=== PATIENT | female | born 1960 | race Caucasian/White ===

== ENCOUNTER 2020-06-27 22:05 | Inpatient (IN) | payer MEDICAID, SELFPAY ==
[2020-06-27 22:11] VITALS: BP 145/70; PULSE 114; RESP 29; TEMP 40.5; O2SAT 90; BMI 56.5
--- NOTE | 2020-06-27 22:25 | ECG_ITS ---
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 Measurements Intervals [place] Rate: 97 P: AL: -1 QRS: 41 QRSD: 114 T: 42 QT: 356 QTc: 453 Interpretive Statements sinus rythm MODERATE INTRAVENTRICULAR CONDUCTION DELAY [110+ ms QRS DURATION] NONSPECIFIC ST & T-WAVE ABNORMALITY ABNORMAL RHYTHM ECG Compared to ECG 07/21/2019 22:06:46 There is no change Electronically Signed On 06-29-2020 18:09:45 CDT by Quyen Joshi M.D. [email or web address]
[2020-06-27] MEDS: propofol 1,000 MG/100 ML INJ 4.8 MG IV (22:37)
[2020-06-27] MEDS: rocuronium 10 mg/mL INJ 5mL 50 MG (22:37)
[2020-06-27 22:38] VITALS: BP 135/74; PULSE 120; RESP 39; O2SAT 91
[2020-06-27 22:39] VITALS: RESP 16
[2020-06-27 22:41] LABS: Basophils # 0.1 10^3/uL (0.0-0.1); Basophils % 0.3 %; Eosinophils % 0.1 %; Hematocrit 45.8 % (37.0-47.0); Hemoglobin 13.4 g/dL (11.5-15.3); Lymphocytes # 1.1 10^3/uL (0.8-4.8); Lymphocytes % 4.3 %; Mean Corpuscular HGB Conc 29.3 g/dL (30.0-36.0); Mean Corpuscular Hemoglobin 27.1 pg (28.0-34.0); Mean Corpuscular Volume 92.5 fL (81-99); Mean Platelet Volume 8.7 fL (7.4-10.4); Monocytes # 0.9 10^3/uL (0.2-0.9); Monocytes % 3.6 %; Neutrophils # 22.13 10^3/uL (1.8-7.7); Neutrophils % 90.8 %; Nucleated Red Blood Cells # 0.1 /100WBC; Nucleated Red Blood Cells % 0.2 %; Platelet Count 193 10^3/cmm (130-400); Red Blood Count 4.95 10^6/uL (4.1-5.3); Red Cell Distribution Width 14.8 % (12.1-15.1); White Blood Count 24.4 10^3/uL (4.0-10.0)
--- NOTE | 2020-06-27 22:42 | XRR_ITS ---
PROCEDURE INFORMATION: Exam: XR Chest, 1 View Exam date and time: 06/27/2020 11:02 PM Age: 60 years old Clinical indication: Dyspnea; Additional info: Post intubation//// nest film possible, PT. Extremely large TECHNIQUE: Imaging protocol: XR of the chest Views: 1 view. COMPARISON: CR Chest 1 [place] [id number] 09/06/2019 10:04 PM FINDINGS: Tubes, catheters and devices: The endotracheal tube is appropriately positioned in the distal thoracic trachea with the tip above the renée. Lungs: There is marked central lung predominant consolidation bilaterally, greater on the right. Pleural space: No pneumothorax. Heart/Mediastinum: Cardiomediastinal contours are obscured. Bones/joints: Unremarkable. XR/XR chest 1V portable [id number] IMPRESSION: 1. Satisfactory endotracheal tube position. 2. Severe diffuse bilateral pulmonary opacity, greater on the right. This finding is nonspecific and may represent pulmonary edema, infection or acute lung injury.
[2020-06-27 22:44] VITALS: BP 94/49; PULSE 100; RESP 17; O2SAT 91
[2020-06-27 22:53] LABS: Alanine Aminotransferase 169 U/L (0-33); Albumin Level 3.8 g/dL (3.5-5.2); Alkaline Phosphatase 116 IU/L (35-105); Anion Gap 19.9 (5-19); Aspartate Amino Transferase 274 U/L (0-32); Blood Urea Nitrogen 25 mg/dL (8-23); Calcium 8.8 mg/dL (8.5-10.5); Carbon Dioxide 26 mmol/L (22-29); Chloride 99 mmol/L (98-107); Globulin 2.7 g/dL (1.3-4.6); Glomerular Filtration Rate 35.2 mL/min (90-130); Glucose 254 mg/dL (65-115); Osmolality Calculated 295 mOsm/kg (285-295); Potassium 4.9 mmol/L (3.5-5.1); Sodium 140 mmol/L (136-145); Total Bilirubin 1.3 mg/dL (0.15-1.2); Total Protein 6.5 g/dL (6.6-8.7)
[2020-06-27 22:56] LABS: Lactic Sepsis W/Reflex 6.2 mmol/L (0.5-2.2); Troponin T (5th) Once 106 ng/L (0-10)
[2020-06-27 22:59] VITALS: BP 114/65; PULSE 90; RESP 22; TEMP 39.4; O2SAT 92
[2020-06-27 23:03] LABS: ABG PH Result 7.27 (7.35-7.45); Base Excess ABG -1.5 mmol/L (-2.0-2.0); Blood Gas Allen Test POS; HCO3 ABG 26.4 mmol/L (22-26); Oxygen Device NRB; PO2 ABG 68.7 mmHg (80.0-100.0); Potassium Level - ABG 4.6 mmol/L (3.5-5.0)
[2020-06-27 23:04] LABS: Blood Gas Sample Type ARTERIAL; HGB O2 Sat 91.4 % (95-100); Ionized Calcium Level - ABG 1.2 mmol/L (1.1-1.4)
[2020-06-27 23:05] LABS: Carboxyhemoglobin 1.3 %THgb (0.4-20.1); Methemoglobin 0.5 % (0.4-1.5)
[2020-06-27 23:15] LABS: Glucose Point of Care 278 mg/dL (70-110)
[2020-06-27 23:37] LABS: SARS Covid-2 Antigen Negative (Negative)
[2020-06-27] MEDS: cefepime 2,000 MG in sodium chloride 0.9% (plus) 50 ML 100 MG IV (23:51)
[2020-06-27 23:56] VITALS: BP 85/62
[2020-06-28] VITALS (71 sets, daily range): BP systolic 67–169; BP diastolic 41–103; PULSE 70–106; RESP 12–28; TEMP 35.9–39.4; O2SAT 92–97
--- NOTE | 2020-06-28 00:09 | PC.NURSE ---
PROPOFOL WAS STARTED AT 10MCG/KG/MIN.
[2020-06-28 00:21] LABS: Reflex Lactate Order REFLEX LACTIC ORDERD
[2020-06-28] MEDS: sodium chloride 0.9% 1,000 ML 999 ML IV ×2 (00:38→02:30)
[2020-06-28 00:59] LABS: ABG PCO2 49.5 mmHg (35-45); ABG PH Result 7.35 (7.35-7.45); Arterial Blood Gas Hematocrit 42.6 % (37-47); Base Excess ABG 0.7 mmol/L (-2.0-2.0); Blood Gas Allen Test Pos; Blood Gas Sample Site Radial, right; Blood Gas Sample Type Arterial; Blood Gas Tidal Volume 0.45; HCO3 ABG 27.1 mmol/L (22-26); Oxygen Device VENT
--- NOTE | 2020-06-28 00:59 | W.ED.SOB ---
HPI - SOB/Dyspnea General: Chief Complaint: Shortness of Breath/Dyspnea Stated Complaint: vtach Time Seen by Provider: 06/27/20 23:05 Source: EMS Mode of arrival: EMS Limitations: altered mental status History of Present Illness: HPI Narrative: The patient is a 60-year-old female custodial resident with a history of atrial fibrillation, COPD, sleep apnea who they called EMS to see with complaints of respiratory distress. They said the patient had been that way for a few hours. According to EMS when they arrived at her bedside she was in V. tach with heart rate in the 190s and was shocked with 200 J and she converted. She was unresponsive right from when the got to her. On arrival to the emergency department she was unresponsive, on a nonrebreather mask, heart rate in the 1 teens and some vomitus on her clothes. She was not having effective respirations. MD elicited complaint: shortness of breath Review of Systems General: Reports: ROS unobtainable due to medical condition and ROS unobtainable due to mental status Physical Exam Const: EXAM LIMITATIONS: altered mental status GENERAL APPEARANCE: in distress and ill appearing NUTRITIONAL APPEARANCE: obese morbidly obese ORIENTATION/CONSCIOUSNESS: Yes patient obtunded HENMT: COMMON NORMALS: normocephalic and atraumatic HEAD & SCALP: normocephalic and atraumatic Resp: EFFORT & INSPECTION: Yes respiratory distress and Yes labored AUSCULTATION: other (Extremely difficult to auscultate due to body habitus) Cardio: COMMON NORMALS: S1 normal heart sound present and S2 normal heart sound present RATE: tachycardic RHYTHM: abnormal rhythm regularly irregular HEART SOUNDS: S1 normal heart sound present and S2 normal heart sound present GI: INSPECTION: Yes central obesity and Yes Abdominal panniculus present Extremity: NARRATIVE EXTREMITY EXAM: Hyperpigmentation of both lower legs Procedures Intubation Time out performed: Yes sedative: Etomidate Mg Given: 50 paralytic: Rocuronium Mg Given: 100 Laryngoscope: other Assist Device Used: other (Video-assisted) ET Tube Size: 7.5 ET Tube Uncuffed: Yes Tube Secured Depth (cm): 23 Tube Secured Location: lips Tube Placement Confirmation: visualized tube passing through cords, equal breath sounds bilaterally and no breath sounds over epigastrium Patient Tolerated Procedure: well Intubation Complications: none Course ED course: Is very sick unfortunate lady presented to the emergency department in respiratory failure and metabolic encephalopathy. She was intubated on arrival and evaluation shows she may be septic, with tachycardia, hypotension, elevated lactic acid, troponins also elevated. Consultations: Consultation #1: Dr. Casey, hospitalist, she kindly accepted the patient to her service. Vital Signs: Vital signs: Vital Signs Temperature 103 F H 06/27/20 22:59 Pulse Rate 91 06/28/20 01:15 Respiratory Rate 26 H 06/28/20 01:15 Blood Pressure 76/55 06/28/20 01:15 Pulse Oximetry 94 06/28/20 01:15 MDM - SOB/Dyspnea MDM Narrative: Medical decision making narrative: 61-year-old custodial resident presented to the emergency department via EMS in respiratory failure. And emergent intubation was done because of ineffective respiration and significant hypoxia on blood gas. She also had some vomitus on her clothes which was concerning for aspiration. She apparently was in V. tach when EMS arrived at her bedside and needed to be defibrillated. She has been in atrial fibrillation throughout her ED stay. She was given a dose of cefepime here in the emergency department and started on a Levophed drip for hypotension and also a propofol drip for sedation following the mechanical ventilation and intubation. Medical Records: Attestation: I reviewed the patient's medical records. Lab Data: Attestation: I reviewed the patient's lab results. Labs: Lab Results 06/27/20 06/27/20 06/27/20 Range/Units 22:10 22:10 22:10 WBC 24.4 H (4.0-10.0) 10^3/ uL RBC 4.95 (4.1-5.3) 10^6/u L Hgb 13.4 (11.5-15.3) g/dL Hct 45.8 (37.0-47.0) % MCV 92.5 (81-99) fL MCH 27.1 L (28.0-34.0) pg MCHC 29.3 L (30.0-36.0) g/dL RDW 14.8 (12.1-15.1) % Plt Count 193 (130-400) 10^3/c mm MPV 8.7 (7.4-10.4) fL Neut % (Auto) 90.8 % Lymph % (Auto) 4.3 % Weber % (Auto) 3.6 % Eos % (Auto) 0.1 % Baso % (Auto) 0.3 % Neut # (Auto) 22.13 H (1.8-7.7) 10^3/u L Lymph # (Auto) 1.1 (0.8-4.8) 10^3/u L Weber # (Auto) 0.9 (0.2-0.9) 10^3/u L Eos # (Auto) 0.0 (0.0-0.8) 10^3/u L Baso # (Auto) 0.1 (0.0-0.1) 10^3/u L Nucleated RBC % (a uto) 0.2 % Nucleated RBCs # 0.1 /100WBC Specimen Type Sample Site ABG pH (7.35-7.45) ABG pCO2 (35-45) mmHg ABG pO2 (80.0-100.0) mmH g ABG HCO3 (22-26) mmol/L ABG Base Excess (-2.0-2.0) mmol/ L Jalen Test Hematocrit (37-47) % Hgb O2 Saturation (95-100) % Carboxyhemoglobin (0.4-20.1) %THgb Methemoglobin (0.4-1.5) % Total Hemoglobin (12-16) g/dL Ionized Calcium (1.1-1.4) mmol/L O2 Delivery Device O2 Liters/Min % FiO2 % Tidal Volume PEEP cmH20 Specimen Drawn By Hi Ranger Operator ID Sodium 140 (136-145) mmol/L Potassium 4.9 (3.5-5.1) mmol/L Chloride 99 (98-107) mmol/L Carbon Dioxide 26 (22-29) mmol/L Anion Gap 19.9 H (5-19) BUN 25 H (8-23) mg/dL Creatinine 1.5 H (0.5-0.9) mg/dL GFR Calculation 35.2 L (90-130) mL/min Glucose 254 H (65-115) mg/dL POC Glucose (70-110) mg/dL Calculated Osmolal ity 295 (285-295) mOsm/k g Lactic Acid 6.2 H* (0.5-2.2) mmol/L Lactic Acid (Sepsi s) (0.5-2.2) mmol/L Calcium 8.8 (8.5-10.5) mg/dL Total Bilirubin 1.3 H (0.15-1.2) mg/dL AST 274 H (0-32) U/L ALT 169 H (0-33) U/L Alkaline Phosphata se 116 H (35-105) IU/L Troponin T Gen 5 n g/L (0-10) ng/L NT-Pro-B Natriuret Pep (0-125) pg/mL Total Protein 6.5 L (6.6-8.7) g/dL Albumin 3.8 (3.5-5.2) g/dL Globulin 2.7 (1.3-4.6) g/dL Procalcitonin (0-0.5) ng/mL SARS-CoV-2 Ag (Rap id) (Negative) 06/27/20 06/27/20 06/27/20 Range/Units 22:10 22:10 22:16 WBC (4.0-10.0) 10^3/ uL RBC (4.1-5.3) 10^6/u L Hgb (11.5-15.3) g/dL Hct (37.0-47.0) % MCV (81-99) fL MCH (28.0-34.0) pg MCHC (30.0-36.0) g/dL RDW (12.1-15.1) % Plt Count (130-400) 10^3/c mm MPV (7.4-10.4) fL Neut % (Auto) % Lymph % (Auto) % Weber % (Auto) % Eos % (Auto) % Baso % (Auto) % Neut # (Auto) (1.8-7.7) 10^3/u L Lymph # (Auto) (0.8-4.8) 10^3/u L Weber # (Auto) (0.2-0.9) 10^3/u L Eos # (Auto) (0.0-0.8) 10^3/u L Baso # (Auto) (0.0-0.1) 10^3/u L Nucleated RBC % (a uto) % Nucleated RBCs # /100WBC Specimen Type Sample Site ABG pH (7.35-7.45) ABG pCO2 (35-45) mmHg ABG pO2 (80.0-100.0) mmH g ABG HCO3 (22-26) mmol/L ABG Base Excess (-2.0-2.0) mmol/ L Jalen Test Hematocrit (37-47) % Hgb O2 Saturation (95-100) % Carboxyhemoglobin (0.4-20.1) %THgb Methemoglobin (0.4-1.5) % Total Hemoglobin (12-16) g/dL Ionized Calcium (1.1-1.4) mmol/L O2 Delivery Device O2 Liters/Min % FiO2 % Tidal Volume PEEP cmH20 Specimen Drawn By Hi Ranger Operator ID Sodium (136-145) mmol/L Potassium (3.5-5.1) mmol/L Chloride (98-107) mmol/L Carbon Dioxide (22-29) mmol/L Anion Gap (5-19) BUN (8-23) mg/dL Creatinine (0.5-0.9) mg/dL GFR Calculation (90-130) mL/min Glucose (65-115) mg/dL POC Glucose 278 (70-110) mg/dL Calculated Osmolal ity (285-295) mOsm/k g Lactic Acid (0.5-2.2) mmol/L Lactic Acid (Sepsi s) (0.5-2.2) mmol/L Calcium (8.5-10.5) mg/dL Total Bilirubin (0.15-1.2) mg/dL AST (0-32) U/L ALT (0-33) U/L Alkaline Phosphata se (35-105) IU/L Troponin T Gen 5 n g/L 106 H* (0-10) ng/L NT-Pro-B Natriuret Pep 2718 H (0-125) pg/mL Total Protein (6.6-8.7) g/dL Albumin (3.5-5.2) g/dL Globulin (1.3-4.6) g/dL Procalcitonin 0.83 H (0-0.5) ng/mL SARS-CoV-2 Ag (Rap id) (Negative) 06/27/20 06/27/20 06/28/20 Range/Units 22:22 23:12 00:54 WBC (4.0-10.0) 10^3/ uL RBC (4.1-5.3) 10^6/u L Hgb (11.5-15.3) g/dL Hct (37.0-47.0) % MCV (81-99) fL MCH (28.0-34.0) pg MCHC (30.0-36.0) g/dL RDW (12.1-15.1) % Plt Count (130-400) 10^3/c mm MPV (7.4-10.4) fL Neut % (Auto) % Lymph % (Auto) % Weber % (Auto) % Eos % (Auto) % Baso % (Auto) % Neut # (Auto) (1.8-7.7) 10^3/u L Lymph # (Auto) (0.8-4.8) 10^3/u L Weber # (Auto) (0.2-0.9) 10^3/u L Eos # (Auto) (0.0-0.8) 10^3/u L Baso # (Auto) (0.0-0.1) 10^3/u L Nucleated RBC % (a uto) % Nucleated RBCs # /100WBC Specimen Type Arterial Arterial Sample Site Radial,right Radial, right ABG pH 7.27 L 7.35 (7.35-7.45) ABG pCO2 57.0 H 49.5 H (35-45) mmHg ABG pO2 68.7 L 103.0 H (80.0-100.0) mmH g ABG HCO3 26.4 H 27.1 H (22-26) mmol/L ABG Base Excess -1.5 0.7 (-2.0-2.0) mmol/ L Jalen Test Pos Pos Hematocrit 43.0 42.6 (37-47) % Hgb O2 Saturation 91.4 L (95-100) % Carboxyhemoglobin 1.3 (0.4-20.1) %THgb Methemoglobin 0.5 (0.4-1.5) % Total Hemoglobin 14.0 (12-16) g/dL Ionized Calcium 1.2 (1.1-1.4) mmol/L O2 Delivery Device Nrb Vent O2 Liters/Min 15.0 % FiO2 100.0 % Tidal Volume 0.45 PEEP 10.0 cmH20 Specimen Drawn By Ana Hi Ranger Operator ID [place] Sodium 142.0 (136-145) mmol/L Potassium 4.6 (3.5-5.1) mmol/L Chloride (98-107) mmol/L Carbon Dioxide (22-29) mmol/L Anion Gap (5-19) BUN (8-23) mg/dL Creatinine (0.5-0.9) mg/dL GFR Calculation (90-130) mL/min Glucose 245.0 H (65-115) mg/dL POC Glucose (70-110) mg/dL Calculated Osmolal ity (285-295) mOsm/k g Lactic Acid (0.5-2.2) mmol/L Lactic Acid (Sepsi s) (0.5-2.2) mmol/L Calcium (8.5-10.5) mg/dL Total Bilirubin (0.15-1.2) mg/dL AST (0-32) U/L ALT (0-33) U/L Alkaline Phosphata se (35-105) IU/L Troponin T Gen 5 n g/L (0-10) ng/L NT-Pro-B Natriuret Pep (0-125) pg/mL Total Protein (6.6-8.7) g/dL Albumin (3.5-5.2) g/dL Globulin (1.3-4.6) g/dL Procalcitonin (0-0.5) ng/mL SARS-CoV-2 Ag (Rap id) Negative (Negative) 06/28/20 06/28/20 06/28/20 Range/Units 00:58 00:58 00:58 WBC (4.0-10.0) 10^3/ uL RBC (4.1-5.3) 10^6/u L Hgb (11.5-15.3) g/dL Hct (37.0-47.0) % MCV (81-99) fL MCH (28.0-34.0) pg MCHC (30.0-36.0) g/dL RDW (12.1-15.1) % Plt Count (130-400) 10^3/c mm MPV (7.4-10.4) fL Neut % (Auto) % Lymph % (Auto) % Weber % (Auto) % Eos % (Auto) % Baso % (Auto) % Neut # (Auto) (1.8-7.7) 10^3/u L Lymph # (Auto) (0.8-4.8) 10^3/u L Weber # (Auto) (0.2-0.9) 10^3/u L Eos # (Auto) (0.0-0.8) 10^3/u L Baso # (Auto) (0.0-0.1) 10^3/u L Nucleated RBC % (a uto) % Nucleated RBCs # /100WBC Specimen Type Sample Site ABG pH (7.35-7.45) ABG pCO2 (35-45) mmHg ABG pO2 (80.0-100.0) mmH g ABG HCO3 (22-26) mmol/L ABG Base Excess (-2.0-2.0) mmol/ L Jalen Test Hematocrit (37-47) % Hgb O2 Saturation (95-100) % Carboxyhemoglobin (0.4-20.1) %THgb Methemoglobin (0.4-1.5) % Total Hemoglobin (12-16) g/dL Ionized Calcium (1.1-1.4) mmol/L O2 Delivery Device O2 Liters/Min % FiO2 % Tidal Volume PEEP cmH20 Specimen Drawn By Hi Ranger Operator ID Sodium (136-145) mmol/L Potassium (3.5-5.1) mmol/L Chloride (98-107) mmol/L Carbon Dioxide (22-29) mmol/L Anion Gap (5-19) BUN (8-23) mg/dL Creatinine (0.5-0.9) mg/dL GFR Calculation (90-130) mL/min Glucose (65-115) mg/dL POC Glucose (70-110) mg/dL Calculated Osmolal ity (285-295) mOsm/k g Lactic Acid Cancelled (0.5-2.2) mmol/L Lactic Acid (Sepsi s) 3.7 H (0.5-2.2) mmol/L Calcium (8.5-10.5) mg/dL Total Bilirubin (0.15-1.2) mg/dL AST (0-32) U/L ALT (0-33) U/L Alkaline Phosphata se (35-105) IU/L Troponin T Gen 5 n g/L 239 H* (0-10) ng/L NT-Pro-B Natriuret Pep (0-125) pg/mL Total Protein (6.6-8.7) g/dL Albumin (3.5-5.2) g/dL Globulin (1.3-4.6) g/dL Procalcitonin (0-0.5) ng/mL SARS-CoV-2 Ag (Rap id) (Negative) Imaging Data^: CXR: Radiologist's impression: [address] [address] XRay Report Signed Patient: Sarah Merrill #: [id number] : 8Acct#:[id number] Age/Sex: 60 / FADM Date: 06/27/20 [facility] Attending Dr: Ordering Provider/Ordering MD: Sandor Diaz MD, [facility] [place] of Service: 06/27/20 Procedure(s): XR chest 1V portable [id number] Accession Number(s): [id number] Report Number: [id number] PROCEDURE INFORMATION: Exam: XR Chest, 1 View Exam date and time: 06/27/2020 11:02 PM Age: 60 years old Clinical indication: Dyspnea; Additional info: Post intubation//// nest film possible, PT. Extremely large TECHNIQUE: Imaging protocol: XR of the chest Views: 1 view. COMPARISON: CR Chest 1 [place] [id number] 09/06/2019 10:04 PM FINDINGS: Tubes, catheters and devices: The endotracheal tube is appropriately positioned in the distal thoracic trachea with the tip above the renée. Lungs: There is marked central lung predominant consolidation bilaterally, greater on the right. Pleural space: No pneumothorax. Heart/Mediastinum: Cardiomediastinal contours are obscured. Bones/joints: Unremarkable. XR/XR chest 1V portable [id number] IMPRESSION: 1. Satisfactory endotracheal tube position. 2. Severe diffuse bilateral pulmonary opacity, greater on the right. This finding is nonspecific and may represent pulmonary edema, infection or acute lung injury. Dictated By:Darrel Nunez MD Signed By:Darrel Nunez MDSigned Date/Time:06/27/202315 DD/ 14 EKG Data^: EKG 1: Attestation: I personally reviewed and interpreted this EKG as follows: EKG Interpretation Date: 06/27/20 EKG interpretation time: 22:46 Prior EKG tracings: not available for review Interpretation: Atrial fibrillation. Heart rate 97 bpm. Intraventricular conduction delay No STEMI Critical Care Time Critical Care Time: Critical Care Time: Yes Total Critical Care Time: 90 Attestation: This case had a high probability of a clinically significant, sudden, or life threatening deterioration of this patient's condition which required my full and direct attention, intervention and personal management. Discharge Plan Discharge Patient Disposition: Admitted As Inpatient Clinical Impression: Acute hypoxemic respiratory failure, Acute metabolic encephalopathy, Elevated troponin Sepsis Qualifiers: Sepsis type: sepsis due to unspecified organism Sepsis acute organ dysfunction status: with acute organ dysfunction Severe sepsis acute organ dysfunction type: acute respiratory failure Acute respiratory failure type: with hypoxia Severe sepsis shock status: without septic shock Qualified Code(s): A41.9 - Sepsis, unspecified organism Condition: Stable Coding Level of Care Code ED Mid Level Practitioner for Chg Fwd Exam Detailed
[2020-06-28 01:17] LABS: Procalcitonin 0.83 ng/mL (0-0.5)
[2020-06-28 01:19] LABS: NT Pro B Type Natriuretic Pept 2718 pg/mL (0-125)
[2020-06-28 01:22] LABS: Lactic Acid level (Lactate) 3.7 mmol/L (0.5-2.2)
[2020-06-28 01:24] LABS: Troponin T (5th) Once 239 ng/L (0-10)
--- NOTE | 2020-06-28 01:25 | PC.NURSE ---
Notified Dr. Casey of critical repeat troponin. Value is 239. MD Casey aware.
--- NOTE | 2020-06-28 04:07 | ECG_ITS ---
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 Measurements Intervals [place] Rate: 72 P: 42 NM: 212 QRS: 35 QRSD: 96 T: 29 QT: 411 QTc: 453 Interpretive Statements SINUS RHYTHM WITH FIRST DEGREE AV BLOCK NONSPECIFIC T-WAVE ABNORMALITY WARNING: DATA QUALITY MAY AFFECT INTERPRETATION Compared to ECG 06/27/2020 22:46:29 First degree AV block now present Atrial fibrillation no longer present Intraventricular conduction delay no longer present T-wave abnormality still present Electronically Signed On 06-29-2020 18:10:04 CDT by Quyen Joshi M.D. [id number]
--- NOTE | 2020-06-28 04:07 | XRR_ITS ---
PROCEDURE INFORMATION: Exam: XR Chest, 1 View Exam date and time: 06/28/2020 4:13 AM Age: 60 years old Clinical indication: Device placement; Ett placement (vent status) TECHNIQUE: Imaging protocol: XR of the chest Views: 1 view. COMPARISON: CR XR chest 1V portable [id number] 06/27/2020 10:43 PM FINDINGS: Tubes, catheters and devices: The endotracheal tube is appropriately positioned in the distal thoracic trachea with the tip above the renée. The nasogastric tube is positioned in the stomach, well beyond the diaphragmatic hiatus. The tip is not imaged. Lungs: Dense bilateral central lung predominant opacity is stable bilaterally. Pleural space: No pneumothorax. Heart/Mediastinum: The cardiac silhouette remains obscured. Bones/joints: Unremarkable. XR/XR chest 1V portable [id number] IMPRESSION: 1. No change compared to 06/27/2020. 2. NG tube is in the stomach. The tip is not imaged.
--- NOTE | 2020-06-28 04:07 | PM.HP ---
Providers/Chief Complaint Admitting Physician: Massiel Casey MD Primary Care Provider: Elmer Shelton DO Chief Complaint: vtach History of Present Illness Sarah Merrill is a 60 year old female who presented from [facility] after complaints of respiratory distress. She has multiple comorbid medical conditions as will be described. According to EMS patient was in ventricular tachycardia with a heart rate in the 190s. She was defibrillated in the field She was unresponsive on arrival here. She had had some vomitus at some point as noted on her clothing. She also had stooled on herself. She was intubated shortly after arrival here. Initial EKG here showed atrial fibrillation with nonspecific changes. Intraventricular conduction delay was noted. She has not had any recurrent V. tach and has not received any medications that would necessarily keep her from having such. Her temperature here was initially 105. She received a gram of Tylenol with improvement. Rapid COVID screening was negative. She received some antibiotics and fluids. Lactic acid was elevated at 6.2. Patient is morbidly obese and quite rotated. Chest x-ray is difficult to interpret. She did have some elevation in liver enzymes. Body habitus limits further evaluation. She does have known COPD Review of Systems General: Reports: ROS unobtainable due to endotracheal tube Medications/Allergies Allergies Allergy/AdvReac Type Severity Reaction Status Date / Time amoxicillin Allergy Unknown Verified 06/27/20 22:22 metoclopramide [From Reglan] Allergy Unknown Verified 06/27/20 22:22 nitroglycerin Allergy Unknown Verified 06/27/20 22:22 PFSH Acute PFSH: Medical History (Updated 06/28/20 @ 04:49 by Massiel Casey MD) Chronic atrial fibrillation Chronic diastolic CHF (congestive heart failure) COPD (chronic obstructive pulmonary disease) Depression with anxiety GERD (gastroesophageal reflux disease) History of GI bleed History of seizures Hypertension Morbid obesity with BMI of 60.0-69.9, adult Obesity hypoventilation syndrome Obstructive sleep apnea Osteoarthritis Restless leg syndrome Vitamin D deficiency Surgical History (Updated 06/28/20 @ 04:33 by Massiel Casey MD) History of appendectomy History of hip surgery Bilateral History of hysterectomy History of tonsillectomy Presence of inferior vena cava filter Family History (Updated 06/28/20 @ 04:33 by Massiel Casey MD) Other Diabetes Social History (Updated 06/28/20 @ 04:33 by Massiel Casey MD) Smoking and tobacco status: former smoker Alcohol intake: never Substance/Drug Use: never Housing: [facility] Vitals/I&O/Wt Last Vital Signs Temp 98.9 F 06/28/20 03:45 Pulse 79 06/28/20 03:45 Resp 17 06/28/20 03:25 BP 129/78 06/28/20 03:45 Pulse Ox 96 06/28/20 03:45 06/27/20 06/27/20 06/28/20 14:59 22:59 06:59 Intake Total 59.235 / 59.235 Balance 59.235 / 59.235 Weight last 48 hrs Weight 158.757 kg Physical Exam Const: OTHER: Sedated, on ventilator, morbidly obese, rotated in the bed HENMT: OTHER: Normocephalic Eye: OTHER: Pupils are equal bilaterally Neck/C-Spine: OTHER: Large but supple Resp: OTHER: Some wheezing noted bilaterally, breath sounds are decreased at both bases Cardio: OTHER: Irregular rhythm, unable to palpate apical impulse, due to current rotation in bed, unable to assess JVD adequately, capillary refill 2 to 3 seconds GI: OTHER: Morbidly obese, soft, decreased bowel sounds : OTHER: Normal external genitalia, skin under pannus and in suprapubic area with only minimal erythema, no excoriations in the visible portions I can see. Fall right portion is not visible to me at this time Extremity: NARRATIVE EXTREMITY EXAM: Patient with chronic stasis changes to the lower extremities but without gross pitting edema currently Neuro: OTHER: Patient is sedated and on ventilator Skin: NARRATIVE SKIN EXAM: Skin is dry, cool to touch, not able to see any acute appearing abnormalities though she does have some chronic skin changes. Posterior portion of her body has not been visualized by me due to challenges with current bed Sepsis: Is patient septic: Yes Focused sepsis exam performed: Yes Focused sepsis exam: Afebrile, pulse is in the 80s, blood pressure on Levophed is around 90 systolic Patient no longer tachycardic, breath sounds are clear on ventilator, she has chronic skin changes to both lower extremities. Some slight mottling of the feet but capillary refill is around 2 to 3 seconds. Date exam was performed: 06/28/20 Time exam was performed: 00:15 Data : 06/27/20 22:10 06/27/20 22:10 Micro: Microbiology 06/27/20 22:10 Blood Culture - Preliminary Blood SPECIMEN COLLECTED 06/27/20 22:10 Blood Culture - Preliminary Blood SPECIMEN COLLECTED A&P Assessment and plan (1) Acute on chronic respiratory failure with hypoxia and hypercapnia: Status: Acute (2) Wide-complex tachycardia: I do not have strips from the field. I am wondering if she was not in A. fib with aberrancy. She is not had any recurrent arrhythmias here and has not received any focused treatment beyond fluids and antibiotics. She is known to have chronic atrial fibrillation. Was described by EMS as being V. tach. Status: Acute (3) Sepsis: With hypotension, tachycardia, fever, elevated white blood count and lactic acidosis. Some abnormalities could be attributable to acute event leading to defibrillation in the field. No definitive foci of acute infection identified but covering empirically for pulmonary and other source of infection. Await urine Status: Acute Qualifiers: Acute respiratory failure type: with hypoxia Sepsis acute organ dysfunction status: with acute organ dysfunction Sepsis type: sepsis due to unspecified organism Severe sepsis acute organ dysfunction type: acute respiratory failure Severe sepsis shock status: without septic shock Qualified Code(s): A41.9 - Sepsis, unspecified organism; R65.20 - Severe sepsis without septic shock; J96.01 - Acute respiratory failure with hypoxia (4) Elevated troponin: Was defibrillated in the field so significance of this value is unclear presently Status: Acute (5) Chronic anticoagulation: On Eliquis Status: Chronic (6) Chronic atrial fibrillation: Status: Chronic (7) Chronic diastolic CHF (congestive heart failure): Cannot currently rule out an acute component Status: Chronic (8) COPD (chronic obstructive pulmonary disease): Strongly suspect an acute component Status: Chronic Qualifiers: COPD type: COPD with acute exacerbation Qualified Code(s): J44.1 - Chronic obstructive pulmonary disease with (acute) exacerbation (9) Obstructive sleep apnea: Suspected contributing factor given initial ABG Status: Chronic (10) Obesity hypoventilation syndrome: Probable contributing factor to respiratory status Status: Chronic (11) Morbid obesity with BMI of 60.0-69.9, adult: Status: Chronic Additional A&P Information Mild elevation in liver enzymes and glucose which I suspect is secondary to acute events though will need to recheck as certainly at risk for fatty liver and development of diabetes Inpatient admission Continue ventilatory support NG tube to low intermittent suction presently, if remains ventilated will need to start feeds Patterson catheter for close monitoring of I's and O's Have ordered a bariatric bed When she is in a better bed, need to repeat chest x-ray to see if we can get a better image Breathing treatments We will give some hydrocortisone at a lower than usual dose secondary to elevated blood sugar Serial cardiac enzymes 30 cc/kg bolus has been started. She received 2 L in the emergency room with fluids now running at 150 cc an hour, with additional boluses to be given as respiratory status tolerates Continue current pressors weaning as able Broad-spectrum antibiotics. She was started on cefepime in the emergency room. Given amoxicillin allergy and intolerance of that antibiotic I am going to go on and continue it for the time being and will add vancomycin. She does have healthcare exposure. I have requested to see if we can get the strips from EMS of the rhythm that was defibrillated Telemetry monitoring for recurrent shockable rhythms Check magnesium, potassium acceptable level I suspect that at some point she will need some diuresis but with persistent hypotension requiring fluids currently Continue home Eliquis which will provide DVT prophylaxis Once other home medicines are clarified will address as appropriate GI prophylaxis Insulin as needed, check hemoglobin A1c Will need to discuss with family when they are available. They had called earlier prior to my being directly involved in care. Attempts to reach now have not been successful. Supportive care otherwise Full code Attestations Medical Necessity Statement*: Anticipated stay greater than 2 midnights in a patient presenting with issues as noted above. At high risk of rapid clinical decline up to and including the possibility of Coding Level of Care Code Acute [facility] for [facility] Fwd Diagnoses Acute on chronic respiratory failure with hypoxia and hypercapnia J96.21; J96.22 Wide-complex tachycardia I47.2 Sepsis A41.9; R65.20; J96.01 Acute respiratory failure type: with hypoxia Sepsis acute organ dysfunction status: with acute organ dysfunction Sepsis type: sepsis due to unspecified organism Severe sepsis acute organ dysfunction type: acute respiratory failure Severe sepsis shock status: without septic shock Elevated troponin R79.89 Chronic anticoagulation Z79.01 Chronic atrial fibrillation I48.20 Chronic diastolic CHF (congestive heart failure) I50.32 COPD (chronic obstructive pulmonary disease) J44.1 COPD type: COPD with acute exacerbation Obstructive sleep apnea G47.33 Obesity hypoventilation syndrome E66.2 Morbid obesity with BMI of 60.0-69.9, adult E66.01; Z68.44
[2020-06-28 04:51] LABS: ABG PCO2 46.1 mmHg (35-45); ABG PH Result 7.36 (7.35-7.45); Arterial Blood Gas Hematocrit 43.3 % (37-47); Base Excess ABG -0.3 mmol/L (-2.0-2.0); Blood Gas Allen Test Pos; Blood Gas Sample Site Radial, right; Blood Gas Sample Type Arterial; Blood Gas Tidal Volume 0.45; HCO3 ABG 25.7 mmol/L (22-26); Oxygen Device VENT
--- NOTE | 2020-06-28 04:56 | PC.PHAR ---
Pharmacokinetic dosing service Date: 06/28/20 Time: 0500 Objective: Patient: Sarah Merrill Floor: ICU-3 Age: 60 yo Serum creatinine: 1.5 mg/dL Height: 66.0 Inches Weight (kg): 158.757 Diagnosis: Relevant medical/social history: Cultures and sensitivities: Other labs: Assessment: IBW (kg): 59.30 Dosing wt(kg): 158.757 Estimated Creatinine clearance (ml/min): 36.4 CRCL method: Cockcroft and Gault using ibw(default). Drug selected: Vancomycin Loading dose (mg): 0 Vd (liters): 142.9 (factor used: 0.9 L/kg) Tera (hr-1): 0.035 Half life (hrs): 19.80 Recommended dose: 2500 mg Interval: 24 hrs Infusion time (hrs): 1.5 Predicted peak (mcg/mL): 30.0 Predicted trough (mcg/mL): 13.65 Total body weight is being used for vancomycin dosing. Renal function is stable [ ] /unstable [ ] Recommendations: Give Vancomycin 2500 mg q 24 hrs with an expected Cpeak of 30.0 mcg/ml and an expected Ctrough of 13.65 mcg/ml Renal dosing of other antibiotics (review renal dosing of other medications and list guidelines here): Thank you for the consult, will continue to follow. Signature: Jenise Stubbs [facility]
[2020-06-28] MEDS: famotidine 20 mg/2 mL INJ IVP ×2 (05:32→15:54)
[2020-06-28 05:34] LABS: Basophils # 0.1 10^3/uL (0.0-0.1); Basophils % 0.4 %; Eosinophils % 0.1 %; Hematocrit 46.1 % (37.0-47.0); Hemoglobin 13.3 g/dL (11.5-15.3); Lymphocytes # 2.5 10^3/uL (0.8-4.8); Lymphocytes % 14.7 %; Mean Corpuscular HGB Conc 28.9 g/dL (30.0-36.0); Mean Corpuscular Hemoglobin 26.8 pg (28.0-34.0); Mean Corpuscular Volume 92.8 fL (81-99); Monocytes # 1.1 10^3/uL (0.2-0.9); Monocytes % 6.7 %; Neutrophils # 13.17 10^3/uL (1.8-7.7); Nucleated Red Blood Cells # 0.2 /100WBC; Nucleated Red Blood Cells % 0.9 %; Platelet Count 144 10^3/cmm (130-400); Red Blood Count 4.97 10^6/uL (4.1-5.3); Red Cell Distribution Width 15.2 % (12.1-15.1); White Blood Count 17.1 10^3/uL (4.0-10.0)
[2020-06-28] MEDS: sodium chloride 0.9% 1,000 ML 150 ML IV ×2 (05:35→15:55)
[2020-06-28] MEDS: hydrocortisone 100 mg/2 mL SDV 50 MG IVP (05:35)
[2020-06-28 05:54] LABS: Alanine Aminotransferase 261 U/L (0-33); Albumin Level 3.4 g/dL (3.5-5.2); Alkaline Phosphatase 107 IU/L (35-105); Anion Gap 17.3 (5-19); Aspartate Amino Transferase 497 U/L (0-32); Blood Urea Nitrogen 28 mg/dL (8-23); Calcium 8.6 mg/dL (8.5-10.5); Carbon Dioxide 23 mmol/L (22-29); Chloride 101 mmol/L (98-107); Creatinine Clr Calc Pharmacy 45.6194; Globulin 2.7 g/dL (1.3-4.6); Glomerular Filtration Rate 25.2 mL/min (90-130); Glucose 110 mg/dL (65-115); Magnesium 2.1 mg/dL (1.7-2.3); Osmolality Calculated 282 mOsm/kg (285-295); Potassium 4.3 mmol/L (3.5-5.1); Sodium 137 mmol/L (136-145); Total Bilirubin 1.6 mg/dL (0.15-1.2); Total Protein 6.1 g/dL (6.6-8.7)
[2020-06-28 06:01] LABS: Troponin(5th) Baseline 279 ng/L (0-10)
[2020-06-28 06:02] LABS: Urine Color Yellow (Yellow); pH Urine 8 (5-7)
[2020-06-28 06:03] LABS: Add Urine Microscopic? YES; Bilirubin Urine Neg (NEGATIVE); Blood Urine 3+ (Negative); Glucose Urine UA Norm (Normal); Ketones Urine 1+ (Negative); Leukocyte Esterase Urine 2+ (Negative); Nitrate Urine Negative (Negative); Protein Urine 2+ (Negative); Specific Gravity, Urine 1.005 (1.005-1.030); Sulfosalicylic Acid Urine Positive (Negative); Urobilinogen Urine 1 mg/dL (Negative)
--- NOTE | 2020-06-28 06:03 | ECG_ITS ---
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 Measurements Intervals [place] Rate: 71 P: 74 GA: 212 QRS: 33 QRSD: 97 T: 30 QT: 439 QTc: 480 Interpretive Statements SINUS RHYTHM WITH FIRST DEGREE AV BLOCK WITH OCCASIONAL SUPRAVENTRICULAR PREMATURE COMPLEXES ST DEVIATION AND MODERATE T-WAVE ABNORMALITY, CONSIDER ANTERIOR ISCHEMIA [-0.1+ mV T WAVE IN V3/V4] WARNING: DATA QUALITY MAY AFFECT INTERPRETATION Compared to ECG 06/28/2020 04:57:01 Possible ischemia now present T-wave abnormality still present Electronically Signed On 06-29-2020 18:14:08 CDT by Quyen Joshi M.D. [id number]
[2020-06-28 06:06] LABS: RBC Urine TOO NUMEROUS TO CNT /hpf (0-2); WBC Urine 25-40 /hpf (0-5)
[2020-06-28 06:07] LABS: Add Urine Culture? Yes; Bacteria Urine TRACE; Squamous Epithelial Cell Urine 0-4 (0-5)
[2020-06-28 06:16] LABS: Estmated Average Glucose 111; Hemoglobin A1C 5.5 % (4.0-6.0)
--- NOTE | 2020-06-28 07:52 | USCV_ITS ---
Sarah Merrill Age: 60 Gender: F : 1960 Exam Date: 06/28/2020 08:43 Ordering Phys: Milind Herr MD Technologist: Kimberly Cevallos Exam Location: [facility] [place] Indication: Shortness of breath BP: 142 / 84 HR: Rhythm: Sinus Technical Quality: Very technically difficult study MEASUREMENTS (Male / Female) Normal Values 2D ECHO LV Chamber Size 4.1 cm RV Chamber Size 3.1 cm LVOT Diameter 1.9 cm LA Diameter 3.2 cm LA Width 2.8 cm LA Height 4.8 cm RA Width 3.0 cm RA Height 4.1 cm Aorta at Sinotubular Diameter 2.8 cm DOPPLER Right Atrial Pressure 15.0 mmHg FINDINGS Left Ventricle Normal left ventricular cavity size. Left ventricular ejection fraction is estimated at 55 %. Right Ventricle The right ventricle is normal in size and function. Right Atrium The right atrium is normal in size. Left Atrium The left atrium is normal in size. Mitral Valve Structurally normal mitral valve without significant stenosis or prolapse. There is no mitral regurgitation. Aortic Valve Aortic valve sclerosis without stenosis but trace regurgitation. Tricuspid Valve Mild tricuspid valve regurgitation. Pulmonic Valve Not well visualized Pericardium Normal pericardium without effusion. Aorta Normal ascending aorta dimension. CONCLUSIONS Please note that this is a limited study due to suboptimal images therefore full interpretation is not possible 1-Normal left ventricular cavity size. Left ventricular ejection fraction is estimated at 55 %. 2-Aortic valve sclerosis without stenosis but trace regurgitation. 3-There is no pericardial effusion. 4-Right atrial pressure is around 5 mm of mercury. 5-Due to technical difficult study and suboptimal images comparison with the prior exam would be hard however it appeared to me there is no significant difference Quyen Joshi MD (Electronically Signed) Final Date: 28 June 2020 14:24 S
[2020-06-28 08:05] LABS: Troponin 5 2HR Delta -27.7 ABS# (0-10)
[2020-06-28 08:07] LABS: Troponin 5 2HR 251.3 ng/L (0-10)
[2020-06-28] MEDS: docusate sodium 100 mg Capsule PO ×2 (08:26→17:15)
[2020-06-28] MEDS: apixaban 5 mg Tablet PO ×2 (08:26→17:15)
[2020-06-28] MEDS: propofol 1,000 MG/100 ML INJ 9.5 MG IV ×2 (08:26→16:15)
[2020-06-28] MEDS: ipratropium-albuterol 3 mL Neb INHALATION ×3 (08:38→20:06)
[2020-06-28 08:44] LABS: Glucose Point of Care 114 mg/dL (70-110)
[2020-06-28 08:52] LABS: C Reactive Protein 109.9 mg/L (0.0-4.9)
--- NOTE | 2020-06-28 10:03 | ECG_ITS ---
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 Measurements Intervals [place] Rate: 92 P: 28 AR: 165 QRS: 38 QRSD: 109 T: 31 QT: 391 QTc: 484 Interpretive Statements SINUS RHYTHM NONSPECIFIC ST & T-WAVE ABNORMALITY Compared to ECG 06/28/2020 06:13:19 First degree AV block no longer present Possible ischemia no longer present T-wave abnormality still present Electronically Signed On 06-29-2020 18:14:18 CDT by Quyen Joshi M.D. [id number]
[2020-06-28] MEDS: aspirin 81 mg EC Tablet PO (11:41)
[2020-06-28] MEDS: atorvastatin 40 mg Tablet PO (11:41)
[2020-06-28 11:45] LABS: Troponin 5 6HR 196.4 ng/L (0-10)
--- NOTE | 2020-06-28 11:52 | PC.NURSE ---
Received critical results from lab. Messaged Dr. Herr to let him know that troponin was critical but trending down.
--- NOTE | 2020-06-28 12:03 | PM.PN ---
Subjective Subjective: Interval history: This is a 60-year-old female, that is well-known to me, she has had multiple hospital admissions, at least 3 in the last year for acute on chronic hypoxic hypercarbic respiratory failure The story that I got from the detention, [facility] this morning, is the patient is noncompliant with the BiPAP machine, she is Bentley dependent, she has severe obstructive sleep apnea, severe apnea obesity hypoventilation syndrome, she is almost 400 pounds, she is dependent on activities of daily living on detention staff, she has a chronic Patterson catheter in place, she has not had anything out of the ordinary for the last few days, no recent COVID-19 outbreaks in the detention But yesterday afternoon, she started complaining of the nausea and vomiting, which was appropriately treated, but in the evening, continues to have episodes of nausea vomiting, when her vitals were checked, she was found to be hypertensive, nurses unsure how high the blood pressure got, but she was quite tachycardic, heart rate in the high 190s, she had a temperature of 103, and she looked blue, she was not responding appropriately, was confused, they put her on her BiPAP machine, and according to nursing staff her oxygen saturations were still in the low 60s, no complaints of chest pain per se, no cardiac history, so the EMS were called according to Dr. Casey notes, EMS found that she had a wide-complex tachycardia, and with her confusion nonresponsiveness, she was defibrillated, I am not sure if she received any medications, but was unresponsive on arrival to the ER, Dr. saeed noted that she had A. fib on EKG, temperature on presentation was 105, did improve with Tylenol, rapid COVID was negative, lactic acid received 6.2, she was intubated Currently patient is in the intensive care unit, on mechanical ventilation, she is on 60% FiO2, tidal volume 450, PEEP of 10, her pressures have been weaned down, she is currently on Levophed minimally at 2, with a map greater than 65, Levophed will be discontinued, getting potassium replacement therapy, she is received broad-spectrum antibiotic therapy, currently on propofol for sedation, but she is able to open her eyes, but does not follow other commands, Vitals/I&O/Wt Last Vital Signs Temp 96.7 F L 06/28/20 10:00 Pulse 94 06/28/20 10:30 Resp 15 06/28/20 11:04 BP 124/68 06/28/20 10:30 Pulse Ox 96 06/28/20 10:30 06/27/20 06/28/20 06/28/20 22:59 06:59 14:59 Intake Total 281.815 / 281.815 55.333 / 55.333 Output Total 200 / 200 Balance 81.815 / 81.815 55.333 / 55.333 Weight last 48 hrs Weight 158.757 kg Physical Exam Const: COMMON NORMALS: no acute distress NUTRITIONAL APPEARANCE: obese OTHER: Intubated, sedated, does open her eyes HENMT: COMMON NORMALS: normocephalic HEAD & SCALP: normocephalic Eye: COMMON NORMALS: Equal, round and reactive pupils present PUPIL: Yes Equal, round and reactive pupils present Neck/C-Spine: COMMON NORMALS: no JVD Chest: COMMONS NORMALS: normal inspection of the chest Resp: COMMON NORMALS: normal respiratory effort, No retractions and No use of accessory muscles AUSCULTATION: rhonchi and wheezes Cardio: COMMON NORMALS: no JVD, regular rate, regular rhythm, S1 normal heart sound present and S2 normal heart sound present RATE: regular rate RHYTHM: regular rhythm HEART SOUNDS: S1 normal heart sound present and S2 normal heart sound present GI: COMMON NORMALS: Normal to inspection, nondistended, normoactive bowel sounds present, Soft to palpation and non-tender PALPATION: Yes Soft to palpation Neuro: OTHER: Unable to assess as patient is intubated nurse and sedated Urinary Catheter Management^: Patterson: Cath Placed During This Visit: yes Reason for Continuing Indwelling Catheter: Accurate Measurement of Urinary Output in Critically Ill Patients Urinary Catheter Date of Insertion: 06/28/20 Urinary Catheter Time of Insertion: 04:18 Sepsis: Is patient septic: Yes Focused sepsis exam performed: Yes Date exam was performed: 06/28/20 Time exam was performed: 12:09 Data : 06/28/20 05:01 06/28/20 05:01 Micro: Microbiology 06/28/20 09:10 Gram Stain - Final Sputum - Endotracheal Tube Aspirate 06/28/20 05:00 Bacterial Antigens - Final Urine,Voided 06/27/20 22:10 Blood Culture - Preliminary Blood SPECIMEN COLLECTED 06/27/20 22:10 Blood Culture - Preliminary Blood SPECIMEN COLLECTED A&P Assessment and plan (1) Acute on chronic respiratory failure with hypoxia and hypercapnia: -Patient has a history of acute on chronic respiratory failure with hypoxia and hypercapnia, secondary to COPD 3 L oxygen dependent, SEAN, obesity hypoventilation syndrome, noncompliance with BiPAP -According to detention, patient continues to be noncompliant with BiPAP, has been intubated several times in the past first noncompliance, and issues as discussed above -Currently patient is in septic shock, likely secondary to pneumonia, white blood cell count 17,000, lactic acid 6.0, CRP 109, pro-Miky 0.83 -Patient is UA shows pH of 8, protein 2+, 3+ blood, positive leukocyte esterase, and positive WBCs, possible patient could have a component of UTI -Patient's rapid COVID negative, COVID RT-PCR ordered -Certainly patient could have a component of acute flash pulmonary edema, chest x-ray does show plenty vascular congestion, but it is a difficult study given her body habitus -Echo back in July 2015 shows an EF of 57%, mild diffuse hypokinesis of the septum (but had A. fib during the echocardiogram), moderate biatrial enlargement, mild to moderate tricuspid regurg, mild mitral valve regurg -What I was told his patient was found to have V. tach, heart rates in the 190s, I am awaiting EMS telemetry strips to confirm exactly what had happened, possibly V. tach could be related to sepsis, pneumonia, flash pulmonary edema, respiratory failure, but I am concerned for possible cardiac etiology given patient's NSTEMI -Thus the etiology of patient's acute on chronic respiratory failure with hypoxia hypercapnia likely secondary to pneumonia, with septic shock, with COPD 3 there is oxygen dependent, SEAN, obesity hypoventilation syndrome, noncompliance with BiPAP, and a component acute flash pulmonary edema, and NSTEMI Plan: -Patient requires ICU admission -Continue mechanical ventilation, minimize PEEP, minimize FiO2 -Continue fentanyl and propofol for sedation -Wean Levophed, as map is greater than 65 -Maintain map greater than 65 -Eliquis for DVT prophylaxis, Protonix for GI prophylaxis -Continue broad-spectrum antibiotics vancomycin, I have added Primaxin as patient has grown ESBL in the past, concerns for UTI, add azithromycin for atypical coverage -We will order CT of the chest to evaluate for pneumonia, CT abdomen pelvis to rule out obstructive uropathy -Lasix 40 mg IV twice daily, strict I's and O's -We will start tube feeds -Initial COVID negative, COVID PCR ordered -Follow blood cultures, urine cultures, sputum cultures, urine bacterial antigens Status: Acute (2) Wide-complex tachycardia: -Wide-complex tachycardia, received defibrillation -A. fib with RVR on arrival -Currently normal sinus rhythm -Etiology unclear, possibly related to acute respiratory failure, pneumonia, acute flash pulmonary edema -I have consulted cardiology Status: Acute (3) NSTEMI (non-ST elevated myocardial infarction): -Baseline troponin II 79, 120-minute to 51.3, 6-hour 196.4, delta negative 82.6 -EKG atrial fibrillation, does have mild ST depressions in V1 to V2 -Currently normal sinus rhythm -Likely supply demand ischemia due to acute respiratory failure, but given to the wide-complex tachycardia and V. tach on concerned for cardiac etiology -Continue telemetry monitoring -Aspirin, statin, Eliquis -Cardiac echocardiogram has been ordered -Resume receiving Lasix therapy 40 mg IV twice daily -I have consulted Dr. Luque from cardiology, Status: Acute (4) Chronic atrial fibrillation: -On Eliquis -Hold Coreg 3.125 twice daily, as patient still septic -Currently normal sinus rhythm Status: Chronic (5) Chronic anticoagulation: Status: Chronic (6) Chronic diastolic CHF (congestive heart failure): Echocardiogram has been ordered Lasix as above Status: Chronic (7) COPD (chronic obstructive pulmonary disease): Will start Solu-Medrol 40 mg IV every 8 hours Status: Chronic Qualifiers: COPD type: COPD with acute exacerbation Qualified Code(s): J44.1 - Chronic obstructive pulmonary disease with (acute) exacerbation (8) Obstructive sleep apnea: Status: Chronic (9) Obesity hypoventilation syndrome: Status: Chronic (10) Morbid obesity with BMI of 60.0-69.9, adult: Status: Chronic (11) Septic shock: Status: Acute (12) Acute metabolic encephalopathy: -Multifactorial related to sepsis, acute respiratory failure, hypercarbia -Continue to monitor mental status closely Status: Acute Attestations Medical Necessity Statement*: Patient course hospitalization secondary to acute respiratory failure, secondary to pneumonia, possible UTI, acute flash pulmonary edema,nstemi wide-complex tachycardia Coding Level of Care Code Acute Vice President Of Procurement for g Fwd Diagnoses Acute on chronic respiratory failure with hypoxia and hypercapnia J96.21; J96.22 Wide-complex tachycardia I47.2 NSTEMI (non-ST elevated myocardial infarction) I21.4 Chronic atrial fibrillation I48.20 Chronic anticoagulation Z79.01 Chronic diastolic CHF (congestive heart failure) I50.32 COPD (chronic obstructive pulmonary disease) J44.1 COPD type: COPD with acute exacerbation Obstructive sleep apnea G47.33 Obesity hypoventilation syndrome E66.2 Morbid obesity with BMI of 60.0-69.9, adult E66.01; Z68.44 Septic shock A41.9; R65.21 Acute metabolic encephalopathy G93.41 Sepsis Event Note Evaluation Current stage of sepsis: sepsis Initial hypotension due to sepsis/infection: MAP < 65 mmHg Possible source: pulmonary Focused Exam Vital Signs Temp Pulse Resp BP Pulse Ox 06/28/20 11:04 15 06/28/20 10:30 94 124/68 96 06/28/20 10:15 94 123/70 96 06/28/20 10:00 96.7 F L 85 107/53 96 06/28/20 09:45 76 96/59 96 06/28/20 09:30 77 120/65 96 06/28/20 09:15 76 22 H 131/63 97 06/28/20 09:00 75 122/61 96 06/28/20 08:49 79 06/28/20 08:46 77 26 H 96 06/28/20 08:45 78 133/68 95 06/28/20 08:30 79 134/70 96 06/28/20 08:15 94 143/85 96 06/28/20 08:00 92 169/89 95 06/28/20 07:50 28 H 06/28/20 07:45 91 151/103 95 06/28/20 07:30 93 154/91 95 06/28/20 07:15 96.8 F L 74 146/82 96 06/28/20 07:00 71 147/81 96 06/28/20 06:45 71 136/83 96 06/28/20 06:30 70 140/88 96 06/28/20 06:15 71 142/84 96 06/28/20 06:00 71 136/86 96 06/28/20 05:45 72 139/86 95 06/28/20 05:30 72 131/84 95 06/28/20 05:15 71 124/84 95 06/28/20 05:13 16 06/28/20 05:11 95 06/28/20 05:00 73 134/85 96 06/28/20 04:45 73 128/88 06/28/20 04:30 75 129/86 96 06/28/20 04:15 76 106/74 95 06/28/20 04:07 71 06/28/20 04:00 78 106/75 92 06/28/20 03:45 98.9 F 79 129/78 96 06/28/20 03:40 81 129/78 95 06/28/20 03:35 81 129/78 96 06/28/20 03:30 83 129/78 95 06/28/20 03:25 82 17 148/89 96 06/28/20 03:21 83 18 148/89 95 06/28/20 02:30 80 12 96/68 06/28/20 02:15 88 23 H 93/57 93 06/28/20 02:00 90 23 H 88/57 94 06/28/20 01:45 85 22 H 76/58 95 06/28/20 01:30 88 22 H 87/53 93 06/28/20 01:15 91 26 H 76/55 94 06/28/20 01:00 91 25 H 78/52 95 06/28/20 00:45 94 24 H 97/74 93 06/28/20 00:30 102 H 26 H 85/50 94 06/28/20 00:20 98 26 H 78/52 93 Respiratory exam: Present rales, rhonchi and wheezes Capillary refill: > 3 Seconds Peripheral pulse strength: 1+ Faint Peripheral pulse location: Pedal Skin exam: pale Date exam was performed: 06/28/20 Time exam was performed: 12:10 Problem List (1) Acute on chronic respiratory failure with hypoxia and hypercapnia: Status: Acute (2) Wide-complex tachycardia: Status: Acute (3) Chronic anticoagulation: Status: Chronic (4) Chronic atrial fibrillation: Status: Chronic (5) Chronic diastolic CHF (congestive heart failure): Status: Chronic (6) COPD (chronic obstructive pulmonary disease): Status: Chronic (7) Obstructive sleep apnea: Status: Chronic (8) Obesity hypoventilation syndrome: Status: Chronic (9) Morbid obesity with BMI of 60.0-69.9, adult: Status: Chronic (10) Septic shock: Status: Acute (11) Acute metabolic encephalopathy: Status: Acute (12) NSTEMI (non-ST elevated myocardial infarction): Status: Acute
--- NOTE | 2020-06-28 13:23 | P.CONIM_ITS ---
Providers/Reason For Consult Consulting Physican/Specialty*: Cardiology Reason for Consult*: Respiratory failure, non-STEMI, CHF Attending Physician: Milind Herr MD Primary Care Provider: Elmer Shelton, History of Present Illness History of Present Illness Please note that I have not examined the patient personally, source of history and physical is Dr. Vaz and nursing staff since patient is in isolation to rule out COVID Sarah Merrill is a 60 year old female past medical history significant for obesity, COPD, history of hyperventilation, diastolic heart failure, diabetes mellitus, chronic atrial fibrillation on anticoagulation was admitted with respiratory failure and post electrical cardioversion of questionable VT. Investigation revealed worsening of renal function, higher cardiac markers in terms of troponin and more than 2000 of BNP. It is the reason we have been asked to participate in her care. As per medical staff information she is a prison resident due to respiratory distress 911 was called, she was thought to be in wide complex tachycardia with heart rate of 190s she was electrically cardioverted into sinus rhythm. She was brought to the ER where she was intubated. She is being treated for respiratory failure and sepsis. She has been also considered to rule out for COVID. Review of Systems General: Reports: ROS unobtainable due to endotracheal tube, ROS unobtainable due to medical condition and ROS unobtainable due to mental status Meds/Allergies Home Medications and Allergies Home Medications Medication Instructions Recorded Confirmed Last Taken Type Lactobacillus acidophilus 5,000 mmu cells PO DAILY PRN 06/28/20 06/28/20 Unknown History [Acidophilus] acetaminophen 325 mg PO Q4H PRN 06/28/20 06/28/20 06/06/20 History albuterol sulfate 2 puff INHALATION Q6H PRN 06/28/20 06/28/20 Unknown History apixaban [Eliquis] 5 mg PO BID 06/28/20 06/28/20 06/27/20 History benzocaine [Anbesol (benzocaine)] 20 % MUCOUS MEMBRANE TID 06/28/20 06/28/20 03/18/20 History bisacodyl 5 mg PO DAILY PRN 06/28/20 06/28/20 06/27/20 History bisacodyl 10 mg PO DAILY PRN 06/28/20 06/28/20 Unknown History bisacodyl 10 mg DC DAILY PRN 06/28/20 06/28/20 Unknown History bumetanide 1 mg PO BID 06/28/20 06/28/20 06/27/20 History bupropion HCl 150 mg PO BID 06/28/20 06/28/20 06/27/20 History carvedilol 3.125 mg PO BID 06/28/20 06/28/20 06/27/20 History cholecalciferol (vitamin D3) 25 mcg PO DAILY 06/28/20 06/28/20 06/27/20 History citalopram 20 mg PO DAILY 06/28/20 06/28/20 06/27/20 History dextran 70-hypromellose (PF) 1 drp OPHTHALMIC (EYE) QID PRN 06/28/20 06/28/20 Unknown History [Natural Tears (PF)] diclofenac sodium 2 g TOPICAL BID PRN 06/28/20 06/28/20 06/07/20 History gabapentin 600 mg PO BEDTIME 06/28/20 06/28/20 06/27/20 History guaifenesin [Mucinex] 600 mg PO BID 06/28/20 06/28/20 06/27/20 History levetiracetam [Keppra] 1,000 mg PO BID 06/28/20 06/28/20 06/27/20 History magnesium hydroxide [Milk of 30 ml PO DAILY PRN 06/28/20 06/28/20 06/13/20 History Magnesia] nystatin 1 applic TOPICAL BID PRN 06/28/20 06/28/20 Unknown History omeprazole 20 mg PO DAILY 06/28/20 06/28/20 06/27/20 History ondansetron HCl [Zofran] 4 mg PO Q4H PRN 06/28/20 06/28/20 Unknown History potassium chloride 20 meq PO TID 06/28/20 06/28/20 06/27/20 History senna 8.6 mg PO BID 06/28/20 06/28/20 06/28/20 History triamcinolone acetonide 1 applic TOPICAL BID PRN 06/28/20 06/28/20 06/07/20 History Allergies Allergy/AdvReac Type Severity Reaction Status Date / Time amoxicillin Allergy Unknown Verified 06/27/20 22:22 metoclopramide [From Reglan] Allergy Unknown Verified 06/27/20 22:22 nitroglycerin Allergy Unknown Verified 06/27/20 22:22 Current Medications Current Medications Generic Name Dose Route Start Last Admin Trade Name Monster PRN Reason Stop Dose Admin Albuterol/Ipratropium 3 ml 06/28/20 09:00 06/28/20 08:38 Duoneb INHALATION 3 ml Q6H.RESPIRATORY RAJWINDER Administration Apixaban 5 mg 06/28/20 09:00 06/28/20 08:26 Eliquis PO 5 mg BID RAJWINDER Administration Aspirin 81 mg 06/28/20 09:20 06/28/20 11:41 Aspirin Ec PO 81 mg DAILY RAJWINDER Administration Atorvastatin Calcium 40 mg 06/28/20 09:25 06/28/20 11:41 Lipitor PO 40 mg DAILY RAJWINDER Administration Docusate Sodium 100 mg 06/28/20 09:00 06/28/20 08:26 Colace PO 100 mg BID RAJWINDER Administration Famotidine 20 mg 06/28/20 04:07 06/28/20 05:32 Pepcid Inj IVP 20 mg Q12H RAJWINDER Administration Norepinephrine Bitartrate 4 mg 254 mls @ 0 mls/hr 06/27/20 22:45 06/28/20 08:29 / Dextrose IV 7.5 ml/hr .Q0M RAJWINDER 7.5 mls/hr Titration Protocol Per Protocol Vasopressin 40 unit/ Sodium 40 mls @ 0.03 mls/min 06/28/20 02:30 06/28/20 08:07 Chloride IV Not Given CONT RAJWINDER Propofol 1,000 mg in 100 mls @ 0 mls/hr 06/28/20 04:07 06/28/20 08:26 Diprivan IV 10 mcg/kg/min .Q0M RAJWINDER 9.5 mls/hr Administration Protocol Per Protocol Sodium Chloride 1,000 mls @ 150 mls/hr 06/28/20 04:15 06/28/20 05:36 Sodium Chloride 0.9% IV 150 mls/hr .Q6H40M RAJWINDER Infusion Vancomycin HCl 2,500 mg/ 500 mls @ 250 mls/hr 06/28/20 05:00 06/28/20 05:34 Sodium Chloride IV 250 mls/hr Q24H RAJWINDER Administration Imipenem/Cilastatin Sodium 500 100 mls @ 200 mls/hr 06/28/20 08:30 08/15/20 08:27 mg/ Sodium Chloride IV 200 mls/hr Q6H RAJWINDER Administration Protocol Insulin Aspart 0 unit 06/28/20 08:00 06/28/20 08:11 Novolog SUBCUT Not Given TIDWM RAJWINDER Protocol PFSH Acute PFSH: Medical History Chronic atrial fibrillation Chronic diastolic CHF (congestive heart failure) COPD (chronic obstructive pulmonary disease) Depression with anxiety GERD (gastroesophageal reflux disease) History of GI bleed History of seizures Hypertension Morbid obesity with BMI of 60.0-69.9, adult Obesity hypoventilation syndrome Obstructive sleep apnea Osteoarthritis Restless leg syndrome Vitamin D deficiency Surgical History History of appendectomy History of hip surgery Bilateral History of hysterectomy History of tonsillectomy Presence of inferior vena cava filter Family History Other Diabetes Social History Smoking and tobacco status: former smoker Alcohol intake: never Substance/Drug Use: never Housing: Skilled Nursing Vitals/I&O/Wt Last Vital Signs Temp 96.7 F L 06/28/20 10:00 Pulse 94 06/28/20 10:30 Resp 15 06/28/20 11:04 BP 124/68 06/28/20 10:30 Pulse Ox 96 06/28/20 10:30 06/27/20 06/28/20 06/28/20 22:59 06:59 14:59 Intake Total 281.815 / 281.815 55.333 / 55.333 Output Total 200 / 200 Balance 81.815 / 81.815 55.333 / 55.333 Weight last 48 hrs Weight 350 lb Physical Exam Narrative: EXAM NARRATIVE: Please note that I have not examined the patient since she is COVID ruled out. Physical examination as per Dr. Tiffanie condon and nursing staff, please refer to their note Urinary Catheter Management^: Patterson: Cath Placed During This Visit: yes Reason for Continuing Indwelling Catheter: Accurate Measurement of Urinary Output in Critically Ill Patients Urinary Catheter Date of Insertion: 06/28/20 Urinary Catheter Time of Insertion: 04:18 Data Micro: Micro: Microbiology 06/28/20 09:10 Gram Stain - Final Sputum - Endotrac heal Tube Aspirate 06/28/20 05:00 Bacterial Antigens - Final Urine,Voided 06/27/20 22:10 Blood Culture - Pr eliminary Blood SPECIMEN [facility] MARV 06/27/20 22:10 Blood Culture - Pr eliminary Blood SPECIMEN [facility] A&P Assessment and plan (1) NSTEMI (non-ST elevated myocardial infarction): Patient is status post respiratory distress and possible A. fib with RVR and aberrant conduction leading to wide complex tachycardia requiring electrical cardioversion which may can leak cardiac markers and also due to demand ischemia. At this point will ask for echocardiogram. Further plan will be advised. Until then we will consider anticoagulation with Lovenox or heparin. Status: Acute (2) Septic shock: Treatment considered as per medicine. Status: Acute (3) Wide-complex tachycardia: We will review her strips however story is more consistent with A. fib with aberrant conduction we will treat her accordingly so far we have not seen any arrhythmia on the telemetry Status: Acute (4) Acute on chronic diastolic (congestive) heart failure: Patient may have possibility of acute on chronic decompensated heart failure consider IV Lasix. I will ask for echocardiogram and x-ray chest. Status: Acute Consult Attestations Medical Necessity Statement: Require continuation hospitalization for above defined care Coding Level of Care Code New Pt Acute Nail [employer] Machine Feeder for Janeth Fwd Patient Type New History Detailed Exam Detailed Medical Decision Making High Complexity Diagnoses NSTEMI (non-ST elevated myocardial infarction) I21.4 Septic shock A41.9; R65.21 Wide-complex tachycardia I47.2 Acute on chronic diastolic (congestive) heart failure I50.33
[2020-06-28] MEDS: azithromycin 500 MG in sodium chloride 0.9% 250 ML 250 MG IV (15:56)
--- NOTE | 2020-06-28 16:07 | PC.NURSE ---
Pt unable to do CT scan at this facility do to weight. Dave from CT states that she will not fit. Dr. Herr notified. No new orders at this time.
[2020-06-28] MEDS: acetaminophen 325 mg Tablet 650 MG PO ×2 (16:15→20:42)
[2020-06-28] MEDS: FUROsemide 10 mg/mL SDV 4mL 40 MG IVP (17:15)
[2020-06-29] VITALS (40 sets, daily range): BP systolic 113–159; BP diastolic 60–94; PULSE 53–87; RESP 12–16; TEMP 36.7–38.9; O2SAT 93–96
[2020-06-29] MEDS: propofol 1,000 MG/100 ML INJ 19.1 MG IV ×2 (00:09→05:16)
[2020-06-29] MEDS: sodium chloride 0.9% 1,000 ML 150 ML IV ×2 (00:10→10:57)
[2020-06-29] MEDS: ipratropium-albuterol 3 mL Neb INHALATION ×4 (02:06→20:08)
[2020-06-29 04:24] LABS: Basophils # 0.1 10^3/uL (0.0-0.1); Basophils % 0.4 %; Eosinophils % 0.1 %; Hematocrit 36.9 % (37.0-47.0); Hemoglobin 10.7 g/dL (11.5-15.3); Lymphocytes # 0.9 10^3/uL (0.8-4.8); Lymphocytes % 6.4 %; Mean Corpuscular Hemoglobin 26.9 pg (28.0-34.0); Mean Corpuscular Volume 92.7 fL (81-99); Mean Platelet Volume 9.8 fL (7.4-10.4); Monocytes # 0.4 10^3/uL (0.2-0.9); Monocytes % 3.1 %; Neutrophils # 11.99 10^3/uL (1.8-7.7); Neutrophils % 89.3 %; Nucleated Red Blood Cells % 0 %; Platelet Count 122 10^3/cmm (130-400); Red Blood Count 3.98 10^6/uL (4.1-5.3); Red Cell Distribution Width 15.4 % (12.1-15.1); White Blood Count 13.4 10^3/uL (4.0-10.0)
[2020-06-29 04:47] LABS: Alkaline Phosphatase 76 IU/L (35-105); Blood Urea Nitrogen 38 mg/dL (8-23); Carbon Dioxide 23 mmol/L (22-29); Chloride 101 mmol/L (98-107); Globulin 2.4 g/dL (1.3-4.6); Glomerular Filtration Rate 23.9 mL/min (90-130); Glucose 180 mg/dL (65-115); Osmolality Calculated 286 mOsm/kg (285-295); Sodium 137 mmol/L (136-145); Total Bilirubin 1.3 mg/dL (0.15-1.2); Total Protein 5.4 g/dL (6.6-8.7)
[2020-06-29 04:54] LABS: Phosphorus 3.9 mg/dL (2.5-4.5)
[2020-06-29 05:00] LABS: Procalcitonin 8.44 ng/mL (0-0.5)
[2020-06-29 05:11] LABS: Alanine Aminotransferase 1035 U/L (0-33)
[2020-06-29 05:12] LABS: Aspartate Amino Transferase 1812 U/L (0-32)
[2020-06-29] MEDS: famotidine 20 mg/2 mL INJ IVP ×2 (05:14→16:31)
[2020-06-29 05:19] LABS: ABG PCO2 46.1 mmHg (35-45); ABG PH Result 7.35 (7.35-7.45); Arterial Blood Gas Hematocrit 37.5 % (37-47); Base Excess ABG -0.6 mmol/L (-2.0-2.0); Blood Gas Allen Test Pos; Blood Gas Operator Identificat JB; Blood Gas Sample Site Radial, right; Blood Gas Sample Type Arterial; Blood Gas Tidal Volume 0.45; HCO3 ABG 25.3 mmol/L (22-26); Oxygen Device VENT
--- NOTE | 2020-06-29 07:00 | XRR_ITS ---
PROCEDURE INFORMATION: Exam: XR Chest, 1 View Exam date and time: 06/29/2020 9:36 AM Age: 60 years old Clinical indication: Shortness of breath; Additional info: SOB TECHNIQUE: Imaging protocol: XR of the chest Views: 1 view. COMPARISON: CR (CHEST, ) 06/28/2020 4:23 AM FINDINGS: Tubes, catheters and devices: ET tube tip is positioned 17 mm superior to the renée. Lungs: There are patchy bilateral perihilar and left lung base opacities similar to the prior study. Pleural space: Blunting of the right costophrenic angle suggestive of a small pleural effusion. Heart/Mediastinum: Cardiomegaly. Bones/joints: Unremarkable. Other findings: There is a G-tube in place. XR/XR chest 1V portable [id number] IMPRESSION: 1. Cardiomegaly. 2. There are patchy perihilar and left lung base opacities. Differential includes pneumonia and/or pulmonary edema.
[2020-06-29] MEDS: fentaNYL 50 mcg/mL INJ 2mL IVP (07:02)
[2020-06-29] MEDS: apixaban 5 mg Tablet PO ×2 (09:40→17:04)
[2020-06-29] MEDS: aspirin 81 mg EC Tablet PO (09:40)
[2020-06-29] MEDS: FUROsemide 10 mg/mL SDV 4mL 40 MG IVP ×2 (09:40→17:05)
[2020-06-29] MEDS: atorvastatin 40 mg Tablet PO (09:40)
[2020-06-29] MEDS: docusate sodium 100 mg Capsule PO ×2 (09:40→17:04)
[2020-06-29] MEDS: propofol 1,000 MG/100 ML INJ 14.3 MG IV ×2 (10:56→17:03)
[2020-06-29] MEDS: azithromycin 500 MG in sodium chloride 0.9% 250 ML 250 MG IV (12:31)
[2020-06-29 13:01] LABS: Glucose Point of Care 162 mg/dL (70-110)
[2020-06-29 13:01] LABS: Glucose Point of Care 168 mg/dL (70-110)
[2020-06-29 13:01] LABS: Glucose Point of Care 133 mg/dL (70-110)
[2020-06-29 13:01] LABS: Glucose Point of Care 147 mg/dL (70-110)
--- NOTE | 2020-06-29 13:07 | PM.PN ---
Subjective Subjective: Interval history: This morning patient was examined, overnight she was febrile, T-max 102.2, normotensive, Levophed has been weaned, has good urine output, she is on propofol, but is able to open her her eyes, chest x-ray this morning continues to show pulmonary vascular congestion, and patchy infiltrates perihilar left lung base, unfortunately patients body habitus prevents us from performing a CT scan Vitals/I&O/Wt Last Vital Signs Temp 98.6 F 06/29/20 12:00 Pulse 76 06/29/20 12:00 Resp 14 06/29/20 11:20 BP 137/80 06/29/20 12:00 Pulse Ox 96 06/29/20 12:00 06/28/20 06/29/20 06/29/20 22:59 06:59 14:59 Intake Total 1224.133 / 2276.966 1150.266 / 3427.232 1180.385 / 1180.385 Output Total 850 / 850 475 / 1325 700 / 700 Balance 374.133 / 1426.966 675.266 / 2102.232 480.385 / 480.385 Weight last 48 hrs Weight 182.526 kg Weight 158.757 kg Physical Exam Const: COMMON NORMALS: no acute distress NUTRITIONAL APPEARANCE: obese OTHER: Intubated, sedated, does open her eyes HENMT: COMMON NORMALS: normocephalic HEAD & SCALP: normocephalic Eye: COMMON NORMALS: Equal, round and reactive pupils present PUPIL: Yes Equal, round and reactive pupils present Neck/C-Spine: COMMON NORMALS: no JVD Chest: COMMONS NORMALS: normal inspection of the chest Resp: COMMON NORMALS: normal respiratory effort, No retractions and No use of accessory muscles AUSCULTATION: wheezes Cardio: COMMON NORMALS: no JVD, regular rate, regular rhythm, S1 normal heart sound present and S2 normal heart sound present RATE: regular rate RHYTHM: regular rhythm HEART SOUNDS: S1 normal heart sound present and S2 normal heart sound present GI: COMMON NORMALS: Normal to inspection, nondistended, normoactive bowel sounds present, Soft to palpation and non-tender PALPATION: Yes Soft to palpation Neuro: OTHER: Unable to assess as patient is intubated nurse and sedated Urinary Catheter Management^: Patterson: Cath Placed During This Visit: yes Reason for Continuing Indwelling Catheter: Accurate Measurement of Urinary Output in Critically Ill Patients Urinary Catheter Date of Insertion: 06/28/20 Urinary Catheter Time of Insertion: 04:18 Data : 06/29/20 04:05 06/29/20 04:05 Micro: Microbiology 06/28/20 08:00 Urine Culture - Preliminary Urine Ureter Yeast 06/28/20 05:00 Urine Culture - Preliminary Urine Catheterized 06/28/20 09:15 MRSA Culture - Final Nose 06/27/20 22:10 Blood Culture - Preliminary Blood NEGATIVE TO DATE 06/27/20 22:10 Blood Culture - Preliminary Blood NEGATIVE TO DATE 06/28/20 09:10 Gram Stain - Final Sputum - Endotracheal Tube Aspirate 06/28/20 05:00 Bacterial Antigens - Final Urine,Voided A&P Assessment and plan (1) Acute on chronic respiratory failure with hypoxia and hypercapnia: -Patient has a history of acute on chronic respiratory failure with hypoxia and hypercapnia, secondary to COPD 3 L oxygen dependent, SEAN, obesity hypoventilation syndrome, noncompliance with BiPAP -According to skilled nursing, patient continues to be noncompliant with BiPAP, has been intubated several times in the past first noncompliance, and issues as discussed above -Currently patient is in septic shock, likely secondary to pneumonia, white blood cell count 13.4, lactic acid 2.0, CRP 109, pro-Miky 8.44 -Chest x-ray shows perihilar and left lower lobe infiltrates, probably vascular congestion -Patient is UA shows pH of 8, protein 2+, 3+ blood, positive leukocyte esterase, and positive WBCs, possible patient could have a component of UTI -Patient's rapid COVID negative, COVID RT-PCR ordered -Certainly patient could have a component of acute flash pulmonary edema, chest x-ray does show plenty vascular congestion, but it is a difficult study given her body habitus -Echo back in July 2015 shows an EF of 57%, mild diffuse hypokinesis of the septum (but had A. fib during the echocardiogram), moderate biatrial enlargement, mild to moderate tricuspid regurg, mild mitral valve regurg -What I was told his patient was found to have V. tach, heart rates in the 190s, I am awaiting EMS telemetry strips to confirm exactly what had happened, possibly V. tach could be related to sepsis, pneumonia, flash pulmonary edema, respiratory failure, but I am concerned for possible cardiac etiology given patient's NSTEMI -Thus the etiology of patient's acute on chronic respiratory failure with hypoxia hypercapnia likely secondary to pneumonia, with septic shock, with COPD 3 there is oxygen dependent, SEAN, obesity hypoventilation syndrome, noncompliance with BiPAP, and a component acute flash pulmonary edema, and NSTEMI Plan: -Patient requires ICU admission -Continue mechanical ventilation, minimize PEEP, minimize FiO2 -given acute flash pulmonary edema, fluid overload, I prefer patient to be on the heel seat fitter machine side for extubation, likely need to be intubated in the next 24 hours, diuresed roughly 3 L in the last 24 hours -Continue fentanyl and propofol for sedation -Weaned Levophed, as map is greater than 65 -Maintain map greater than 65 -Eliquis for DVT prophylaxis, Protonix for GI prophylaxis -Continue broad-spectrum antibiotics vancomycin, I have added Primaxin as patient has grown ESBL in the past, concerns for UTI, add azithromycin for atypical coverage -Cannot order CT scan chest abdomen pelvis due to body habitus, will order renal ultrasound, and liver ultrasound -Lasix 40 mg IV twice daily, strict I's and O's -Continue tube feeds -Initial COVID negative, COVID PCR ordered -Follow blood cultures, urine cultures, sputum cultures, all negative so far -Start fluconazole Status: Acute (2) Wide-complex tachycardia: -Wide-complex tachycardia, received defibrillation -A. fib with RVR on arrival -Currently normal sinus rhythm -Etiology unclear, possibly related to acute respiratory failure, pneumonia, acute flash pulmonary edema -I have consulted cardiology Status: Acute (3) NSTEMI (non-ST elevated myocardial infarction): -Baseline troponin II 79, 120-minute to 51.3, 6-hour 196.4, delta negative 82.6 -EKG atrial fibrillation, does have mild ST depressions in V1 to V2 -Currently normal sinus rhythm -Likely supply demand ischemia due to acute respiratory failure, but given to the wide-complex tachycardia and V. tach on concerned for cardiac etiology -Continue telemetry monitoring -Aspirin, statin, Eliquis -Cardiac echocardiogram shows EF of 55 -Resume receiving Lasix therapy 40 mg IV twice daily -I have consulted Dr. Luque from cardiology, Status: Acute (4) Chronic atrial fibrillation: -On Eliquis -Hold Coreg 3.125 twice daily, as patient still septic -Currently normal sinus rhythm Status: Chronic (5) Chronic anticoagulation: Status: Chronic (6) Chronic diastolic CHF (congestive heart failure): Lasix as above Status: Chronic (7) COPD (chronic obstructive pulmonary disease): Continue start Solu-Medrol 40 mg IV every 8 hours Status: Chronic Qualifiers: COPD type: COPD with acute exacerbation Qualified Code(s): J44.1 - Chronic obstructive pulmonary disease with (acute) exacerbation (8) Obstructive sleep apnea: Status: Chronic (9) Obesity hypoventilation syndrome: Status: Chronic (10) Morbid obesity with BMI of 60.0-69.9, adult: Status: Chronic (11) Septic shock: Status: Acute (12) Acute metabolic encephalopathy: -Multifactorial related to sepsis, acute respiratory failure, hypercarbia -Continue to monitor mental status closely Status: Acute (13) Transaminitis: -Likely secondary to shock, hypotension -We will do right upper quadrant ultrasound, LFTs -Maintain map around 65 -Monitor LFTs closely Status: Acute Additional A&P Information Mild elevation in liver enzymes and glucose which I suspect is secondary to acute events though will need to recheck as certainly at risk for fatty liver and development of diabetes Inpatient admission Continue ventilatory support NG tube to low intermittent suction presently, if remains ventilated will need to start feeds Patterson catheter for close monitoring of I's and O's Have ordered a bariatric bed When she is in a better bed, need to repeat chest x-ray to see if we can get a better image Breathing treatments GI prophylaxis Insulin as needed, check hemoglobin A1c Will need to discuss with family when they are available. They had called earlier prior to my being directly involved in care. Attempts to reach now have not been successful. Supportive care otherwise Full code Attestations Medical Necessity Statement*: Patient requires hospitalization, for sepsis secondary to pneumonia, UTI, acute flash prime edema, Coding Level of Care Code Acute Crystal Machining Coordinator for g Fwd Diagnoses Acute on chronic respiratory failure with hypoxia and hypercapnia J96.21; J96.22 Wide-complex tachycardia I47.2 NSTEMI (non-ST elevated myocardial infarction) I21.4 Chronic atrial fibrillation I48.20 Chronic anticoagulation Z79.01 Chronic diastolic CHF (congestive heart failure) I50.32 COPD (chronic obstructive pulmonary disease) J44.1 COPD type: COPD with acute exacerbation Obstructive sleep apnea G47.33 Obesity hypoventilation syndrome E66.2 Morbid obesity with BMI of 60.0-69.9, adult E66.01; Z68.44 Septic shock A41.9; R65.21 Acute metabolic encephalopathy G93.41 Transaminitis R74.0
--- NOTE | 2020-06-29 13:14 | PM.PN ---
Subjective Subjective: Interval history: Please note that I have not visited patient personally I have rounded with our nursing staff in the ICU outside the room since she is still covered test pending and we are trying to reduce exposure Vitals/I&O/Wt Last Vital Signs Temp 98.6 F 06/29/20 12:00 Pulse 76 06/29/20 12:00 Resp 14 06/29/20 11:20 BP 137/80 06/29/20 12:00 Pulse Ox 96 06/29/20 12:00 06/28/20 06/29/20 06/29/20 22:59 06:59 14:59 Intake Total 1224.133 / 2276.966 1150.266 / 3427.232 1180.385 / 1180.385 Output Total 850 / 850 475 / 1325 700 / 700 Balance 374.133 / 1426.966 675.266 / 2102.232 480.385 / 480.385 Weight last 48 hrs Weight 402 lb 6.4 oz Weight 350 lb Physical Exam Narrative: EXAM NARRATIVE: Please note that I have not examined the patient since she is COVID ruled out. Physical examination as per Dr. Tiffanie condon and nursing staff, please refer to their note Urinary Catheter Management^: Patterson: Cath Placed During This Visit: yes Reason for Continuing Indwelling Catheter: Accurate Measurement of Urinary Output in Critically Ill Patients Urinary Catheter Date of Insertion: 06/28/20 Urinary Catheter Time of Insertion: 04:18 Data : 06/29/20 04:05 06/29/20 04:05 Micro: Microbiology 06/28/20 08:00 Urine Culture - Preliminary Urine Ureter Yeast 06/28/20 05:00 Urine Culture - Preliminary Urine Catheterized 06/28/20 09:15 MRSA Culture - Final Nose 06/27/20 22:10 Blood Culture - Preliminary Blood NEGATIVE TO DATE 06/27/20 22:10 Blood Culture - Preliminary Blood NEGATIVE TO DATE 06/28/20 09:10 Gram Stain - Final Sputum - Endotracheal Tube Aspirate 06/28/20 05:00 Bacterial Antigens - Final Urine,Voided A&P Assessment and plan (1) NSTEMI (non-ST elevated myocardial infarction): Echocardiogram showed normal ejection fraction though it was limited. Steadily patient is improving she is more awake. Medicine is trying to extubate her. X-ray chest is more consistent with possible pneumonia and edema continue antibiotic continue IV diuretics. May will back off on IV diuretics since creatinine has been climbing up. Most likely non-STEMI is type II and due to demand ischemia. Continue anticoagulation Status: Acute (2) Septic shock: Treatment as per medicine continue IV antibiotic and pressors Status: Acute (3) Wide-complex tachycardia: Patient has episode of short run of SVT last night. Continue current management no significant arrhythmia noted Status: Acute (4) Acute on chronic diastolic (congestive) heart failure: As per parameters and according to nursing staff she is getting slowly improve continue current regimen we will back off on IV Lasix to 40 mg once a day due to worsening of creatinine Status: Acute Attestations Medical Necessity Statement*: Require continuation of hospitalization for above defined care. Coding Level of Care Code Established Pt Acute Personnel Analyst for Janeth Grimes Patient Type Established History Expanded Problem Focused Exam Expanded Problem Focused Medical Decision Making Moderate Complexity Diagnoses NSTEMI (non-ST elevated myocardial infarction) I21.4 Septic shock A41.9; R65.21 Wide-complex tachycardia I47.2 Acute on chronic diastolic (congestive) heart failure I50.33
[2020-06-29] MEDS: fluconazole 100 mg Tablet 200 MG PO (14:14)
[2020-06-29 15:10] LABS: Hepatitis A Antibody IgM Non-Reactive (Nonreactive); Hepatitis B Core IgM Non-Reactive (Nonreactive); Hepatitis B Surface Antigen Non-Reactive (Nonreactive); Hepatitis C Virus Antibody Non-Reactive (Nonreactive)
--- NOTE | 2020-06-29 16:27 | PC.NURSE ---
Patient had a few PACs and became bradycardic. Heart rate is currently at 55bpm. Dr Joshi was notified and he would like to continue to monitor at this time. Patient VS stabe, non symptomatic at this time.
[2020-06-29 20:23] LABS: Glucose Point of Care 201 mg/dL (70-110)
[2020-06-29 20:24] LABS: Glucose Point of Care 167 mg/dL (70-110)
[2020-06-30] VITALS (37 sets, daily range): BP systolic 128–182; BP diastolic 68–129; PULSE 49–80; RESP 10–17; TEMP 36.1–37; O2SAT 89–98
[2020-06-30] MEDS: fentaNYL 50 mcg/mL INJ 2mL IVP ×3 (00:14→07:52)
[2020-06-30] MEDS: propofol 1,000 MG/100 ML INJ 19.1 MG IV (01:35)
[2020-06-30] MEDS: ipratropium-albuterol 3 mL Neb INHALATION ×4 (03:50→20:01)
--- NOTE | 2020-06-30 03:59 | ECG_ITS ---
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 Measurements Intervals [place] Rate: 50 P: 13 VT: 165 QRS: 25 QRSD: 105 T: 28 QT: 492 QTc: 453 Interpretive Statements SINUS BRADYCARDIA NONSPECIFIC ST & T-WAVE ABNORMALITY PROLONGED QT INTERVAL WARNING: DATA QUALITY MAY AFFECT INTERPRETATION INTERPRETATION BASED ON A DEFAULT AGE OF 40 YEARS Compared to ECG 06/28/2020 14:36:28 Prolonged QT interval now present Sinus rhythm no longer present T-wave abnormality still present Electronically Signed On 06-30-2020 18:58:23 CDT by Quyen Joshi M.D. [id number]
[2020-06-30 05:14] LABS: ABG PCO2 46.9 mmHg (35-45); ABG PH Result 7.35 (7.35-7.45); Arterial Blood Gas Hematocrit 36.1 % (37-47); Blood Gas Allen Test Pos; Blood Gas Operator Identificat JB; Blood Gas Sample Site Radial, right; Blood Gas Sample Type Arterial; Blood Gas Tidal Volume 0.45; HCO3 ABG 25.9 mmol/L (22-26); Oxygen Device VENT
[2020-06-30] MEDS: famotidine 20 mg/2 mL INJ IVP ×2 (05:14→17:23)
[2020-06-30 05:27] LABS: Basophils % 0.2 %; Eosinophils % 0.1 %; Hematocrit 37.1 % (37.0-47.0); Hemoglobin 11.2 g/dL (11.5-15.3); Lymphocytes # 0.9 10^3/uL (0.8-4.8); Lymphocytes % 7.1 %; Mean Corpuscular HGB Conc 30.2 g/dL (30.0-36.0); Mean Corpuscular Hemoglobin 27.1 pg (28.0-34.0); Mean Corpuscular Volume 89.8 fL (81-99); Mean Platelet Volume 10.1 fL (7.4-10.4); Monocytes # 0.5 10^3/uL (0.2-0.9); Monocytes % 3.9 %; Neutrophils # 10.51 10^3/uL (1.8-7.7); Nucleated Red Blood Cells % 0.3 %; Platelet Count 125 10^3/cmm (130-400); Red Blood Count 4.13 10^6/uL (4.1-5.3); Red Cell Distribution Width 15.1 % (12.1-15.1); White Blood Count 11.9 10^3/uL (4.0-10.0)
[2020-06-30 05:46] LABS: INR 1.75 (0.8-1.2)
[2020-06-30 05:56] LABS: Albumin Level 3.2 g/dL (3.5-5.2); Alkaline Phosphatase 72 IU/L (35-105); Blood Urea Nitrogen 49 mg/dL (8-23); C Reactive Protein 88.7 mg/L (0.0-4.9); Calcium 8.3 mg/dL (8.5-10.5); Carbon Dioxide 24 mmol/L (22-29); Chloride 102 mmol/L (98-107); Creatinine Clr Calc Pharmacy 58.8198; Globulin 2.4 g/dL (1.3-4.6); Glomerular Filtration Rate 30.5 mL/min (90-130); Glucose 200 mg/dL (65-115); Magnesium 2.2 mg/dL (1.7-2.3); Osmolality Calculated 292 mOsm/kg (285-295); Sodium 139 mmol/L (136-145); Total Bilirubin 1.2 mg/dL (0.15-1.2); Total Protein 5.6 g/dL (6.6-8.7)
[2020-06-30 05:57] LABS: Phosphorus 4.4 mg/dL (2.5-4.5)
[2020-06-30 06:07] LABS: NT Pro B Type Natriuretic Pept 1773 pg/mL (0-125); Procalcitonin 6.12 ng/mL (0-0.5)
[2020-06-30 06:19] LABS: Alanine Aminotransferase 1421 U/L (0-33); Aspartate Amino Transferase 1238 U/L (0-32)
[2020-06-30 06:47] LABS: Vancomycin Trough 21.3 ug/mL (10-15)
[2020-06-30] MEDS: midazolam 1 mg/mL INJ 2 mL IVP ×2 (06:56→10:19)
--- NOTE | 2020-06-30 07:00 | XR_ITS ---
WS: [id number] EXAM: AP CHEST: PORTABLE UPRIGHT DATE OF EXAM: 06/30/2020, 0515 hours COMPARISON: NONE HISTORY: Patient is 60 years old with ventilator dependent. Follow-up pulmonary infiltrates. FINDINGS: The cardiac silhouette is enlarged but similar. The mediastinal contours are similar. Endotracheal tube and enteric tube remain in place. The distal aspect of the enteric tube is off the imaging para meters inferiorly. Radiograph is markedly rotated to the right. The pulmonary vascularity is conges isak. Left base infiltrate similar. Right lung consolidation in the hilar region and medial right ronnell g base similar. No pneumothorax. Question small right effusion. No acute bony abnormality is seen. XR/XR chest 1V portable [id number] IMPRESSION: Supporting devices in unchanged position. No real change in bilateral infiltrat es in the short-term.
[2020-06-30] MEDS: atorvastatin 40 mg Tablet PO (07:57)
[2020-06-30] MEDS: aspirin 81 mg EC Tablet PO (07:57)
[2020-06-30] MEDS: apixaban 5 mg Tablet PO ×2 (07:57→18:17)
[2020-06-30] MEDS: FUROsemide 10 mg/mL SDV 4mL 40 MG IVP ×2 (07:57→18:17)
[2020-06-30] MEDS: docusate sodium 100 mg Capsule PO ×2 (07:59→18:17)
[2020-06-30] MEDS: fluconazole 100 mg Tablet 200 MG PO (08:00)
[2020-06-30 08:14] LABS: Glucose Point of Care 190 mg/dL (70-110)
[2020-06-30] MEDS: hyDRALAzine 20 mg/mL INJ 1 mL 5 MG IVP (09:47)
--- NOTE | 2020-06-30 09:56 | PC.NURSE ---
SEDATION Patient has been awake since beginning of shift. Per shift supervisor rn report, patients diprivan had to be discontinued due to bradycardia, and versed and fentanyl IVP was ordered. Patient was given versed and fentanyl IVP and continued to have increased blood pressure, decreased oxygen saturation, and breathing over the ventilator. Patient has tried to talk with nurse and continues to appear restless by raising arms and moving legs side to side. Patient does follow commands, but each time nurse enters room patient appears restless. Dr. Perez notified and gave orders to begin a fentanyl drip. Fentanyl drip started at 25 mcg/hr and titrated up to 50 mcg/hr and patient has appeared decreasingly restless. Patient's blood pressure, oxygen, and heart rate have stayed the same.
--- NOTE | 2020-06-30 10:14 | PC.NURSE ---
BLOOD PRESSURE Patient has continued to have increased blood pressure after fentanyl drip initiated. Dr. Perez notified of high blood pressure and gave verbal order to give 5 mg hydralazine IVP Q4H PRN. Patient given first dose at 0947 and patient's blood pressure decreased to 166/87. Patients current blood pressure is 162/95 and patient appears less restless.
[2020-06-30 11:47] LABS: Coronavirus Lab Test PTC Negative
[2020-06-30 12:13] LABS: Glucose Point of Care 169 mg/dL (70-110)
--- NOTE | 2020-06-30 12:16 | PM.PN ---
Subjective Subjective: Interval history: No acute events overnight, remains intubated, PCR negative for COVID, off precautions , off vasopressors, awake off sedation today, became bradycardic last night, propofol was stopped and she received fentanyl pushes. Unable to get CT CAP due to morbid obesity and body habitus. Afberile since 3 am yesetrday. Medications: Reviewed: Yes Vitals/I&O/Wt Last Vital Signs Temp 96.9 F L 06/30/20 08:00 Pulse 52 L 06/30/20 12:00 Resp 13 06/30/20 11:34 BP 154/84 06/30/20 12:00 Pulse Ox 92 06/30/20 12:00 06/29/20 06/30/20 06/30/20 22:59 06:59 14:59 Intake Total 254.440 / 1684.825 200.566 / 1885.391 83.875 / 83.875 Output Total 475 / 1450 1000 / 2450 650 / 650 Balance -220.560 / 234.825 -799.434 / -564.609 -566.125 / -566.125 Weight last 48 hrs Weight 182.032 kg Weight 182.526 kg Physical Exam Urinary Catheter Management^: Patterson: Cath Placed During This Visit: yes Reason for Continuing Indwelling Catheter: Accurate Measurement of Urinary Output in Critically Ill Patients Urinary Catheter Date of Insertion: 06/28/20 Urinary Catheter Time of Insertion: 04:18 Data : 06/30/20 04:30 06/30/20 04:30 Micro: Microbiology 06/28/20 03:50 Sputum Culture - Final Sputum - Endotracheal Tube Aspirate 06/28/20 09:10 Gram Stain - Final Sputum - Endotracheal Tube Aspirate Sputum Culture - Final 06/28/20 05:00 Urine Culture - Preliminary Urine Catheterized Yeast species 06/28/20 08:00 Urine Culture - Preliminary Urine Ureter Yeast 06/28/20 09:15 MRSA Culture - Final Nose A&P Assessment and plan (1) Acute on chronic respiratory failure with hypoxia and hypercapnia: -Patient has a history of acute on chronic respiratory failure with hypoxia and hypercapnia, secondary to COPD 3 L oxygen dependent, SEAN, obesity hypoventilation syndrome, noncompliance with BiPAP -According to longterm, patient continues to be noncompliant with BiPAP, has been intubated several times in the past first noncompliance, and issues as discussed above - Upon admission, patient was in septic shock, likely secondary to pneumonia vs UTI, now improving, off pressors Unable to get CT imaging for source evaluation due to body habitus. Improving on empiric regimen. -Patient's rapid COVID negative, COVID RT-PCR negative -Certainly patient could have a component of acute flash pulmonary edema, chest x-ray does show plenty vascular congestion, but it is a difficult study given her body habitus. Currently on IV lasix -Thus the etiology of patient's acute on chronic respiratory failure with hypoxia hypercapnia likely secondary to pneumonia, with septic shock, with COPD 3 there is oxygen dependent, SEAN, obesity hypoventilation syndrome, noncompliance with BiPAP, and a component acute flash pulmonary edema, and NSTEMI - awake and alert this morning. ABG with normal Ph, will attempt weaning trial and plan to extubate to Bipap - NSTEMI 2/2 demand ischemia -Eliquis for DVT prophylaxis, Protonix for GI prophylaxis -Continue broad-spectrum antibiotics vancomycin, Primaxin as patient has grown ESBL in the past, concerns for UTI, completed azithromycin 1500mg for atypical coverage -Cannot order CT scan chest abdomen pelvis due to body habitus renal ultrasound cannot visualize R kidney, left with no hydronephrosis -Lasix 40 mg IV twice daily, strict I's and O's -Continue tube feeds Status: Acute (2) Wide-complex tachycardia: -Wide-complex tachycardia, received defibrillation -A. fib with RVR on arrival -Currently normal sinus rhythm -Etiology unclear, possibly related to acute respiratory failure, pneumonia, acute flash pulmonary edema -Appreciate cardiology recommendations Status: Acute (3) NSTEMI (non-ST elevated myocardial infarction): -Baseline troponin II 79, 120-minute to 51.3, 6-hour 196.4, delta negative 82.6 -EKG atrial fibrillation, does have mild ST depressions in V1 to V2 -Currently normal sinus rhythm -Likely supply demand ischemia due to acute respiratory failure, but given to the wide-complex tachycardia and V. tach on concerned for cardiac etiology -Continue telemetry monitoring -Aspirin, statin, Eliquis -Cardiac echocardiogram shows EF of 55 -Resume receiving Lasix therapy 40 mg IV twice daily Status: Acute (4) Chronic atrial fibrillation: -On Eliquis -Hold Coreg 3.125 twice daily,due to bradycardia -Currently normal sinus rhythm Status: Chronic (5) Chronic anticoagulation: Status: Chronic (6) Chronic diastolic CHF (congestive heart failure): Lasix as above Status: Chronic (7) COPD (chronic obstructive pulmonary disease): Continue start Solu-Medrol 40 mg IV every 8 hours Status: Chronic Qualifiers: COPD type: COPD with acute exacerbation Qualified Code(s): J44.1 - Chronic obstructive pulmonary disease with (acute) exacerbation (8) Obstructive sleep apnea: Status: Chronic (9) Obesity hypoventilation syndrome: Status: Chronic (10) Morbid obesity with BMI of 60.0-69.9, adult: Status: Chronic (11) Septic shock: Status: Acute (12) Acute metabolic encephalopathy: -Multifactorial related to sepsis, acute respiratory failure, hypercarbia -Continue to monitor mental status closely Status: Acute (13) Transaminitis: -Likely secondary to shock, hypotension -enalrged liver, suspect fatty liver vs shock liver, trending down AST, ALT up, acute hepatitis serology negative Status: Acute Attestations Medical Necessity Statement*: acure respiratory failure, currently vent dependent Coding Level of Care Code Acute Power Ballast Machine Operator for Chg Fwd Diagnoses Acute on chronic respiratory failure with hypoxia and hypercapnia J96.21; J96.22 Wide-complex tachycardia I47.2 NSTEMI (non-ST elevated myocardial infarction) I21.4 Chronic atrial fibrillation I48.20 Chronic anticoagulation Z79.01 Chronic diastolic CHF (congestive heart failure) I50.32 COPD (chronic obstructive pulmonary disease) J44.1 COPD type: COPD with acute exacerbation Obstructive sleep apnea G47.33 Obesity hypoventilation syndrome E66.2 Morbid obesity with BMI of 60.0-69.9, adult E66.01; Z68.44 Septic shock A41.9; R65.21 Acute metabolic encephalopathy G93.41 Transaminitis R74.0
--- NOTE | 2020-06-30 13:06 | US_ITS ---
WS: [id number] Complete ABDOMINAL ULTRASOUND HISTORY: Transaminitis, davi COMPARISON: 06/09/2016. Very limited evaluation of the abdominal structures due to body habitus. Liver: 22 cm in length. Significant enlargement of the liver. No bile duct dilatation or mass. The en tire liver has not been imaged. Gallbladder: Prior cholecystectomy. Pancreas: Not visualized. CBD: Not imaged. Right kidney: Not visualized. Left kidney: 11.7 cm x 6.2 cm x 5.6 cm. No mass, cortical thickening or hydronephrosis. Spleen: Normal size and echogenicity. Limited visualization of the aorta. No ascites. US/US abdomen complete* [id number] IMPRESSION: 1. Significantly limited evaluation of the abdominal structures due to body choe bitus. 2. Prior cholecystectomy. 3. Marked hepatomegaly and hepatic steatosis. The entire liver is not visualiz ed. 4. RIGHT kidney is not visualized.
[2020-06-30] MEDS: ondansetron 2 mg/ML SDV 2 mL 4 MG IVP (13:55)
[2020-06-30] MEDS: hyDRALAzine 20 mg/mL INJ 1 mL 10 MG IVP ×2 (14:02→19:11)
--- NOTE | 2020-06-30 14:07 | PC.RESP ---
extubated extubated pt to bipap, tolerated well
--- NOTE | 2020-06-30 14:31 | PC.NURSE ---
EXTUBATION Patient was extubated at 1355. Patient tolerated extubation well and was extubated to BIPAP with FiO2 of 40%. Patient stated she felt like she was going to be sick prior to BIPAP initiation, so IV zofran was administered. Patients blood pressure also increased, so PRN IV hydralazine was administered as well. Patients BP decreased to 124/80 after hydralazine was given. Patient is currently resting with eyes closed and appears comfortable. Patient will be taken off BIPAP in approximately 4 hours if all goes well to see how she tolerates nasal cannula.
--- NOTE | 2020-06-30 15:42 | PC.NURSE ---
Addendum entered by Michelle Fontaine RN 06/30/20 15:49: 75 mL of fentanyl waste witnessed by Mona Fontaine RN. Original Note: Fentanyl wasted 75ml of fentanyl wasted by LANE Barrera. Witnessed waste by LANE Jiménez.
--- NOTE | 2020-06-30 17:51 | PC.NURSE ---
Speech Evaluation Speech at bedside preforming swallow study. Per Deshawn, patient tolerated study well. Patient is able to have regular diet.
[2020-06-30 18:11] LABS: Glucose Point of Care 176 mg/dL (70-110)
[2020-06-30] MEDS: levETIRAcetam 500 mg Tablet 1000 MG PO (18:17)
--- NOTE | 2020-06-30 18:32 | PM.PN ---
Subjective Subjective: Interval history: Opens her eyes sedation has been turned down. Patient is on pressure support for possible trial to assess for extubation Medications: Reviewed: Yes Vitals/I&O/Wt Last Vital Signs Temp 97.5 F L 06/30/20 14:00 Pulse 60 06/30/20 18:00 Resp 15 06/30/20 18:00 BP 165/99 06/30/20 18:00 Pulse Ox 95 06/30/20 18:00 06/30/20 06/30/20 06/30/20 06:59 14:59 22:59 Intake Total 200.566 / 1885.391 191.292 / 191.292 0 / 191.292 Output Total 1000 / 2450 650 / 650 Balance -799.434 / -564.609 -458.708 / -458.708 0 / -458.708 Weight last 48 hrs Weight 401 lb 5 oz Weight 402 lb 6.4 oz Physical Exam Narrative: EXAM NARRATIVE: GENERAL: Patient intubated opens her eyes prior to follow, NECK: No jugular vein distension. HEENT: No cyanosis. No icterus. No pallor. HEART: Regular S1 and S2. No murmur, rub or gallop. LUNGS: Clear to auscultate bilaterally. ABDOMEN: Soft, nontender and nondistended. Positive bowel sounds. No guarding, rebound or tenderness. CENTRAL NERVOUS SYSTEM: Cannot assess complete EXTREMITIES: Lower extremities without edema bilaterally. Urinary Catheter Management^: Patterson: Cath Placed During This Visit: yes Reason for Continuing Indwelling Catheter: Accurate Measurement of Urinary Output in Critically Ill Patients Urinary Catheter Date of Insertion: 06/28/20 Urinary Catheter Time of Insertion: 04:18 Data : 06/30/20 04:30 06/30/20 04:30 Micro: Microbiology 06/28/20 03:50 Sputum Culture - Final Sputum - Endotracheal Tube Aspirate 06/28/20 09:10 Gram Stain - Final Sputum - Endotracheal Tube Aspirate Sputum Culture - Final 06/28/20 05:00 Urine Culture - Preliminary Urine Catheterized Yeast species 06/28/20 08:00 Urine Culture - Preliminary Urine Ureter Yeast A&P Assessment and plan (1) NSTEMI (non-ST elevated myocardial infarction): Stable. Most likely demand ischemia as an type II. Continue conservative management Status: Acute (2) Septic shock: Treat as per medicine improve Status: Acute (3) Wide-complex tachycardia: Patient had episodes of bradycardia in the night she is not on antolin tracy. She has episode of SVT yesterday as well. Continue to monitor for now Status: Acute (4) Acute on chronic diastolic (congestive) heart failure: Well compensated continue medicine Status: Acute Attestations Medical Necessity Statement*: Require continuation of hospitalization for above defined care Coding Level of Care Code Established Pt Acute Small Engine Mechanic for Felipag Fwd Patient Type Established History Expanded Problem Focused Exam Expanded Problem Focused Medical Decision Making Moderate Complexity Diagnoses NSTEMI (non-ST elevated myocardial infarction) I21.4 Septic shock A41.9; R65.21 Wide-complex tachycardia I47.2 Acute on chronic diastolic (congestive) heart failure I50.33
[2020-06-30] MEDS: acetaminophen 325 mg Tablet 650 MG PO (19:11)
[2020-06-30] MEDS: gabapentin 300 mg Capsule PO (21:11)
[2020-06-30 21:51] LABS: Glucose Point of Care 159 mg/dL (70-110)
[2020-07-01] VITALS (19 sets, daily range): BP systolic 138–168; BP diastolic 74–109; PULSE 50–77; RESP 13–22; TEMP 36.6–36.8; O2SAT 91–100
[2020-07-01] MEDS: ipratropium-albuterol 3 mL Neb INHALATION ×2 (02:39→08:26)
[2020-07-01 04:18] LABS: Basophils % 0.1 %; Hematocrit 38.3 % (37.0-47.0); Hemoglobin 11.5 g/dL (11.5-15.3); Lymphocytes # 0.8 10^3/uL (0.8-4.8); Lymphocytes % 7.7 %; Mean Corpuscular Hemoglobin 27.4 pg (28.0-34.0); Mean Corpuscular Volume 91.4 fL (81-99); Mean Platelet Volume 10.7 fL (7.4-10.4); Monocytes # 0.7 10^3/uL (0.2-0.9); Monocytes % 6.8 %; Neutrophils # 8.76 10^3/uL (1.8-7.7); Neutrophils % 84.1 %; Nucleated Red Blood Cells % 0.3 %; Platelet Count 142 10^3/cmm (130-400); Red Blood Count 4.19 10^6/uL (4.1-5.3); Red Cell Distribution Width 15.1 % (12.1-15.1); White Blood Count 10.4 10^3/uL (4.0-10.0)
[2020-07-01 04:39] LABS: Albumin Level 3.2 g/dL (3.5-5.2); Alkaline Phosphatase 78 IU/L (35-105); Anion Gap 15.8 (5-19); Aspartate Amino Transferase 565 U/L (0-32); Blood Urea Nitrogen 56 mg/dL (8-23); Calcium 8.4 mg/dL (8.5-10.5); Carbon Dioxide 27 mmol/L (22-29); Chloride 103 mmol/L (98-107); Globulin 2.5 g/dL (1.3-4.6); Glomerular Filtration Rate 32.7 mL/min (90-130); Glucose 171 mg/dL (65-115); Magnesium 2.3 mg/dL (1.7-2.3); Osmolality Calculated 297 mOsm/kg (285-295); Potassium 3.8 mmol/L (3.5-5.1); Sodium 142 mmol/L (136-145); Total Bilirubin 1.2 mg/dL (0.15-1.2); Total Protein 5.7 g/dL (6.6-8.7)
[2020-07-01 04:47] LABS: Estmated Average Glucose 117; Hemoglobin A1C 5.7 % (4.0-6.0)
[2020-07-01 04:52] LABS: Alanine Aminotransferase 1122 U/L (0-33)
[2020-07-01 05:01] LABS: ABG PH Result 7.33 (7.35-7.45); Arterial Blood Gas Hematocrit 36.5 % (37-47); Base Excess ABG 3.2 mmol/L (-2.0-2.0); Blood Gas Allen Test Pos; Blood Gas Operator Identificat JB; Blood Gas Sample Site Radial, right; Blood Gas Sample Type Arterial; HCO3 ABG 30.3 mmol/L (22-26); Oxygen Device BIPAP
[2020-07-01] MEDS: famotidine 20 mg/2 mL INJ IVP (06:35)
[2020-07-01 07:33] LABS: Glucose Point of Care 159 mg/dL (70-110)
[2020-07-01] MEDS: levETIRAcetam 500 mg Tablet 1000 MG PO (08:56)
[2020-07-01] MEDS: apixaban 5 mg Tablet PO (08:57)
[2020-07-01] MEDS: aspirin 81 mg EC Tablet PO (08:57)
[2020-07-01] MEDS: docusate sodium 100 mg Capsule PO (08:58)
[2020-07-01] MEDS: atorvastatin 40 mg Tablet PO (08:58)
[2020-07-01] MEDS: fluconazole 100 mg Tablet 200 MG PO (08:59)
[2020-07-01] MEDS: FUROsemide 10 mg/mL SDV 4mL 40 MG IVP (09:00)
[2020-07-01] MEDS: hyDRALAzine 20 mg/mL INJ 1 mL 10 MG IVP (10:00)
[2020-07-01] MEDS: lisinopril 2.5 mg Tablet PO (11:24)
--- NOTE | 2020-07-01 12:13 | P.DS_ITS ---
Discharge Providers Date of Admission: 06/28/20 00:54 Date of Discharge: July 01, 2020 Attending Provider at Admission: Massiel Casey MD Attending Provider at Discharge: Melany Perez MD Primary Care Provider: Elmer Shelton DO Diagnoses at Discharge Discharge Diagnosis (1) NSTEMI (non-ST elevated myocardial infarction): Status: Acute (2) Septic shock: Status: Acute (3) Wide-complex tachycardia: Status: Acute (4) Acute on chronic diastolic (congestive) heart failure: Status: Acute (5) Acute on chronic respiratory failure with hypoxia and hypercapnia: Status: Acute (6) Morbid obesity with BMI of 60.0-69.9, adult: Status: Chronic (7) Obstructive sleep apnea: Status: Chronic (8) COPD (chronic obstructive pulmonary disease): Status: Chronic Qualifiers: COPD type: COPD with acute exacerbation Qualified Code(s): J44.1 - Chronic obstructive pulmonary disease with (acute) exacerbation (9) Transaminitis: Status: Acute (10) MK (acute kidney injury): Status: Acute Reason for Visit Reason for Visit: [facility] Hospital Course Discharge Summary: Sarah Merrill is a 60 year old female who presented from [facility] after complaints of respiratory distress. According to EMS patient was in ventricular tachycardia with a heart rate in the 190s. However per further review of telemetry and EKGs here, it appears more to be SVT with aberrant condu ction. She was defibrillated in the field . She was unresponsive on arrival here and was intubated shortly thereafter.She has not had any recurrent V. tach. Her temperature here was initially 105, during the initial course of admission she was spiking temperatures up to 102 Fahrenheit. Now has been afebrile since the . COVID rapid antigen and PCR were both negative during course of admission. Further details of current admission as below. # Acute on chronic respiratory failure with hypoxia and hypercapnia: -Patient has a history of acute on chronic respiratory failure with hypoxia and hypercapnia, secondary to COPD 3 L oxygen dependent, SEAN, obesity hypoventilation syndrome, noncompliance with BiPAP -According to [facility], patient continues to be noncompliant with BiPAP, has been intubated several times in the past first noncompliance. - Upon admission, patient was in septic shock, likely secondary to pneumonia vs UTI, now improving, off pressors for greater than 48 hours[address] Unable to get CT imaging for source evaluation due to body habitus. Improving on empiric regimen imipenem and vancomycin. Chest x-ray shows possible pneumonia.. Blood cultures negative to date. Leukocytosis trended down to 10 from 24 upon admission. Ultrasound abdomen without any evidence of hydronephrosis. Urine culture without any growth of bacteria. Did reveal some yeast species for which she is on fluconazole currently. Respiratory specimen with Gram stain showing respiratory ben. MRSA PCR screen from bilateral nares is negative. She received empiric treatment with imipenem and vancomycin during the admission. Today is day 4. She is being discharged with 2 more days of Augmentin and levofloxacin to complete an empiric course. -Patient's rapid COVID negative, COVID RT-PCR negative -Certainly patient could have a component of acute flash pulmonary edema, chest x-ray does show plenty vascular congestion, but it is a difficult study given her body habitus. She received diuresis with IV Lasix, being transitioned back to p.o. Bumex upon discharge at her home dose. She is currently euvolemic at the time of discharge. -Thus the etiology of patient's acute on chronic respiratory failure with hypoxia hypercapnia likely secondary to pneumonia, with septic shock, with COPD 3 there is oxygen dependent, SEAN, obesity hypoventilation syndrome, noncompliance with BiPAP, and a component acute flash pulmonary edema, and NSTEMI -She was extubated to BiPAP on 06/30 and has been doing well ever since. Encouraged to use her CPAP/BiPAP as instructed at [facility] as well, especially at nighttime. -Low probability of PE as patient has been on Eliquis. # Wide-complex tachycardia reported upon admission: -Wide-complex tachycardia status post defibrillation as reported by EMS. No further episodes here. Upon closer review with cardiology, appears to be SVT with aberrant conduction. -A. fib with RVR on arrival -Currently normal sinus rhythm with sinus bradycardia with heart rate mostly in the 50s. No antolin blocking agents on currently. -Etiology unclear, possibly related to acute respiratory failure, pneumonia, acute flash pulmonary edema -Appreciate cardiology recommendations. Likely that patient has an underlying high vagal tone due to her sleep apnea. # -Baseline troponin II 79, 120-minute to 51.3, 6-hour 196.4, delta negative 82.6 -EKG atrial fibrillation, does have mild ST depressions in V1 to V2 -Currently normal sinus rhythm -Likely supply demand ischemia due to acute respiratory failure - -Continue telemetry monitoring -Aspirin, statin, Eliquis -Cardiac echocardiogram shows EF of 55, may have a component of diastolic heart failure. -Lisinopril 2.5 mg p.o. daily added per cardiology recommendations. -Follow-up with cardiology within 5 to 6 days for post hospital discharge follow-up and monitoring of BMP. # Chronic atrial fibrillation: -On Eliquis -Stopped Coreg due to bradycardia -Currently normal sinus rhythm with bradycardia # Obstructive sleep apnea: Encourage compliance and weight reduction. #Transaminitis: -Likely secondary to shock liver, hypotension -Ultrasound abdomen with enalrged liver, suspect fatty liver vs shock liver, trending down AST, ALT in the 500 range. Monitor next week on outpatient follow-up. # Acute metabolic encephalopathy: -Multifactorial related to sepsis, acute respiratory failure, hypercarbia, now resolved and back at baseline mentation. DVT prophylaxis with Eliquis Full code Physical Exam Narrative: EXAM NARRATIVE: GEN: Awake, alert and oriented, no acute distress , morbid obesity, limited mobility CVS: S1S2 N RS: CTA B/L Abd: Soft, nt/nd , bs+ RESOURCE CENTER TEACHER: no focal neuro deficits Urinary Catheter Management^: Patterson: Cath Placed During This Visit: yes Reason for Continuing Indwelling Catheter: Accurate Measurement of Urinary Output in Critically Ill Patients Urinary Catheter Date of Insertion: 06/28/20 Urinary Catheter Time of Insertion: 04:18 Discharge Data Data Completed and Pending: Completed Studies During Hospitalization Category Date Time Status XR chest 1V justyna ble [id number] Routine Exams 06/28/20 04:07 Completed XR chest 1V justyna ble [id number] Routine Exams 06/29/20 07:00 Completed XR chest 1V justyna ble [id number] Routine Exams 06/30/20 07:00 Completed XR chest 1V justyna ble [id number] Stat Exams 06/27/20 22:42 Completed CV echo limited 9 [id number] Routine Ultrasound 06/28/20 07:52 Completed US abdomen comple te* [id number] Routine Ultrasound 06/30/20 13:06 Completed Pending at discharge Category Date Time Status Arterial Blood Ga s W/O Coox AM LABS Lab 07/02/20 04:00 Ordered Blood Culture Sta t Lab 06/27/20 22:10 Results Complete Blood Co unt w/Auto AM LABS Lab 07/02/20 04:00 Ordered Comprehensive Met abolic Panel AM LA BS Lab 07/02/20 04:00 Ordered Levetiracetam Kep pra Timed Lab 06/27/20 22:10 Received Magnesium AM LABS Lab 07/02/20 04:00 Ordered Urine Culture Rou perez Lab 06/28/20 05:00 Results Urine Culture Sta t Lab 06/28/20 08:00 Results Vancomycin Trough Timed Lab 07/03/20 09:00 Ordered Labs from last 24 hours 07/01/20 07/01/20 07/01/20 07:22 04:48 03:35 WBC RBC Hgb Hct MCV MCH MCHC RDW Plt Count MPV Neut % (Auto) Lymph % (Auto) [place] % (Auto) Eos % (Auto) Baso % (Auto) Neut # (Auto) Lymph # (Auto) [place] # (Auto) Eos # (Auto) Baso # (Auto) Nucleated RBC % (a uto) Nucleated RBCs # Specimen Type Arterial Sample Site Radial, right ABG pH 7.33 L ABG pCO2 57.0 H ABG pO2 115.0 H ABG HCO3 30.3 H ABG Base Excess 3.2 H Jalen Test Pos Hematocrit 36.5 L O2 Delivery Device Bipap FiO2 40.0 Veneer Supervisor ID Tommy Sodium Potassium Chloride Carbon Dioxide Anion Gap BUN Creatinine GFR Calculation Glucose POC Glucose 159 Estimat Average Gl ucose 117 Hemoglobin A1c 5.7 Calculated Osmolal ity Calcium Magnesium Total Bilirubin AST ALT Alkaline Phosphata se Total Protein Albumin Globulin 07/01/20 07/01/20 06/30/20 03:35 03:35 20:18 WBC 10.4 H RBC 4.19 Hgb 11.5 Hct 38.3 MCV 91.4 MCH 27.4 L MCHC 30.0 RDW 15.1 Plt Count 142 MPV 10.7 H Neut % (Auto) 84.1 Lymph % (Auto) 7.7 [place] % (Auto) 6.8 Eos % (Auto) 0.0 Baso % (Auto) 0.1 Neut # (Auto) 8.76 H Lymph # (Auto) 0.8 [place] # (Auto) 0.7 Eos # (Auto) 0.0 Baso # (Auto) 0.0 Nucleated RBC % (a uto) 0.3 Nucleated RBCs # 0.0 Specimen Type Sample Site ABG pH ABG pCO2 ABG pO2 ABG HCO3 ABG Base Excess Jalen Test Hematocrit O2 Delivery Device FiO2 Veneer Supervisor ID Sodium 142 Potassium 3.8 Chloride 103 Carbon Dioxide 27 Anion Gap 15.8 BUN 56 H Creatinine 1.6 H GFR Calculation 32.7 L Glucose 171 H POC Glucose 159 Estimat Average Gl ucose Hemoglobin A1c Calculated Osmolal ity 297 H Calcium 8.4 L Magnesium 2.3 Total Bilirubin 1.2 AST 565 H ALT 1122 H Alkaline Phosphata se 78 Total Protein 5.7 L Albumin 3.2 L Globulin 2.5 06/30/20 06/30/20 18:07 11:26 WBC RBC Hgb Hct MCV MCH MCHC RDW Plt Count MPV Neut % (Auto) Lymph % (Auto) [place] % (Auto) Eos % (Auto) Baso % (Auto) Neut # (Auto) Lymph # (Auto) [place] # (Auto) Eos # (Auto) Baso # (Auto) Nucleated RBC % (a uto) Nucleated RBCs # Specimen Type Sample Site ABG pH ABG pCO2 ABG pO2 ABG HCO3 ABG Base Excess Jalen Test Hematocrit O2 Delivery Device FiO2 Veneer Supervisor ID Sodium Potassium Chloride Carbon Dioxide Anion Gap BUN Creatinine GFR Calculation Glucose POC Glucose 176 169 Estimat Average Gl ucose Hemoglobin A1c Calculated Osmolal ity Calcium Magnesium Total Bilirubin AST ALT Alkaline Phosphata se Total Protein Albumin Globulin Vitals: Last Vital Signs Temp 98.3 F 07/01/20 10:00 Pulse 52 L 07/01/20 10:00 Resp 21 H 07/01/20 10:00 BP 160/85 07/01/20 10:00 Pulse Ox 95 07/01/20 10:00 Discharge Plan Discharge Patient Disposition: Xfer SNF Condition: Stable Prescriptions: New aspirin 81 mg Tablet,Delayed Release (Dr/Ec) 81 mg PO DAILY 30 Days Qty: 30 RF: 0 atorvastatin 40 mg Tablet 40 mg PO DAILY 30 Days Qty: 30 RF: 0 fluconazole 100 mg Tablet 200 mg PO DAILY 5 Days Qty: 5 RF: 0 lisinopril 2.5 mg Tablet 2.5 mg PO DAILY 30 Days Qty: 30 RF: 0 amoxicillin-pot clavulanate [Augmentin] 875-125 mg tablet 1 tab PO BID 2 Days Qty: 4 RF: 0 levofloxacin [Levaquin] 750 mg tablet 750 mg PO DAILY 2 Days Qty: 2 RF: 0 Continued senna 8.6 mg Tablet 8.6 mg PO BID RF: 0 acetaminophen 325 mg Tablet 325 mg PO Q4H PRN (Reason: Pain) RF: 0 Zofran 4 mg Tablet 4 mg PO Q4H PRN (Reason: Nausea) RF: 0 triamcinolone acetonide 0.1 % Cream 1 applic TOPICAL BID PRN (Reason: Rash) RF: 0 Anbesol (benzocaine) 20 % Liquid 20 % MUCOUS MEMBRANE TID RF: 0 citalopram 20 mg Tablet 20 mg PO DAILY RF: 0 Milk of Magnesia 400 mg/5 mL Suspension 30 ml PO DAILY PRN (Reason: Constipation) RF: 0 bisacodyl 10 mg Suppository 10 mg DE DAILY PRN (Reason: Constipation) RF: 0 nystatin 100,000 unit/gram Cream 1 applic TOPICAL BID PRN (Reason: Rash) RF: 0 omeprazole 20 mg Capsule,Delayed Release(Dr/Ec) 20 mg PO DAILY RF: 0 bumetanide 1 mg Tablet 1 mg PO BID RF: 0 bisacodyl 5 mg Tablet,Delayed Release (Dr/Ec) 10 mg PO DAILY PRN (Reason: Constipation) RF: 0 Acidophilus Capsule 5,000 mmu cells PO DAILY PRN (Reason: abx) RF: 0 albuterol sulfate 90 mcg/actuation Hfa Aerosol Inhaler 2 puff INHALATION Q6H PRN (Reason: Shortness Of Breath) RF: 0 bisacodyl 5 mg Tablet 5 mg PO DAILY PRN (Reason: Constipation) RF: 0 cholecalciferol (vitamin D3) 25 mcg (1,000 unit) Capsule 25 mcg PO DAILY RF: 0 bupropion HCl 150 mg Tablet Extended Release 24 Hr 150 mg PO BID RF: 0 Keppra 1,000 mg Tablet 1,000 mg PO BID RF: 0 diclofenac sodium 1 % Gel 2 g TOPICAL BID PRN (Reason: Pain) RF: 0 Natural Tears (PF) 0.1-0.3 % Dropperette 1 drp OPHTHALMIC (EYE) QID PRN (Reason: Dry Eyes) RF: 0 Eliquis 5 mg Tablet 5 mg PO BID RF: 0 Mucinex 600 mg Tablet Extended Release 12hr 600 mg PO BID RF: 0 potassium chloride 20 mEq Tablet Extended Release 20 meq PO TID RF: 0 Changed gabapentin 600 mg Tablet 300 mg PO BEDTIME Qty: 0 RF: 0 Discontinued carvedilol 3.125 mg Tablet 3.125 mg PO BID RF: 0 Discharge Orders: Discharge Order (Routine); Ordered 07/01/20 Ordered By: Melany Perez Other Ambulatory Orders: Complete Blood Count w/Auto (Routine) Timeframe: 1 Week Location: Determined by Patient Ordered By: Melany Perez Comprehensive Metabolic Panel (Routine) Timeframe: 1 Week Facility: [facility] - Location: Lab - Main Lab Ordered By: Melany Perez Referrals: Tere Diehl FNP [Nurse Practitioner] - 4-7 days (hospital discharge f/up ) Elmer Shelton DO [Primary Care Provider] - Discharge Diet: Usual diet and Cardiac Discharge Activity: Resume usual activity Activity Restrictions/Additional Instructions: use CPAP/BIPAP at night as instructed Discharge Attestations Time Spent in Discharge Care*: greater than 30 min Quality Metrics Clinical Quality Measures During this hospital stay, did patient experience: None Coding Level of Care Code Acute Inspector Open Die for g Fwd Diagnoses NSTEMI (non-ST elevated myocardial infarction) I21.4 Septic shock A41.9; R65.21 Wide-complex tachycardia I47.2 Acute on chronic diastolic (congestive) heart failure I50.33 Acute on chronic respiratory failure with hypoxia and hypercapnia J96.21; J96.22 Morbid obesity with BMI of 60.0-69.9, adult E66.01; Z68.44 Obstructive sleep apnea G47.33 COPD (chronic obstructive pulmonary disease) J44.1 COPD type: COPD with acute exacerbation Transaminitis R74.0 MK (acute kidney injury) N17.9
--- NOTE | 2020-07-01 12:17 | P.PN_ITS ---
Vitals/I&O/Wt Last Vital Signs Temp 98.3 F 07/01/20 10:00 Pulse 52 L 07/01/20 10:00 Resp 21 H 07/01/20 10:00 BP 160/85 07/01/20 10:00 Pulse Ox 95 07/01/20 10:00 06/30/20 07/01/20 07/01/20 22:59 06:59 14:59 Intake Total 100 / 541.292 460 / 1001.292 600 / 600 Output Total 800 / 1450 1000 / 2450 400 / 400 Balance -700 / -908.708 -540 / -1448.708 200 / 200 Weight last 48 hrs Weight 419 lb Weight 401 lb 5 oz Physical Exam Urinary Catheter Management^: Patterson: Cath Placed During This Visit: yes Reason for Continuing Indwelling Catheter: Accurate Measurement of Urinary Output in Critically Ill Patients Urinary Catheter Date of Insertion: 06/28/20 Urinary Catheter Time of Insertion: 04:18 Data : 07/01/20 03:35 07/01/20 03:35 Micro: Microbiology 06/28/20 03:50 Sputum Culture - Final Sputum - Endotracheal Tube Aspirate 06/28/20 09:10 Gram Stain - Final Sputum - Endotracheal Tube Aspirate Sputum Culture - Final 06/28/20 05:00 Urine Culture - Preliminary Urine Catheterized Yeast species 06/28/20 08:00 Urine Culture - Preliminary Urine Ureter Yeast Coding Level of Care Code Acute Senior Support Engineer for Janeth Grimes
--- NOTE | 2020-07-01 13:09 | PC.NURSE ---
report called to [facility] Nurse spoke with LANE Quezada at [facility]. Discussed patient DC orders, new medications, discontinued medications, vital signs and medical diagnosis. All questions answered.
--- NOTE | 2020-07-01 15:03 | PC.NURSE ---
DC note. patient bilateral hand IVs and chest IV removed prior to DC. Patterson catheter removed prior to DC.
[2020-07-02 17:14] LABS: Levetiracetam Keppra 26.3 mcg/mL
== END 2020-07-01 14:48 | disposition skilled nursing facility (03) | DRG 871 ==
LOC: ER 06-28 01:24 → ICU 06-28 01:55
PROVIDERS: Family Medicine; Admitting Provider Hospitalist; PCP Internal Medicine; Visit Provider Student in an Organized Health Care Education/Training Program
DX: A41.9 Sepsis, unspecified organism (principal); R65.21 Severe sepsis with septic shock; I50.33 Acute on chronic diastolic (congestive) heart failure; J96.21 Acute and chronic respiratory failure with hypoxia; J96.22 Acute and chronic respiratory failure with hypercapnia; G93.41 Metabolic encephalopathy; I21.A1 Myocardial infarction type 2; J18.9 Pneumonia, unspecified organism; I48.20 Chronic atrial fibrillation, unspecified; E87.2 Acidosis; E66.2 Morbid (severe) obesity with alveolar hypoventilation; Z68.44 Body mass index [BMI] 60.0-69.9, adult; J44.1 Chronic obstructive pulmonary disease with (acute) exacerbation; I47.1 Supraventricular tachycardia; N17.9 Acute kidney failure, unspecified; J44.0 Chronic obstructive pulmonary disease with (acute) lower respiratory infection; I95.9 Hypotension, unspecified; I11.0 Hypertensive heart disease with heart failure; F41.8 Other specified anxiety disorders; K21.9 Gastro-esophageal reflux disease without esophagitis; M19.90 Unspecified osteoarthritis, unspecified site; G25.81 Restless legs syndrome; E55.9 Vitamin D deficiency, unspecified; Z87.891 Personal history of nicotine dependence; Z79.01 Long term (current) use of anticoagulants; Z91.19 Patient's noncompliance with other medical treatment and regimen; Z96.0 Presence of urogenital implants; R74.0 Nonspecific elevation of levels of transaminase and lactic acid dehydrogenase [LDH]; Z99.81 Dependence on supplemental oxygen; Z95.828 Presence of other vascular implants and grafts; I08.1 Rheumatic disorders of both mitral and tricuspid valves
CPT/HCPCS: 12345; 31500; 36415; 36416; 36600; 51702; 71045; 76700; 80051; 80053; 80074; 80177; 80202; 81001; 82803; 82810; 82962; 83036; 83605; 83735; 83880; 83986; 84100; 84145; 84484; 85025; 85610; 86140; 86403; 87040; 87070; 87086; 87106; 87205; 87426; 87635; 87641; 92610; 93005; 93308; 94002; 94003; 94640; 94660; 94664; 94799; 96372; 96375; 99284; A4570; J0131; J0360; J0456; J0692; J0743; J1720; J1815; J1940; J2250; J2405; J2704; J2920; J3010; J3370; J3490; J7030; J7040; J7050

== ENCOUNTER 2020-12-23 07:46 | Outpatient (CLI) | payer MEDICAID, SELFPAY ==
[2020-12-23 09:00] LABS: Basophils # 0.1 10^3/uL (0.0-0.1); Basophils % 1.2 %; Eosinophils # 0.4 10^3/uL (0.0-0.8); Eosinophils % 5.5 %; Hemoglobin 7.7 g/dL (11.5-15.3); Lymphocytes # 1.8 10^3/uL (0.8-4.8); Lymphocytes % 28.1 %; Mean Corpuscular HGB Conc 26.6 g/dL (30.0-36.0); Mean Corpuscular Hemoglobin 21.2 pg (28.0-34.0); Mean Corpuscular Volume 79.7 fL (81-99); Mean Platelet Volume 8.6 fL (7.4-10.4); Monocytes # 0.6 10^3/uL (0.2-0.9); Monocytes % 9.6 %; Neutrophils # 3.61 10^3/uL (1.8-7.7); Neutrophils % 55.1 %; Nucleated Red Blood Cells % 0 %; Platelet Count 230 10^3/cmm (130-400); Red Blood Count 3.64 10^6/uL (4.1-5.3); Red Cell Distribution Width 17.3 % (12.1-15.1); White Blood Count 6.6 10^3/uL (4.0-10.0)
[2020-12-23 09:32] LABS: Slide Review Slide Review Perform
[2020-12-23 09:47] LABS: Alanine Aminotransferase 9 U/L (0-33); Albumin Level 3.3 g/dL (3.5-5.2); Alkaline Phosphatase 94 IU/L (35-105); Aspartate Amino Transferase 15 U/L (0-32); Blood Urea Nitrogen 25 mg/dL (8-23); Calcium 8.8 mg/dL (8.5-10.5); Carbon Dioxide 35 mmol/L (22-29); Chloride 99 mmol/L (98-107); Ferritin 39 ng/mL (15-150); Globulin 2.1 g/dL (1.3-4.6); Glomerular Filtration Rate 56.2 mL/min (90-130); Glucose 110 mg/dL (65-115); Iron 22 ug/dL (37-145); Osmolality Calculated 297 mOsm/kg (285-295); Percent Saturation 5.8 % (20-50); Sodium 141 mmol/L (136-145); Total Bilirubin 0.2 mg/dL (0.15-1.2); Total Iron Binding Capacity 378 mcg/dl; Total Protein 5.4 g/dL (6.6-8.7); Unsaturated Iron Binding 356 ug/dL (112-347)
== END 2020-12-23 07:47 | disposition home or self-care (01) ==
LOC: LAB 07:47
PROVIDERS: PCP Internal Medicine; Visit Provider Internal Medicine
DX: I11.0 Hypertensive heart disease with heart failure (principal); I50.9 Heart failure, unspecified; I48.91 Unspecified atrial fibrillation; E66.01 Morbid (severe) obesity due to excess calories; D64.9 Anemia, unspecified; E55.9 Vitamin D deficiency, unspecified; Z79.899 Other long term (current) drug therapy
CPT/HCPCS: 80053; 82728; 83540; 83550; 85025; 85045

== ENCOUNTER 2020-12-23 14:40 | Emergency (ER) | payer MEDICAID, SELFPAY ==
--- NOTE | 2020-12-23 15:05 | W.ED.GENADLT ---
HPI - General Adult General: Chief complaint: General Medical Stated complaint: LOW HEMOGLOBIN Time Seen by Provider: 12/23/20 14:43 Source: patient Mode of arrival: ambulatory Limitations: no limitations History of Present Illness: HPI narrative: 60-year-old female is well-known to the ER from local group home with decreased hemoglobin there. Stated hemoglobin today was 7.4 last week it was 8.5. She denies any blood in her stools. Patient is bedbound and morbidly obese. She denies any increased weakness. She denies any injuries or pain anywhere. Associated symptoms: Deny chest pain, dyspnea, headache(s), nausea, rash or vomiting Review of Systems Const: Denies: fever(s), chills, body aches or change in appetite Eyes: Denies: blurry vision or eye discomfort ENMT: Denies: throat pain or dental pain Card: Denies: chest pain Resp: Denies: dyspnea GI: Denies: abdominal pain, nausea, vomiting or diarrhea : Denies: dysuria Musc: Denies: neck pain or back pain Skin/Breast: Denies: rash Neuro: Reports: weakness in extremities; Denies: headache(s) Psych: Denies: depression Kev/Lymph: Denies: easy bruising All/Imm: Denies: urticaria PFSH ED PFSH: Medical History (Updated 12/23/20 @ 16:25 by Sergey Israel MD) Chronic atrial fibrillation Chronic diastolic CHF (congestive heart failure) COPD (chronic obstructive pulmonary disease) Depression with anxiety GERD (gastroesophageal reflux disease) History of GI bleed History of seizures Hypertension Morbid obesity with BMI of 60.0-69.9, adult Obesity hypoventilation syndrome Obstructive sleep apnea Osteoarthritis Restless leg syndrome Vitamin D deficiency Surgical History History of appendectomy History of hip surgery Bilateral History of hysterectomy History of tonsillectomy Presence of inferior vena cava filter Family History Other Diabetes Social History Smoking and tobacco status: former smoker Alcohol intake: never Housing: Custodial Physical Exam Const: COMMON NORMALS: no acute distress and patient oriented x3 NUTRITIONAL APPEARANCE: obese HENMT: COMMON NORMALS: normocephalic and atraumatic HEAD & SCALP: normocephalic and atraumatic Eye: COMMON NORMALS: Equal, round and reactive pupils present and EOMs intact bilaterally PUPIL: Yes Equal, round and reactive pupils present Neck/C-Spine: COMMON NORMALS: full ROM and supple Chest: COMMONS NORMALS: normal inspection of the chest and normal palpation of entire chest wall Resp: COMMON NORMALS: normal respiratory effort, No retractions, No use of accessory muscles and clear to auscultation bilaterally AUSCULTATION: clear to auscultation bilaterally Cardio: COMMON NORMALS: regular rate, regular rhythm and No murmurs present (Cardio) RATE: regular rate RHYTHM: regular rhythm GI: COMMON NORMALS: Normal to inspection, nondistended, normoactive bowel sounds present, Soft to palpation, non-tender and no masses PALPATION: Yes Soft to palpation Extremity: COMMON NORMALS: normal to inspection and full ROM Neuro: COMMON NORMALS: patient oriented x3, moves all extremities and no focal motor deficits Psych: COMMON NORMALS: mental status grossly normal, Normal thought process present and cooperative THOUGHT PROCESS: Normal thought process present Skin: COMMON NORMALS: no rashes or lesions noted and no wounds GENERAL SKIN EXAM: no rashes or lesions noted Course Vital Signs: Vital signs: Vital Signs Temperature 97.8 F 12/23/20 15:19 Pulse Rate 77 12/23/20 15:30 Respiratory Rate 18 12/23/20 15:30 Blood Pressure 150/67 12/23/20 15:30 Pulse Oximetry 97 12/23/20 15:30 MDM - General Adult MDM Narrative: Medical decision making narrative: Patient presents here with anemia from group home. Her hemoglobin here is 830 and stable. I did a rectal exam showed no blood in her stool and was Hemoccult negative. Her pressures here been normal. She is stable for discharge and no signs of active bleeding now to monitor her H&H over there at the group home. Lab Data: Labs: Lab Results 12/23/20 12/23/20 12/23/20 Range/Units 15:33 15:33 15:33 WBC 7.5 (4.0-10.0) 10^3/ uL RBC 3.82 L (4.1-5.3) 10^6/u L Hgb 8.3 L (11.5-15.3) g/dL Hct 30.1 L (37.0-47.0) % MCV 78.8 L (81-99) fL MCH 21.7 L (28.0-34.0) pg MCHC 27.6 L (30.0-36.0) g/dL RDW 17.3 H (12.1-15.1) % Plt Count 213 (130-400) 10^3/c mm MPV 8.3 (7.4-10.4) fL Neut % (Auto) 59.5 % Lymph % (Auto) 23.5 % Baker % (Auto) 9.8 % Eos % (Auto) 6.0 % Baso % (Auto) 0.9 % Neut # (Auto) 4.44 (1.8-7.7) 10^3/u L Lymph # (Auto) 1.8 (0.8-4.8) 10^3/u L Baker # (Auto) 0.7 (0.2-0.9) 10^3/u L Eos # (Auto) 0.5 (0.0-0.8) 10^3/u L Baso # (Auto) 0.1 (0.0-0.1) 10^3/u L Nucleated RBC % (a uto) 0 % Nucleated RBCs # 0.0 /100WBC PT 15.50 H (12.1-14.9) SECO NDS INR 1.19 (0.8-1.2) Sodium 142 (136-145) mmol/L Potassium 4.9 (3.5-5.1) mmol/L Chloride 102 (98-107) mmol/L Carbon Dioxide 34 H (22-29) mmol/L Anion Gap 10.9 (5-19) BUN 26 H (8-23) mg/dL Creatinine 1.2 H (0.5-0.9) mg/dL GFR Calculation 45.5 L (90-130) mL/min Glucose 141 H (65-115) mg/dL Calculated Osmolal ity 301 H (285-295) mOsm/k g Calcium 8.5 (8.5-10.5) mg/dL Total Bilirubin 0.2 (0.15-1.2) mg/dL AST 19 (0-32) U/L ALT 10 (0-33) U/L Alkaline Phosphata se 95 (35-105) IU/L Total Protein 6.3 L (6.6-8.7) g/dL Albumin 3.3 L (3.5-5.2) g/dL Globulin 3.0 (1.3-4.6) g/dL Discharge Plan Discharge Patient Disposition: Home Clinical Impression: Anemia Qualifiers: Anemia type: unspecified type Qualified Code(s): D64.9 - Anemia, unspecified Condition: Stable Prescriptions: No Action bumetanide 1 mg tablet 1 mg PO DAILY@08 RF: 0 atorvastatin 40 mg tablet 40 mg PO BEDTIME@1999 RF: 0 lisinopril 2.5 mg tablet 2.5 mg PO BEDTIME@ RF: 0 sennosides [senna] 8.6 mg Tablet 8.6 mg PO BID@ RF: 0 acetaminophen 325 mg Tablet 325 mg PO Q4H PRN (Reason: Pain) RF: 0 ondansetron HCl [Zofran] 4 mg Tablet 4 mg PO Q4H PRN (Reason: Nausea) RF: 0 Anbesol (benzocaine) 20 % Liquid 20 % MUCOUS MEMBRANE TID PRN (Reason: Toothache) RF: 0 citalopram 20 mg Tablet 20 mg PO DAILY@08 RF: 0 magnesium hydroxide [Milk of Magnesia] 400 mg/5 mL Suspension 30 ml PO DAILY PRN (Reason: Constipation) RF: 0 bisacodyl 10 mg Suppository 10 mg DE DAILY PRN (Reason: Constipation) RF: 0 omeprazole 20 mg Capsule,Delayed Release(Dr/Ec) 20 mg PO BID@ RF: 0 bisacodyl 5 mg Tablet,Delayed Release (Dr/Ec) 10 mg PO DAILY PRN (Reason: Constipation) RF: 0 Lactobacillus acidophilus [Acidophilus] Capsule 5,000 mmu cells PO DAILY PRN (Reason: abx) RF: 0 albuterol sulfate 90 mcg/actuation Hfa Aerosol Inhaler 2 puff INHALATION Q6H PRN (Reason: Shortness Of Breath) RF: 0 cholecalciferol (vitamin D3) 25 mcg (1,000 unit) Capsule 25 mcg PO BEDTIME@ RF: 0 bupropion HCl 150 mg Tablet Extended Release 24 Hr 150 mg PO BID@ RF: 0 levetiracetam [Keppra] 1,000 mg Tablet 1,000 mg PO BID@08,20 RF: 0 diclofenac sodium 1 % Gel 2 g TOPICAL BID PRN (Reason: Pain) RF: 0 guaifenesin [Mucinex] 600 mg Tablet Extended Release 12hr 600 mg PO BID RF: 0 potassium chloride 20 mEq Tablet Extended Release 20 meq PO TID RF: 0 cetirizine 10 mg Tablet 10 mg PO DAILY PRN (Reason: Allergy Symptoms) RF: 0 Tums 200 mg calcium (500 mg) Tablet,Chewable 200 mg PO TID PRN (Reason: Acid Reflux) RF: 0 Debrox 6.5 % Drops 3 - 4 drp OTIC (EAR) BID RF: 0 hydroxyzine HCl 25 mg Tablet 25 mg PO BID@08,20 RF: 0 hydroxyzine HCl 25 mg Tablet 25 mg PO DAILY PRN (Reason: Anxiety) RF: 0 gabapentin 600 mg tablet 300 mg PO BEDTIME@20 RF: 0 Discharge Orders: Discharge ED (Routine); Ordered 12/23/20 Ordered By: Sergey Israel Referrals: Elmre Shelton DO [Primary Care Provider] - 1-3 days Discharge Diet: Advance as tolerated Discharge Activity: Resume usual activity Patient Instructions: Anemia (ED) Coding Level of Care Code ED [facility] [employer] Tender for Chg Fwd Exam Comprehensive
[2020-12-23 15:19] VITALS: BP 150/67; PULSE 79; RESP 20; TEMP 36.6; O2SAT 97; BMI 53.1
[2020-12-23 15:30] VITALS: BP 150/67; PULSE 77; RESP 18; O2SAT 97
[2020-12-23 15:41] LABS: Basophils # 0.1 10^3/uL (0.0-0.1); Basophils % 0.9 %; Eosinophils # 0.5 10^3/uL (0.0-0.8); Hematocrit 30.1 % (37.0-47.0); Hemoglobin 8.3 g/dL (11.5-15.3); Lymphocytes # 1.8 10^3/uL (0.8-4.8); Lymphocytes % 23.5 %; Mean Corpuscular HGB Conc 27.6 g/dL (30.0-36.0); Mean Corpuscular Hemoglobin 21.7 pg (28.0-34.0); Mean Corpuscular Volume 78.8 fL (81-99); Mean Platelet Volume 8.3 fL (7.4-10.4); Monocytes # 0.7 10^3/uL (0.2-0.9); Monocytes % 9.8 %; Neutrophils # 4.44 10^3/uL (1.8-7.7); Neutrophils % 59.5 %; Nucleated Red Blood Cells % 0 %; Platelet Count 213 10^3/cmm (130-400); Red Blood Count 3.82 10^6/uL (4.1-5.3); Red Cell Distribution Width 17.3 % (12.1-15.1); White Blood Count 7.5 10^3/uL (4.0-10.0)
[2020-12-23 15:55] LABS: INR 1.19 (0.8-1.2)
[2020-12-23 16:14] LABS: Alanine Aminotransferase 10 U/L (0-33); Albumin Level 3.3 g/dL (3.5-5.2); Alkaline Phosphatase 95 IU/L (35-105); Anion Gap 10.9 (5-19); Aspartate Amino Transferase 19 U/L (0-32); Blood Urea Nitrogen 26 mg/dL (8-23); Calcium 8.5 mg/dL (8.5-10.5); Carbon Dioxide 34 mmol/L (22-29); Chloride 102 mmol/L (98-107); Glomerular Filtration Rate 45.5 mL/min (90-130); Glucose 141 mg/dL (65-115); Osmolality Calculated 301 mOsm/kg (285-295); Potassium 4.9 mmol/L (3.5-5.1); Sodium 142 mmol/L (136-145); Total Bilirubin 0.2 mg/dL (0.15-1.2); Total Protein 6.3 g/dL (6.6-8.7)
[2020-12-23 17:30] VITALS: BP 125/52; PULSE 81; RESP 18; O2SAT 98
[2020-12-23 19:12] VITALS: BP 125/92; PULSE 77; RESP 22; O2SAT 94
== END 2020-12-23 19:10 | disposition home or self-care (01) ==
PROVIDERS: Emergency Provider Emergency Medicine; PCP Internal Medicine
DX: D64.9 Anemia, unspecified (principal); Z87.891 Personal history of nicotine dependence; E66.01 Morbid (severe) obesity due to excess calories; Z68.44 Body mass index [BMI] 60.0-69.9, adult; I10 Essential (primary) hypertension
CPT/HCPCS: 12345; 80053; 85025; 85610; 99283

== ENCOUNTER 2021-06-08 08:54 | Inpatient (IN) | payer MEDICAID, SELFPAY ==
[2021-06-08] VITALS (16 sets, daily range): BP systolic 110–142; BP diastolic 60–87; PULSE 76–147; RESP 18–24; TEMP 37.2–37.5; O2SAT 91–98; BMI 75.2
--- NOTE | 2021-06-08 08:39 | XR_ITS ---
WS: [id number] XR chest 1V portable [id number] REASON FOR EXAM: Cough FINDINGS: Cardiomegaly and widened mediastinum, likely excess mediastinal fat. Prominence of the left upper lobe pulmonary veins. Interstitial changes in the left central lung and in the left lower lung field. Questionable interstitial changes in the right lower lung. XR/XR chest 1V portable [id number] IMPRESSION: Probable early congestive heart failure, cannot exclude pneumonitis.
--- NOTE | 2021-06-08 08:40 | ECG_ITS ---
[facility] Test Date: 2021-06-08 Pat Name: Sarah Merrill Department: Room: Gender: Female Marina Porter: : 1960 Requested By: Andre Parker Order Number: [id number] Ahumada MD: Bridget Harmon M.D. Measurements Intervals Lancing Rate: 162 P: RI: QRS: 28 QRSD: 97 T: 149 QT: 257 QTc: 423 Interpretive Statements ATRIAL FIBRILLATION WITH RAPID VENTRICULAR RESPONSE LOW QRS VOLTAGE IN EXTREMITY LEADS [QRS DEFLECTION < 0.5 mV IN LIMB LEADS] NONSPECIFIC ST & T-WAVE ABNORMALITY Compared to ECG 06/30/2020 03:53:04 Low QRS voltage now present Sinus bradycardia no longer present Prolonged QT interval no longer present T-wave abnormality still present Electronically Signed On 06-08-2021 22:09:48 CDT by Bridget Harmon M.D. [email or web address]
--- NOTE | 2021-06-08 08:43 | W.ED.SOB ---
HPI - SOB/Dyspnea General: Chief Complaint: Shortness of Breath/Dyspnea Stated Complaint: SOB, afib History of Present Illness: HPI Narrative: This patient is a 60-year-old female is morbidly obese presents to the emergency department complaint of shortness of breath. Patient was brought in from local care home. Patient reportedly was on 2 L by nasal cannula with an O2 sat in the 60s. Patient is on 6 L by nasal cannula at this time and satting 99%. Patient does have a A. fib with RVR with a heart rate of 110. Will do medical evaluation treat as needed. Patient did have a rapid Covid swab this morning that was negative and also had a rapid Covid swab on Tuesday that was negative. MD elicited complaint: shortness of breath Pertinent past history: congestive heart failure Onset (ago): unknown Severity: similar to previous episodes Exacerbating factors: nothing Relieving factors: oxygen Associated symptoms: Deny abdominal pain, chest pain, extremity pain, fever(s), lightheadedness, nausea, palpitations or vomiting Review of Systems General: Reports: 10 or more systems reviewed and unremarkable except in HPI and below Const: Denies: fever(s), chills, body aches or fatigue Eyes: Denies: change in vision or blurry vision ENMT: Denies: throat pain, hoarseness or mouth pain Card: Denies: chest pain, palpitations, irregular heart rhythm, edema, swelling of feet/ankles or lightheadedness Resp: Reports: dyspnea; Denies: productive cough, non-productive cough, wheezing or pain on inspiration GI: Denies: abdominal pain, nausea or vomiting : Denies: flank pain, difficulty voiding, dysuria, urinary frequency, urinary urgency or urinary hesitancy Musc: Denies: neck pain, back pain, extremity pain, extremity swelling, joint pain, joint swelling, joint redness, joint warmth or limited range of motion Skin/Breast: Denies: rash, pruritus, erythema or skin tenderness Neuro: Denies: headache(s), numbness in extremities or weakness in extremities Psych: Denies: anxiety or depression [facility] PFSH: Medical History (Updated 06/08/21 @ 11:23 by Andre Parker MD) Chronic atrial fibrillation Chronic diastolic CHF (congestive heart failure) COPD (chronic obstructive pulmonary disease) Depression with anxiety GERD (gastroesophageal reflux disease) History of GI bleed History of seizures Hypertension Morbid obesity with BMI of 60.0-69.9, adult Obesity hypoventilation syndrome Obstructive sleep apnea Osteoarthritis Restless leg syndrome Vitamin D deficiency Surgical History History of appendectomy History of hip surgery Bilateral History of hysterectomy History of tonsillectomy Presence of inferior vena cava filter Family History Other Diabetes Social History Smoking and tobacco status: former smoker Alcohol intake: never Housing: Retirement Physical Exam Const: COMMON NORMALS: no acute distress, average body habitus, patient oriented x3, no limitations, healthy appearing, alert and well nourished HENMT: COMMON NORMALS: normocephalic, atraumatic, hearing grossly normal bilaterally, external ears normal, EAC's normal, TM's normal bilaterally, Normal external nose present, Normal nasal mucous membranes and turbinates present, moist oral mucous membranes, oropharynx normal, dentition normal and gingiva normal HEAD & SCALP: normocephalic and atraumatic NOSE: Normal external nose present and Normal nasal mucous membranes and turbinates present EXTERNAL EAR: Yes external ears normal EXTERNAL AUDITORY CANAL: EAC's normal TYMPANIC MEMBRANE: TM's normal bilaterally Neck/C-Spine: COMMON NORMALS: full ROM, no lymphadenopathy, supple, no meningeal signs, no JVD, Thyroid normal and No carotid bruits THYROID: Thyroid normal Chest: COMMONS NORMALS: normal inspection of the chest, normal palpation of entire chest wall, normal inspection of the breasts and normal palpation of the breasts Breast/axilla inspection: Yes normal inspection of the breasts BREAST/AXILLA PALPATION: Yes normal palpation of the breasts Resp: COMMON NORMALS: No retractions, No use of accessory muscles, clear to auscultation bilaterally and percussion normal EFFORT & INSPECTION: Yes tachypneic AUSCULTATION: clear to auscultation bilaterally PERCUSSION: percussion normal Cardio: COMMON NORMALS: no JVD, regular rate, regular rhythm, S1 normal heart sound present, S2 normal heart sound present, No gallops present (Cardio), No clicks present (Cardio), No murmurs present (Cardio), No rub (Cardio) and Peripheral pulses 2+ throughout RATE: regular rate RHYTHM: regular rhythm HEART SOUNDS: S1 normal heart sound present and S2 normal heart sound present PERIPHERAL PULSES: Peripheral pulses 2+ throughout GI: COMMON NORMALS: Normal to inspection, nondistended, normoactive bowel sounds present, Soft to palpation, non-tender, No hepatosplenomegaly present, no masses and no bruits PALPATION: Yes Soft to palpation and Yes No hepatosplenomegaly present Back/Pelvis: COMMON NORMALS: thoracic and lumbar spine normal to inspection, no thoracic nor lumbar tenderness, thoraco-lumbar ROM normal and straight leg raise negative bilaterally Extremity: COMMON NORMALS: normal to inspection, full ROM, capillary refill normal, no joint enlargement, no clubbing, cyanosis or edema, no calf tenderness and no pedal edema Neuro: COMMON NORMALS: patient oriented x3 SENSORIUM/ORIENTATION: Yes alert MENINGEAL SIGNS: Yes no meningeal signs Course Reevaluation(s): Reevaluation #1: Discussed only with patient about findings. Appears to have A. fib with RVR in acute congestive heart failure. Dr. Harry will see patient for additional orders. Time: 16:12 Consultations: Consultation #1: Patient be admitted to Dr. Harry hospitalist he will see patient write additional orders. Time: 16:11 Vital Signs: Vital signs: Vital Signs Temperature 99.5 F 06/08/21 08:36 Pulse Rate 112 H 06/08/21 15:59 Respiratory Rate 20 H 06/08/21 14:57 Blood Pressure 138/60 06/08/21 15:59 Pulse Oximetry 97 06/08/21 15:59 MDM - SOB/Dyspnea MDM Narrative: Medical decision making narrative: This patient is a 60-year-old female is morbidly obese presents to the emergency department complaint of shortness of breath. Patient was brought in from local care home. Patient reportedly was on 2 L by nasal cannula with an O2 sat in the 60s. Patient is on 6 L by nasal cannula at this time and satting 99%. Patient does have a A. fib with RVR with a heart rate of 110. Will do medical evaluation treat as needed. Patient did have a rapid Covid swab this morning that was negative and also had a rapid Covid swab on Tuesday that was negative. Discussed only with patient about findings. Appears to have A. fib with RVR in acute congestive heart failure. Dr. Harry will see patient for additional orders. Patient be admitted to Dr. Harry hospitalist he will see patient write additional orders. Medical Records: Attestation: I reviewed the patient's medical records. Lab Data: Attestation: I reviewed the patient's lab results. Labs: Lab Results 06/08/21 06/08/21 06/08/21 Range/Units 09:15 10:09 10:09 WBC 14.2 H (4.0-10.0) 10^3/ uL RBC 4.26 (4.1-5.3) 10^6/u L Hgb 11.3 L (11.5-15.3) g/dL Hct 38.6 (37.0-47.0) % MCV 90.6 (81-99) fL MCH 26.5 L (28.0-34.0) pg MCHC 29.3 L (30.0-36.0) g/dL RDW 15.9 H (12.1-15.1) % Plt Count 151 (130-400) 10^3/c mm MPV 8.9 (7.4-10.4) fL Neut % (Auto) 79.7 % Lymph % (Auto) 7.7 % Cowley % (Auto) 10.1 % Eos % (Auto) 1.0 % Baso % (Auto) 0.6 % Neut # (Auto) 11.36 H (1.8-7.7) 10^3/u L Lymph # (Auto) 1.1 (0.8-4.8) 10^3/u L Cowley # (Auto) 1.4 H (0.2-0.9) 10^3/u L Eos # (Auto) 0.1 (0.0-0.8) 10^3/u L Baso # (Auto) 0.1 (0.0-0.1) 10^3/u L Nucleated RBC % (a uto) 0.1 % Nucleated RBCs # 0.0 /100WBC PT (12.1-14.9) SECO NDS INR (0.8-1.2) APTT (23.9-36.7) SECO NDS Specimen Type Arterial Sample Site Radial, right ABG pH 7.36 (7.35-7.45) ABG pCO2 62.4 H* (35-45) mmHg ABG pO2 90.9 (80.0-100.0) mmH g ABG HCO3 35.1 H (22-26) mmol/L ABG O2 Saturation 97.4 ABG Base Excess 7.8 H (-2.0-2.0) mmol/ L Jalen Test Pos A-a O2 Gradient 11.7 H (5-10) mmHg Hematocrit 35.6 L (37-47) % Hgb O2 Saturation 94.5 L (95-100) % Carboxyhemoglobin 1.9 (0.4-20.1) %THgb Methemoglobin 1.1 (0.4-1.5) % Total Hemoglobin 11.6 L (12-16) g/dL Sodium 138.0 139 (131-143) mmol/L Potassium 5.1 H 5.4 H (3.5-5.0) mmol/L Glucose 159.0 H 154 H (70-115) mg/dL Ionized Calcium 1.2 (1.1-1.4) mmol/L O2 Delivery Device Nc O2 Liters/Min 4.0 % FiO2 36.0 % Barrel Lathe Operator ID Gd Chloride 99 (98-107) mmol/L Carbon Dioxide 33 H (22-29) mmol/L Anion Gap 12.4 (5-19) BUN 29 H (8-23) mg/dL Creatinine 1.5 H (0.5-0.9) mg/dL GFR Calculation 35.2 L (90-130) mL/min Calculated Osmolal ity 297 H (285-295) mOsm/k g Lactic Acid (0.5-2.2) mmol/L Calcium 8.7 (8.5-10.5) mg/dL Total Bilirubin 1.6 H (0.15-1.2) mg/dL AST 17 (0-32) U/L ALT 14 (0-33) U/L Alkaline Phosphata se 125 H (35-105) IU/L Troponin T Baselin e (0-10) ng/L Troponin T 120 Min [place] (0-10) ng/L Delta Troponin T (0-10) ABS# NT-Pro-B Natriuret Pep 1818 H (0-125) pg/mL Total Protein 6.3 L (6.6-8.7) g/dL Albumin 3.3 L (3.5-5.2) g/dL Globulin 3.0 (1.3-4.6) g/dL Urine Color (Yellow) Urine Appearance (CLEAR) Urine pH (5-7) Ur Specific Gravit y (1.005-1.030) Urine Protein (Negative) Urine Glucose (UA) (Normal) Urine Ketones (Negative) Urine Blood (Negative) Urine Nitrate (Negative) Urine Bilirubin (Negative) Urine Urobilinogen (Negative) mg/dL Ur Leukocyte Daksha ase (Negative) Urine RBC (0-2) /hpf Urine WBC (0-5) /hpf Ur Squamous Epith Cells (0-5) /hpf Amorphous Sediment Urine Bacteria (NONE) /hpf SARS-CoV-2 Ag (Rap id) (Negative) 06/08/21 06/08/21 06/08/21 Range/Units 10:09 10:09 10:09 WBC (4.0-10.0) 10^3/ uL RBC (4.1-5.3) 10^6/u L Hgb (11.5-15.3) g/dL Hct (37.0-47.0) % MCV (81-99) fL MCH (28.0-34.0) pg MCHC (30.0-36.0) g/dL RDW (12.1-15.1) % Plt Count (130-400) 10^3/c mm MPV (7.4-10.4) fL Neut % (Auto) % Lymph % (Auto) % Cowley % (Auto) % Eos % (Auto) % Baso % (Auto) % Neut # (Auto) (1.8-7.7) 10^3/u L Lymph # (Auto) (0.8-4.8) 10^3/u L Cowley # (Auto) (0.2-0.9) 10^3/u L Eos # (Auto) (0.0-0.8) 10^3/u L Baso # (Auto) (0.0-0.1) 10^3/u L Nucleated RBC % (a uto) % Nucleated RBCs # /100WBC PT 15.50 H (12.1-14.9) SECO NDS INR 1.19 (0.8-1.2) APTT 51.3 H (23.9-36.7) SECO NDS Specimen Type Sample Site ABG pH (7.35-7.45) ABG pCO2 (35-45) mmHg ABG pO2 (80.0-100.0) mmH g ABG HCO3 (22-26) mmol/L ABG O2 Saturation ABG Base Excess (-2.0-2.0) mmol/ L Jalen Test A-a O2 Gradient (5-10) mmHg Hematocrit (37-47) % Hgb O2 Saturation (95-100) % Carboxyhemoglobin (0.4-20.1) %THgb Methemoglobin (0.4-1.5) % Total Hemoglobin (12-16) g/dL Sodium (131-143) mmol/L Potassium (3.5-5.0) mmol/L Glucose (70-115) mg/dL Ionized Calcium (1.1-1.4) mmol/L O2 Delivery Device O2 Liters/Min % FiO2 % Barrel Lathe Operator ID Chloride (98-107) mmol/L Carbon Dioxide (22-29) mmol/L Anion Gap (5-19) BUN (8-23) mg/dL Creatinine (0.5-0.9) mg/dL GFR Calculation (90-130) mL/min Calculated Osmolal ity (285-295) mOsm/k g Lactic Acid 1.1 (0.5-2.2) mmol/L Calcium (8.5-10.5) mg/dL Total Bilirubin (0.15-1.2) mg/dL AST (0-32) U/L ALT (0-33) U/L Alkaline Phosphata se (35-105) IU/L Troponin T Baselin e 36 H (0-10) ng/L Troponin T 120 Min [place] (0-10) ng/L Delta Troponin T (0-10) ABS# NT-Pro-B Natriuret Pep (0-125) pg/mL Total Protein (6.6-8.7) g/dL Albumin (3.5-5.2) g/dL Globulin (1.3-4.6) g/dL Urine Color (Yellow) Urine Appearance (CLEAR) Urine pH (5-7) Ur Specific Gravit y (1.005-1.030) Urine Protein (Negative) Urine Glucose (UA) (Normal) Urine Ketones (Negative) Urine Blood (Negative) Urine Nitrate (Negative) Urine Bilirubin (Negative) Urine Urobilinogen (Negative) mg/dL Ur Leukocyte Daksha ase (Negative) Urine RBC (0-2) /hpf Urine WBC (0-5) /hpf Ur Squamous Epith Cells (0-5) /hpf Amorphous Sediment Urine Bacteria (NONE) /hpf SARS-CoV-2 Ag (Rap id) (Negative) 06/08/21 06/08/21 06/08/21 Range/Units 10:35 10:54 12:50 WBC (4.0-10.0) 10^3/ uL RBC (4.1-5.3) 10^6/u L Hgb (11.5-15.3) g/dL Hct (37.0-47.0) % MCV (81-99) fL MCH (28.0-34.0) pg MCHC (30.0-36.0) g/dL RDW (12.1-15.1) % Plt Count (130-400) 10^3/c mm MPV (7.4-10.4) fL Neut % (Auto) % Lymph % (Auto) % Cowley % (Auto) % Eos % (Auto) % Baso % (Auto) % Neut # (Auto) (1.8-7.7) 10^3/u L Lymph # (Auto) (0.8-4.8) 10^3/u L Cowley # (Auto) (0.2-0.9) 10^3/u L Eos # (Auto) (0.0-0.8) 10^3/u L Baso # (Auto) (0.0-0.1) 10^3/u L Nucleated RBC % (a uto) % Nucleated RBCs # /100WBC PT (12.1-14.9) SECO NDS INR (0.8-1.2) APTT (23.9-36.7) SECO NDS Specimen Type Sample Site ABG pH (7.35-7.45) ABG pCO2 (35-45) mmHg ABG pO2 (80.0-100.0) mmH g ABG HCO3 (22-26) mmol/L ABG O2 Saturation ABG Base Excess (-2.0-2.0) mmol/ L Jalen Test A-a O2 Gradient (5-10) mmHg Hematocrit (37-47) % Hgb O2 Saturation (95-100) % Carboxyhemoglobin (0.4-20.1) %THgb Methemoglobin (0.4-1.5) % Total Hemoglobin (12-16) g/dL Sodium (131-143) mmol/L Potassium (3.5-5.0) mmol/L Glucose (70-115) mg/dL Ionized Calcium (1.1-1.4) mmol/L O2 Delivery Device O2 Liters/Min % FiO2 % Barrel Lathe Operator ID Chloride (98-107) mmol/L Carbon Dioxide (22-29) mmol/L Anion Gap (5-19) BUN (8-23) mg/dL Creatinine (0.5-0.9) mg/dL GFR Calculation (90-130) mL/min Calculated Osmolal ity (285-295) mOsm/k g Lactic Acid (0.5-2.2) mmol/L Calcium (8.5-10.5) mg/dL Total Bilirubin (0.15-1.2) mg/dL AST (0-32) U/L ALT (0-33) U/L Alkaline Phosphata se (35-105) IU/L Troponin T Baselin e (0-10) ng/L Troponin T 120 Min [place] 36.69 H (0-10) ng/L Delta Troponin T 0.69 (0-10) ABS# NT-Pro-B Natriuret Pep (0-125) pg/mL Total Protein (6.6-8.7) g/dL Albumin (3.5-5.2) g/dL Globulin (1.3-4.6) g/dL Urine Color Yellow (Yellow) Urine Appearance Cloudy (CLEAR) Urine pH 5 (5-7) Ur Specific Gravit y 1.005 (1.005-1.030) Urine Protein Neg (Negative) Urine Glucose (UA) Norm (Normal) Urine Ketones Negative (Negative) Urine Blood 3+ H (Negative) Urine Nitrate Negative (Negative) Urine Bilirubin Neg (Negative) Urine Urobilinogen 1 H (Negative) mg/dL Ur Leukocyte Daksha ase 2+ H (Negative) Urine RBC 5-10 H (0-2) /hpf Urine WBC Too numerous to c nt H (0-5) /hpf Ur Squamous Epith Cells 0-4 H (0-5) /hpf Amorphous Sediment Not Reportable Urine Bacteria 1+ H (NONE) /hpf SARS-CoV-2 Ag (Rap id) Negative (Negative) Imaging Data^: CXR: Attestation: I personally reviewed and interpreted this imaging study as follows: Radiologist's impression: IMPRESSION: Probable early congestive heart failure, cannot exclude pneumonitis. EKG Data^: EKG 1: Attestation: I personally reviewed and interpreted this EKG as follows: EKG Interpretation Date: 06/08/21 EKG interpretation time: 09:10 Prior EKG tracings: not available for review Interpretation: Atrial fibrillation with RVR. Heart rate 162. Nonspecific ST changes. Abnormal EKG Discharge Plan Discharge Patient Disposition: Admitted As Inpatient Clinical Impression: Acute dyspnea, Acute on chronic diastolic (congestive) heart failure, Obesity hypoventilation syndrome, Morbid obesity with BMI of 60.0-69.9, adult, Acute exacerbation of chronic obstructive pulmonary disease, UTI (urinary tract infection) Condition: Stable Coding Level of Care Code ED Entry Level Account Executive for Chg Fwd Exam Comprehensive
[2021-06-08] MEDS: albuterol 8 gm MDI 2 PUFF INHALATION (09:13)
[2021-06-08 09:31] LABS: ABG PH Result 7.36 (7.35-7.45); Alveolar-Arterial Oxygen Gradi 11.7 mmHg (5-10); Arterial Blood Gas Hematocrit 35.6 % (37-47); Base Excess ABG 7.8 mmol/L (-2.0-2.0); Blood Gas Allen Test Pos; Blood Gas Operator Identificat GD; Blood Gas Sample Site Radial, right; Blood Gas Sample Type Arterial; Carboxyhemoglobin 1.9 %THgb (0.4-20.1); HCO3 ABG 35.1 mmol/L (22-26); HGB O2 Sat 94.5 % (95-100); Ionized Calcium Level - ABG 1.2 mmol/L (1.1-1.4); Methemoglobin 1.1 % (0.4-1.5); Oxygen Device NC; Oxygen Saturation ABG 97.4; PO2 ABG 90.9 mmHg (80.0-100.0); Potassium Level - ABG 5.1 mmol/L (3.5-5.0); Total Hemoglobin 11.6 g/dL (12-16)
[2021-06-08 09:32] LABS: ABG PCO2 62.4 mmHg (35-45)
[2021-06-08 10:22] LABS: Basophils # 0.1 10^3/uL (0.0-0.1); Basophils % 0.6 %; Eosinophils # 0.1 10^3/uL (0.0-0.8); Hematocrit 38.6 % (37.0-47.0); Hemoglobin 11.3 g/dL (11.5-15.3); Lymphocytes # 1.1 10^3/uL (0.8-4.8); Lymphocytes % 7.7 %; Mean Corpuscular HGB Conc 29.3 g/dL (30.0-36.0); Mean Corpuscular Hemoglobin 26.5 pg (28.0-34.0); Mean Corpuscular Volume 90.6 fL (81-99); Mean Platelet Volume 8.9 fL (7.4-10.4); Monocytes # 1.4 10^3/uL (0.2-0.9); Monocytes % 10.1 %; Neutrophils # 11.36 10^3/uL (1.8-7.7); Neutrophils % 79.7 %; Nucleated Red Blood Cells % 0.1 %; Platelet Count 151 10^3/cmm (130-400); Red Blood Count 4.26 10^6/uL (4.1-5.3); Red Cell Distribution Width 15.9 % (12.1-15.1); White Blood Count 14.2 10^3/uL (4.0-10.0)
--- NOTE | 2021-06-08 10:40 | ECG_ITS ---
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 Measurements Intervals Jackson Rate: 110 P: DE: QRS: 17 QRSD: 99 T: 141 QT: 333 QTc: 451 Interpretive Statements ATRIAL FLUTTER/TACHYCARDIA WITH RAPID VENTRICULAR RESPONSE ST DEVIATION AND MODERATE T-WAVE ABNORMALITY, CONSIDER LATERAL ISCHEMIA [-0.1+ mV T WAVE IN I/aVL/V5/V6] Compared to ECG 06/08/2021 09:10:07 Possible ischemia now present Atrial fibrillation no longer present T-wave abnormality still present Electronically Signed On 06-08-2021 22:23:36 CDT by Bridget Harmon M.D. [id number]
[2021-06-08 10:41] LABS: INR 1.19 (0.8-1.2)
[2021-06-08 10:43] LABS: Partial Thromboplastin Time 51.3 SECONDS (23.9-36.7)
[2021-06-08 10:44] LABS: Lactic Sepsis W/Reflex 1.1 mmol/L (0.5-2.2)
[2021-06-08 10:49] LABS: Alanine Aminotransferase 14 U/L (0-33); Albumin Level 3.3 g/dL (3.5-5.2); Alkaline Phosphatase 125 IU/L (35-105); Anion Gap 12.4 (5-19); Aspartate Amino Transferase 17 U/L (0-32); Blood Urea Nitrogen 29 mg/dL (8-23); Calcium 8.7 mg/dL (8.5-10.5); Carbon Dioxide 33 mmol/L (22-29); Chloride 99 mmol/L (98-107); Glomerular Filtration Rate 35.2 mL/min (90-130); Glucose 154 mg/dL (65-115); NT Pro B Type Natriuretic Pept 1818 pg/mL (0-125); Osmolality Calculated 297 mOsm/kg (285-295); Potassium 5.4 mmol/L (3.5-5.1); Sodium 139 mmol/L (136-145); Total Bilirubin 1.6 mg/dL (0.15-1.2); Total Protein 6.3 g/dL (6.6-8.7)
[2021-06-08 11:02] LABS: Troponin(5th) Baseline 36 ng/L (0-10)
[2021-06-08 11:11] LABS: Blood Urine 3+ (Negative); Glucose Urine UA Norm (Normal); Ketones Urine Negative (Negative); Protein Urine Neg (Negative); Specific Gravity, Urine 1.005 (1.005-1.030); Urine Appearance Cloudy (CLEAR); Urine Color Yellow (Yellow); pH Urine 5 (5-7)
[2021-06-08 11:12] LABS: Add Urine Microscopic? YES; Bilirubin Urine Neg (Negative); Leukocyte Esterase Urine 2+ (Negative); Nitrate Urine Negative (Negative); Urobilinogen Urine 1 mg/dL (Negative)
[2021-06-08 11:13] LABS: Add Urine Culture? Yes; Bacteria Urine 1+ /hpf; Squamous Epithelial Cell Urine 0-4 /hpf (0-5); WBC Urine TOO NUMEROUS TO CNT /hpf (0-5)
[2021-06-08 11:22] LABS: SARS Covid-2 Antigen Negative (Negative)
[2021-06-08] MEDS: levofloxacin-dextrose 5 % 750 MG/150 ML PREMIX 100 MG IV (11:57)
[2021-06-08] MEDS: FUROsemide 10 mg/mL SDV 10mL 80 MG IVP (13:13)
[2021-06-08 13:22] LABS: Troponin 5 2HR 36.69 ng/L (0-10); Troponin 5 2HR Delta 0.69 ABS# (0-10)
--- NOTE | 2021-06-08 17:50 | PM.HP ---
Providers/Chief Complaint Primary Care Provider: Elmer Shelton DO Chief Complaint: SOB, afib History of Present Illness Sarah Merrill is a 60 year old female who is a resident of [facility] with past medical history of atrial fibrillation, CKD, chronic diastolic heart failure on chronic anticoagulation, 3 L home oxygen supplementation, morbid obesity, SEAN, COPD, bedbound status, hypertension, history of GI bleed and seizures presented to the ER from [facility] today because of worsening shortness of breath. As per documentation at the group home patient was on 2 L oxygen supplementation saturating in the 60s. Patient was brought to the ER and was saturating 99% on 6 L nasal cannula with atrial fibrillation rapid ventricular response with heart rate in 110s for which she received IV Cardizem after which her heart rate settled down to high 90s. On my examination patient was awake alert sitting up in bed with heart rate of 113 bpm on 3 L nasal cannula saturating 97% with blood pressure of 120/70 6 mmHg. Patient states she supposed to be on a BiPAP but she does not use it well because she cannot tolerate the mask. She denies any nausea, vomiting, headache, dizziness, fever, abdominal pain. She is complaining of more shortness of breath than usual along with cough without any expectoration. Blood work in the ER 0.2, hemoglobin of 11.3, platelet count of 151, sodium 139, potassium 5.4, creatinine of 1.5, BUN of 29, bilirubin of 1.6, AST/ALT of 17/14, proBNP of 1800, UA showing numerous WBCs, 2+ leuk esterase but negative nitrites with 1+ bacteria. ABG done in the ER showed a pH of 7.3, PCO2 of 62.4, PO2 of 90 on 4 L oxygen supplementation. Review of Systems General: Reports: 10 or more systems reviewed and unremarkable except in HPI and below Const: Denies: fever(s), chills, body aches, change in appetite, change in weight, malaise, night sweats, diaphoresis, change in sleep pattern, daytime sleepiness or snoring Eyes: Denies: change in vision, blurry vision, photophobia, eye discomfort or eye discharge ENMT: Denies: throat pain, enlarged tonsils, hoarseness, mouth pain, oral sores, dry mouth, tinnitus, nasal congestion or post nasal drip Card: Denies: chest pain, palpitations, irregular heart rhythm, edema, swelling of feet/ankles, lightheadedness, syncope, pre-syncope, dyspnea on exertion, orthopnea, leg pain with exertion or acrocyanosis Resp: Denies: dyspnea, productive cough, non-productive cough, wheezing, stridor, pain on inspiration, change in phlegm color, hemoptysis or chest congestion GI: Denies: abdominal pain, nausea, vomiting, hematemesis, coffee ground emesis, dysphagia, heartburn, diarrhea, constipation, bloating, GI cramping, change in bowel habits, pain on defecation, hematochezia or melena : Denies: flank pain, dysuria, urinary frequency, urinary urgency, urinary hesitancy, nocturia or hematuria Musc: Denies: neck pain, back pain, extremity pain, joint pain, joint swelling, joint redness, joint stiffness or limited range of motion Neuro: Denies: headache(s), numbness in extremities, weakness in extremities, sensory changes, lack of coordination, difficulty walking, frequent falls, dizziness, vertigo, confusion, Slurred speech present, difficulty communicating thoughts or seizure-like activity Psych: Denies: anxiety, depression, mood swings, panic attacks, hopelessness or irritability Endo: Denies: polyuria, polydipsia, tired all the time, cold intolerance, excessive sweating, flushing or heat intolerance Kev/Lymph: Denies: easy bruising or easy bleeding All/Imm: Denies: tongue swelling, facial swelling or acute wheezing Medications/Allergies Home Medications Medication Instructions Recorded Confirmed Last Taken Type Anbesol (benzocaine) 20 % MUCOUS MEMBRANE TID PRN 06/28/20 06/08/21 03/18/20 History acetaminophen 650 mg PO Q4H PRN 06/28/20 06/08/21 12/21/20 History albuterol sulfate 2 puff INHALATION Q6H PRN 06/28/20 06/08/21 Unknown History bisacodyl 10 mg PO DAILY PRN 06/28/20 06/08/21 12/20/20 History bisacodyl 10 mg [place] DAILY PRN 06/28/20 06/08/21 Unknown History bupropion HCl 150 mg PO BID@08,06/28/20 06/08/21 06/08/21 History cholecalciferol (vitamin D3) 25 mcg PO BEDTIME@06/28/20 06/08/21 06/07/21 History citalopram 20 mg PO DAILY@06/28/20 06/08/21 06/07/21 History diclofenac sodium 2 g TOPICAL BID PRN 06/28/20 06/08/21 06/07/20 History guaifenesin [Mucinex] 600 mg PO BID 06/28/20 06/08/21 06/08/21 History levetiracetam [Keppra] 1,000 mg PO BID@06/28/20 06/08/21 06/08/21 History magnesium hydroxide [Milk of 30 ml PO DAILY PRN 06/28/20 06/08/21 06/13/20 History Magnesia] ondansetron HCl [Zofran] 4 mg PO Q4H PRN 06/28/20 06/08/21 06/07/21 History potassium chloride 20 meq PO TID 06/28/20 06/08/21 06/08/21 History bumetanide 1 mg tablet 1 mg PO DAILY@07/30/20 06/08/21 06/08/21 History atorvastatin 40 mg tablet 40 mg PO BEDTIME@199909/23/20 06/08/21 06/07/21 History lisinopril 2.5 mg tablet 2.5 mg PO BEDTIME@09/23/20 06/08/21 06/07/21 History calcium carbonate [Tums] 200 mg PO TID PRN 12/23/20 06/08/21 12/20/20 History gabapentin 300 mg PO BEDTIME@12/23/20 06/08/21 06/07/21 History hydroxyzine HCl 25 mg PO BID@12/23/20 06/08/21 06/08/21 History baclofen 5 mg tablet 5 mg PO TID PRN 03/25/21 06/08/21 06/07/21 History cetirizine 10 mg tablet 10 mg PO DAILY PRN 03/25/21 06/08/21 06/07/21 History ferrous sulfate 325 mg (65 mg 325 mg PO DAILY 03/25/21 06/08/21 06/08/21 History iron) tablet,delayed release omeprazole 20 mg capsule,delayed 20 mg PO DAILY cap 03/25/21 06/08/21 06/08/21 History release Lactobacillus acidophilus 10,000 mmu cells PO DAILY PRN 06/08/21 06/08/21 Unknown History [Acidophilus] bisacodyl [Dulcolax (bisacodyl)] 5 mg PO BEDTIME 06/08/21 06/08/21 06/07/21 History nystatin 1 applic TOPICAL BID 06/08/21 06/08/21 06/07/21 History triamcinolone acetonide 1 applic TOPICAL BID 06/08/21 06/08/21 06/07/21 History Allergies Allergy/AdvReac Type Severity Reaction Status Date / Time amoxicillin Allergy Unknown Verified 07/30/20 10:52 aspartame Allergy unknown Verified 07/30/20 10:52 metoclopramide [From Reglan] Allergy Unknown Verified 07/30/20 10:52 nitroglycerin Allergy Unknown Verified 07/30/20 10:52 PFSH Acute PFSH: Medical History (Updated 06/08/21 @ 18:11 by Feliciano La MD) MK (acute kidney injury) Chronic atrial fibrillation Chronic diastolic CHF (congestive heart failure) Chronic kidney disease COPD (chronic obstructive pulmonary disease) Depression with anxiety GERD (gastroesophageal reflux disease) History of GI bleed History of seizures Hypertension Morbid obesity with BMI of 60.0-69.9, adult NSTEMI (non-ST elevated myocardial infarction) Obesity hypoventilation syndrome Obstructive sleep apnea Osteoarthritis Restless leg syndrome Transaminitis Vitamin D deficiency Surgical History History of appendectomy History of hip surgery Bilateral History of hysterectomy History of tonsillectomy Presence of inferior vena cava filter Family History Other Diabetes Social History Smoking and tobacco status: former smoker Alcohol intake: never Housing: Correction Vitals/I&O/Wt Last Vital Signs Temp 99.5 F 06/08/21 08:36 Pulse 112 H 06/08/21 16:58 Resp 18 06/08/21 16:58 BP 123/76 06/08/21 16:58 Pulse Ox 97 06/08/21 16:58 Weight last 48 hrs Weight 192.777 kg Physical Exam Narrative: EXAM NARRATIVE: General: No acute distress, AO x3, morbidly obese, poor oral care,, on 4 L nasal cannula HEENT: PERRLA, pupils bilaterally equal and reactive Chest: Bilateral decreased breath sounds, bilateral fine crackles present in the lower lung allen, rhonchi present all over the lung field CVS: S1-S2 regular, no murmurs, no tachycardia, no gallops, no rubs Abdomen: Soft, nontender, no organomegaly, bowel sounds present, morbidly obese. Neuro: No focal deficits, no facial deformity, AO x3, power 5/5 in all limbs Extremities: Bilateral lower limbs edema present acuity knees, open wound present on the right good and at the posterior leg, mildly foul-smelling Urinary Catheter Management^: Patterson: Cath Placed During This Visit: yes Urinary Catheter Date of Insertion: 06/08/21 Urinary Catheter Time of Insertion: 09:09 Data : 06/08/21 10:09 06/08/21 10:09 Other Labs: Laboratory Results WBC 14.2 10^3/uL (4.0-10.0) H 06/08/21 10:09 RBC 4.26 10^6/uL (4.1-5.3) 06/08/21 10:09 Hgb 11.3 g/dL (11.5-15.3) L 06/08/21 10:09 Hct 38.6 % (37.0-47.0) 06/08/21 10:09 MCV 90.6 fL (81-99) 06/08/21 10:09 MCH 26.5 pg (28.0-34.0) L 06/08/21 10:09 MCHC 29.3 g/dL (30.0-36.0) L 06/08/21 10:09 RDW 15.9 % (12.1-15.1) H 06/08/21 10:09 Plt Count 151 10^3/cmm (130-400) 06/08/21 10:09 MPV 8.9 fL (7.4-10.4) 06/08/21 10:09 Neut % (Auto) 79.7 % 06/08/21 10:09 Lymph % (Auto) 7.7 % 06/08/21 10:09 [place] % (Auto) 10.1 % 06/08/21 10:09 Eos % (Auto) 1.0 % 06/08/21 10:09 Baso % (Auto) 0.6 % 06/08/21 10:09 Neut # (Auto) 11.36 10^3/uL (1.8-7.7) H 06/08/21 10:09 Lymph # (Auto) 1.1 10^3/uL (0.8-4.8) 06/08/21 10:09 [place] # (Auto) 1.4 10^3/uL (0.2-0.9) H 06/08/21 10:09 Eos # (Auto) 0.1 10^3/uL (0.0-0.8) 06/08/21 10:09 Baso # (Auto) 0.1 10^3/uL (0.0-0.1) 06/08/21 10:09 Nucleated RBC % (auto) 0.1 % 06/08/21 10:09 Nucleated RBCs # 0.0 /100WBC 06/08/21 10:09 PT 15.50 SECONDS (12.1-14.9) H 06/08/21 10:09 INR 1.19 (0.8-1.2) 06/08/21 10:09 APTT 51.3 SECONDS (23.9-36.7) H 06/08/21 10:09 Specimen Type Arterial 06/08/21 09:15 Sample Site Radial, right 06/08/21 09:15 ABG pH 7.36 (7.35-7.45) 06/08/21 09:15 ABG pCO2 62.4 mmHg (35-45) H* 06/08/21 09:15 ABG pO2 90.9 mmHg (80.0-100.0) 06/08/21 09:15 ABG HCO3 35.1 mmol/L (22-26) H 06/08/21 09:15 ABG O2 Saturation 97.4 06/08/21 09:15 ABG Base Excess 7.8 mmol/L (-2.0-2.0) H 06/08/21 09:15 Jalen Test Pos 06/08/21 09:15 A-a O2 Gradient 11.7 mmHg (5-10) H 06/08/21 09:15 Hematocrit 35.6 % (37-47) L 06/08/21 09:15 Hgb O2 Saturation 94.5 % (95-100) L 06/08/21 09:15 Carboxyhemoglobin 1.9 %THgb (0.4-20.1) 06/08/21 09:15 Methemoglobin 1.1 % (0.4-1.5) 06/08/21 09:15 Total Hemoglobin 11.6 g/dL (12-16) L 06/08/21 09:15 Sodium 138.0 mmol/L (131-143) 06/08/21 09:15 Potassium 5.1 mmol/L (3.5-5.0) H 06/08/21 09:15 Glucose 159.0 mg/dL (70-115) H 06/08/21 09:15 Ionized Calcium 1.2 mmol/L (1.1-1.4) 06/08/21 09:15 O2 Delivery Device Nc 06/08/21 09:15 O2 Liters/Min 4.0 % 06/08/21 09:15 FiO2 36.0 % 06/08/21 09:15 Research And Development Technician ID Gd 06/08/21 09:15 Sodium 139 mmol/L (136-145) 06/08/21 10:09 Potassium 5.4 mmol/L (3.5-5.1) H 06/08/21 10:09 Chloride 99 mmol/L (98-107) 06/08/21 10:09 Carbon Dioxide 33 mmol/L (22-29) H 06/08/21 10:09 Anion Gap 12.4 (5-19) 06/08/21 10:09 BUN 29 mg/dL (8-23) H 06/08/21 10:09 Creatinine 1.5 mg/dL (0.5-0.9) H 06/08/21 10:09 GFR Calculation 35.2 mL/min (90-130) L 06/08/21 10:09 Glucose 154 mg/dL (65-115) H 06/08/21 10:09 Calculated Osmolality 297 mOsm/kg (285-295) H 06/08/21 10:09 Lactic Acid 1.1 mmol/L (0.5-2.2) 06/08/21 10:09 Calcium 8.7 mg/dL (8.5-10.5) 06/08/21 10:09 Total Bilirubin 1.6 mg/dL (0.15-1.2) H 06/08/21 10:09 AST 17 U/L (0-32) 06/08/21 10:09 ALT 14 U/L (0-33) 06/08/21 10:09 Alkaline Phosphatase 125 IU/L (35-105) H 06/08/21 10:09 Troponin T Baseline 36 ng/L (0-10) H 06/08/21 10:09 Troponin T 120 Minute 36.69 ng/L (0-10) H 06/08/21 12:50 Delta Troponin T 0.69 ABS# (0-10) 06/08/21 12:50 NT-Pro-B Natriuret Pep 1818 pg/mL (0-125) H 06/08/21 10:09 Total Protein 6.3 g/dL (6.6-8.7) L 06/08/21 10:09 Albumin 3.3 g/dL (3.5-5.2) L 06/08/21 10:09 Globulin 3.0 g/dL (1.3-4.6) 06/08/21 10:09 Urine Color Yellow (Yellow) 06/08/21 10:54 Urine Appearance Cloudy (CLEAR) 06/08/21 10:54 Urine pH 5 (5-7) 06/08/21 10:54 Ur Specific Nucla 1.005 (1.005-1.030) 06/08/21 10:54 Urine Protein Neg (Negative) 06/08/21 10:54 Urine Glucose (UA) Norm (Normal) 06/08/21 10:54 Urine Ketones Negative (Negative) 06/08/21 10:54 Urine Blood 3+ (Negative) H 06/08/21 10:54 Urine Nitrate Negative (Negative) 06/08/21 10:54 Urine Bilirubin Neg (Negative) 06/08/21 10:54 Urine Urobilinogen 1 mg/dL (Negative) H 06/08/21 10:54 Ur Leukocyte Esterase 2+ (Negative) H 06/08/21 10:54 Urine RBC 5-10 /hpf (0-2) H 06/08/21 10:54 Urine WBC Too numerous to cnt /hpf (0-5) H 06/08/21 10:54 Ur Squamous Epith Cells 0-4 /hpf (0-5) H 06/08/21 10:54 Amorphous Sediment Not Reportable 06/08/21 10:54 Urine Bacteria 1+ /hpf (NONE) H 06/08/21 10:54 SARS-CoV-2 Ag (Rapid) Negative (Negative) 06/08/21 10:35 Impressions Chest X-Ray 06/08/21 08:39 IMPRESSION: Probable early congestive heart failure, cannot exclude pneumonitis. Micro: Microbiology 06/08/21 10:12 Blood Culture - Preliminary Blood SPECIMEN COLLECTED 06/08/21 10:09 Blood Culture - Preliminary Blood SPECIMEN COLLECTED A&P Assessment and plan (1) Sepsis: Status: Acute Qualifiers: Acute respiratory failure type: with hypoxia Sepsis acute organ dysfunction status: with acute organ dysfunction Sepsis type: sepsis due to unspecified organism Severe sepsis acute organ dysfunction type: acute respiratory failure Severe sepsis shock status: without septic shock Qualified Code(s): A41.9 - Sepsis, unspecified organism; R65.20 - Severe sepsis without septic shock; J96.01 - Acute respiratory failure with hypoxia (2) Acute on chronic respiratory failure with hypoxia and hypercapnia: Status: Acute (3) Acute dyspnea: Status: Acute (4) Acute exacerbation of chronic obstructive pulmonary disease: Status: Acute (5) Acute on chronic diastolic (congestive) heart failure: Status: Acute (6) Cellulitis: Status: Acute (7) UTI (urinary tract infection): Status: Acute (8) Chronic atrial fibrillation: Status: Chronic (9) Obesity hypoventilation syndrome: Status: Chronic (10) Morbid obesity with BMI of 60.0-69.9, adult: Status: Chronic (11) On home oxygen therapy: Status: Chronic (12) Chronic kidney disease: Status: Acute Additional A&P Information Sepsis: Secondary to UTI and cellulitis, Check blood culture, urine culture, MRSA swab, procalcitonin, sputum culture, urine Legionella. Keep mean arterial pressure over 65 start patient on vancomycin and imipenem as patient is allergic to penicillin. We will de-escalate antibiotics as per culture results. Urine culture in the past showed Trisha glabrata. For now start patient on oral fluconazole. If growing and again we will send out for speciation and sensitivities. Wound care with wet-to-dry dressings, Hydrofera Blue. Lymphedema wrap. Acute on chronic respiratory failure with hypoxia and hypercapnia: Most likely secondary to congestive heart failure in setting of COPD, obstructive sleep apnea. Strict input output charting, daily weights. Patterson catheter for urine output measurement. Bumex 2 mg IV every 12 hourly. Echocardiogram done in October 2020 shows an EF of 55% with grade 1 diastolic dysfunction. COVID-19 PCR sent in from the ER. Isolation precautions. Advair, Spiriva. Tessalon Perles. Pulmonary toilet with incentive spirometry and flutter valve. Vitamin C, zinc. CT chest without contrast to rule him rule out pneumonic patch. Oxygen recommendation keeping saturation over 90%. BiPAP at night. Atrial fibrillation: Start patient on Cardizem 30 mg every 6 hourly. Not on any anticoagulation as an outpatient most likely secondary to GI bleed. Continue with full dose aspirin. CKD: Baseline creatinine ranging from 1.2-1.8. Creatinine at baseline. Medical renal sedation done for nephrotoxic drugs. Will monitor BMP daily for now. Check iron panel, TSH, HbA1c, lipid panel. CODE STATUS: Patient states she would not want to be intubated or chest compressions. She would not want to be put onto life support. CODE STATUS changed to DNR/DNI. Heparin 5000 every 12 hourly for DVT prophylaxis. Omeprazole for PUD prophylaxis. Attestations Medical Necessity Statement*: More than 2 midnights for sepsis, acute on chronic respiratory failure, atrial fibrillation, CKD, COVID-19 rule out. Time Spent in Patient Care: Greater than 35 minutes (>than 50% of time spent in counselling and/or direct pt care on unit). 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 Operator for [facility] Diagnoses Sepsis A41.9; R65.20; J96.01 Acute respiratory failure type: with hypoxia Sepsis acute organ dysfunction status: with acute organ dysfunction Sepsis type: sepsis due to unspecified organism Severe sepsis acute organ dysfunction type: acute respiratory failure Severe sepsis shock status: without septic shock Acute on chronic respiratory failure with hypoxia and hypercapnia J96.21; J96.22 Acute dyspnea R06.00 Acute exacerbation of chronic obstructive pulmonary disease J44.1 Acute on chronic diastolic (congestive) heart failure I50.33 Cellulitis L03.90 UTI (urinary tract infection) N39.0 Chronic atrial fibrillation I48.20 Obesity hypoventilation syndrome E66.2 Morbid obesity with BMI of 60.0-69.9, adult E66.01; Z68.44 On home oxygen therapy Z99.81 Chronic kidney disease N18.9
--- NOTE | 2021-06-08 18:23 | PC.NURSE ---
pt noted to have skin break down to L leg in back of knee fold and to upper pelvic fold. unable to assess back side at this time.
[2021-06-08 18:47] LABS: Procalcitonin 0.65 ng/mL (0-0.5); Thyroid Stimulating Hormone 2.84 uIU/mL (0.27-4.20)
[2021-06-08 19:04] LABS: Potassium, Radom Urine 39 mmol/L; Urine Random Chloride 95 mmol/L; Urine Random Sodium 72 mmol/L
[2021-06-08 19:06] LABS: Iron 21 ug/dL (37-145); Percent Saturation 7.8 % (20-50); Total Iron Binding Capacity 266 mcg/dl; Unsaturated Iron Binding 245 ug/dL (112-347)
[2021-06-08] MEDS: vancomycin 1,500 MG/300 ML PIGGYBACK 200 MG IV (19:41)
[2021-06-08] MEDS: bumetanide 0.25 mg/mL SDV 4 mL 2 MG IV (19:43)
[2021-06-08] MEDS: dilTIAZem 30 mg Tablet PO (20:38)
--- NOTE | 2021-06-08 22:38 | PC.NURSE ---
Cardizem 30mg PO QID administration for 2099 was not given due to 30mg Cardizem administration at 2037
--- NOTE | 2021-06-08 22:46 | PC.NURSE ---
Received order from Dr. Perez for [facility].
[2021-06-09] VITALS (14 sets, daily range): BP systolic 98–144; BP diastolic 63–106; PULSE 109–115; RESP 16–22; TEMP 36.6–36.9; O2SAT 92–97
[2021-06-09] MEDS: citalopram 20 mg Tablet PO ×2 (00:13→22:42)
[2021-06-09] MEDS: lisinopril 2.5 mg Tablet PO (00:13)
[2021-06-09] MEDS: ascorbic acid 500 mg Tablet PO ×2 (00:14→08:13)
[2021-06-09] MEDS: atorvastatin 40 mg Tablet PO (00:14)
[2021-06-09] MEDS: levETIRAcetam 500 mg Tablet 1000 MG PO ×3 (00:14→22:41)
[2021-06-09] MEDS: benzonatate 100 mg Capsule PO ×3 (00:14→17:36)
[2021-06-09] MEDS: bisacodyl 5 mg Tablet PO ×2 (00:14→21:57)
[2021-06-09] MEDS: buPROPion XL (24 HR) 150 mg Tablet PO ×3 (00:14→21:58)
[2021-06-09] MEDS: gabapentin 300 mg Capsule PO ×2 (00:14→22:40)
[2021-06-09] MEDS: heparin 5,000 unit/mL INJ 1 mL 5000 UNIT SUBCUT ×3 (00:25→22:41)
[2021-06-09] MEDS: triamcinolone 0.1% cream 15 gm 1 APPLIC TOPICAL ×3 (01:33→17:45)
--- NOTE | 2021-06-09 01:34 | PC.PHAR ---
Pharmacokinetic dosing service Date: 06/09/21 Time: 99 Objective: Patient: Sarah Merrill Floor: 107-1 Age: 60 yo Serum creatinine: 1.5 mg/dL Height: 63.0 Inches Weight (kg): 199.626 Diagnosis: Relevant medical/social history: Cultures and sensitivities: Other labs: Assessment: IBW (kg): 52.40 Dosing wt(kg): 111.3 Estimated Creatinine clearance (ml/min): 32.2 CRCL method: Cockcroft and Gault using ibw(default). Drug selected: Vancomycin Loading dose (mg): 0 Vd (liters): 100.2 (factor used: 0.9 L/kg) Tera (hr-1): 0.031 Half life (hrs): 22.36 Recommended dose: 1500 mg Interval: 24 hrs Infusion time (hrs): 1.5 Predicted peak (mcg/mL): 27.9 Predicted trough (mcg/mL): 13.89 Adjusted body weight was selected for vancomycin dosing. To switch back, select the total body weight option above. Renal function is stable [ ] /unstable [ ] Recommendations: Give Vancomycin 1500 mg q 24 hrs with an expected Cpeak of 27.9 mcg/ml and an expected Ctrough of 13.89 mcg/ml Renal dosing of other antibiotics (review renal dosing of other medications and list guidelines here): Thank you for the consult, will continue to follow. Signature: Jenise Stubbs [facility]
[2021-06-09] MEDS: nystatin cream 30 gm 1 APPLIC TOPICAL ×3 (01:43→17:45)
[2021-06-09 05:26] LABS: Basophils % 0.4 %; Eosinophils # 0.1 10^3/uL (0.0-0.8); Eosinophils % 1.2 %; Hematocrit 36.3 % (37.0-47.0); Hemoglobin 10.6 g/dL (11.5-15.3); Lymphocytes # 1.3 10^3/uL (0.8-4.8); Lymphocytes % 12.4 %; Mean Corpuscular HGB Conc 29.2 g/dL (30.0-36.0); Mean Corpuscular Hemoglobin 26.6 pg (28.0-34.0); Mean Platelet Volume 9.2 fL (7.4-10.4); Monocytes # 0.8 10^3/uL (0.2-0.9); Monocytes % 7.3 %; Neutrophils # 8.31 10^3/uL (1.8-7.7); Neutrophils % 77.6 %; Nucleated Red Blood Cells % 0 %; Platelet Count 168 10^3/cmm (130-400); Red Blood Count 3.99 10^6/uL (4.1-5.3); Red Cell Distribution Width 15.6 % (12.1-15.1); White Blood Count 10.7 10^3/uL (4.0-10.0)
[2021-06-09 05:39] LABS: Alanine Aminotransferase 12 U/L (0-33); Alkaline Phosphatase 127 IU/L (35-105); Anion Gap 13.3 (5-19); Aspartate Amino Transferase 12 U/L (0-32); Blood Urea Nitrogen 31 mg/dL (8-23); Calcium 8.5 mg/dL (8.5-10.5); Carbon Dioxide 34 mmol/L (22-29); Chloride 95 mmol/L (98-107); Glomerular Filtration Rate 38.1 mL/min (90-130); Glucose 129 mg/dL (65-115); Magnesium 1.9 mg/dL (1.7-2.3); Osmolality Calculated 294 mOsm/kg (285-295); Phosphorus 3.5 mg/dL (2.5-4.5); Potassium 4.3 mmol/L (3.5-5.1); Sodium 138 mmol/L (136-145)
[2021-06-09 05:43] LABS: Estmated Average Glucose 151; Hemoglobin A1C 6.9 % (4.0-6.0)
[2021-06-09 05:44] LABS: Slide Review Slide Review Perform
[2021-06-09 05:50] LABS: Chol HDL Ratio 1.53 mg/dL (0.0-4.40); Cholesterol 98 mg/dL (0-200); HDL Cholesterol 64 mg/dL (60-100); LDL Cholesterol Calculated 18 mg/dL (50-129); NT Pro B Type Natriuretic Pept 2130 pg/mL (0-125); Triglycerides 78 mg/dL (0-150); VLDL Cholestrol Calculation 16 mg/dL (0-30)
[2021-06-09] MEDS: bumetanide 0.25 mg/mL SDV 4 mL 2 MG IV ×2 (05:50→17:35)
--- NOTE | 2021-06-09 06:00 | XR_ITS ---
WS: [id number] XR chest 1V portable [id number] REASON FOR EXAM: covid FINDINGS: Significant cardiac enlargement and marked widening of the mediastinum presumably due to mediastinal fat. Patient obesity makes evaluation of the lung parenchyma difficult. There appear to be significant inf iltrative changes in the left lower lung, nonspecific equivocal findings in the right lower lung. The chest appears unchanged compared to the previous day. XR/XR chest 1V portable [id number] IMPRESSION: Stable abnormal chest as above.
--- NOTE | 2021-06-09 07:58 | PC.NURSE ---
Pt presents lying in bed resting with eyes closed. Resp even and non-labored. No s/s of pain or distress. Call light in reach.
[2021-06-09] MEDS: dilTIAZem 30 mg Tablet PO (08:12)
[2021-06-09] MEDS: hyDROXYzine 25 mg Capsule PO ×2 (08:12→22:43)
[2021-06-09] MEDS: aspirin 81 mg EC Tablet 162 MG PO (08:13)
[2021-06-09] MEDS: zinc gluconate 50 mg Tablet PO (08:13)
[2021-06-09] MEDS: ferrous sulfate EC 325 mg Tablet PO (08:13)
[2021-06-09] MEDS: pantoprazole DR 40 mg Tablet PO (08:13)
[2021-06-09] MEDS: fluconazole 100 mg Tablet 200 MG PO (08:13)
--- NOTE | 2021-06-09 09:51 | PC.CHAP ---
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 social worker psychiatric visit [] Patient/Family/Request visit [] Outpatient visit [] Follow-up visit [] Physician referral [] Code/Alert [x] Routine visit [] Staff referral [] Actively dying [] Patient sleeping [] Family support [] [] Out of room [] Palliative care [] [] Receiving care in room [] Pre-surgical visit [] Trauma [] Long length of stay [] ICU visit [x] Other:isolated Relational/Emotional Strength [] Patient feels connected with others/family/visitors/staff [] Distress [] Loneliness/isolation [] Abandonment Spirituality of Patient [] Person of Sun [] Attends Alevism of their Sun [] Believes in Prayer [] Reads Bible or Episcopal materials [] There are Spiritual issues 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 [x] Prayer [] Active listening [] Non-anxious presence [] Spiritual/emotional support [] Crisis/trauma care [] Spiritual counseling [] Bereavement support [] Provided bereavement packet [] Provided Bible/devotional materials [] Provided toy/stuffed animal, coloring book to patient or family member [] Provided Communion [] Anointing/[place] [] Salvation [x] Completed spiritual assessment [] Other: Impact on Illness or Injury [] Angry [] Fearful [] Anxious [] Often cries [] Exhaustion [] Unable to work [] Unable to attend anabaptism [] Unable to walk/stand [] Unable to read [] Unable to drive [] Unable to eat/drink [] Unable to sleep [] Unable to be with family [] Patient intubated [] Other: Summary Time spent with patient
[2021-06-09 14:05] LABS: Coronavirus Test Green County Not Detected
[2021-06-09] MEDS: dilTIAZem 60 mg Tablet PO ×3 (14:19→22:49)
--- NOTE | 2021-06-09 16:50 | P.PN_ITS ---
Subjective Subjective: Interval history: No acute events overnight. Patient has remained hemodynamically stable. Afebrile overnight. Currently on 3 L saturating 95%. Continues to remain in A. fib but better rate control. Currently on 110s. COVID-19 PCR came back negative[address] chest could not be done yesterday as patient weight exceeded the weight limit on CT machine. Vitals/I&O/Wt Last Vital Signs Temp 98.1 F 06/09/21 12:00 Pulse 115 H 06/09/21 14:00 Resp 17 06/09/21 12:00 BP 98/63 06/09/21 12:00 Pulse Ox 95 06/09/21 12:00 06/09/21 06/09/21 06/09/21 06:59 14:59 22:59 Intake Total 300 / 750 270 / 270 Output Total 1600 / 1600 1700 / 1700 Balance -1300 / -850 -1430 / -1430 Weight last 48 hrs Weight 203.663 kg Weight 199.626 kg Weight 192.777 kg Physical Exam Narrative: EXAM NARRATIVE: General: No acute distress, AO x3, morbidly obese, poor oral care, on 3 L nasal cannula HEENT: PERRLA, pupils bilaterally equal and reactive Chest: Bilateral decreased breath sounds, bilateral fine crackles present in the lower lung allen, rhonchi present all over the lung field CVS: S1-S2 regular, no murmurs, no tachycardia, no gallops, no rubs Abdomen: Soft, nontender, no organomegaly, bowel sounds present, morbidly obese. Neuro: No focal deficits, no facial deformity, AO x3, power 5/5 in all limbs Extremities: Bilateral lower limbs edema present acuity knees, open wound present on the right good and at the posterior leg, mildly foul-smelling Urinary Catheter Management^: Patterson: Cath Placed During This Visit: yes Reason for Continuing Indwelling Catheter: Accurate Measurement of Urinary Output in Critically Ill Patients Urinary Catheter Date of Insertion: 06/08/21 Urinary Catheter Time of Insertion: 09:09 Data : 06/09/21 04:50 06/09/21 04:50 Micro: Microbiology 06/08/21 18:36 MRSA Culture - Final Nose 06/08/21 10:35 Gram Stain - Final Knee - #1 Wound Culture - Preliminary Gram Negative Rods 06/08/21 10:54 Urine Culture - Preliminary Urine,Clean Catch Gram Negative Rods 06/08/21 10:45 Legionella Urinary Antigen - Final Urine Catheterized 06/08/21 10:54 Bacterial Antigens - Final Urine Kidney 06/08/21 10:12 Blood Culture - Preliminary Blood NEGATIVE TO DATE 06/08/21 10:09 Blood Culture - Preliminary Blood A&P Assessment and plan (1) Sepsis: Status: Acute Qualifiers: Acute respiratory failure type: with hypoxia Sepsis acute organ dysfunction status: with acute organ dysfunction Sepsis type: sepsis due to unspecified organism Severe sepsis acute organ dysfunction type: acute respiratory failure Severe sepsis shock status: without septic shock Qualified Code(s): A41.9 - Sepsis, unspecified organism; R65.20 - Severe sepsis without septic shock; J96.01 - Acute respiratory failure with hypoxia (2) Acute on chronic respiratory failure with hypoxia and hypercapnia: Status: Acute (3) Acute dyspnea: Status: Acute (4) Acute exacerbation of chronic obstructive pulmonary disease: Status: Acute (5) Acute on chronic diastolic (congestive) heart failure: Status: Acute (6) Cellulitis: Status: Acute (7) UTI (urinary tract infection): Status: Acute (8) Chronic atrial fibrillation: Status: Chronic (9) Obesity hypoventilation syndrome: Status: Chronic (10) Morbid obesity with BMI of 60.0-69.9, adult: Status: Chronic (11) On home oxygen therapy: Status: Chronic (12) Chronic kidney disease: Status: Acute Additional A&P Information Sepsis: Secondary to UTI and cellulitis, Blood culture preliminary negative, MRSA swab negative, sputum culture awaited. Urine culture growing gram-negative rods. Keep mean arterial pressure over 65. For now continue with vancomycin and imipenem. Continue with fluconazole for past history of Trisha brought her in urine. Will de-escalate antibiotics as per culture results. If patient remains hemodynamically stable in next 24 hours can stop vancomycin as well. Wound care with wet-to-dry dressings, Hydrofera Blue. Lymphedema wrap. Acute on chronic respiratory failure with hypoxia and hypercapnia: Most likely secondary to congestive heart failure in setting of COPD, obstructive sleep apnea. Strict input output charting, daily weights. Patterson catheter for urine output measurement. Bumex 2 mg IV every 12 hourly. Echocardiogram done in October 2020 shows an EF of 55% with grade 1 diastolic dysfunction. COVID-19 PCR negative. Remove isolation precautions. Advair, Spiriva. Tessalon Perles as needed. Pulmonary toilet with incentive spirometry and flutter valve. CT chest could not be done as patient's weight exceeded CT machines and body weight elevation. Oxygen recommendation keeping saturation over 90%. BiPAP at night. Atrial fibrillation: Remains rapid ventricular response. Increase Cardizem to 60 every every 6 hourly. Not on any anticoagulation as an outpatient most likely secondary to GI bleed. Continue with full dose aspirin. CKD: Baseline creatinine ranging from 1.2-1.8. Creatinine at baseline. Medical renal sedation done for nephrotoxic drugs. Will monitor BMP daily for now. Start on oral iron supplementation. Lipid panel within normal limits, HbA1c 6.9. Type 2 diabetes mellitus: No history of diabetes in the past. A1c 6.9. Start patient on insulin sliding scale low-dose protocol. Most likely patient would need to be discharged on oral Metformin. CODE STATUS: Patient states she would not want to be intubated or chest compressions. She would not want to be put onto life support. CODE STATUS changed to DNR/DNI. Heparin 5000 every 12 hourly for DVT prophylaxis. Omeprazole for PUD prophylaxis. Attestations Medical Necessity Statement*: Requires further hospitalization for management of sepsis secondary to UTI, atrial fibrillation with rapid ventricle response, acute on chronic respiratory failure secondary to congestive heart failure. Time Spent in Patient Care: Greater than 35 minutes (>than 50% of time spent in counselling and/or direct pt care on unit) . 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 [facility] Diagnoses Sepsis A41.9; R65.20; J96.01 Acute respiratory failure type: with hypoxia Sepsis acute organ dysfunction status: with acute organ dysfunction Sepsis type: sepsis due to unspecified organism Severe sepsis acute organ dysfunction type: acute respiratory failure Severe sepsis shock status: without septic shock Acute on chronic respiratory failure with hypoxia and hypercapnia J96.21; J96.22 Acute dyspnea R06.00 Acute exacerbation of chronic obstructive pulmonary disease J44.1 Acute on chronic diastolic (congestive) heart failure I50.33 Cellulitis L03.90 UTI (urinary tract infection) N39.0 Chronic atrial fibrillation I48.20 Obesity hypoventilation syndrome E66.2 Morbid obesity with BMI of 60.0-69.9, adult E66.01; Z68.44 On home oxygen therapy Z99.81 Chronic kidney disease N18.9
[2021-06-09 17:50] LABS: Glucose Point of Care 159 mg/dL (70-110)
[2021-06-09 20:33] LABS: Glucose Point of Care 158 mg/dL (70-110)
[2021-06-09] MEDS: atorvastatin 40 mg Tablet 20 MG PO (21:58)
[2021-06-09] MEDS: cholecalciferol (vitamin D3) 1,000 unit Tablet 1000 UNIT PO (22:47)
[2021-06-09] MEDS: vancomycin 1,500 MG/300 ML PIGGYBACK 200 MG IV (22:48)
[2021-06-10] VITALS (11 sets, daily range): BP systolic 99–129; BP diastolic 58–102; PULSE 75–115; RESP 16–26; TEMP 36.6–37; O2SAT 93–96; BMI 79.6
[2021-06-10 04:20] LABS: Basophils % 0.4 %; Eosinophils # 0.2 10^3/uL (0.0-0.8); Eosinophils % 2.6 %; Hemoglobin 10.8 g/dL (11.5-15.3); Lymphocytes # 1.2 10^3/uL (0.8-4.8); Lymphocytes % 13.8 %; Mean Corpuscular HGB Conc 28.4 g/dL (30.0-36.0); Mean Corpuscular Hemoglobin 26.3 pg (28.0-34.0); Mean Corpuscular Volume 92.5 fL (81-99); Mean Platelet Volume 8.8 fL (7.4-10.4); Monocytes # 1.1 10^3/uL (0.2-0.9); Monocytes % 11.8 %; Neutrophils # 6.31 10^3/uL (1.8-7.7); Neutrophils % 70.5 %; Nucleated Red Blood Cells % 0 %; Platelet Count 152 10^3/cmm (130-400); Red Blood Count 4.11 10^6/uL (4.1-5.3); Red Cell Distribution Width 15.9 % (12.1-15.1)
[2021-06-10 04:46] LABS: NT Pro B Type Natriuretic Pept 1376 pg/mL (0-125); Procalcitonin 0.46 ng/mL (0-0.5)
[2021-06-10 04:57] LABS: Alanine Aminotransferase 11 U/L (0-33); Albumin Level 2.8 g/dL (3.5-5.2); Alkaline Phosphatase 124 IU/L (35-105); Anion Gap 13.6 (5-19); Aspartate Amino Transferase 10 U/L (0-32); Blood Urea Nitrogen 32 mg/dL (8-23); Calcium 8.5 mg/dL (8.5-10.5); Carbon Dioxide 36 mmol/L (22-29); Chloride 90 mmol/L (98-107); Globulin 3.2 g/dL (1.3-4.6); Glomerular Filtration Rate 35.2 mL/min (90-130); Glucose 133 mg/dL (65-115); Osmolality Calculated 291 mOsm/kg (285-295); Potassium 3.6 mmol/L (3.5-5.1); Sodium 136 mmol/L (136-145); Total Bilirubin 0.6 mg/dL (0.15-1.2)
[2021-06-10] MEDS: bumetanide 0.25 mg/mL SDV 4 mL 2 MG IV ×2 (06:32→17:25)
[2021-06-10 06:50] LABS: Glucose Point of Care 146 mg/dL (70-110)
[2021-06-10] MEDS: ferrous sulfate EC 325 mg Tablet PO (09:01)
[2021-06-10] MEDS: aspirin 81 mg EC Tablet 162 MG PO (09:01)
[2021-06-10] MEDS: fluconazole 100 mg Tablet 200 MG PO (09:01)
[2021-06-10] MEDS: buPROPion XL (24 HR) 150 mg Tablet PO ×2 (09:01→19:43)
[2021-06-10] MEDS: levETIRAcetam 500 mg Tablet 1000 MG PO ×2 (09:02→19:43)
[2021-06-10] MEDS: hyDROXYzine 25 mg Capsule PO ×2 (09:02→19:44)
[2021-06-10] MEDS: dilTIAZem 60 mg Tablet PO ×4 (09:02→20:59)
[2021-06-10] MEDS: pantoprazole DR 40 mg Tablet PO (09:02)
[2021-06-10] MEDS: heparin 5,000 unit/mL INJ 1 mL 5000 UNIT SUBCUT ×2 (11:18→20:57)
[2021-06-10 12:09] LABS: Glucose Point of Care 148 mg/dL (70-110)
--- NOTE | 2021-06-10 14:13 | PC.NURSE ---
discussed Metoprolol does with Dr saenz instructions to dc due to controlled HR at this time
[2021-06-10 16:34] LABS: Glucose Point of Care 139 mg/dL (70-110)
[2021-06-10] MEDS: nystatin cream 30 gm 1 APPLIC TOPICAL (17:25)
[2021-06-10] MEDS: triamcinolone 0.1% cream 15 gm 1 APPLIC TOPICAL (17:25)
--- NOTE | 2021-06-10 17:35 | PM.PN ---
Subjective Subjective: Interval history: No acute events overnight. Denies any nausea vomiting, headache. Awake and alert during examination. Able to have complete conversation. Asking if she had a heart attack. Did discuss in detail the etiology of her disease. Discussed that she has a UTI which caused her to go into A. fib and heart failure. Patient verbalized understanding. Asking when she can she be discharged. Vitals/I&O/Wt Last Vital Signs Temp 98.6 F 06/10/21 16:00 Pulse 76 06/10/21 16:00 Resp 21 H 06/10/21 16:00 BP 129/71 06/10/21 16:00 Pulse Ox 95 06/10/21 16:00 06/10/21 06/10/21 06/10/21 06:59 14:59 22:59 Intake Total 600 / 1630 680 / 680 Output Total 3050 / 3050 Balance 600 / -3370 -2370 / -2370 Weight last 48 hrs Weight 203.98 kg Weight 203.663 kg Weight 199.626 kg Physical Exam Narrative: EXAM NARRATIVE: General: No acute distress, AO x3, morbidly obese, poor oral care, on 3 L nasal cannula HEENT: PERRLA, pupils bilaterally equal and reactive Chest: Bilateral decreased breath sounds, bilateral fine crackles present in the lower lung allen, rhonchi present all over the lung field CVS: S1-S2 regular, no murmurs, no tachycardia, no gallops, no rubs Abdomen: Soft, nontender, no organomegaly, bowel sounds present, morbidly obese. Neuro: No focal deficits, no facial deformity, AO x3, power 5/5 in all limbs Extremities: Bilateral lower limbs edema present acuity knees, open wound present on the right good and at the posterior leg, mildly foul-smelling Urinary Catheter Management^: Patterson: Cath Placed During This Visit: yes Reason for Continuing Indwelling Catheter: Acute Urinary Retention or Obstruction Urinary Catheter Date of Insertion: 06/08/21 Urinary Catheter Time of Insertion: 09:09 Data : 06/10/21 03:32 06/10/21 03:32 Micro: Microbiology 06/08/21 10:35 Gram Stain - Final Knee - #1 Wound Culture - Preliminary Providencia stuartii 06/08/21 10:54 Urine Culture - Final Urine,Clean Catch Escherichia coli esbl 06/08/21 10:09 Blood Culture - Preliminary Blood Gram Negative Rods 06/08/21 18:36 MRSA Culture - Final Nose A&P Assessment and plan (1) Sepsis: Status: Acute Qualifiers: Acute respiratory failure type: with hypoxia Sepsis acute organ dysfunction status: with acute organ dysfunction Sepsis type: sepsis due to unspecified organism Severe sepsis acute organ dysfunction type: acute respiratory failure Severe sepsis shock status: without septic shock Qualified Code(s): A41.9 - Sepsis, unspecified organism; R65.20 - Severe sepsis without septic shock; J96.01 - Acute respiratory failure with hypoxia (2) Acute on chronic respiratory failure with hypoxia and hypercapnia: Status: Acute (3) Acute dyspnea: Status: Acute (4) Acute exacerbation of chronic obstructive pulmonary disease: Status: Acute (5) Acute on chronic diastolic (congestive) heart failure: Status: Acute (6) Cellulitis: Status: Acute (7) UTI (urinary tract infection): Status: Acute (8) Chronic atrial fibrillation: Status: Chronic (9) Obesity hypoventilation syndrome: Status: Chronic (10) Morbid obesity with BMI of 60.0-69.9, adult: Status: Chronic (11) On home oxygen therapy: Status: Chronic (12) Chronic kidney disease: Status: Acute Additional A&P Information Sepsis: Secondary to UTI and cellulitis, Blood culture preliminary negative, MRSA swab culture awaited. Urine culture growing E. coli ESBL. Stop vancomycin. Continue with imipenem. Patient would most likely require a 5-day course. Can most likely transition over to IV or ertapenem. No Trisha in the urine. Stop fluconazole. Wound care with wet-to-dry dressings, Hydrofera Blue. Lymphedema wrap. Acute on chronic respiratory failure with hypoxia and hypercapnia: Most likely secondary to congestive heart failure in setting of COPD, obstructive sleep apnea. Strict input output charting, daily weights. Net 6.5 L negative since admission. Patterson catheter for urine output measurement. Bumex 2 mg IV every 12 hourly. Echocardiogram done in October 2020 shows an EF of 55% with grade 1 diastolic dysfunction. COVID-19 PCR negative. Remove isolation precautions. Advair, Spiriva. Tessalon Perles as needed. Pulmonary toilet with incentive spirometry and flutter valve. CT chest could not be done as patient's weight exceeded CT machines and body weight elevation. Oxygen recommendation keeping saturation over 90%. BiPAP at night. Atrial fibrillation: Rate controlled. Continue with Cardizem 60 mg every 6 hour.. Not on any anticoagulation as an outpatient most likely secondary to GI bleed. Continue with full dose aspirin. CKD: Baseline creatinine ranging from 1.2-1.8. Creatinine at baseline. Medical renal sedation done for nephrotoxic drugs. Will monitor BMP daily for now. Start on oral iron supplementation. Lipid panel within normal limits, HbA1c 6.9. Type 2 diabetes mellitus: No history of diabetes in the past. A1c 6.9. Start patient on insulin sliding scale low-dose protocol. Most likely patient would need to be discharged on oral Metformin. CODE STATUS: Patient states she would not want to be intubated or chest compressions. She would not want to be put onto life support. CODE STATUS changed to DNR/DNI. Heparin 5000 every 12 hourly for DVT prophylaxis. Omeprazole for PUD prophylaxis. Attestations Medical Necessity Statement*: Requires further hospitalization for management of sepsis secondary to ESBL UTI, atrial fibrillation with rapid ventricular response causing congestive heart failure. Time Spent in Patient Care: Greater than 35 minutes (>than 50% of time spent in counselling and/or direct pt care on unit). 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 [facility] Diagnoses Sepsis A41.9; R65.20; J96.01 Acute respiratory failure type: with hypoxia Sepsis acute organ dysfunction status: with acute organ dysfunction Sepsis type: sepsis due to unspecified organism Severe sepsis acute organ dysfunction type: acute respiratory failure Severe sepsis shock status: without septic shock Acute on chronic respiratory failure with hypoxia and hypercapnia J96.21; J96.22 Acute dyspnea R06.00 Acute exacerbation of chronic obstructive pulmonary disease J44.1 Acute on chronic diastolic (congestive) heart failure I50.33 Cellulitis L03.90 UTI (urinary tract infection) N39.0 Chronic atrial fibrillation I48.20 Obesity hypoventilation syndrome E66.2 Morbid obesity with BMI of 60.0-69.9, adult E66.01; Z68.44 On home oxygen therapy Z99.81 Chronic kidney disease N18.9
--- NOTE | 2021-06-10 18:00 | PC.NURSE ---
upon applying nystatin cream to skin folds wounds found on posterior of left knee during wound care patient cried out and told nursing staff to hurry with what they are doing
[2021-06-10] MEDS: gabapentin 300 mg Capsule PO (19:43)
[2021-06-10] MEDS: atorvastatin 40 mg Tablet 20 MG PO (19:43)
[2021-06-10] MEDS: citalopram 20 mg Tablet PO (19:44)
[2021-06-10] MEDS: cholecalciferol (vitamin D3) 1,000 unit Tablet 1000 UNIT PO (19:44)
[2021-06-10] MEDS: calcium carbonate 500 mg Chew Tablet 200 MG PO (19:54)
--- NOTE | 2021-06-10 19:56 | PC.NURSE ---
Received bedside report from LANE Vargas. Patient resting in bed. Patterson catheter in place. Patient requested lemon-elim ira dakotah which was provided on ice. Medications administered as ordered. Denies pain presently. No distress observed.
--- NOTE | 2021-06-10 20:25 | PC.NURSE ---
Patient refuses blood pressure. RN notified.
--- NOTE | 2021-06-10 20:46 | PC.NURSE ---
Patient refusing to have blood pressure taken at this time. Patient yelled take that thing off of me .
[2021-06-10 20:51] LABS: Glucose Point of Care 200 mg/dL (70-110)
[2021-06-11] VITALS (8 sets, daily range): BP systolic 136–158; BP diastolic 93–112; PULSE 76–93; RESP 16–20; TEMP 36.7–37.1; O2SAT 93–97
[2021-06-11] MEDS: dilTIAZem 60 mg Tablet PO ×2 (03:41→08:34)
[2021-06-11 05:46] LABS: NT Pro B Type Natriuretic Pept 920 pg/mL (0-125)
[2021-06-11] MEDS: bumetanide 0.25 mg/mL SDV 4 mL 2 MG IV (06:12)
[2021-06-11] MEDS: baclofen 10 mg Tablet 5 MG PO (06:56)
[2021-06-11 07:00] LABS: Glucose Point of Care 168 mg/dL (70-110)
[2021-06-11] MEDS: pantoprazole DR 40 mg Tablet PO (08:34)
[2021-06-11] MEDS: hyDROXYzine 25 mg Capsule PO (08:34)
[2021-06-11] MEDS: aspirin 81 mg EC Tablet 162 MG PO (08:34)
[2021-06-11] MEDS: buPROPion XL (24 HR) 150 mg Tablet PO (08:34)
[2021-06-11] MEDS: ferrous sulfate EC 325 mg Tablet PO (08:35)
[2021-06-11] MEDS: fluticasone nasal spray 16gm Btl 2 SPRAY NASAL (08:35)
[2021-06-11] MEDS: ertapenem 1,000 MG in sodium chloride 0.9% (plus) 100 ML 200 MG IV (08:36)
[2021-06-11] MEDS: levETIRAcetam 500 mg Tablet 1000 MG PO (08:39)
--- NOTE | 2021-06-11 09:56 | XR_ITS ---
WS: [id number] XR chest 1V portable [id number] REASON FOR EXAM: Post PICC FINDINGS: Patient is significantly obese and imaging detail is suboptimal. There is a PICC line from the left arm which follows the course of the left subclavian vein and innom inate vein and across the mediastinum. The tip is at the junction of the innominate vein and the supe rior vena cava. This position would be safe and allow central venous infusion. The heart is enlarged and there are interstitial infiltrative changes in both lungs, most notably th e left lower lung. Cannot readily differentiate between congestive heart failure and pneumonitis. XR/XR chest 1V portable [id number] IMPRESSION: PICC line position as noted. Apparently there is no further length of catheter available to advance further. The catheter tip is at the entry zone of the supe rior vena cava and can be used.
[2021-06-11 11:06] LABS: Glucose Point of Care 179 mg/dL (70-110)
--- NOTE | 2021-06-11 11:06 | SUR.PHASEII ---
PICC PLACEMENT Picc line placed without complication. Report off to Alicia Conway RN.
--- NOTE | 2021-06-11 11:55 | PM.DCS ---
Discharge Providers Date of Admission: 06/08/21 16:13 Date of Discharge: June 11, 2021 Attending Provider at Admission: Feliciano La MD Attending Provider at Discharge: Feliciano La MD Primary Care Provider: Elmer Sehlton DO Diagnoses at Discharge Discharge Diagnosis (1) Sepsis: Status: Acute Qualifiers: Acute respiratory failure type: with hypoxia Sepsis acute organ dysfunction status: with acute organ dysfunction Sepsis type: sepsis due to unspecified organism Severe sepsis acute organ dysfunction type: acute respiratory failure Severe sepsis shock status: without septic shock Qualified Code(s): A41.9 - Sepsis, unspecified organism; R65.20 - Severe sepsis without septic shock; J96.01 - Acute respiratory failure with hypoxia (2) Acute on chronic respiratory failure with hypoxia and hypercapnia: Status: Acute (3) Acute dyspnea: Status: Acute (4) Acute exacerbation of chronic obstructive pulmonary disease: Status: Acute (5) Acute on chronic diastolic (congestive) heart failure: Status: Acute (6) Cellulitis: Status: Acute (7) UTI (urinary tract infection): Status: Acute (8) Chronic atrial fibrillation: Status: Chronic (9) Obesity hypoventilation syndrome: Status: Chronic (10) Morbid obesity with BMI of 60.0-69.9, adult: Status: Chronic (11) On home oxygen therapy: Status: Chronic Permanent problem details: On 3 L by nasal cannula (12) Chronic kidney disease: Status: Acute Reason for Visit Reason for Visit: SOB, afib Hospital Course Hospital Course Sarah Merrill is a 60 year old female who is a resident of [facility] with past medical history of atrial fibrillation, CKD, chronic diastolic heart failure on chronic anticoagulation, 3 L home oxygen supplementation, morbid obesity, SEAN, COPD, bedbound status, hypertension, history of GI bleed and seizures presented to the ER from [facility] today because of worsening shortness of breath. As per documentation at the half-way patient was on 2 L oxygen supplementation saturating in the 60s. Patient was brought to the ER and was saturating 99% on 6 L nasal cannula with atrial fibrillation rapid ventricular response with heart rate in 110s for which she received IV Cardizem after which her heart rate settled down to high 90s. On my examination patient was awake alert sitting up in bed with heart rate of 113 bpm on 3 L nasal cannula saturating 97% with blood pressure of 120/70 6 mmHg. Patient states she supposed to be on a BiPAP but she does not use it well because she cannot tolerate the mask. She denies any nausea, vomiting, headache, dizziness, fever, abdominal pain. She is complaining of more shortness of breath than usual along with cough without any expectoration. Blood work in the ER 0.2, hemoglobin of 11.3, platelet count of 151, sodium 139, potassium 5.4, creatinine of 1.5, BUN of 29, bilirubin of 1.6, AST/ALT of 17/14, proBNP of 1800, UA showing numerous WBCs, 2+ leuk esterase but negative nitrites with 1+ bacteria. ABG done in the ER showed a pH of 7.3, PCO2 of 62.4, PO2 of 90 on 4 L oxygen supplementation. Patient under the hospital for management of sepsis secondary to UTI and cellulitis. She was started on broad-spectrum antibiotics. She was also found to be on acute on chronic respiratory failure with hypoxia and hypercapnia which was thought to be secondary to congestive heart failure. For congestive heart failure she was treated with aggressive diuresis to which she responded well and she was 7 L negative by the day of discharge. On admission patient was found to be in atrial fibrillation with rapid ventricular response. Patient has history of chronic atrial fibrillation though has not been on any rate limiting drugs. She was initially started on Cardizem drip which were later transitioned to oral Cardizem. Patient tolerated transition well and has been rate controlled for last 24 hours. Given her history of GI bleed patient in the past has been prescribed to be on aspirin for anticoagulation which was continued. For sepsis her urine culture grew ESBL E. coli, MRSA swab was positive, blood culture from day of admission with 3 bottles positive for gram-negative rods and subsequent blood cultures have been preliminary negative. Patient has remained hemodynamically stable and afebrile for last 48 hours and saturating well on 3 L nasal cannula which is her baseline supplementation. Patient is been discharged hemodynamically stable condition with advised to take ertapenem for 11 more days to finish a course of IV antibiotics. She is to take Bumex 2 mg in the morning and 1 mg in evening for congestive heart failure and follow-up with her primary care provider within next 1 week. While she is on antibiotics she is to check her CBC and CMP once weekly. PICC line needs to be removed after completion of her IV antibiotic course. Physical Exam Narrative: EXAM NARRATIVE: General: No acute distress, AO x3, morbidly obese, on 3 L nasal cannula HEENT: PERRLA, pupils bilaterally equal and reactive Chest: Bilateral decreased breath sounds, bilateral fine crackles present in the lower lung allen, rhonchi present all over the lung field CVS: S1-S2 regular, no murmurs, no tachycardia, no gallops, no rubs Abdomen: Soft, nontender, no organomegaly, bowel sounds present, morbidly obese. Neuro: No focal deficits, no facial deformity, AO x3, power 5/5 in all limbs Extremities: Bilateral lower limbs edema present acuity knees, open wound present on the right good and at the posterior leg, mildly foul-smelling Urinary Catheter Management^: Patterson: Cath Placed During This Visit: yes Reason for Continuing Indwelling Catheter: Accurate Measurement of Urinary Output in Critically Ill Patients Urinary Catheter Date of Insertion: 06/08/21 Urinary Catheter Time of Insertion: 09:09 Discharge Data Data Completed and Pending: Completed Studies During Hospitalization Category Date Time Status CXRP [XR chest 1V portable [id number]] R outine Exams 06/11/21 09:56 Completed XR chest 1V justyna ble [id number] Q48H Exams 06/09/21 06:00 Completed XR chest 1V justyna ble [id number] Stat Exams 06/08/21 08:39 Completed Pending at discharge Category Date Time Status Blood Culture Sta t Lab 06/08/21 10:12 Results Blood Culture Sta t Lab 06/11/21 08:16 Ordered Complete Blood Co unt w/Auto AM LABS Lab 06/12/21 04:00 Ordered Comprehensive Met abolic Panel AM LA BS Lab 06/12/21 04:00 Ordered Sputum Culture an d Gram Stain Stat Lab 06/08/21 18:07 Uncollected Labs from last 24 hours 06/11/21 06/11/21 06/11/21 10:55 06:50 03:33 POC Glucose 179 H 168 H NT-Pro-B Natriuret Pep 920 H 06/10/21 06/10/21 06/10/21 20:20 16:25 11:25 POC Glucose 200 H 139 H 148 H NT-Pro-B Natriuret Pep Vitals: Last Vital Signs Temp 98.7 F 06/11/21 08:00 Pulse 89 06/11/21 08:00 Resp 17 06/11/21 08:00 BP 158/93 06/11/21 08:00 Pulse Ox 94 06/11/21 08:00 Discharge Plan Discharge Patient Disposition: Home Condition: Stable Prescriptions: New Advair Diskus 250-50 mcg/dose Blister With Device 1 puff inhalation BID.RESPIRATORY 30 Days Qty: 60 RF: 0 aspirin 81 mg Tablet,Delayed Release (Dr/Ec) 162 mg PO DAILY Qty: 60 RF: 0 Spiriva with HandiHaler 18 mcg Capsule, W/Inhalation Device 18 mcg inhalation DAILY.RESPIRATORY Qty: 30 RF: 0 Cardizem CD 300 mg capsule,extended release 24hr 300 mg PO DAILY Qty: 30 RF: 0 bumetanide 1 mg tablet 1 mg PO .@1600 Qty: 30 RF: 0 Continued atorvastatin 40 mg tablet 40 mg PO BEDTIME@2000 RF: 0 lisinopril 2.5 mg tablet 2.5 mg PO BEDTIME@20 RF: 0 ferrous sulfate 325 mg (65 mg iron) tablet,delayed release (DR/EC) 325 mg PO DAILY RF: 0 baclofen 5 mg tablet 5 mg PO TID PRN (Reason: Pain) RF: 0 triamcinolone acetonide 0.1 % Cream 1 applic TOPICAL BID RF: 0 nystatin 100,000 unit/gram Cream 1 applic TOPICAL BID RF: 0 Dulcolax (bisacodyl) 5 mg Tablet,Delayed Release (Dr/Ec) 5 mg PO BEDTIME RF: 0 Acidophilus Capsule 10,000 mmu cells PO DAILY PRN (Reason: w/antibiotics) RF: 0 acetaminophen 325 mg Tablet 650 mg PO Q4H PRN (Reason: Pain) RF: 0 ondansetron HCl [Zofran] 4 mg Tablet 4 mg PO Q4H PRN (Reason: Nausea) RF: 0 Anbesol (benzocaine) 20 % Liquid 20 % MUCOUS MEMBRANE TID PRN (Reason: Toothache) RF: 0 citalopram 20 mg Tablet 20 mg PO DAILY@20 RF: 0 magnesium hydroxide [Milk of Magnesia] 400 mg/5 mL Suspension 30 ml PO DAILY PRN (Reason: Constipation) RF: 0 bisacodyl 10 mg Suppository 10 mg LA DAILY PRN (Reason: Constipation) RF: 0 bisacodyl 5 mg Tablet,Delayed Release (Dr/Ec) 10 mg PO DAILY PRN (Reason: Constipation) RF: 0 albuterol sulfate 90 mcg/actuation Hfa Aerosol Inhaler 2 puff INHALATION Q6H PRN (Reason: Shortness Of Breath) RF: 0 cholecalciferol (vitamin D3) 25 mcg (1,000 unit) Capsule 25 mcg PO BEDTIME@20 RF: 0 bupropion HCl 150 mg Tablet Extended Release 24 Hr 150 mg PO BID@08,20 RF: 0 levetiracetam [Keppra] 1,000 mg Tablet 1,000 mg PO BID@08,20 RF: 0 diclofenac sodium 1 % Gel 2 g TOPICAL BID PRN (Reason: Pain) RF: 0 guaifenesin [Mucinex] 600 mg Tablet Extended Release 12hr 600 mg PO BID RF: 0 omeprazole 20 mg capsule,delayed release(DR/EC) 20 mg PO DAILY RF: 0 calcium carbonate [Tums] 200 mg calcium (500 mg) Tablet,Chewable 200 mg PO TID PRN (Reason: Acid Reflux) RF: 0 hydroxyzine HCl 25 mg Tablet 25 mg PO BID@,20 RF: 0 gabapentin 600 mg tablet 300 mg PO BEDTIME@20 RF: 0 cetirizine 10 mg tablet 10 mg PO DAILY PRN (Reason: Allergy Symptoms) RF: 0 Changed bumetanide 1 mg tablet 2 mg PO DAILY@08 Qty: 90 RF: 0 potassium chloride 20 mEq Tablet Extended Release 20 meq PO DAILY Qty: 0 RF: 0 Discharge Orders: Discharge Order (Routine); Ordered 06/11/21 Ordered By: Feliciano La Referrals: Elmer Shelton DO [Primary Care Provider] - 4-7 days Discharge Diet: Cardiac and Diabetic Discharge Activity: Resume usual activity and Increase activity as tolerated Patient Instructions: Opioid Safety Activity Restrictions/Additional Instructions: Please continue ertapenem for 11 more days to finish a course of antibiotics for 11 days. Remove PICC line after completion of IV antibiotic course. While being on antibiotics please check CBC and CMP weekly. Dose of Bumex have been increased to 2 mg in the morning and 1 mg in evening. Cardizem 300 mg daily have been added to medication list. Patient is to be on aspirin 132 mg daily for anticoagulation. Discharge Attestations Time Spent in Discharge Care*: greater than 30 min Specific Discharge Activities: educating patient, discussing with pcp/other providers, discussing with correctional case manager/social workers/dc planners, documenting/other paperwork and evaluating patient/reviewing data Status at Discharge: Cognitive status at discharge: cognitively intact, Behavioral status at discharge: cooperative, Functional status at discharge: bed bound Overall status at discharge: patient is back to baseline Quality Metrics Clinical Quality Measures During this hospital stay, did patient experience: None Coding Level of Care Code Acute Chg FW DC note Diagnoses Sepsis A41.9; R65.20; J96.01 Acute respiratory failure type: with hypoxia Sepsis acute organ dysfunction status: with acute organ dysfunction Sepsis type: sepsis due to unspecified organism Severe sepsis acute organ dysfunction type: acute respiratory failure Severe sepsis shock status: without septic shock Acute on chronic respiratory failure with hypoxia and hypercapnia J96.21; J96.22 Acute dyspnea R06.00 Acute exacerbation of chronic obstructive pulmonary disease J44.1 Acute on chronic diastolic (congestive) heart failure I50.33 Cellulitis L03.90 UTI (urinary tract infection) N39.0 Chronic atrial fibrillation I48.20 Obesity hypoventilation syndrome E66.2 Morbid obesity with BMI of 60.0-69.9, adult E66.01; Z68.44 On home oxygen therapy Z99.81 Chronic kidney disease N18.9
--- NOTE | 2021-06-11 12:07 | PC.NURSE ---
Plans of discharge to [facility] this day spoke with Abhinav about de jesus instructions received to remove de jesus
[2021-06-11] MEDS: heparin 5,000 unit/mL INJ 1 mL 5000 UNIT SUBCUT (12:26)
== END 2021-06-11 16:20 | disposition skilled nursing facility (03) | DRG 871 ==
LOC: ER 13:22 → CSU 06-09 05:23
PROVIDERS: Admitting Provider Student in an Organized Health Care Education/Training Program; Emergency Provider Emergency Medicine; PCP Internal Medicine; Visit Provider Student in an Organized Health Care Education/Training Program
DX: A41.9 Sepsis, unspecified organism (principal); I50.33 Acute on chronic diastolic (congestive) heart failure; J96.22 Acute and chronic respiratory failure with hypercapnia; J96.21 Acute and chronic respiratory failure with hypoxia; I48.20 Chronic atrial fibrillation, unspecified; I13.0 Hypertensive heart and chronic kidney disease with heart failure and stage 1 through stage 4 chronic kidney disease, or unspecified chronic kidney disease; E66.2 Morbid (severe) obesity with alveolar hypoventilation; Z68.45 Body mass index [BMI] 70 or greater, adult; J44.1 Chronic obstructive pulmonary disease with (acute) exacerbation; L03.90 Cellulitis, unspecified; N17.9 Acute kidney failure, unspecified; N39.0 Urinary tract infection, site not specified; R65.20 Severe sepsis without septic shock; N18.9 Chronic kidney disease, unspecified; Z99.81 Dependence on supplemental oxygen; Z74.01 Bed confinement status; F41.8 Other specified anxiety disorders; I25.2 Old myocardial infarction; M19.90 Unspecified osteoarthritis, unspecified site; G25.81 Restless legs syndrome; Z95.828 Presence of other vascular implants and grafts; Z87.891 Personal history of nicotine dependence; L89.892 Pressure ulcer of other site, stage 2; Z79.51 Long term (current) use of inhaled steroids; B95.62 Methicillin resistant Staphylococcus aureus infection as the cause of diseases classified elsewhere; B96.20 Unspecified Escherichia coli [E. coli] as the cause of diseases classified elsewhere; Z66 Do not resuscitate
CPT/HCPCS: 36415; 36416; 36569; 36600; 51702; 71045; 80051; 80053; 80061; 81001; 82330; 82436; 82805; 82962; 83036; 83540; 83550; 83605; 83735; 83880; 84100; 84133; 84145; 84300; 84443; 84484; 85025; 85610; 85730; 86403; 87040; 87070; 87075; 87077; 87086; 87186; 87205; 87426; 87449; 87635; 87641; 93005; 94640; 94664; 96365; 96367; 96372; 96375; 99291; J0743; J1335; J1644; J1815; J1940; J1956; J3370; J3490; J3535

== ENCOUNTER 2021-07-08 10:50 | Emergency (ER) | payer MEDICAID, SELFPAY ==
[2021-07-08 11:07] VITALS: BP 128/88; PULSE 114; RESP 20; TEMP 36.8; O2SAT 95
--- NOTE | 2021-07-08 11:10 | XR_ITS ---
WS: [id number] Exam: XR chest 1V portable [id number] Date/Time of Exam: 07/08/2021 11:24 AM Reason For Exam: dyspnea/cough Comparison 06/11/2021. The patient is significantly rotated. The lungs are fully expanded. No obvious infiltrates are seen. The heart is probably not enlarged. Regional bony structures are intact. XR/XR chest 1V portable [id number] IMPRESSION: 1. Limited study due to rotation. No acute process is suspected.
[2021-07-08 11:15] LABS: Basophils % 0.6 %; Eosinophils # 0.3 10^3/uL (0.0-0.8); Hematocrit 44.1 % (37.0-47.0); Hemoglobin 13.2 g/dL (11.5-15.3); Lymphocytes # 0.9 10^3/uL (0.8-4.8); Lymphocytes % 14.9 %; Mean Corpuscular HGB Conc 29.9 g/dL (30.0-36.0); Mean Corpuscular Hemoglobin 27.2 pg (28.0-34.0); Mean Corpuscular Volume 90.7 fl (81-99); Mean Platelet Volume 8.7 fL (7.4-10.4); Monocytes # 0.9 10^3/uL (0.2-0.9); Monocytes % 13.9 %; Neutrophils # 4.08 10^3/uL (1.8-7.7); Neutrophils % 65.2 %; Nucleated Red Blood Cells % 0.3 %; Platelet Count 171 10^3/cmm (130-400); Red Blood Count 4.86 10^6/uL (4.1-5.3); Red Cell Distribution Width 16.7 % (12.1-15.1); White Blood Count 6.3 10^3/uL (4.0-10.0)
[2021-07-08 11:28] LABS: Alanine Aminotransferase 20 U/L (0-33); Albumin Level 3.2 g/dL (3.5-5.2); Alkaline Phosphatase 131 IU/L (35-105); Anion Gap 12.8 (5-19); Aspartate Amino Transferase 17 U/L (0-32); Blood Urea Nitrogen 31 mg/dL (8-23); Calcium 8.7 mg/dL (8.5-10.5); Carbon Dioxide 36 mmol/L (22-29); Chloride 98 mmol/L (98-107); Globulin 3.2 g/dL (1.3-4.6); Glomerular Filtration Rate 41.4 mL/min (90-130); Glucose 151 mg/dL (65-115); Lipase 28 U/L (13-60); Osmolality Calculated 305 mOsm/kg (285-295); Potassium 3.8 mmol/L (3.5-5.1); Sodium 143 mmol/L (136-145); Total Bilirubin 1.4 mg/dL (0.15-1.2); Total Protein 6.4 g/dL (6.6-8.7)
--- NOTE | 2021-07-08 11:41 | ED_ITS ---
HPI - Abdominal Pain General: Chief Complaint: Abdominal Pain Stated Complaint: abd pain History of Present Illness: HPI narrative: Morbidly obese 61-year-old female presents to the emergency room with MD elicited complaint: abdominal pain Pertinent past history: none Onset (ago): minute(s) Location: None Severity: moderate Quality: cramping Radiation: none Exacerbating factors: nothing Relieving factors: nothing Associated Symptoms: Reports bloating, GI cramping and poor appetite; Denies anorexia, belching, change in bowel habits, change in stool character, chills, coffee ground emesis, constipation, diarrhea, dyspepsia, dysuria, excessive flatus, fever(s), heartburn, hematochezia, hematuria, hematemesis, fecal incontinence, loose stools, melena, nausea, syncope and vomiting Review of Systems Const: Denies: fever(s) or chills Card: Denies: syncope GI: Reports: bloating and GI cramping; Denies: nausea, vomiting, hematemesis, coffee ground emesis, heartburn, diarrhea, constipation, belching, excessive flatus, fecal incontinence, change in bowel habits, change in stool character, hematochezia or melena : Denies: dysuria or hematuria PFSH ED PFSH: Medical History Acute on chronic diastolic (congestive) heart failure Acute on chronic respiratory failure with hypoxia and hypercapnia MK (acute kidney injury) Chronic atrial fibrillation Chronic diastolic CHF (congestive heart failure) Chronic kidney disease COPD (chronic obstructive pulmonary disease) Depression with anxiety GERD (gastroesophageal reflux disease) History of GI bleed History of seizures Hypertension Morbid obesity with BMI of 60.0-69.9, adult NSTEMI (non-ST elevated myocardial infarction) Obesity hypoventilation syndrome Obstructive sleep apnea On home oxygen therapy On 3 L by nasal cannula Osteoarthritis Restless leg syndrome Transaminitis Urinary tract infection due to ESBL Klebsiella Vitamin D deficiency Surgical History History of appendectomy History of hip surgery Bilateral History of hysterectomy History of tonsillectomy Presence of inferior vena cava filter Family History Other Diabetes Social History (Reviewed 08/25/21 @ 11:49 by JEFF Feng Smoking and tobacco status: former smoker Alcohol intake: never Housing: [facility] Physical Exam Const: COMMON NORMALS: no acute distress GENERAL APPEARANCE: cooperative and comfortable ORIENTATION/CONSCIOUSNESS: Yes awake, Yes oriented to person, Yes oriented to place and Yes oriented to time HENMT: COMMON NORMALS: normocephalic, atraumatic and hearing grossly normal bilaterally HEAD & SCALP: normocephalic and atraumatic Neck/C-Spine: COMMON NORMALS: no JVD Resp: COMMON NORMALS: normal respiratory effort, No retractions, No use of accessory muscles and clear to auscultation bilaterally AUSCULTATION: clear to auscultation bilaterally Cardio: COMMON NORMALS: no JVD, regular rate, regular rhythm and No murmurs present (Cardio) RATE: regular rate RHYTHM: regular rhythm GI: COMMON NORMALS: No hepatosplenomegaly present AUSCULTATION: Yes normoactive bowel sounds PALPATION: Yes Tenderness to palpation present (GI) (Diffuse abdominal pain. Difficult to evaluate due to pt's body habitus), No Gu arding due to palpation present (GI) and Yes No hepatosplenomegaly present Neuro: SENSORIUM/ORIENTATION: Yes oriented to person, Yes oriented to place and Yes oriented to time Course Vital Signs: Vital signs: Vital Signs Temperature 98.3 F 07/08/21 11:07 Pulse Rate 114 H 07/08/21 11:07 Respiratory Rate 20 H 07/08/21 11:07 Blood Pressure 128/88 07/08/21 11:07 Pulse Oximetry 95 07/08/21 11:07 MDM - Abdominal Pain Lab Data: Labs: Lab Results 07/08/21 07/08/21 Range/Units 10:30 10:30 WBC 6.3 (4.0-10.0) 10^3/ uL RBC 4.86 (4.1-5.3) 10^6/u L Hgb 13.2 (11.5-15.3) g/dL Hct 44.1 (37.0-47.0) % MCV 90.7 (81-99) fl MCH 27.2 L (28.0-34.0) pg MCHC 29.9 L (30.0-36.0) g/dL RDW 16.7 H (12.1-15.1) % Plt Count 171 (130-400) 10^3/c mm MPV 8.7 (7.4-10.4) fL Neut % (Auto) 65.2 % Lymph % (Auto) 14.9 % Briscoe % (Auto) 13.9 % Eos % (Auto) 4.0 % Baso % (Auto) 0.6 % Neut # (Auto) 4.08 (1.8-7.7) 10^3/u L Lymph # (Auto) 0.9 (0.8-4.8) 10^3/u L Briscoe # (Auto) 0.9 (0.2-0.9) 10^3/u L Eos # (Auto) 0.3 (0.0-0.8) 10^3/u L Baso # (Auto) 0.0 (0.0-0.1) 10^3/u L Nucleated RBC % (a uto) 0.3 % Nucleated RBCs # 0.0 /100WBC Sodium 143 (136-145) mmol/L Potassium 3.8 (3.5-5.1) mmol/L Chloride 98 (98-107) mmol/L Carbon Dioxide 36 H (22-29) mmol/L Anion Gap 12.8 (5-19) BUN 31 H (8-23) mg/dL Creatinine 1.3 H (0.5-0.9) mg/dL GFR Calculation 41.4 L (90-130) mL/min Glucose 151 H (65-115) mg/dL Calculated Osmolal ity 305 H (285-295) mOsm/k g Calcium 8.7 (8.5-10.5) mg/dL Total Bilirubin 1.4 H (0.15-1.2) mg/dL AST 17 (0-32) U/L ALT 20 (0-33) U/L Alkaline Phosphata se 131 H (35-105) IU/L Total Protein 6.4 L (6.6-8.7) g/dL Albumin 3.2 L (3.5-5.2) g/dL Globulin 3.2 (1.3-4.6) g/dL Lipase 28 (13-60) U/L Discharge Plan Discharge Prescriptions: No Action atorvastatin 40 mg tablet 40 mg PO BEDTIME@1999 RF: 0 lisinopril 2.5 mg tablet 2.5 mg PO BEDTIME@20 RF: 0 ferrous sulfate 325 mg (65 mg iron) tablet,delayed release (DR/EC) 325 mg PO DAILY RF: 0 baclofen 5 mg tablet 5 mg PO TID PRN (Reason: Pain) RF: 0 triamcinolone acetonide 0.1 % Cream 1 applic TOPICAL BID RF: 0 nystatin 100,000 unit/gram Cream 1 applic TOPICAL BID RF: 0 Dulcolax (bisacodyl) 5 mg Tablet,Delayed Release (Dr/Ec) 5 mg PO BEDTIME RF: 0 Acidophilus Capsule 10,000 mmu cells PO DAILY PRN (Reason: w/antibiotics) RF: 0 Advair Diskus 250-50 mcg/dose Blister With Device 1 puff inhalation BID.RESPIRATORY 30 Days Qty: 60 RF: 0 aspirin 81 mg Tablet,Delayed Release (Dr/Ec) 162 mg PO DAILY Qty: 60 RF: 0 Spiriva with HandiHaler 18 mcg Capsule, W/Inhalation Device 18 mcg inhalation DAILY.RESPIRATORY Qty: 30 RF: 0 Cardizem CD 300 mg capsule,extended release 24hr 300 mg PO DAILY Qty: 30 RF: 0 bumetanide 1 mg tablet 1 mg PO .@1600 Qty: 30 RF: 0 bumetanide 1 mg tablet 2 mg PO DAILY@08 Qty: 90 RF: 0 potassium chloride 20 mEq Tablet Extended Release 20 meq PO DAILY Qty: 0 RF: 0 acetaminophen 325 mg Tablet 650 mg PO Q4H PRN (Reason: Pain) RF: 0 ondansetron HCl [Zofran] 4 mg Tablet 4 mg PO Q4H PRN (Reason: Nausea) RF: 0 Anbesol (benzocaine) 20 % Liquid 20 % MUCOUS MEMBRANE TID PRN (Reason: Toothache) RF: 0 citalopram 20 mg Tablet 20 mg PO DAILY@20 RF: 0 magnesium hydroxide [Milk of Magnesia] 400 mg/5 mL Suspension 30 ml PO DAILY PRN (Reason: Constipation) RF: 0 bisacodyl 10 mg Suppository 10 mg DC DAILY PRN (Reason: Constipation) RF: 0 bisacodyl 5 mg Tablet,Delayed Release (Dr/Ec) 10 mg PO DAILY PRN (Reason: Constipation) RF: 0 albuterol sulfate 90 mcg/actuation Hfa Aerosol Inhaler 2 puff INHALATION Q6H PRN (Reason: Shortness Of Breath) RF: 0 cholecalciferol (vitamin D3) 25 mcg (1,000 unit) Capsule 25 mcg PO BEDTIME@20 RF: 0 bupropion HCl 150 mg Tablet Extended Release 24 Hr 150 mg PO BID@08,20 RF: 0 levetiracetam [Keppra] 1,000 mg Tablet 1,000 mg PO BID@08,20 RF: 0 diclofenac sodium 1 % Gel 2 g TOPICAL BID PRN (Reason: Pain) RF: 0 guaifenesin [Mucinex] 600 mg Tablet Extended Release 12hr 600 mg PO BID RF: 0 omeprazole 20 mg capsule,delayed release(DR/EC) 20 mg PO DAILY RF: 0 calcium carbonate [Tums] 200 mg calcium (500 mg) Tablet,Chewable 200 mg PO TID PRN (Reason: Acid Reflux) RF: 0 hydroxyzine HCl 25 mg Tablet 25 mg PO BID@08,20 RF: 0 gabapentin 600 mg tablet 300 mg PO BEDTIME@20 RF: 0 cetirizine 10 mg tablet 10 mg PO DAILY PRN (Reason: Allergy Symptoms) RF: 0 Coding Level of Care Code ED [facility] Worker for [facility] [place]
[2021-07-08 11:43] VITALS: BP 128/88; O2SAT 94
[2021-07-08 12:07] LABS: Lactic Sepsis W/Reflex 0.9 mmol/L (0.5-2.2)
[2021-07-08 12:12] VITALS: BP 128/90; PULSE 114; RESP 20; O2SAT 93
--- NOTE | 2021-07-08 12:14 | PC.NURSE ---
PATIENT ACTIVELY PASSING GAS WHEN NURSE IN ROOM AND STATES THAT HER ABDOMEN IS FEELING BETTER. PATIENT RATES PAIN A 5/10. PATIENT MOVED UP IN BED. NO FURTHER NEEDS AT THIS TIME.
[2021-07-08 12:16] LABS: Glucose Urine UA Norm (Normal); Protein Urine 1+ (Negative); Specific Gravity, Urine 1.005 (1.005-1.030); Urine Appearance SL Hazy (CLEAR); Urine Color Yellow (Yellow); pH Urine 5 (5-7)
[2021-07-08 12:17] LABS: Add Urine Microscopic? YES; Bilirubin Urine 1+ (Negative); Blood Urine 2+ (Negative); Ketones Urine Negative (Negative); Leukocyte Esterase Urine 2+ (Negative); Nitrate Urine Positive (Negative); RBC Urine 25-40 /hpf (0-2); Urobilinogen Urine 12 mg/dL (Negative); WBC Urine 25-40 /hpf (0-5)
[2021-07-08 12:18] LABS: Add Urine Culture? Yes; Bacteria Urine 4+ /hpf; Squamous Epithelial Cell Urine 25-40 /hpf (0-5)
--- NOTE | 2021-07-08 13:09 | PC.PHAR ---
PT UNABLE TO CONFIRM MEDICATIONS. EASTON, FROM [facility] CONFIRMED THEM. EASTON STATED THAT THE PT HASN'T HAD ANY OF HER MEDICATIONS, EXCEPT ZOFRAN, SINCE YESTERDAY MORNING.
[2021-07-08 13:20] VITALS: BP 140/72; PULSE 113; O2SAT 98
--- NOTE | 2021-07-08 13:22 | US_ITS ---
WS: [id number] ULTRASOUND ABDOMEN LIMITED CLINICAL INFORMATION: elevated t bili COMPARISON: None. FINDINGS: Technically difficult examination due to body habitus. Liver Not well seen Gallbladder Surgically absent Pancreas Not seen Right kidney: Not seen US/US gall bladder [id number] IMPRESSION: 1. Technically difficult examination due to body habitus. Limited evaluation. 2. Liver not well visualized. 3. Gallbladder is surgically absent. 4. Pancreas and right kidney are not visualized.
[2021-07-08] MEDS: cefTRIAXone 1,000 MG in sodium chloride 0.9% (plus) 50 ML 100 MG IV (13:32)
[2021-07-08 13:39] VITALS: BP 140/72; PULSE 117; RESP 18; O2SAT 97
--- NOTE | 2021-07-08 14:23 | PC.NURSE ---
PATIENT ASKED TO BE CLEANED AFTER HAVING A BOWEL MOVEMENT. THIS NURSE AND 3 OTHER NURSES CLEANED THE PATIENT AND SHE IS NOW RESTING IN BED. PATIENT HAS NO FURTHER NEEDS AT THIS TIME.
[2021-07-08 14:46] VITALS: BP 140/72; PULSE 115; O2SAT 98
--- NOTE | 2021-07-08 15:21 | W.ED.ABDPA2 ---
HPI - Abdominal Pain General: Chief Complaint: Abdominal Pain Stated Complaint: abd pain History of Present Illness: HPI narrative: Morbidly obese 61-year-old female presents emergency room with complaint of abdominal discomfort that is very vague in nature. Patient usually lives in a usp she has not had any fever sweats chills. She had 1 episode of vomiting while she is here she was afebrile while here. Patient is completely bedbound due to her morbid obesity. She has had recurrent urinary tract infections in the past. Her oxygen saturations were normal. She states she denied any difficulty breathing denies chest pain. MD elicited complaint: abdominal pain Onset (ago): hour(s) Pain Consistency: intermittent Location: L flank Severity: moderate Quality: cramping Exacerbating factors: nothing Relieving factors: nothing PFSH ED PFSH: Medical History Acute on chronic diastolic (congestive) heart failure Acute on chronic respiratory failure with hypoxia and hypercapnia MK (acute kidney injury) Chronic atrial fibrillation Chronic diastolic CHF (congestive heart failure) Chronic kidney disease COPD (chronic obstructive pulmonary disease) Depression with anxiety GERD (gastroesophageal reflux disease) History of GI bleed History of seizures Hypertension Morbid obesity with BMI of 60.0-69.9, adult NSTEMI (non-ST elevated myocardial infarction) Obesity hypoventilation syndrome Obstructive sleep apnea On home oxygen therapy On 3 L by nasal cannula Osteoarthritis Restless leg syndrome Transaminitis Urinary tract infection due to ESBL Klebsiella Vitamin D deficiency Surgical History History of appendectomy History of hip surgery Bilateral History of hysterectomy History of tonsillectomy Presence of inferior vena cava filter Family History Other Diabetes Social History Smoking and tobacco status: former smoker Alcohol intake: never Housing: Long-Term Course Vital Signs: Vital signs: Vital Signs Temperature 98.3 F 07/08/21 11:07 Pulse Rate 115 H 07/08/21 14:46 Respiratory Rate 18 07/08/21 13:39 Blood Pressure 140/72 07/08/21 14:46 Pulse Oximetry 98 07/08/21 14:46 MDM - Abdominal Pain MDM Narrative: Medical decision making narrative: Were unable to get a CT. And of the ultrasound was complicated by body habitus as well. Discussed with the patient she is actually feeling somewhat better. Reviewed the labs with her as well given the normal white count at this point and it would be better just to treat her for cystitis. She does not LL elevated BUN and creatinine as well slight elevation in her bilirubin and her alk phos. She has had these in the past. We have given her some fluids working to go ahead and discharge her back to [facility] based off her last urine culture. She has any worsening return. Lab Data: Labs: Lab Results 07/08/21 07/08/21 07/08/21 Range/Units 10:30 10:30 11:31 WBC 6.3 (4.0-10.0) 10^3/ uL RBC 4.86 (4.1-5.3) 10^6/u L Hgb 13.2 (11.5-15.3) g/dL Hct 44.1 (37.0-47.0) % MCV 90.7 (81-99) fl MCH 27.2 L (28.0-34.0) pg MCHC 29.9 L (30.0-36.0) g/dL RDW 16.7 H (12.1-15.1) % Plt Count 171 (130-400) 10^3/c mm MPV 8.7 (7.4-10.4) fL Neut % (Auto) 65.2 % Lymph % (Auto) 14.9 % [place] % (Auto) 13.9 % Eos % (Auto) 4.0 % Baso % (Auto) 0.6 % Neut # (Auto) 4.08 (1.8-7.7) 10^3/u L Lymph # (Auto) 0.9 (0.8-4.8) 10^3/u L [place] # (Auto) 0.9 (0.2-0.9) 10^3/u L Eos # (Auto) 0.3 (0.0-0.8) 10^3/u L Baso # (Auto) 0.0 (0.0-0.1) 10^3/u L Nucleated RBC % (a uto) 0.3 % Nucleated RBCs # 0.0 /100WBC Sodium 143 (136-145) mmol/L Potassium 3.8 (3.5-5.1) mmol/L Chloride 98 (98-107) mmol/L Carbon Dioxide 36 H (22-29) mmol/L Anion Gap 12.8 (5-19) BUN 31 H (8-23) mg/dL Creatinine 1.3 H (0.5-0.9) mg/dL GFR Calculation 41.4 L (90-130) mL/min Glucose 151 H (65-115) mg/dL Calculated Osmolal ity 305 H (285-295) mOsm/k g Lactic Acid 0.9 (0.5-2.2) mmol/L Calcium 8.7 (8.5-10.5) mg/dL Total Bilirubin 1.4 H (0.15-1.2) mg/dL AST 17 (0-32) U/L ALT 20 (0-33) U/L Alkaline Phosphata se 131 H (35-105) IU/L Total Protein 6.4 L (6.6-8.7) g/dL Albumin 3.2 L (3.5-5.2) g/dL Globulin 3.2 (1.3-4.6) g/dL Lipase 28 (13-60) U/L Urine Color (Yellow) Urine Appearance (CLEAR) Urine pH (5-7) Ur Specific Gravit y (1.005-1.030) Urine Protein (Negative) Urine Glucose (UA) (Normal) Urine Ketones (Negative) Urine Blood (Negative) Urine Nitrate (Negative) Urine Bilirubin (Negative) Urine Urobilinogen (Negative) mg/dL Ur Leukocyte Daksha ase (Negative) Urine RBC (0-2) /hpf Urine WBC (0-5) /hpf Ur Squamous Epith Cells (0-5) /hpf Amorphous Sediment Urine Bacteria (NONE) /hpf 07/08/21 Range/Units 11:40 WBC (4.0-10.0) 10^3/ uL RBC (4.1-5.3) 10^6/u L Hgb (11.5-15.3) g/dL Hct (37.0-47.0) % MCV (81-99) fl MCH (28.0-34.0) pg MCHC (30.0-36.0) g/dL RDW (12.1-15.1) % Plt Count (130-400) 10^3/c mm MPV (7.4-10.4) fL Neut % (Auto) % Lymph % (Auto) % [place] % (Auto) % Eos % (Auto) % Baso % (Auto) % Neut # (Auto) (1.8-7.7) 10^3/u L Lymph # (Auto) (0.8-4.8) 10^3/u L [place] # (Auto) (0.2-0.9) 10^3/u L Eos # (Auto) (0.0-0.8) 10^3/u L Baso # (Auto) (0.0-0.1) 10^3/u L Nucleated RBC % (a uto) % Nucleated RBCs # /100WBC Sodium (136-145) mmol/L Potassium (3.5-5.1) mmol/L Chloride (98-107) mmol/L Carbon Dioxide (22-29) mmol/L Anion Gap (5-19) BUN (8-23) mg/dL Creatinine (0.5-0.9) mg/dL GFR Calculation (90-130) mL/min Glucose (65-115) mg/dL Calculated Osmolal ity (285-295) mOsm/k g Lactic Acid (0.5-2.2) mmol/L Calcium (8.5-10.5) mg/dL Total Bilirubin (0.15-1.2) mg/dL AST (0-32) U/L ALT (0-33) U/L Alkaline Phosphata se (35-105) IU/L Total Protein (6.6-8.7) g/dL Albumin (3.5-5.2) g/dL Globulin (1.3-4.6) g/dL Lipase (13-60) U/L Urine Color Yellow (Yellow) Urine Appearance Sl hazy (CLEAR) Urine pH 5 (5-7) Ur Specific Gravit y 1.005 (1.005-1.030) Urine Protein 1+ H (Negative) Urine Glucose (UA) Norm (Normal) Urine Ketones Negative (Negative) Urine Blood 2+ H (Negative) Urine Nitrate Positive H (Negative) Urine Bilirubin 1+ H (Negative) Urine Urobilinogen 12 H (Negative) mg/dL Ur Leukocyte Daksha ase 2+ H (Negative) Urine RBC 25-40 H (0-2) /hpf Urine WBC 25-40 H (0-5) /hpf Ur Squamous Epith Cells 25-40 H (0-5) /hpf Amorphous Sediment Not Reportable Urine Bacteria 4+ H (NONE) /hpf Discharge Plan Discharge Patient Disposition: Home Clinical Impression: Cystitis Condition: Stable Prescriptions: New Macrobid 100 mg capsule 100 mg PO BID 7 Days Qty: 14 RF: 0 No Action atorvastatin 40 mg tablet 40 mg PO BEDTIME@1999 RF: 0 lisinopril 2.5 mg tablet 2.5 mg PO BEDTIME@20 RF: 0 ferrous sulfate 325 mg (65 mg iron) tablet,delayed release (DR/EC) 325 mg PO DAILY@0800 RF: 0 baclofen 5 mg tablet 5 mg PO TID PRN (Reason: Pain) RF: 0 triamcinolone acetonide 0.1 % Cream 1 applic TOPICAL BID@ RF: 0 nystatin 100,000 unit/gram Cream 1 applic TOPICAL BID@ RF: 0 bisacodyl [Dulcolax (bisacodyl)] 5 mg Tablet,Delayed Release (Dr/Ec) 5 mg PO BEDTIME@1999 RF: 0 Lactobacillus acidophilus [Acidophilus] Capsule 10,000 mmu cells PO DAILY PRN (Reason: w/antibiotics) RF: 0 bumetanide 1 mg tablet 2 mg PO DAILY@08 Qty: 90 RF: 0 Advair Diskus 250-50 mcg/dose blister with device 1 puff inhalation BID@ RF: 0 aspirin 81 mg tablet,delayed release (DR/EC) 162 mg PO DAILY@0800 RF: 0 Cardizem CD 300 mg capsule,extended release 24hr 300 mg PO DAILY@0800 RF: 0 bumetanide 1 mg tablet 1 mg PO DAILY@1600 RF: 0 Spiriva with HandiHaler 18 mcg capsule, w/inhalation device 18 mcg inhalation DAILY@0800 RF: 0 potassium chloride 20 mEq tablet extended release 20 meq PO DAILY@0800 RF: 0 citalopram 20 mg Tablet 20 mg PO DAILY@1999 RF: 0 acetaminophen 325 mg Tablet 650 mg PO Q4H PRN (Reason: Pain) RF: 0 ondansetron HCl [Zofran] 4 mg Tablet 4 mg PO Q4H PRN (Reason: Nausea) RF: 0 Anbesol (benzocaine) 20 % Liquid 20 % MUCOUS MEMBRANE TID PRN (Reason: Toothache) RF: 0 magnesium hydroxide [Milk of Magnesia] 400 mg/5 mL Suspension 30 ml PO DAILY PRN (Reason: Constipation) RF: 0 bisacodyl 10 mg Suppository 10 mg OR DAILY PRN (Reason: Constipation) RF: 0 bisacodyl 5 mg Tablet,Delayed Release (Dr/Ec) 10 mg PO DAILY PRN (Reason: Constipation) RF: 0 albuterol sulfate [ProAir HFA] 90 mcg/actuation Hfa Aerosol Inhaler 2 puff INHALATION Q6H PRN (Reason: Shortness Of Breath) RF: 0 cholecalciferol (vitamin D3) 25 mcg (1,000 unit) Capsule 25 mcg PO BEDTIME@20 RF: 0 bupropion HCl 150 mg Tablet Extended Release 24 Hr 150 mg PO BID@08,20 RF: 0 levetiracetam [Keppra] 1,000 mg Tablet 1,000 mg PO BID@08,20 RF: 0 diclofenac sodium 1 % Gel 2 g TOPICAL BID PRN (Reason: Pain) RF: 0 guaifenesin [Mucinex] 600 mg Tablet Extended Release 12hr 600 mg PO BID@0800,2000 RF: 0 omeprazole 20 mg capsule,delayed release(DR/EC) 20 mg PO DAILY@0800 RF: 0 calcium carbonate [Tums] 200 mg calcium (500 mg) Tablet,Chewable 200 mg PO TID PRN (Reason: Acid Reflux) RF: 0 hydroxyzine HCl 25 mg Tablet 25 mg PO BID@08,20 RF: 0 gabapentin 600 mg tablet 300 mg PO BEDTIME@20 RF: 0 cetirizine 10 mg tablet 10 mg PO DAILY PRN (Reason: Allergy Symptoms) RF: 0 Discharge Orders: Discharge ED (Routine); Ordered 07/08/21 Ordered By: Toan Borjas Referrals: Elmer Shelton DO [Primary Care Provider] - Discharge Diet: Usual diet Discharge Activity: Resume usual activity Patient Instructions: Opioid Safety Coding Level of Care Code ED News Wire Photo Operator for Janeth Grimes
== END 2021-07-08 15:35 | disposition home or self-care (01) ==
PROVIDERS: Emergency Provider Family Medicine; PCP Internal Medicine
DX: N30.90 Cystitis, unspecified without hematuria (principal); I13.0 Hypertensive heart and chronic kidney disease with heart failure and stage 1 through stage 4 chronic kidney disease, or unspecified chronic kidney disease; I50.33 Acute on chronic diastolic (congestive) heart failure; N18.9 Chronic kidney disease, unspecified; I48.20 Chronic atrial fibrillation, unspecified; J44.9 Chronic obstructive pulmonary disease, unspecified; I25.2 Old myocardial infarction; E66.01 Morbid (severe) obesity due to excess calories; Z87.891 Personal history of nicotine dependence
CPT/HCPCS: 71045; 76705; 80053; 81001; 83605; 83690; 85025; 87077; 87086; 87186; 96365; 99284; J0696

== ENCOUNTER 2021-09-15 13:50 | Emergency (ER) | payer MEDICAID, SELFPAY ==
[2021-09-15] VITALS (7 sets, daily range): BP systolic 122–133; BP diastolic 71–77; PULSE 68–111; RESP 16–20; TEMP 37.2; O2SAT 88–100; BMI 79.6
--- NOTE | 2021-09-15 14:49 | PC.PHAR ---
pt is from [facility] assisted-elkin nurse from [facility] states she is unsure what medications the pt took today-elkin states the pts normal nurse had to leave early and states when she went in the pts room the pt hadnt taken all her am meds-elkin states she threw away about 9-10 medications that pt hadnt taken-
--- NOTE | 2021-09-15 14:50 | ED_ITS ---
HPI - General Adult General: Chief complaint: General Medical Stated complaint: CONFUSION Time Seen by Provider: 09/15/21 14:23 History of Present Illness: HPI narrative: 81-year-old female referred to the emergency room from [facility] [place] [facility] [place]. Per the staff she was having some confusion on arrival here she is awake and alert usual baseline she is able to remind me that she has a sore left foot. She also remembers that she had surgery in [place]. She denies any chest pain difficulty breathing. She denies any dysuria urgency or frequency but does state that she has to have a bowel movement. She denies any other problems at this time. Associated symptoms: Deny chest pain, confusion, dyspnea, headache(s), malaise, nausea, rash, palpitations, syncope or vomiting Review of Systems Const: Denies: fever(s), chills, body aches, fatigue, malaise or night sweats Eyes: Denies: change in vision or blurry vision ENMT: Denies: throat pain, oral sores, dental pain, nasal discharge or nasal congestion Card: Denies: chest pain, palpitations, irregular heart rhythm, edema, syncope, dyspnea on exertion, orthopnea or leg pain with exertion Resp: Denies: dyspnea, productive cough, non-productive cough or wheezing GI: Denies: abdominal pain, nausea, vomiting, hematemesis, coffee ground emesis, dysphagia, heartburn, diarrhea, constipation, GI cramping, hematochezia or melena : Denies: flank pain, dysuria, urinary frequency, urinary urgency, urinary incontinence or hematuria Musc: Denies: neck pain, back pain, extremity pain, extremity swelling, joint pain or joint swelling Skin/Breast: Denies: rash, pruritus or erythema Neuro: Denies: headache(s), numbness in extremities, weakness in extremities, sensory changes, lack of coordination, difficulty walking, frequent falls, dizziness, vertigo or confusion Psych: Denies: anxiety, depression, loss of interest, visual hallucinations, auditory hallucinations, suicidal ideation or homicidal ideation Endo: Denies: polyuria, polydipsia, tired all the time or cold intolerance Kev/Lymph: Denies: easy bruising, easy bleeding, petechiae, enlarged lymph nodes or tender lymph nodes PFSH ED PFSH: Medical History Acute on chronic diastolic (congestive) heart failure Acute on chronic respiratory failure with hypoxia and hypercapnia MK (acute kidney injury) Chronic atrial fibrillation Chronic diastolic CHF (congestive heart failure) Chronic kidney disease COPD (chronic obstructive pulmonary disease) Depression with anxiety GERD (gastroesophageal reflux disease) History of GI bleed History of seizures Hypertension Morbid obesity with BMI of 60.0-69.9, adult NSTEMI (non-ST elevated myocardial infarction) Obesity hypoventilation syndrome Obstructive sleep apnea On home oxygen therapy On 3 L by nasal cannula Osteoarthritis Restless leg syndrome Transaminitis Urinary tract infection due to ESBL Klebsiella Vitamin D deficiency Surgical History History of appendectomy History of hip surgery Bilateral History of hysterectomy History of tonsillectomy Presence of inferior vena cava filter Family History Other Diabetes Liver abscess and sequelae of chronic liver disease Social History Smoking and tobacco status: former smoker Alcohol intake: never Housing: Prison Physical Exam Const: COMMON NORMALS: no acute distress GENERAL APPEARANCE: cooperative ORIENTATION/CONSCIOUSNESS: Yes awake, Yes oriented to person, Yes oriented to place and Yes oriented to time HENMT: COMMON NORMALS: normocephalic, atraumatic and hearing grossly normal bilaterally HEAD & SCALP: normocephalic and atraumatic Neck/C-Spine: COMMON NORMALS: no JVD Resp: COMMON NORMALS: normal respiratory effort, No retractions, No use of accessory muscles and clear to auscultation bilaterally AUSCULTATION: clear to auscultation bilaterally Cardio: COMMON NORMALS: no JVD, regular rate, regular rhythm and No murmurs present (Cardio) RATE: regular rate RHYTHM: regular rhythm GI: COMMON NORMALS: Soft to palpation and No hepatosplenomegaly present AUSCULTATION: Yes normoactive bowel sounds PALPATION: Yes Soft to palpation, No Tenderness to palpation present (GI), No Guarding due to palpation present (GI) and Yes No hepatosplenomegaly present Extremity: COMMON NORMALS: normal to inspection, capillary refill normal and no calf tenderness GENERAL: Yes edema Neuro: SENSORIUM/ORIENTATION: Yes oriented to person, Yes oriented to place and Yes oriented to time Skin: COMMON NORMALS: no rashes or lesions noted GENERAL SKIN EXAM: no rashes or lesions noted Course Vital Signs: Vital signs: Vital Signs Temperature 98.9 F 09/15/21 14:03 Pulse Rate 68 09/15/21 19:19 Respiratory Rate 16 09/15/21 19:19 Blood Pressure 122/71 09/15/21 19:19 Pulse Oximetry 100 09/15/21 19:19 MDM - General Adult MDM Narrative: Medical decision making narrative: On arrival here patient is essentially at her baseline seeing this patient in the past she is alert and melodie ented answers question she denies any difficulty breathing swallowing speech. She is aware of time date place person. She denies any chest pain or tightness of breath this point we will just observe discharge her back to the [place] [facility] follow-up with your primary care doctor. Lab Data: Labs: Lab Results 09/15/21 09/15/21 14:54 14:54 WBC 9.7 10^3/uL 10^3/ uL (4.0-10.0) RBC 3.52 10^6/uL L 10 ^6/uL (4.1-5.3) Hgb 10.0 g/dL L g/dL (11.5-15.3) Hct 34.6 % L % (37.0-47.0) MCV 98.3 fl fl (81-99) MCH 28.4 pg pg (28.0-34.0) MCHC 28.9 g/dL L g/dL (30.0-36.0) RDW 17.2 % H % (12.1-15.1) Plt Count 165 10^3/cmm 10^3 /cmm (130-400) MPV 8.4 fL fL (7.4-10.4) Neut % (Auto) 69.6 % % Lymph % (Auto) 12.1 % % [place] % (Auto) 8.9 % % Eos % (Auto) 8.2 % % Baso % (Auto) 0.6 % % Neut # (Auto) 6.73 10^3/uL 10^3 /uL (1.8-7.7) Lymph # (Auto) 1.2 10^3/uL 10^3/ uL (0.8-4.8) [place] # (Auto) 0.9 10^3/uL 10^3/ uL (0.2-0.9) Eos # (Auto) 0.8 10^3/uL 10^3/ uL (0.0-0.8) Baso # (Auto) 0.1 10^3/uL 10^3/ uL (0.0-0.1) Nucleated RBC % (a uto) 0 % % Nucleated RBCs # 0.0 /100WBC /100W BC Sodium 143 mmol/L mmol/L (136-145) Potassium 4.1 mmol/L mmol/L (3.5-5.1) Chloride 98 mmol/L mmol/L (98-107) Carbon Dioxide 37 mmol/L H mmol/ L (22-29) Anion Gap 12.1 (5-19) BUN 24 mg/dL H mg/dL (8-23) Creatinine 0.9 mg/dL mg/dL (0.5-0.9) GFR Calculation 63.2 mL/min L mL/ min (90-130) Glucose 134 mg/dL H mg/dL (65-115) Calculated Osmolal ity 302 mOsm/kg H mOs m/kg (285-295) Calcium 9.4 mg/dL mg/dL (8.5-10.5) Total Bilirubin 0.5 mg/dL mg/dL (0.15-1.2) AST 8 U/L U/L (0-32) ALT 15 U/L U/L (0-33) Alkaline Phosphata se 130 IU/L H IU/L (35-105) Total Protein 6.2 g/dL L g/dL (6.6-8.7) Albumin 3.2 g/dL L g/dL (3.5-5.2) Globulin 3.0 g/dL g/dL (1.3-4.6) Discharge Plan Discharge Patient Disposition: Home Clinical Impression: Hypertension, COPD (chronic obstructive pulmonary disease), Obstructive sleep apnea, Morbid obesity Condition: Stable Prescriptions: No Action atorvastatin 40 mg tablet 40 mg PO BEDTIME@2000 RF: 0 ferrous sulfate 325 mg (65 mg iron) tablet,delayed release (DR/EC) 325 mg PO DAILY@0800 RF: 0 baclofen 5 mg tablet 5 mg PO TID PRN (Reason: Muscle Spasm) RF: 0 triamcinolone acetonide 0.1 % Cream 1 applic TOPICAL BID@ RF: 0 nystatin 100,000 unit/gram Cream 1 applic TOPICAL BID@ RF: 0 bisacodyl [Dulcolax (bisacodyl)] 5 mg Tablet,Delayed Release (Dr/Ec) 5 mg PO BEDTIME@1999 RF: 0 Lactobacillus acidophilus [Acidophilus] Capsule 1 cap PO DAILY PRN (Reason: w/antibiotics) RF: 0 bumetanide 1 mg tablet 2 mg PO DAILY@08 Qty: 90 RF: 0 aspirin 81 mg tablet,delayed release (DR/EC) 162 mg PO DAILY@0800 RF: 0 diltiazem HCl [Cardizem CD] 300 mg capsule,extended release 24hr 300 mg PO DAILY@0800 RF: 0 bumetanide 1 mg tablet 1 mg PO DAILY@1600 RF: 0 Spiriva with HandiHaler 18 mcg capsule, w/inhalation device 1 cap inhalation DAILY@0800 RF: 0 potassium chloride 20 mEq tablet extended release 20 meq PO DAILY@799 RF: 0 citalopram 20 mg Tablet 20 mg PO DAILY@1999 RF: 0 acetaminophen 325 mg Tablet 650 mg PO Q4H PRN (Reason: Pain) RF: 0 ondansetron HCl [Zofran] 4 mg Tablet 4 mg PO Q4H PRN (Reason: Nausea) RF: 0 Anbesol (benzocaine) 20 % Liquid 1 ea MUCOUS MEMBRANE TID PRN (Reason: Toothache) RF: 0 magnesium hydroxide [Milk of Magnesia] 400 mg/5 mL Suspension 30 ml PO DAILY PRN (Reason: Constipation) RF: 0 bisacodyl 10 mg Suppository 10 mg [place] DAILY PRN (Reason: Constipation) RF: 0 bisacodyl 5 mg Tablet,Delayed Release (Dr/Ec) 10 mg PO DAILY PRN (Reason: Constipation) RF: 0 albuterol sulfate [ProAir HFA] 90 mcg/actuation Hfa Aerosol Inhaler 2 puff INHALATION Q6H PRN (Reason: Shortness Of Breath) RF: 0 cholecalciferol (vitamin D3) 25 mcg (1,000 unit) Capsule 25 mcg PO BEDTIME@20 RF: 0 levetiracetam [Keppra] 1,000 mg Tablet 1,000 mg PO BID@08,20 RF: 0 diclofenac sodium 1 % Gel 2 g TOPICAL BID PRN (Reason: Pain) RF: 0 guaifenesin [Mucinex] 600 mg Tablet Extended Release 12hr 600 mg PO BID@0800,2000 RF: 0 omeprazole 20 mg capsule,delayed release(DR/EC) 20 mg PO DAILY@0800 RF: 0 calcium carbonate [Tums] 200 mg calcium (500 mg) Tablet,Chewable 400 mg PO TID PRN (Reason: Indigestion) RF: 0 cetirizine 10 mg tablet 10 mg PO DAILY PRN (Reason: Allergy Symptoms) RF: 0 bupropion HCl 150 mg Tablet Sustained-Release 12 Hr 150 mg PO BID@08,20 RF: 0 gabapentin 300 mg Capsule 300 mg PO BEDTIME@20 RF: 0 Discharge Orders: Discharge ED (Routine); Ordered 09/15/21 Ordered By: Toan Borjas Referrals: Elmer Shelton DO [Primary Care Provider] - Discharge Diet: Usual diet Discharge Activity: Resume usual activity Coding Level of Care Code ED Outdoor Advertising Leasing Agent for Chg Fwd Exam Comprehensive
[2021-09-15 15:00] LABS: Basophils # 0.1 10^3/uL (0.0-0.1); Basophils % 0.6 %; Eosinophils # 0.8 10^3/uL (0.0-0.8); Eosinophils % 8.2 %; Hematocrit 34.6 % (37.0-47.0); Lymphocytes # 1.2 10^3/uL (0.8-4.8); Lymphocytes % 12.1 %; Mean Corpuscular HGB Conc 28.9 g/dL (30.0-36.0); Mean Corpuscular Hemoglobin 28.4 pg (28.0-34.0); Mean Corpuscular Volume 98.3 fl (81-99); Mean Platelet Volume 8.4 fL (7.4-10.4); Monocytes # 0.9 10^3/uL (0.2-0.9); Monocytes % 8.9 %; Neutrophils # 6.73 10^3/uL (1.8-7.7); Neutrophils % 69.6 %; Nucleated Red Blood Cells % 0 %; Platelet Count 165 10^3/cmm (130-400); Red Blood Count 3.52 10^6/uL (4.1-5.3); Red Cell Distribution Width 17.2 % (12.1-15.1); White Blood Count 9.7 10^3/uL (4.0-10.0)
[2021-09-15 15:19] LABS: Alanine Aminotransferase 15 U/L (0-33); Albumin Level 3.2 g/dL (3.5-5.2); Alkaline Phosphatase 130 IU/L (35-105); Anion Gap 12.1 (5-19); Aspartate Amino Transferase 8 U/L (0-32); Blood Urea Nitrogen 24 mg/dL (8-23); Calcium 9.4 mg/dL (8.5-10.5); Carbon Dioxide 37 mmol/L (22-29); Chloride 98 mmol/L (98-107); Glomerular Filtration Rate 63.2 mL/min (90-130); Glucose 134 mg/dL (65-115); Osmolality Calculated 302 mOsm/kg (285-295); Potassium 4.1 mmol/L (3.5-5.1); Sodium 143 mmol/L (136-145); Total Bilirubin 0.5 mg/dL (0.15-1.2); Total Protein 6.2 g/dL (6.6-8.7)
--- NOTE | 2021-09-15 16:41 | PC.NURSE ---
REPORT GIVEN TO HOMAR SHERMAN AT [facility] IN [place].
--- NOTE | 2021-09-15 18:58 | PC.NURSE ---
REPORT GIVEN TO LESLIE SHERMAN ASSUMED CARE.
--- NOTE | 2021-09-15 19:04 | PC.NURSE ---
WHILE AT BEDSIDE PT IS IN NAD. PT DOES NOT VERBALIZE ANY NEEDS AT THIS TIME.
== END 2021-09-15 20:38 | disposition home or self-care (01) ==
PROVIDERS: Emergency Provider Family Medicine; PCP Internal Medicine
DX: J44.9 Chronic obstructive pulmonary disease, unspecified (principal); G47.33 Obstructive sleep apnea (adult) (pediatric); E66.01 Morbid (severe) obesity due to excess calories; Z68.44 Body mass index [BMI] 60.0-69.9, adult; I13.0 Hypertensive heart and chronic kidney disease with heart failure and stage 1 through stage 4 chronic kidney disease, or unspecified chronic kidney disease; I50.33 Acute on chronic diastolic (congestive) heart failure; N18.9 Chronic kidney disease, unspecified; Z87.891 Personal history of nicotine dependence; Z79.82 Long term (current) use of aspirin
CPT/HCPCS: 80053; 85025; 99283

== ENCOUNTER 2021-11-10 17:55 | Inpatient (IN) | payer MEDICAID, SELFPAY ==
--- NOTE | 2021-11-10 18:07 | XRR_ITS ---
PROCEDURE INFORMATION: Exam: XR Chest Exam date and time: 11/10/2021 6:07 PM Age: 61 years old Clinical indication: Shortness of breath; Additional info: SOB TECHNIQUE: Imaging protocol: XR of the chest. Views: 1 view. COMPARISON: CR (CHEST, ) 06/28/2020 4:23 AM FINDINGS: Lungs: There is vascular congestion. Central ground-glass and interstitial opacities in both lungs. Pleural spaces: Probable small right pleural effusion. No pneumothorax. significantly Heart/Mediastinum: Interpretation is difficult due to severe patient rotation. The heart is enlarged. Bones/joints: Unremarkable. XR/XR chest 1V portable [id number] IMPRESSION: 1. Congestive heart failure pattern with small right pleural effusion. 2. Evaluation is limited due to significant malpositioning.
[2021-11-10 18:10] VITALS: BP 116/69; PULSE 79; RESP 24; O2SAT 100; BMI 82.2
[2021-11-10 18:13] LABS: ABG PH Result 7.24 (7.35-7.45); Arterial Blood Gas Hematocrit 26.7 % (37-47); Base Excess ABG 11.2 mmol/L (-2.0-2.0); Blood Gas Allen Test Pos; Blood Gas Sample Type Arterial; Carboxyhemoglobin 1.6 %THgb (0.4-20.1); HCO3 ABG 40.9 mmol/L (22-26); HGB O2 Sat 96.2 % (95-100); Methemoglobin 1.5 % (0.4-1.5); Total Hemoglobin 8.7 g/dL (12-16)
[2021-11-10 18:13] LABS: Basophils % 0.4 %; Eosinophils # 0.5 10^3/uL (0.0-0.8); Eosinophils % 5.3 %; Hematocrit 30.5 % (37.0-47.0); Hemoglobin 8.4 g/dL (11.5-15.3); Lymphocytes # 0.9 10^3/uL (0.8-4.8); Mean Corpuscular HGB Conc 27.5 g/dL (30.0-36.0); Mean Corpuscular Hemoglobin 25.8 pg (28.0-34.0); Mean Corpuscular Volume 93.6 fl (81-99); Mean Platelet Volume 9.1 fL (7.4-10.4); Monocytes # 0.8 10^3/uL (0.2-0.9); Monocytes % 7.9 %; Neutrophils % 76.6 %; Nucleated Red Blood Cells % 0.2 %; Platelet Count 170 10^3/cmm (130-400); Red Blood Count 3.26 10^6/uL (4.1-5.3); Red Cell Distribution Width 17.9 % (12.1-15.1); White Blood Count 9.9 10^3/uL (4.0-10.0)
[2021-11-10 18:14] LABS: Blood Gas Operator Identificat ED; Blood Gas Sample Site Radial, left; Oxygen Device NRB
--- NOTE | 2021-11-10 18:24 | ECG_ITS ---
[facility] Test Date: 2021-11-10 Pat Name: Sarah Merrill Department: Room: Gender: Female Photographer'S Model: : 1960 Requested By: Sergey Israel Order Number: [id number] Brandyn MD: Marcia Chaidez M.D. Measurements Intervals [place] Rate: 83 P: CO: QRS: 18 QRSD: 124 T: 218 QT: 402 QTc: 475 Interpretive Statements ATRIAL FIBRILLATION MODERATE INTRAVENTRICULAR CONDUCTION DELAY [110+ ms QRS DURATION] NONSPECIFIC T-WAVE ABNORMALITY Compared to ECG 06/08/2021 13:13:22 Intraventricular conduction delay now present Atrial flutter no longer present Possible ischemia no longer present T-wave abnormality still present Electronically Signed On 11-11-2021 0:06:35 CONFECTIONERY DROPS MACHINE OPERATOR by Marcia Chaidez M.D. [email or web address] [email or web address] [id number]
[2021-11-10 18:32] VITALS: PULSE 78; RESP 23; O2SAT 98
[2021-11-10 18:46] LABS: Alanine Aminotransferase 9 U/L (0-33); Albumin Level 2.9 g/dL (3.5-5.2); Alkaline Phosphatase 93 IU/L (35-105); Blood Urea Nitrogen 37 mg/dL (8-23); Calcium 8.3 mg/dL (8.5-10.5); Carbon Dioxide 33 mmol/L (22-29); Chloride 98 mmol/L (98-107); Globulin 3.2 g/dL (1.3-4.6); Glomerular Filtration Rate 35.1 mL/min (90-130); Glucose 101 mg/dL (65-115); NT Pro B Type Natriuretic Pept 1901 pg/mL (0-125); Osmolality Calculated 305 mOsm/kg (285-295); Sodium 143 mmol/L (136-145); Total Bilirubin 0.4 mg/dL (0.15-1.2); Total Protein 6.1 g/dL (6.6-8.7); Troponin(5th) Baseline 39 ng/L (0-10)
[2021-11-10 18:55] LABS: Anion Gap 17.2 (5-19); Aspartate Amino Transferase 13 U/L (0-32); Potassium 5.2 mmol/L (3.5-5.1)
[2021-11-10 18:56] LABS: ABG PCO2 96.1 mmHg (35-45)
--- NOTE | 2021-11-10 19:18 | ED_ITS ---
HPI - SOB/Dyspnea General: Chief Complaint: Shortness of Breath/Dyspnea Stated Complaint: LOW O2 Time Seen by Provider: 11/10/21 18:07 Source: patient and EMS Mode of arrival: EMS Limitations: no limitations History of Present Illness: HPI Narrative: 61-year-old female with a history of COPD CHF along with morbid obesity is well-known to the ER. Patient is here today by EMS from intermediate she supposed to wear BiPAP while she sleeps and was not became severely hypoxic. EMS states when they arrived that she was 69% they have her on a nonrebreather her oxygen level is improved on that. Patient does have some tachypnea and wheezing she is alert able answer most my questions EMS states she has been alert the whole time denies any cough denies any fever patient denies any pain. Associated symptoms: Deny abdominal pain, chest pain, fever(s), nausea or vomiting Review of Systems Const: Denies: fever(s), chills, body aches or change in appetite Eyes: Denies: blurry vision or eye discomfort ENMT: Denies: throat pain or dental pain Card: Denies: chest pain Resp: Reports: dyspnea GI: Denies: abdominal pain, nausea, vomiting or diarrhea : Denies: dysuria Musc: Denies: neck pain or back pain Skin/Breast: Denies: rash Neuro: Denies: headache(s) Psych: Denies: depression Kev/Lymph: Denies: easy bruising All/Imm: Denies: urticaria PFSH ED PFSH: Medical History Acute on chronic diastolic (congestive) heart failure Acute on chronic respiratory failure with hypoxia and hypercapnia MK (acute kidney injury) Chronic atrial fibrillation Chronic diastolic CHF (congestive heart failure) Chronic kidney disease COPD (chronic obstructive pulmonary disease) Depression with anxiety GERD (gastroesophageal reflux disease) History of GI bleed History of seizures Hypertension Morbid obesity with BMI of 60.0-69.9, adult NSTEMI (non-ST elevated myocardial infarction) Obesity hypoventilation syndrome Obstructive sleep apnea On home oxygen therapy On 3 L by nasal cannula Osteoarthritis Restless leg syndrome Transaminitis Urinary tract infection due to ESBL Klebsiella Vitamin D deficiency Surgical History History of appendectomy History of hip surgery Bilateral History of hysterectomy History of tonsillectomy Presence of inferior vena cava filter Family History Other Diabetes Liver abscess and sequelae of chronic liver disease Social History Smoking and tobacco status: former smoker Alcohol intake: never Housing: Long-Term Physical Exam Const: COMMON NORMALS: patient oriented x3 GENERAL APPEARANCE: in distress NUTRITIONAL APPEARANCE: obese HENMT: COMMON NORMALS: normocephalic and atraumatic HEAD & SCALP: normocephalic and atraumatic Eye: COMMON NORMALS: Equal, round and reactive pupils present and EOMs intact bilaterally PUPIL: Yes Equal, round and reactive pupils present Neck/C-Spine: COMMON NORMALS: full ROM and supple Chest: COMMONS NORMALS: normal inspection of the chest and normal palpation of entire chest wall Resp: COMMON NORMALS: normal respiratory effort, No retractions and No use of accessory muscles AUSCULTATION: wheezes Cardio: COMMON NORMALS: regular rate, regular rhythm and No murmurs present (Cardio) RATE: regular rate RHYTHM: regular rhythm GI: COMMON NORMALS: Normal to inspection, nondistended, normoactive bowel sounds present, Soft to palpation, non-tender and no masses PALPATION: Yes Soft to palpation Extremity: COMMON NORMALS: normal to inspection and full ROM Neuro: COMMON NORMALS: patient oriented x3, moves all extremities and no focal motor deficits Psych: COMMON NORMALS: mental status grossly normal, Normal thought process present and cooperative THOUGHT PROCESS: Normal thought process present Skin: COMMON NORMALS: no rashes or lesions noted and no wounds GENERAL SKIN EXAM: no rashes or lesions noted Course Vital Signs: Vital signs: Vital Signs Pulse Rate 76 11/10/21 21:04 Respiratory Rate 17 11/10/21 20:42 Blood Pressure 121/60 11/10/21 20:42 Pulse Oximetry 92 11/10/21 20:42 MDM - SOB/Dyspnea MDM Narrative: Medical decision making narrative: Patient presents here with acute respiratory failure with hypoxia and hypercapnia. Patient is improving slowly on BiPAP here she is a DNR/DNI and we will not intubate. Spoke to the hospitalist will admit and continue BiPAP. Lab Data: Labs: Lab Results 11/10/21 11/10/2111/10/21 18:00 18:00 18:00 WBC 9.9 10^3/uL 10^3/ uL (4.0-10.0) RBC 3.26 10^6/uL L 10 ^6/uL (4.1-5.3) Hgb 8.4 g/dL L g/dL (11.5-15.3) Hct 30.5 % L % (37.0-47.0) MCV 93.6 fl fl (81-99) MCH 25.8 pg L pg (28.0-34.0) MCHC 27.5 g/dL L g/dL (30.0-36.0) RDW 17.9 % H % (12.1-15.1) Plt Count 170 10^3/cmm 10^3 /cmm (130-400) MPV 9.1 fL fL (7.4-10.4) Neut % (Auto) 76.6 % % Lymph % (Auto) 9.0 % % [place] % (Auto) 7.9 % % Eos % (Auto) 5.3 % % Baso % (Auto) 0.4 % % Neut # (Auto) 7.60 10^3/uL 10^3 /uL (1.8-7.7) Lymph # (Auto) 0.9 10^3/uL 10^3/ uL (0.8-4.8) [place] # (Auto) 0.8 10^3/uL 10^3/ uL (0.2-0.9) Eos # (Auto) 0.5 10^3/uL 10^3/ uL (0.0-0.8) Baso # (Auto) 0.0 10^3/uL 10^3/ uL (0.0-0.1) Nucleated RBC % (a uto) 0.2 % % Nucleated RBCs # 0.0 /100WBC /100W BC Specimen Type Sample Site ABG pH ABG pCO2 ABG pO2 ABG HCO3 ABG Base Excess Jalen Test Hematocrit Hgb O2 Saturation Carboxyhemoglobin Methemoglobin Total Hemoglobin O2 Delivery Device O2 Liters/Min FiO2 CPAP Academic Tutor ID Sodium 143 mmol/L mmol/L (136-145) Potassium 5.2 mmol/L H mmol /L (3.5-5.1) Chloride 98 mmol/L mmol/L (98-107) Carbon Dioxide 33 mmol/L H mmol/ L (22-29) Anion Gap 17.2 (5-19) BUN 37 mg/dL H mg/dL (8-23) Creatinine 1.5 mg/dL H mg/dL (0.5-0.9) GFR Calculation 35.1 mL/min L mL/ min (90-130) Glucose 101 mg/dL mg/dL (65-115) Calculated Osmolal ity 305 mOsm/kg H mOs m/kg (285-295) Calcium 8.3 mg/dL L mg/dL (8.5-10.5) Total Bilirubin 0.4 mg/dL mg/dL (0.15-1.2) AST 13 U/L U/L (0-32) ALT 9 U/L U/L (0-33) Alkaline Phosphata se 93 IU/L IU/L (35-105) Troponin T Baselin e 39 ng/L H ng/L (0-10) Troponin T 120 Min [place] Delta Troponin T NT-Pro-B Natriuret Pep 1901 pg/mL H pg/m L (0-125) Total Protein 6.1 g/dL L g/dL (6.6-8.7) Albumin 2.9 g/dL L g/dL (3.5-5.2) Globulin 3.2 g/dL g/dL (1.3-4.6) 11/10/21 11/10/21 11/10/21 18:03 19:22 20:05 WBC RBC Hgb Hct MCV MCH MCHC RDW Plt Count MPV Neut % (Auto) Lymph % (Auto) [place] % (Auto) Eos % (Auto) Baso % (Auto) Neut # (Auto) Lymph # (Auto) [place] # (Auto) Eos # (Auto) Baso # (Auto) Nucleated RBC % (a uto) Nucleated RBCs # Specimen Type Arterial Arterial Sample Site Radial, left Radial, left ABG pH 7.24 L 7.29 L (7.35-7.45) (7.35-7.45) ABG pCO2 96.1 mmHg H* mmHg 87.2 mmHg H* mmHg (35-45) (35-45) ABG pO2 168.0 mmHg H mmHg 52.0 mmHg L mmHg (80.0-100.0) (80.0-100.0) ABG HCO3 40.9 mmol/L H mmo l/L 41.7 mmol/L H mmo l/L (22-26) (22-26) ABG Base Excess 11.2 mmol/L H mmo l/L 12.7 mmol/L H mmo l/L (-2.0-2.0) (-2.0-2.0) Jalen Test Pos Pos Hematocrit 26.7 % L % 28.2 % L % (37-47) (37-47) Hgb O2 Saturation 96.2 % % (95-100) Carboxyhemoglobin 1.6 %THgb %THgb (0.4-20.1) Methemoglobin 1.5 % % (0.4-1.5) Total Hemoglobin 8.7 g/dL L g/dL (12-16) O2 Delivery Device Nrb Bipap O2 Liters/Min 15.0 % % FiO2 100.0 % % 28.0 % % CPAP 10.0 cmH20 cmH20 Academic Tutor ID [email or web address] Sodium Potassium Chloride Carbon Dioxide Anion Gap BUN Creatinine GFR Calculation Glucose Calculated Osmolal ity Calcium Total Bilirubin AST ALT Alkaline Phosphata se Troponin T Baselin e Troponin T 120 Min [place] 36.71 ng/L H ng/L (0-10) Delta Troponin T -2.29 ABS# L ABS# (0-10) NT-Pro-B Natriuret Pep Total Protein Albumin Globulin Imaging Data^: CXR: Attestation: I personally reviewed and interpreted this imaging study as follows: Radiologist's impression: [address] [address] XRay Report Signed Patient: Sarah Merrill Unit #: [id number] : 1960 Age/Sex: 61 / F ADM Date: 11/10/21 Loc: ER Room/Bed: Attending Dr: Ordering Provider/Ordering MD: Sergey Israel MD Date of Service: 11/10/21 Procedure(s): XR chest 1V portable [id number] Accession Number(s): [id number] Report Number: [id number] PROCEDURE INFORMATION: Exam: XR Chest Exam date and time: 11/10/2021 6:07 PM Age: 61 years old Clinical indication: Shortness of breath; Additional info: SOB TECHNIQUE: Imaging protocol: XR of the chest. Views: 1 view. COMPARISON: CR (CHEST, ) 06/28/2020 4:23 AM FINDINGS: Lungs: There is vascular congestion. Central ground-glass and interstitial opacities in both lungs. Pleural spaces: Probable small right pleural effusion. No pneumothorax. significantly Heart/Mediastinum: Interpretation is difficult due to severe patient rotation. The heart is enlarged. Bones/joints: Unremarkable. XR/XR chest 1V portable [id number] IMPRESSION: 1. Congestive heart failure pattern with small right pleural effusion. 2. Evaluation is limited due to significant malpositioning. Dictated By: Luciano Vazquez Signed By: Luciano Vazquez Signed Date/Time: 11/10/211855 DD/ 06 EKG Data^: EKG 1: Attestation: I personally reviewed and interpreted this EKG as follows: EKG Interpretation Date: 11/10/21 EKG interpretation time: 18:59 Interpretation: afib hr [address] or t wave abnormalities qrs 124 qtc 442 Critical Care Time Critical Care Time: Critical Care Time: Yes Total Critical Care Time: 35 Attestation: The high probability of a clinically significant, sudden or life threatening deterioration of the patient's [] system(s) required my full and direct attention, intervention and personal management. The critical care time is as shown. This time is in addition to time spent performing any reported procedures but includes the following: [x] Data and vital sign review and interpretation [x] Patient assessment, examination and intervention [x] Documentation [x] Medication orders and management Discharge Plan Discharge Patient Disposition: Admitted As Inpatient Clinical Impression: Acute respiratory failure with hypoxia, Acute respiratory failure with hypercapnia Condition: Stable Coding Level of Care Code ED Sales Warehouse Driver for Chg Fwd Exam Comprehensive
[2021-11-10 19:40] VITALS: PULSE 55; RESP 20; O2SAT 92
[2021-11-10] MEDS: ipratropium-albuterol 3 mL Neb INHALATION (19:40)
[2021-11-10 19:45] LABS: ABG PH Result 7.29 (7.35-7.45); Arterial Blood Gas Hematocrit 28.2 % (37-47); Base Excess ABG 12.7 mmol/L (-2.0-2.0); Blood Gas Allen Test Pos; Blood Gas Sample Site Radial, left; Blood Gas Sample Type Arterial; HCO3 ABG 41.7 mmol/L (22-26); Oxygen Device BIPAP
[2021-11-10 19:49] LABS: ABG PCO2 87.2 mmHg (35-45)
--- NOTE | 2021-11-10 20:24 | ECG_ITS ---
[facility] Test Date: 2021-11-10 Pat Name: Sarah Merrill Department: Room: Gender: Female Change Management Administrator: : 1960 Requested By: Sergey Israel Order Number: [id number] Brandyn MD: Marcia Chaidez M.D. Measurements Intervals [place] Rate: 76 P: HI: QRS: 13 QRSD: 123 T: 175 QT: 423 QTc: 478 Interpretive Statements ATRIAL FIBRILLATION MODERATE INTRAVENTRICULAR CONDUCTION DELAY [110+ ms QRS DURATION] NONSPECIFIC T-WAVE ABNORMALITY Compared to ECG 11/10/2021 18:59:47 No significant changes Electronically Signed On 11-11-2021 0:17:27 MASONRY SUPERVISOR by Marcia Chaidez M.D. [id number]
[2021-11-10 20:42] VITALS: BP 121/60; PULSE 77; RESP 17; O2SAT 92
[2021-11-10 20:45] LABS: Troponin 5 2HR 36.71 ng/L (0-10)
[2021-11-10 20:48] LABS: Troponin 5 2HR Delta -2.29 ABS# (0-10)
[2021-11-10 21:04] VITALS: PULSE 76
[2021-11-10] MEDS: FUROsemide 10 mg/mL SDV 10mL 80 MG IVP (21:58)
--- NOTE | 2021-11-10 23:36 | PC.NURSE ---
attempted to place urinary cath but was unsuccessful x 2.
[2021-11-11] VITALS (31 sets, daily range): BP systolic 115–147; BP diastolic 60–123; PULSE 66–98; RESP 7–39; TEMP 36.9; O2SAT 87–100
--- NOTE | 2021-11-11 00:24 | ECG_ITS ---
[facility] Test Date: 2021-11-11 Pat Name: Sarah Merrill Department: Room: Gender: Female Director Of Ne[employer]: : 1960 Requested By: Sergey Israel Order Number: [id number] Brandyn MD: Marcia Chaidez M.D. Measurements Intervals [place] Rate: 78 P: MT: QRS: 17 QRSD: 116 T: 201 QT: 414 QTc: 473 Interpretive Statements ATRIAL FIBRILLATION MODERATE INTRAVENTRICULAR CONDUCTION DELAY [110+ ms QRS DURATION] NONSPECIFIC T-WAVE ABNORMALITY Compared to ECG 11/10/2021 20:35:05 No significant changes Electronically Signed On 11-11-2021 0:18:16 FIELD INSTALLATION TECHNICIAN by Marcia Chaidez M.D. [email or web address]
[2021-11-11 00:37] LABS: Troponin 5 6HR 34.98 ng/L (0-10)
[2021-11-11 00:40] LABS: Troponin 5 6HR Delta -4.02 ng/L (0-12)
--- NOTE | 2021-11-11 01:16 | PM.HP ---
Providers/Chief Complaint Primary Care Provider: Elmer Shelton DO Chief Complaint: LOW O2 History of Present Illness Sarah Merrill is a 61 year old female who is a resident of [facility] with past medical history of atrial fibrillation, CKD, chronic diastolic heart failure, 3 L home oxygen supplementation, morbid obesity with BMI 82, SEAN, COPD, bedbound status, hypertension, history of GI bleed and seizures presented to the ER from [facility] today because of worsening confusion and lethargy over the past week. Per discussion with intermediate staff, patient has been increasingly agitated over the past week, has been refusing to wear her BiPAP, pulling off her oxygen, not been compliant with dietary restrictions and water restrictions at the intermediate over the past week. As a result she has been becoming increasingly confused and lethargic. Today she was noted to be more hypoxic than her baseline and sent over to the hospital. Upon arrival today ABG noted acute on chronic hypercapnic respiratory failure with PCO2 of 96, higher than her baseline of 57-62. After about 1 hour on the BiPAP her PCO2 improved to 87. At the time of my assessment patient is following my commands, moves her bilateral upper extremities, nods yes and no to simple question, however unable to have a complete conversation with me at this time. Per intermediate staff she has not had any fever, no increasing cough has been noted. Chest x-ray today shows bilateral pulmonary congestion. Patient was last tested yesterday with a Covid rapid antigen test and was negative. She has declined COVID-19 vaccination. Per family member Faith, patient has a history of COVID-19 pneumonia approximately 8 months ago. Review of Systems General: Reports: 10 or more systems reviewed and unremarkable except in HPI and below Const: Denies: fever(s), chills or body aches Eyes: Denies: change in vision, blurry vision or photophobia ENMT: Reports: hoarseness; Denies: throat pain, enlarged tonsils, odynophagia or nasal congestion Card: Denies: chest pain, palpitations, irregular heart rhythm, edema, swelling of feet/ankles, lightheadedness, pre-syncope, dyspnea on exertion or orthopnea Resp: Denies: dyspnea, productive cough, non-productive cough, wheezing, stridor, pain on inspiration, change in phlegm color, hemoptysis or chest congestion GI: Denies: abdominal pain, nausea, vomiting, hematemesis, coffee ground emesis, dysphagia, heartburn, diarrhea, constipation, GI cramping, change in stool character, hematochezia or melena : Denies: flank pain, difficulty voiding, dysuria, urinary frequency, urinary urgency, urinary hesitancy or hematuria Musc: Denies: neck pain, back pain, extremity pain, joint swelling, joint warmth or deformity Neuro: Denies: headache(s), numbness in extremities, weakness in extremities, sensory changes, difficulty walking, frequent falls, dizziness, vertigo, behavioral changes, Slurred speech present or seizure-like activity Psych: Denies: anxiety, depression, suicidal ideation or homicidal ideation Endo: Denies: polyuria, polydipsia, tired all the time, cold intolerance or hot flashes Kev/Lymph: Denies: easy bruising or easy bleeding Medications/Allergies Home Medications Medication Instructions Recorded Confirmed Last Taken Type Anbesol (benzocaine) 1 ea MUCOUS MEMBRANE TID PRN 06/28/20 09/15/21 03/18/20 History acetaminophen 650 mg PO Q4H PRN 06/28/20 09/15/21 12/21/20 History albuterol sulfate [ProAir HFA] 2 puff INHALATION Q6H PRN 06/28/20 09/15/21 Unknown History bisacodyl 10 mg PO DAILY PRN 06/28/20 09/15/21 12/20/20 History bisacodyl 10 mg [place] DAILY PRN 06/28/20 09/15/21 Unknown History cholecalciferol (vitamin D3) 25 mcg PO BEDTIME@06/28/20 09/15/21 07/06/21 History diclofenac sodium 2 g TOPICAL BID PRN 06/28/20 09/15/21 06/07/20 History guaifenesin [Mucinex] 600 mg PO BID@799,199906/28/20 09/15/21 07/07/21 History levetiracetam [Keppra] 1,000 mg PO BID@08,06/28/20 09/15/21 07/07/21 History magnesium hydroxide [Milk of 30 ml PO DAILY PRN 06/28/20 09/15/21 06/13/20 History Magnesia] ondansetron HCl [Zofran] 4 mg PO Q4H PRN 06/28/20 09/15/21 07/08/21 History atorvastatin 40 mg tablet 40 mg PO BEDTIME@199909/23/20 09/15/21 07/06/21 History calcium carbonate [Tums] 400 mg PO TID PRN 12/23/20 09/15/21 12/20/20 History baclofen 5 mg tablet 5 mg PO TID PRN 03/25/21 09/15/21 06/07/21 History cetirizine 10 mg tablet 10 mg PO DAILY PRN 03/25/21 09/15/21 06/07/21 History ferrous sulfate 325 mg (65 mg 325 mg PO DAILY@0800 03/25/21 09/15/21 07/07/21 History iron) tablet,delayed release omeprazole 20 mg capsule,delayed 20 mg PO DAILY@0800 cap 03/25/21 09/15/21 07/07/21 History release Lactobacillus acidophilus 1 cap PO DAILY PRN 06/08/21 09/15/21 Unknown History [Acidophilus] bisacodyl [Dulcolax (bisacodyl)] 5 mg PO BEDTIME@199906/08/21 09/15/21 07/06/21 History nystatin 1 applic TOPICAL BID@0800,199906/08/21 09/15/21 07/07/21 History triamcinolone acetonide 1 applic TOPICAL BID@0800,199906/08/21 09/15/21 07/07/21 History bumetanide 2 mg PO DAILY@08 #90 tab 06/11/21 09/15/21 07/07/21 Rx aspirin 162 mg PO DAILY@0807/08/21 09/15/21 07/07/21 History bumetanide 1 mg PO DAILY@1600 07/08/21 09/15/21 07/06/21 History citalopram 20 mg PO DAILY@199907/08/21 09/15/21 07/06/21 History diltiazem HCl [Cardizem CD] 300 mg PO DAILY@0800 07/08/21 09/15/21 07/07/21 History potassium chloride 20 meq PO DAILY@0807/08/21 09/15/21 07/07/21 History tiotropium bromide [Spiriva with 1 cap INHALATION DAILY@0800 07/08/21 09/15/21 07/07/21 History HandiHaler] bupropion HCl 150 mg PO BID@09/15/21 09/15/21 Unknown History gabapentin 300 mg PO BEDTIME@09/15/21 09/15/21 Unknown History Allergies Allergy/AdvReac Type Severity Reaction Status Date / Time adhesive tape Allergy Unknown Verified 11/10/21 18:06 amoxicillin Allergy Unknown Verified 11/10/21 18:06 aspartame Allergy unknown Verified 11/10/21 18:06 metoclopramide [From Reglan] Allergy Unknown Verified 11/10/21 18:06 nitroglycerin Allergy Unknown Verified 11/10/21 18:06 PFSH Acute PFSH: Medical History (Updated 11/11/21 @ 01:41 by Melany Perez MD) Acute on chronic diastolic (congestive) heart failure Acute on chronic respiratory failure with hypoxia and hypercapnia Acute respiratory failure with hypercapnia Acute respiratory failure with hypoxia MK (acute kidney injury) Chronic atrial fibrillation Chronic diastolic CHF (congestive heart failure) Chronic kidney disease COPD (chronic obstructive pulmonary disease) Depression with anxiety GERD (gastroesophageal reflux disease) History of GI bleed History of seizures Hypertension Morbid obesity with BMI of 60.0-69.9, adult NSTEMI (non-ST elevated myocardial infarction) Obesity hypoventilation syndrome Obstructive sleep apnea On home oxygen therapy On 3 L by nasal cannula Osteoarthritis Restless leg syndrome Transaminitis Urinary tract infection due to ESBL Klebsiella Vitamin D deficiency Surgical History History of appendectomy History of hip surgery Bilateral History of hysterectomy History of tonsillectomy Presence of inferior vena cava filter Family History Other Diabetes Liver abscess and sequelae of chronic liver disease Social History Smoking and tobacco status: former smoker Alcohol intake: never Housing: Senior Living Vitals/I&O/Wt Last Vital Signs Pulse 68 11/11/21 00:37 Resp 18 11/11/21 00:24 BP 139/60 11/11/21 00:24 Pulse Ox 94 11/11/21 00:37 Weight last 48 hrs Weight 210.467 kg Physical Exam Narrative: EXAM NARRATIVE: General: Currently on Bipap, lethargic, follows commands to move both arms, wakes up to calling name, unable to have a conversation at this time HEENT: PERRLA, pupils bilaterally equal and reactive, pallors not present Chest: B/L diminshed breath sounds CVS: S1-S2 regular, no murmurs, no tachycardia, no gallops, no rubs Abdomen: Soft, non distended, bowel sounds present Neuro: lethargic, moving B/L upper extremities Extremities: morbid obesity, deconditioned Data : 11/10/21 18:00 11/10/21 18:00 Attestation for Other Data: I personally reviewed and interpreted the following: Other data: 11/10/21 11/10/21 18:03 19:22 ABG pH 7.24 L 7.29 L ABG pCO2 96.1 H* 87.2 H* ABG pO2 168.0 H 52.0 L ABG HCO3 40.9 H 41.7 H ABG Base Excess 11.2 H 12.7 H Laboratory Results WBC 9.9 10^3/uL (4.0-10.0) 11/10/21 18:00 RBC 3.26 10^6/uL (4.1-5.3) L 11/10/21 18:00 Hgb 8.4 g/dL (11.5-15.3) L 11/10/21 18:00 Hct 30.5 % (37.0-47.0) L 11/10/21 18:00 MCV 93.6 fl (81-99) 11/10/21 18:00 MCH 25.8 pg (28.0-34.0) L 11/10/21 18:00 MCHC 27.5 g/dL (30.0-36.0) L 11/10/21 18:00 RDW 17.9 % (12.1-15.1) H 11/10/21 18:00 Plt Count 170 10^3/cmm (130-400) 11/10/21 18:00 MPV 9.1 fL (7.4-10.4) 11/10/21 18:00 Neut % (Auto) 76.6 % 11/10/21 18:00 Lymph % (Auto) 9.0 % 11/10/21 18:00 [place] % (Auto) 7.9 % 11/10/21 18:00 Eos % (Auto) 5.3 % 11/10/21 18:00 Baso % (Auto) 0.4 % 11/10/21 18:00 Neut # (Auto) 7.60 10^3/uL (1.8-7.7) 11/10/21 18:00 Lymph # (Auto) 0.9 10^3/uL (0.8-4.8) 11/10/21 18:00 [place] # (Auto) 0.8 10^3/uL (0.2-0.9) 11/10/21 18:00 Eos # (Auto) 0.5 10^3/uL (0.0-0.8) 11/10/21 18:00 Baso # (Auto) 0.0 10^3/uL (0.0-0.1) 11/10/21 18:00 Nucleated RBC % (auto) 0.2 % 11/10/21 18:00 Nucleated RBCs # 0.0 /100WBC 11/10/21 18:00 Specimen Type Arterial 11/10/21 19:22 Sample Site Radial, left 11/10/21 19:22 ABG pH 7.29 (7.35-7.45) L 11/10/21 19:22 ABG pCO2 87.2 mmHg (35-45) H* 11/10/21 19:22 ABG pO2 52.0 mmHg (80.0-100.0) L 11/10/21 19:22 ABG HCO3 41.7 mmol/L (22-26) H 11/10/21 19:22 ABG Base Excess 12.7 mmol/L (-2.0-2.0) H 11/10/21 19:22 Jalen Test Pos 11/10/21 19:22 Hematocrit 28.2 % (37-47) L 11/10/21 19:22 Hgb O2 Saturation 96.2 % (95-100) 11/10/21 18:03 Carboxyhemoglobin 1.6 %THgb (0.4-20.1) 11/10/21 18:03 Methemoglobin 1.5 % (0.4-1.5) 11/10/21 18:03 Total Hemoglobin 8.7 g/dL (12-16) L 11/10/21 18:03 O2 Delivery Device Bipap 11/10/21 19:22 O2 Liters/Min 15.0 % 11/10/21 18:03 FiO2 28.0 % 11/10/21 19:22 CPAP 10.0 cmH20 11/10/21 19:22 Resort Desk Clerk ID [email or web address] 11/10/21 19:22 Sodium 143 mmol/L (136-145) 11/10/21 18:00 Potassium 5.2 mmol/L (3.5-5.1) H 11/10/21 18:00 Chloride 98 mmol/L (98-107) 11/10/21 18:00 Carbon Dioxide 33 mmol/L (22-29) H 11/10/21 18:00 Anion Gap 17.2 (5-19) 11/10/21 18:00 BUN 37 mg/dL (8-23) H 11/10/21 18:00 Creatinine 1.5 mg/dL (0.5-0.9) H 11/10/21 18:00 GFR Calculation 35.1 mL/min (90-130) L 11/10/21 18:00 Glucose 101 mg/dL (65-115) 11/10/21 18:00 Calculated Osmolality 305 mOsm/kg (285-295) H 11/10/21 18:00 Calcium 8.3 mg/dL (8.5-10.5) L 11/10/21 18:00 Total Bilirubin 0.4 mg/dL (0.15-1.2) 11/10/21 18:00 AST 13 U/L (0-32) 11/10/21 18:00 ALT 9 U/L (0-33) 11/10/21 18:00 Alkaline Phosphatase 93 IU/L (35-105) 11/10/21 18:00 Troponin T Baseline 39 ng/L (0-10) H 11/10/21 18:00 Troponin T 120 Minute 36.71 ng/L (0-10) H 11/10/21 20:05 Delta Troponin T -2.29 ABS# (0-10) L 11/10/21 20:05 Troponin T Hi Sens 6Hr 34.98 ng/L (0-10) H 11/11/21 00:13 Troponin T Hi Sens 6Hr Delta -4.02 ng/L (0-12) L 11/11/21 00:13 NT-Pro-B Natriuret Pep 1901 pg/mL (0-125) H 11/10/21 18:00 Total Protein 6.1 g/dL (6.6-8.7) L 11/10/21 18:00 Albumin 2.9 g/dL (3.5-5.2) L 11/10/21 18:00 Globulin 3.2 g/dL (1.3-4.6) 11/10/21 18:00 Coronavirus 229E (PCR) Cancelled 11/10/21 00:15 SARS-CoV-2 (PCR) Cancelled 11/10/21 00:15 Impressions Chest X-Ray 11/10/21 18:07 IMPRESSION: 1. Congestive heart failure pattern with small right pleural effusion. 2. Evaluation is limited due to significant malpositioning. A&P Assessment and plan (1) Acute on chronic respiratory failure with hypoxia and hypercapnia: Appears to be multifactorial related to congestive heart failure excaerbation, acute on chronic COPD, obstructive sleep apnea and morbid obesity Has recently been non compliant with BIPAP use input output charting, daily weights. Patterson catheter for urine output measurement. Bumex 2 mg IV every 12 hourly. check COVID PCR Status: Acute (2) Acute on chronic diastolic (congestive) heart failure: CXR with B/L congestion, elevated BNP Bumex 2mg IVP q12h Status: Acute (3) Obstructive sleep apnea: BIPAP support overnight recheck ABG Status: Chronic (4) COPD (chronic obstructive pulmonary disease): Status: Chronic Qualifiers: COPD type: COPD with acute exacerbation Qualified Code(s): J44.1 - Chronic obstructive pulmonary disease with (acute) exacerbation (5) Acute metabolic encephalopathy: related to hypercapnea, Co2 worsened over baseline Status: Acute Additional A&P Information DVT ppx: Lovenox Code Status : DNR/DNI. Patient's CODE STATUS was discussed with her [id number] Faith Merrill who has been her primary decision maker. There is no official DPOA paperwork according to family and intermediate records. Her brother Keagan Merrill listed on the chart has since . Patient is unable to have a conversation with me regarding her CODE STATUS at this present time. Reviewing her notes dating back to May 2021, it has been documented that while patient was awake alert oriented and able to understand her medical issues and care, she had elected to be a DNR/DNI. She did not wish to be intubated and did not wish for any chest compressions and did not wish to be put on life support. This does appear to be medically appropriate since she is at a high risk of difficult extubation or even moving to ventilator dependence given her multiple medical comorbidities. Patient's last known wishes at hospitalization in May 2021 were discussed with Faith and it has been decided to proceed with DNR/DNI in keeping with her last expressed wishes with continuation of other noninvasive medical interventions including BiPAP. Attestations Medical Necessity Statement*: >2midnight admission anticipated for above defined care Coding Level of Care Code Acute Desktop Publishing Associate for Felipag Fwd Diagnoses Acute on chronic respiratory failure with hypoxia and hypercapnia J96.21; J96.22 Acute on chronic diastolic (congestive) heart failure I50.33 Obstructive sleep apnea G47.33 COPD (chronic obstructive pulmonary disease) J44.1 COPD type: COPD with acute exacerbation Acute metabolic encephalopathy G93.41
[2021-11-11 01:46] LABS: ABG PH Result 7.29 (7.35-7.45); Arterial Blood Gas Hematocrit 28.9 % (37-47); Base Excess ABG 11.7 mmol/L (-2.0-2.0); Blood Gas Allen Test Pos; Blood Gas Sample Site Radial, left; Blood Gas Sample Type Arterial; HCO3 ABG 40.6 mmol/L (22-26); Oxygen Device BIPAP; PO2 ABG 88.1 mmHg (80.0-100.0)
[2021-11-11 01:49] LABS: ABG PCO2 84.3 mmHg (35-45)
[2021-11-11] MEDS: bumetanide 0.25 mg/mL SDV 4 mL 2 MG IVP ×2 (02:15→14:58)
[2021-11-11] MEDS: ipratropium-albuterol 3 mL Neb INHALATION ×5 (03:11→21:11)
[2021-11-11 05:50] LABS: ABG PH Result 7.31 (7.35-7.45); Arterial Blood Gas Hematocrit 28.2 % (37-47); Base Excess ABG 12.4 mmol/L (-2.0-2.0); Blood Gas Allen Test Pos; Blood Gas Sample Site Radial, right; Blood Gas Sample Type Arterial; HCO3 ABG 40.9 mmol/L (22-26); Oxygen Device BIPAP; PO2 ABG 92.7 mmHg (80.0-100.0)
[2021-11-11 05:52] LABS: ABG PCO2 81.8 mmHg (35-45)
--- NOTE | 2021-11-11 07:00 | PC.NURSE ---
Received report assumed care. Pt is unable to help move. No changes noted from report Room clean and picked up[
--- NOTE | 2021-11-11 07:02 | PC.NURSE ---
Vitals stable 117/66, 72 97 % BiPaP.
[2021-11-11] MEDS: budesonide 0.5 mg/2 mL Neb INHALATION ×2 (08:20→21:11)
[2021-11-11] MEDS: aspirin 81 mg EC Tablet 162 MG PO (08:30)
[2021-11-11] MEDS: enoxaparin 40 mg/0.4 mL Syringe SUBCUT (08:31)
[2021-11-11] MEDS: dilTIAZem ER (24HR) 300 mg Capsule PO (08:32)
[2021-11-11] MEDS: buPROPion SR (12 HR) 150 mg Tablet PO (08:32)
[2021-11-11] MEDS: levETIRAcetam 500 mg Tablet 1000 MG PO ×2 (08:34→20:13)
[2021-11-11] MEDS: nystatin cream 30 gm 1 APPLIC TOPICAL ×2 (08:42→20:20)
[2021-11-11] MEDS: pantoprazole DR 40 mg Tablet PO (09:31)
--- NOTE | 2021-11-11 09:44 | PC.NURSE ---
Pt turned, removed spoiled linens. repositioned for comfort.
--- NOTE | 2021-11-11 09:45 | PC.NURSE ---
Offered water , no acute distress
--- NOTE | 2021-11-11 09:47 | PC.NURSE ---
Checked blankets, no acute distress
--- NOTE | 2021-11-11 10:13 | PC.NURSE ---
Unable to place de jesus cath due to size of pt and body folds
--- NOTE | 2021-11-11 12:21 | PC.NURSE ---
Pt is very large, unable to move on her own. Long hx of Morbid Obese and immobilization
[2021-11-11 14:35] LABS: Adenovirus Not Detected (NOT DETECT); Chlamydia Pneumoniae Not Detected (NOT DETECT); Coronavirus 229E,HKU1,NL63,OC4 Not Detected (NOT DETECT); Human Metapneumovirus Not Detected (NOT DETECT); Human Rhinovirus/Enterovirus Not Detected (NOT DETECT); Influenza A Not Detected (NOT DETECT); Influenza A H1 Not Detected (NOT DETECT); Influenza A H1-2009 Not Detected (NOT DETECT); Influenza A H3 Not Detected (NOT DETECT); Influenza B Not Detected (NOT DETECT); Mycoplasma Pneumoniae Not Detected (NOT DETECT); Parainfluenza Virus Type 1 Not Detected (NOT DETECT); Parainfluenza Virus Type 2 Not Detected (NOT DETECT); Parainfluenza Virus Type 3 Not Detected (NOT DETECT); Parainfluenza Virus Type 4 Not Detected (NOT DETECT); Respiratory Syncytial Virus A Not Detected (NOT DETECT); Respiratory Syncytial Virus B Not Detected (NOT DETECT); SARS-COV-2 Not Detected (NOT DETECT)
--- NOTE | 2021-11-11 15:17 | PC.NURSE ---
Spoke with Dr grewal about patients skin conditions instructions to start nystatin powder in the more mosit areas and cream for more dry areas and order a bariatric bed
[2021-11-11 15:19] LABS: Basophils % 0.2 %; Hematocrit 30.7 % (37.0-47.0); Hemoglobin 8.7 g/dL (11.5-15.3); Lymphocytes # 0.4 10^3/uL (0.8-4.8); Lymphocytes % 6.3 %; Mean Corpuscular HGB Conc 28.3 g/dL (30.0-36.0); Mean Corpuscular Hemoglobin 25.4 pg (28.0-34.0); Mean Corpuscular Volume 89.8 fl (81-99); Mean Platelet Volume 9.4 fL (7.4-10.4); Monocytes # 0.1 10^3/uL (0.2-0.9); Monocytes % 1.6 %; Neutrophils # 5.18 10^3/uL (1.8-7.7); Neutrophils % 91.2 %; Nucleated Red Blood Cells % 0 %; Platelet Count 148 10^3/cmm (130-400); Red Blood Count 3.42 10^6/uL (4.1-5.3); Red Cell Distribution Width 17.7 % (12.1-15.1); White Blood Count 5.7 10^3/uL (4.0-10.0)
--- NOTE | 2021-11-11 15:19 | PC.NURSE ---
instructions received at bedside to start fluconazol 100mg po daily now
[2021-11-11 15:20] LABS: Blood Gas Allen Test Pos; Blood Gas Sample Type Arterial
[2021-11-11 15:32] LABS: ABG PH Result 7.36 (7.35-7.45); Arterial Blood Gas Hematocrit 28.5 % (37-47); Base Excess ABG 13.4 mmol/L (-2.0-2.0); Blood Gas Sample Site Radial, right; HCO3 ABG 41.1 mmol/L (22-26); Oxygen Device BIPAP; PO2 ABG 67.4 mmHg (80.0-100.0)
[2021-11-11 15:55] LABS: Alanine Aminotransferase 8 U/L (0-33); Albumin Level 2.5 g/dL (3.5-5.2); Alkaline Phosphatase 82 IU/L (35-105); Anion Gap 16.8 (5-19); Aspartate Amino Transferase 9 U/L (0-32); Blood Urea Nitrogen 39 mg/dL (8-23); Calcium 8.9 mg/dL (8.5-10.5); Carbon Dioxide 33 mmol/L (22-29); Chloride 97 mmol/L (98-107); Globulin 3.8 g/dL (1.3-4.6); Glucose 115 mg/dL (65-115); Osmolality Calculated 304 mOsm/kg (285-295); Potassium 4.8 mmol/L (3.5-5.1); Sodium 142 mmol/L (136-145); Total Bilirubin 0.6 mg/dL (0.15-1.2); Total Protein 6.3 g/dL (6.6-8.7)
[2021-11-11 15:59] LABS: Procalcitonin 0.17 ng/mL (0-0.5)
[2021-11-11] MEDS: nystatin powder 15 gm Btl 1 APPLIC TOPICAL (18:14)
--- NOTE | 2021-11-11 19:49 | PC.NURSE ---
Addendum entered by Pilar Julien RN 11/11/21 21:32: Correction Unstageable pressure ulcer is on the right buttock and not the left. It is not a stage 2 ulcer. Original Note: Received report from LANE Guzman. Patient cries out in pain to any level of touch. Patient transferred to sandeep-bed x6 assist. Patient turned and cleaned. Patient has stage 2 pressure ulcer to left buttock with wounds of various stages to bilateral buttocks. Patient has open raw bleeding areas to all folds. Patient cries out in pain 10/10 with wound care saying, leave me alone. You don't have to fix those. Instructed patient on wound care and [facility]-bed. Patient yelling to leave me alone saying, you are hurting me. Informed Dr Perez of patient's pain. Received telephone order for morphine 1mg IVP every 4 hours for severe pain. RBVO
[2021-11-11] MEDS: morphine 4 mg/mL SDV 1 mL 1 MG IVP (20:12)
[2021-11-11] MEDS: atorvastatin 40 mg Tablet PO (20:13)
[2021-11-11] MEDS: buPROPion SR (12 HR) 100 mg Tablet PO (20:13)
[2021-11-11] MEDS: citalopram 20 mg Tablet PO (20:13)
[2021-11-11 20:54] LABS: ABG PCO2 73.5 mmHg (35-45)
--- NOTE | 2021-11-11 21:36 | PC.NURSE ---
Patient has generalized edema/anasarca that is extremely painful to touch. Unable to obtain accurate BP due to increased swelling.
--- NOTE | 2021-11-11 23:29 | PC.NURSE ---
Dr Perez on the floor at this time. Informed Dr Perez of additional swelling. Received onetime dose of Lasix 40mg IVP once along with scheduled bumex as ordered. RBVO
[2021-11-11] MEDS: FUROsemide 10 mg/mL SDV 4mL 40 MG IVP (23:37)
[2021-11-12] VITALS (16 sets, daily range): BP systolic 103–115; BP diastolic 56–77; PULSE 82–99; RESP 10–22; TEMP 36.5–37; O2SAT 92–100
[2021-11-12] MEDS: bumetanide 0.25 mg/mL SDV 4 mL 2 MG IVP (00:42)
[2021-11-12] MEDS: morphine 4 mg/mL SDV 1 mL 1 MG IVP ×2 (00:42→19:45)
--- NOTE | 2021-11-12 01:02 | PC.NURSE ---
Patient continues to ask for water. Instructed patient on fluid restrictions. Patient does not really understanding and does not like not having water. Have been provided patient with ice chips. Patient has only had 200ml urine output since Bumex was given at 1458 on 11/11/21. Patient has been given 40mg of Lasix at 2337 and Bumex 2mg IVP at 0042. Will continue to monitor for output. Patient has generalized edema/anasarca.
[2021-11-12] MEDS: ipratropium-albuterol 3 mL Neb INHALATION ×4 (02:57→19:22)
[2021-11-12 05:06] LABS: Basophils % 0.1 %; Eosinophils % 0.1 %; Hematocrit 30.1 % (37.0-47.0); Hemoglobin 8.7 g/dL (11.5-15.3); Lymphocytes # 0.4 10^3/uL (0.8-4.8); Lymphocytes % 5.2 %; Mean Corpuscular HGB Conc 28.9 g/dL (30.0-36.0); Mean Corpuscular Hemoglobin 25.8 pg (28.0-34.0); Mean Corpuscular Volume 89.3 fl (81-99); Mean Platelet Volume 9.1 fL (7.4-10.4); Monocytes # 0.2 10^3/uL (0.2-0.9); Monocytes % 2.5 %; Neutrophils # 6.55 10^3/uL (1.8-7.7); Neutrophils % 91.3 %; Nucleated Red Blood Cells % 0 %; Platelet Count 187 10^3/cmm (130-400); Red Blood Count 3.37 10^6/uL (4.1-5.3); Red Cell Distribution Width 17.9 % (12.1-15.1); White Blood Count 7.2 10^3/uL (4.0-10.0)
--- NOTE | 2021-11-12 05:32 | PC.NURSE ---
Reported to Dr Perez of patient's decreased output of only 50ml since 2333. Lasix given as documented at that time. Bumex also given as ordered. No further orders received. Doctor to speak with Dr La regarding patient's output.
[2021-11-12 06:14] LABS: NT Pro B Type Natriuretic Pept 2214 pg/mL (0-125)
[2021-11-12 06:20] LABS: Alanine Aminotransferase 9 U/L (0-33); Albumin Level 2.7 g/dL (3.5-5.2); Alkaline Phosphatase 87 IU/L (35-105); Aspartate Amino Transferase 9 U/L (0-32); Blood Urea Nitrogen 42 mg/dL (8-23); Calcium 8.9 mg/dL (8.5-10.5); Carbon Dioxide 33 mmol/L (22-29); Chloride 95 mmol/L (98-107); Globulin 3.9 g/dL (1.3-4.6); Glomerular Filtration Rate 32.6 mL/min (90-130); Glucose 123 mg/dL (65-115); Osmolality Calculated 304 mOsm/kg (285-295); Sodium 141 mmol/L (136-145); Total Bilirubin 0.5 mg/dL (0.15-1.2); Total Protein 6.6 g/dL (6.6-8.7)
[2021-11-12] MEDS: budesonide 0.5 mg/2 mL Neb INHALATION ×2 (08:01→19:22)
[2021-11-12] MEDS: pantoprazole DR 40 mg Tablet PO (09:25)
[2021-11-12] MEDS: levETIRAcetam 500 mg Tablet 1000 MG PO ×2 (09:26→19:49)
[2021-11-12] MEDS: dilTIAZem ER (24HR) 300 mg Capsule PO (09:26)
[2021-11-12] MEDS: aspirin 81 mg EC Tablet 162 MG PO (09:27)
[2021-11-12] MEDS: ferrous sulfate EC 325 mg Tablet PO (09:27)
[2021-11-12] MEDS: buPROPion SR (12 HR) 100 mg Tablet PO ×2 (09:28→19:49)
[2021-11-12] MEDS: enoxaparin 40 mg/0.4 mL Syringe SUBCUT (09:28)
[2021-11-12] MEDS: nystatin cream 30 gm 1 APPLIC TOPICAL ×2 (09:29→19:49)
[2021-11-12] MEDS: nystatin powder 15 gm Btl 1 APPLIC TOPICAL ×2 (09:29→18:27)
--- NOTE | 2021-11-12 10:49 | PC.CHAP ---
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 med admin visit [] Patient/Family/Request visit [] Outpatient visit [] Follow-up visit [] Physician referral [] Code/Alert [x] Routine visit [] Staff referral [] Actively dying [] Patient sleeping [] Family support [] [] Out of room [] Palliative care [] [x] Receiving care in room [] Pre-surgical visit [] Trauma [] Long length of stay [] ICU visit [] Other: Relational/Emotional Strength [] Patient feels connected with others/family/visitors/staff [] Distress [] Loneliness/isolation [] Abandonment Spirituality of Patient [] Person of Sun [] Attends Jewish of their Sun [] Believes in Prayer [] Reads Bible or Voodoo materials [] There are Spiritual issues to be addressed Lumber Kiln Operator Interventions [] Prayer [] Active listening [] Non-anxious presence [] Spiritual/emotional support [] Crisis/trauma care [] Spiritual counseling [] Bereavement support [] Provided bereavement packet [] Provided Bible/devotional materials [] Provided toy/stuffed animal, coloring book to patient or family member [] Provided Communion [] Anointing/[place] [] Salvation [] Completed spiritual assessment [] Other: Impact on Illness or Injury [] Angry [] Fearful [] Anxious [] Often cries [] Exhaustion [] Unable to work [] Unable to attend islam [] Unable to walk/stand [] Unable to read [] Unable to drive [] Unable to eat/drink [] Unable to sleep [] Unable to be with family [] Patient intubated [] Other: Summary receiving care by staff Time spent with patient 10 mins
[2021-11-12] MEDS: FUROsemide 10 mg/mL SDV 10mL 100 MG IVP (11:40)
--- NOTE | 2021-11-12 13:00 | P.PN_ITS ---
Subjective Subjective: Interval history: No acute events overnight. On examination today patient on 2 L nasal cannula. Awake and alert on phone. Able to answer complete question but still sluggish. Overnight has remained on BiPAP. As per the nurse patient had good urine output up to 900 cc in the agitation but overnight patient had minimal urine output. Patterson catheter was manipulated and patient had around 10 cc of urine drained into the Patterson bag. Patient has remained hemodynamically stable and afebrile. Blood pressure charted has remained stable. Vitals/I&O/Wt Last Vital Signs Temp 97.7 F 11/12/21 04:00 Pulse 98 11/12/21 11:36 Resp 16 11/12/21 11:36 BP 103/77 11/12/21 11:36 Pulse Ox 92 11/12/21 11:36 11/11/21 11/12/21 11/12/21 22:59 06:59 14:59 Output Total 650 / 650 250 / 900 Balance -650 / -650 -250 / -900 Weight last 48 hrs Weight 210.467 kg Physical Exam Urinary Catheter Management^: Patterson Latex Free: Cath Placed During This Visit: yes Reason for Continuing Indwelling Catheter: Acute Urinary Retention or Obst ruction Urinary Catheter Date of Insertion: 11/11/21 Urinary Catheter Time of Insertion: 14:38 Patterson: Cath Placed During This Visit: no Reason for Continuing Indwelling Catheter: Assist Healing of Perineal & Sacral Wounds- Incontinent Patients Data : 11/12/21 04:36 11/12/21 04:36 Micro: Microbiology 11/11/21 18:55 MRSA Culture - Final Nose 11/11/21 20:50 Blood Culture - Preliminary Blood SPECIMEN COLLECTED 11/11/21 15:08 Blood Culture - Preliminary Blood SPECIMEN COLLECTED A&P Assessment and plan (1) Acute on chronic respiratory failure with hypoxia and hypercapnia: Appears to be multifactorial related to congestive heart failure excaerbation, acute on chronic COPD, obstructive sleep apnea and morbid obe sity. Cannot rule out polypharmacy with current dose of bupropion and Celexa given ongoing MK. History of noncompliance with BiPAP and diuretics in the past. Patterson catheter replaced yesterday. Minimal urine output overnight. As per the nurse even after manipulation of Patterson catheter patient did not have urine output. Check bladder scan. IV Lasix 100 mg stat. Low suspicion of bacterial pneumonia. COVID-19 PCR negative. BiPAP nightly. Oxygen supplementation keeping saturation over 88%. DuoNebs every 6 hour, budesonide twice daily. Wean Solu-Medrol to 40 mg every 12 hourly. Will taper Solu-Medrol quickly. Continue with decreased dose of bupropion 100 mg twice daily. Continue with [place] exa. Status: Acute (2) Acute on chronic diastolic (congestive) heart failure: As above. Status: Acute (3) Obstructive sleep apnea: BIPAP support overnight recheck ABG Status: Chronic (4) COPD (chronic obstructive pulmonary disease): Status: Chronic Qualifiers: COPD type: COPD with acute exacerbation Qualified Code(s): J44.1 - Chronic obstructive pulmonary disease with (acute) exacerbation (5) Acute metabolic encephalopathy: related to hypercapnea, Co2 worsened over baseline Status: Acute (6) Sacral decubitus ulcer: Multiple decubitus sacral ulcers along with ulcer and skin folds. We will request wound culture. Wound care as per surgical recommendations. For now continue with nystatin. Start on fluconazole 100 mg daily for next 7 days. Unfortunately patient is not a good candidate for surgical debridement because of her baseline severe SEAN, morbid obesity and decreased mobility along with inability to relieve pressure from affected area. Status: Acute Additional A&P Information Recent ESBL bacteremia: Has finished antibiotics. Low suspicion of infection currently. MRSA positive. Blood cultures so far negative. We will continue to monitor. Continue to hold off on antibiotics for now. Code Status : DNR/DNI. Discussed again with Ms. Cuevas on phone. Mechanical soft diet. Protonix for PUD prophylaxis. Lovenox for DVT prophylaxis Attestations Medical Necessity Statement*: Requires further hospitalization for management of acute on chronic respiratory failure with hypoxia and hypercapnia secondary to congestive heart failure exacerbation, 50 sleep apnea, extensive sacral decubitus ulcer, acute kidney injury Time Spent in Patient Care: Greater than 35 minutes (>than 50% of time spent in counselling and/or direct pt care on unit) . Coding Level of Care Code Acute Link Fabric Machine Operator for Chg Fwd Diagnoses Acute on chronic respiratory failure with hypoxia and hypercapnia J96.21; J96.22 Acute on chronic diastolic (congestive) heart failure I50.33 Obstructive sleep apnea G47.33 COPD (chronic obstructive pulmonary disease) J44.1 COPD type: COPD with acute exacerbation Acute metabolic encephalopathy G93.41 Sacral decubitus ulcer L89.159
[2021-11-12] MEDS: collagenase oint 30 gm 1 APPLIC TOPICAL (16:10)
[2021-11-12] MEDS: fluconazole 100 mg Tablet PO (16:11)
--- NOTE | 2021-11-12 19:34 | PC.NURSE ---
Received report from LANE Guzman. Patient resting in bed with eyes closed. Opens eyes spontaneously with verbal stimuli. Patient appears more swollen today. Patient c/o arms feeling very heavy. Patient continues with decreased output. Patterson catheter in place. Patient c/o severe pain with any form of touch. Cries out with movement during cleaning, wound treatments and obtaining blood pressures. It is difficulty to obtain BP related to swelling, increased pain and tremors. Will continue to monitor.
[2021-11-12] MEDS: citalopram 20 mg Tablet PO (19:49)
[2021-11-12] MEDS: atorvastatin 40 mg Tablet PO (19:49)
[2021-11-12] MEDS: bumetanide 1 mg Tablet 2 MG PO (23:05)
[2021-11-13] VITALS (18 sets, daily range): BP systolic 101–149; BP diastolic 57–78; PULSE 74–100; RESP 14–24; TEMP 36.3–36.6; O2SAT 90–96
[2021-11-13] MEDS: ipratropium-albuterol 3 mL Neb INHALATION ×3 (02:49→20:18)
--- NOTE | 2021-11-13 03:14 | PC.NURSE ---
Patient not sleeping well at night. Patient stated, my arms feel heavy. Patient continues with persistent generalized edema and decreased output. Patient asked this RN to give her a hug to squeeze out all the fluid. Hug was provided. Patient stated, I just wanted a hug. Instructed patient on restricting fluid to prevent increased swelling however patient not responding to education requesting water and ice throughout the night. Patient does not appear to understand fluid restriction but is aware she is not producing much output. Patient keeps asking what are we going to do about it. Informed Dr Perez that output has not improved. No new orders received. Will continue to monitor.
--- NOTE | 2021-11-13 04:25 | PC.NURSE ---
Patient has de jesus in place. Total output for the night was only 100ml from [address] Informed [address] Perez. No new orders received at this time.
[2021-11-13 05:25] LABS: Hematocrit 28.6 % (37.0-47.0); Hemoglobin 8.4 g/dL (11.5-15.3); Lymphocytes # 0.4 10^3/uL (0.8-4.8); Lymphocytes % 5.5 %; Mean Corpuscular HGB Conc 29.4 g/dL (30.0-36.0); Mean Corpuscular Hemoglobin 26.2 pg (28.0-34.0); Mean Corpuscular Volume 89.1 fl (81-99); Mean Platelet Volume 9.7 fL (7.4-10.4); Monocytes # 0.2 10^3/uL (0.2-0.9); Monocytes % 2.8 %; Neutrophils # 6.16 10^3/uL (1.8-7.7); Neutrophils % 91.3 %; Nucleated Red Blood Cells % 0 %; Platelet Count 185 10^3/cmm (130-400); Red Blood Count 3.21 10^6/uL (4.1-5.3); Red Cell Distribution Width 18.1 % (12.1-15.1); White Blood Count 6.8 10^3/uL (4.0-10.0)
[2021-11-13] MEDS: aspirin 81 mg EC Tablet 162 MG PO (08:19)
[2021-11-13] MEDS: dilTIAZem ER (24HR) 300 mg Capsule PO (08:19)
[2021-11-13] MEDS: levETIRAcetam 500 mg Tablet 1000 MG PO ×2 (08:20→20:14)
[2021-11-13] MEDS: fluconazole 100 mg Tablet PO (08:20)
[2021-11-13] MEDS: pantoprazole DR 40 mg Tablet PO (08:21)
[2021-11-13] MEDS: buPROPion SR (12 HR) 100 mg Tablet PO ×2 (08:21→20:14)
[2021-11-13] MEDS: ferrous sulfate EC 325 mg Tablet PO (08:21)
[2021-11-13] MEDS: budesonide 0.5 mg/2 mL Neb INHALATION ×2 (08:39→20:18)
[2021-11-13] MEDS: enoxaparin 40 mg/0.4 mL Syringe SUBCUT (09:00)
[2021-11-13] MEDS: nystatin powder 15 gm Btl 1 APPLIC TOPICAL ×2 (09:08→17:55)
[2021-11-13] MEDS: nystatin cream 30 gm 1 APPLIC TOPICAL ×2 (09:08→20:14)
[2021-11-13] MEDS: collagenase oint 30 gm 1 APPLIC TOPICAL (09:08)
--- NOTE | 2021-11-13 09:08 | XR_ITS ---
WS: [id number] CHEST XRAY TECHNIQUE: Portable chest. CLINICAL INFORMATION: sob, chf COMPARISON: None. FINDINGS: Exam limited due to positioning and rotation Heart: Cardiomegaly. Lungs: Diffuse interstitial edema similar to previous. Small right pleural effusion is stable. Bones: Normal visualized bony structures. XR/XR chest 1V portable [id number] IMPRESSION: Limited examination due to positioning and rotation 1. CHF with interstitial edema and small right pleural effusion appears unchan ged. 2. Stable cardiomegaly.
[2021-11-13 09:13] LABS: Alanine Aminotransferase 10 U/L (0-33); Albumin Level 2.8 g/dL (3.5-5.2); Alkaline Phosphatase 83 IU/L (35-105); Aspartate Amino Transferase 9 U/L (0-32); Blood Urea Nitrogen 48 mg/dL (8-23); Calcium 8.7 mg/dL (8.5-10.5); Carbon Dioxide 31 mmol/L (22-29); Chloride 95 mmol/L (98-107); Globulin 3.6 g/dL (1.3-4.6); Glomerular Filtration Rate 28.4 mL/min (90-130); Glucose 154 mg/dL (65-115); Osmolality Calculated 304 mOsm/kg (285-295); Sodium 139 mmol/L (136-145); Total Bilirubin 0.5 mg/dL (0.15-1.2); Total Protein 6.4 g/dL (6.6-8.7)
[2021-11-13 09:17] LABS: Anion Gap 18.2 (5-19); Potassium 5.2 mmol/L (3.5-5.1)
--- NOTE | 2021-11-13 09:18 | PM.CONSULT ---
Providers/Reason For Consult Consulting Physician/Specialty*: General Surgery Dr. Velazquez Reason for Consult*: wound evaluation Attending Physician: Feliciano La MD Primary Care Provider: Elmer Shelton DO History of Present Illness History of Present Illness Sarah Merrill is a 61 year old female Review of Systems General: Reports: 10 or more systems reviewed and unremarkable except in HPI and below Meds/Allergies Home Medications and Allergies Home Medications Medication Instructions Recorded Confirmed Last Taken Type Anbesol (benzocaine) 1 ea MUCOUS MEMBRANE TID PRN 06/28/20 11/11/21 03/18/20 History acetaminophen 650 mg PO Q4H PRN 06/28/20 11/11/21 11/08/21 History albuterol sulfate [ProAir HFA] 2 puff INHALATION Q6H PRN 06/28/20 11/11/21 Unknown History bisacodyl 10 mg PO DAILY PRN 06/28/20 11/11/21 12/20/20 History bisacodyl 10 mg AK DAILY PRN 06/28/20 11/11/21 Unknown History cholecalciferol (vitamin D3) 25 mcg PO BEDTIME@06/28/20 11/11/21 11/09/21 History diclofenac sodium 2 g TOPICAL BID PRN 06/28/20 11/11/21 11/06/21 History guaifenesin [Mucinex] 600 mg PO BID@799,199906/28/20 11/11/21 11/10/21 History levetiracetam [Keppra] 1,000 mg PO BID@06/28/20 11/11/21 11/10/21 History magnesium hydroxide [Milk of 30 ml PO DAILY PRN 06/28/20 11/11/21 06/13/20 History Magnesia] ondansetron HCl [Zofran] 4 mg PO Q4H PRN 06/28/20 11/11/21 07/08/21 History atorvastatin 40 mg tablet 40 mg PO BEDTIME@199909/23/20 11/11/21 11/09/21 History calcium carbonate [Tums] 400 mg PO TID PRN 12/23/20 11/11/21 12/20/20 History baclofen 5 mg tablet 5 mg PO TID PRN 03/25/21 11/11/21 11/08/21 History cetirizine 10 mg tablet 10 mg PO DAILY PRN 03/25/21 11/11/21 11/08/21 History ferrous sulfate 325 mg (65 mg 325 mg PO DAILY@0800 03/25/21 11/11/21 11/10/21 History iron) tablet,delayed release omeprazole 20 mg capsule,delayed 20 mg PO DAILY@0800 cap 03/25/21 11/11/21 11/10/21 History release Lactobacillus acidophilus 1 cap PO DAILY PRN 06/08/21 11/11/21 11/08/21 History [Acidophilus] nystatin 1 applic TOPICAL BID@0800,199906/08/21 11/11/21 11/10/21 History triamcinolone acetonide 1 applic TOPICAL BID@0800,199906/08/21 11/11/21 11/10/21 History bumetanide 2 mg PO DAILY@08 #90 tab 06/11/21 11/11/21 11/10/21 Rx aspirin 162 mg PO DAILY@0800 07/08/21 11/11/21 11/10/21 History bumetanide 1 mg PO DAILY@159907/08/21 11/11/21 11/09/21 History citalopram 20 mg PO DAILY@199907/08/21 11/11/21 11/09/21 History diltiazem HCl [Cardizem CD] 300 mg PO DAILY@0800 07/08/21 11/11/21 11/10/21 History potassium chloride 20 meq PO DAILY@0800 07/08/21 11/11/21 11/10/21 History tiotropium bromide [Spiriva with 1 cap INHALATION DAILY@0800 07/08/21 11/11/21 11/09/21 History HandiHaler] bupropion HCl 150 mg PO BID@08,20 09/15/21 11/11/21 11/10/21 History gabapentin 300 mg PO BEDTIME@20 09/15/21 11/11/21 11/10/21 History hydrocodone-acetaminophen 1 tab PO DAILY PRN 11/11/21 11/11/21 Unknown History Allergies Allergy/AdvReac Type Severity Reaction Status Date / Time adhesive tape Allergy Unknown Verified 11/10/21 18:06 amoxicillin Allergy Unknown Verified 11/10/21 18:06 aspartame Allergy unknown Verified 11/10/21 18:06 metoclopramide [From Reglan] Allergy Unknown Verified 11/10/21 18:06 nitroglycerin Allergy Unknown Verified 11/10/21 18:06 Current Medications Current Medications Generic Name Dose Route Start Last Admin Trade Name Manfredq PRN Reason Stop Dose Admin Albuterol/Ipratropium 3 ml 11/11/21 01:15 11/13/21 08:39 Ipratropium-Albuterol 3 Ml Neb INHALATION 3 ml Q6H.RESPIRATORY RAJWINDER Administration Aspirin 162 mg 11/11/21 08:00 11/13/21 08:19 Aspirin 81 Mg Ec Tablet PO 162 mg DAILY@0800 RAJWINDER Administration Atorvastatin Calcium 40 mg 11/11/21 20:00 11/12/21 19:49 Atorvastatin 40 Mg Tablet PO 40 mg BEDTIME@1999 RAJWINDER Administration Budesonide 0.5 mg 11/11/21 08:00 11/13/21 08:39 Budesonide 0.5 Mg/2 Ml Neb INHALATION 0.5 mg BID.RESPIRATORY RAJWINDER Administration Bupropion HCl 100 mg 11/11/21 20:00 11/13/21 08:21 Bupropion Sr (12 Hr) 100 Mg Tablet PO 100 mg BID@08,20 RAJWINDER Administration Citalopram Hydrobromide 20 mg 11/11/21 20:00 11/12/21 19:49 Citalopram 20 Mg Tablet PO 20 mg DAILY@1999 RAJWINDER Administration Collagenase 1 applic 11/12/21 15:00 11/13/21 09:08 Collagenase Oint 30 Gm TOPICAL 1 applic DAILY RAJWINDER Administration Diltiazem HCl 300 mg 11/11/21 08:00 11/13/21 08:19 Diltiazem Er (24hr) 300 Mg Capsule PO 300 mg DAILY@0800 RAJWINDER Administration Enoxaparin Sodium 40 mg 11/11/21 09:00 11/12/21 09:28 Enoxaparin 40 Mg/0.4 Ml Syringe SUBCUT 40 mg DAILY RAJWINDER Administration Ferrous Sulfate 325 mg 11/12/21 08:00 11/13/21 08:21 Ferrous Sulfate Ec 325 Mg Tablet PO 325 mg DAILY@0800 RAJWINDER Administration Fluconazole 100 mg 11/12/21 15:00 11/13/21 08:20 Fluconazole 100 Mg Tablet PO 11/19/21 14:59 100 mg DAILY RAJWINDER Administration Levetiracetam 1,000 mg 11/11/21 08:00 11/13/21 08:20 Levetiracetam 500 Mg Tablet PO 1,000 mg BID@08,20 RAJWINDER Administration Morphine Sulfate 1 mg 11/11/21 19:48 11/12/21 19:45 Morphine 4 Mg/Ml Sdv 1 Ml IVP 1 mg Q4H PRN Administration SEVERE PAIN Nystatin 1 applic 11/11/21 08:00 11/13/21 09:08 Nystatin Cream 30 Gm TOPICAL 1 applic BID@799,1999 RAJWINDER Administration Nystatin 1 applic 11/11/21 15:00 11/13/21 09:08 Nystatin Powder 15 Gm Btl TOPICAL 1 applic BID RAJWINDER Administration Pantoprazole Sodium 40 mg 11/11/21 09:00 11/13/21 08:[address] 40 Mg Tablet PO 40 mg DAILY RAJWINDER Administration PFSH Acute PFSH: Medical History (Updated 11/12/21 @ 13:05 by Feliciano La MD) Acute on chronic diastolic (congestive) heart failure Echocardiogram done in October 2020 shows an EF of 55% with grade 1 diastolic dysfunction. Acute on chronic respiratory failure with hypoxia and hypercapnia Acute respiratory failure with hypercapnia Acute respiratory failure with hypoxia MK (acute kidney injury) Chronic atrial fibrillation Chronic diastolic CHF (congestive heart failure) Chronic kidney disease COPD (chronic obstructive pulmonary disease) Depression with anxiety GERD (gastroesophageal reflux disease) History of GI bleed History of seizures Hypertension Morbid obesity with BMI of 60.0-69.9, adult NSTEMI (non-ST elevated myocardial infarction) Obesity hypoventilation syndrome Obstructive sleep apnea On home oxygen therapy On 3 L by nasal cannula Osteoarthritis Restless leg syndrome Transaminitis Urinary tract infection due to ESBL Klebsiella Vitamin D deficiency Surgical History History of appendectomy History of hip surgery Bilateral History of hysterectomy History of tonsillectomy Presence of inferior vena cava filter Family History Other Diabetes Liver abscess and sequelae of chronic liver disease Social History Smoking and tobacco status: former smoker Alcohol intake: never Housing: Skilled Nursing Vitals/I&O/Wt Last Vital Signs Temp 97.9 F 11/13/21 04:00 Pulse 100 11/13/21 08:53 Resp 22 H 11/13/21 08:53 BP 119/74 11/13/21 08:16 Pulse Ox 94 11/13/21 08:53 11/12/21 11/13/21 11/13/21 22:59 06:59 14:59 Intake Total 358 / 894 300 / 894 362 / 362 Output Total 100 / 210 Balance 358 / 684 200 / 684 362 / 362 Physical Exam Narrative: EXAM NARRATIVE: HEENT: Normocephalic Eye: Sclera /conjunctiva normal Abdomen: Soft to palpation Neurological: Oriented to place person and time Skin: Intact, patient has areas of skin excoriation along the skin folds of bilateral lower extremities, the secretions are well controlled with Interdry. She also has a area of multiple small decubitus ulcers on her right hip/gluteal area which has minimal amount of necrotic tissue. No evidence of cellulitis or significant necrotic tissue requiring surgical debridement Urinary Catheter Management^: Patterson Latex Free: Cath Placed During This Visit: yes Reason for Continuing Indwelling Catheter: Acute Urinary Retention or Obstruction Urinary Catheter Date of Insertion: 11/11/21 Urinary Catheter Time of Insertion: 14:38 Patterson: Cath Placed During This Visit: no Reason for Continuing Indwelling Catheter: Assist Healing of Perineal & Sacral Wounds- Incontinent Patients Data Micro: Micro: Microbiology 11/11/21 20:50 Blood Culture - Pr eliminary Blood NEGATIVE TO BAYLEE E 11/11/21 15:08 Blood Culture - Pr eliminary Blood NEGATIVE TO BAYLEE E 11/11/21 18:55 MRSA Culture - Fin al Nose A&P Assessment and plan (1) Sacral decubitus ulcer: 61-year-old female with a BMI of 82 who has developed areas of skin excoriation Status: Acute Consult Attestations Medical Necessity Statement: As per attending physician Coding Level of Care Code Acute Junior Business Analyst for Janeth Grimes Diagnoses Sacral decubitus ulcer L89.159
[2021-11-13] MEDS: insulin regular-human 10 UNIT in SYRINGE 1 EACH IVP (10:36)
[2021-11-13] MEDS: dextrose 50% syringe 50 mL IVP (10:36)
[2021-11-13] MEDS: sodium chloride 0.9% 1,000 ML 75 ML IV (10:57)
--- NOTE | 2021-11-13 12:55 | PC.CHAP ---
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 apprentice pattern maker visit [] Patient/Family/Request visit [] Outpatient visit [] Follow-up visit [] Physician referral [] Code/Alert [xx] Routine visit [] Staff referral [] Actively dying [] Patient sleeping [] Family support [] [] Out of room [] Palliative care [] [] Receiving care in room [] Pre-surgical visit [] Trauma [] Long length of stay [] ICU visit [] Other: Relational/Emotional Strength [xx] Patient feels connected with others/family/visitors/staff [] Distress [] Loneliness/isolation [] Abandonment Spirituality of Patient [] Person of Sun [] Attends Sikh of their Sun [] Believes in Prayer [] Reads Bible or Presybeterian materials [] There are Spiritual issues to be addressed Mold Changer Interventions [xx] Prayer [xx] Active listening [xx] Non-anxious presence [] Spiritual/emotional support [] Crisis/trauma care [] Spiritual counseling [] Bereavement support [] Provided bereavement packet [] Provided Bible/devotional materials [] Provided toy/stuffed animal, coloring book to patient or family member [] Provided Communion [] Anointing/[employer] [] Salvation [xx] Completed spiritual assessment [] Other: Impact on Illness or Injury [] Angry [] Fearful [] Anxious [] Often cries [] Exhaustion [] Unable to work [] Unable to attend confucianist [] Unable to walk/stand [] Unable to read [] Unable to drive [] Unable to eat/drink [] Unable to sleep [] Unable to be with family [] Patient intubated [] Other: Summary Patient stated she is feeling a bit better. She wanted prayer. Her phone is at home and she hopes someone will bring it to her. This is a serious concern at this time. Time spent with patient 5 minutes
--- NOTE | 2021-11-13 14:37 | PM.PN ---
Subjective Subjective: Interval history: No acute events overnight. Overnight patient used BiPAP only for 1 hour. She has remained on 1 to 2 L to maintain saturation over 90%. Urine output continues to be minimal. Patient denies any nausea vomiting, headache. Patient is awake and alert to self, place, reason for being in the hospital, ER. Vitals/I&O/Wt Last Vital Signs Temp 97.6 F 11/13/21 12:00 Pulse 100 11/13/21 12:00 Resp 16 11/13/21 12:00 BP 101/62 11/13/21 12:00 Pulse Ox 94 11/13/21 08:53 11/12/21 11/13/21 11/13/21 22:59 06:59 14:59 Intake Total 358 / 594 300 / 894 462.1 / 462.1 Output Total 100 / 210 Balance 358 / 484 200 / 684 462.1 / 462.1 Physical Exam Narrative: EXAM NARRATIVE: General: Currently on Bipap, lethargic, follows commands to move both arms, wakes up to calling name, unable to have a conversation at this time HEENT: PERRLA, pupils bilaterally equal and reactive, pallors not present Chest: B/L diminshed breath sounds CVS: S1-S2 regular, no murmurs, no tachycardia, no gallops, no rubs Abdomen: Soft, non distended, bowel sounds present Neuro: lethargic, moving B/L upper extremities Extremities: morbid obesity, deconditioned Urinary Catheter Management^: Patterson Latex Free: Cath Placed During This Visit: yes Reason for Continuing Indwelling Catheter: Acute Urinary Retention or Obstruction Urinary Catheter Date of Insertion: 11/11/21 Urinary Catheter Time of Insertion: 14:38 Patterson: Cath Placed During This Visit: no Reason for Continuing Indwelling Catheter: Assist Healing of Perineal & Sacral Wounds- Incontinent Patients Data : 11/14/21 15:11 11/14/21 15:11 Micro: Microbiology 11/11/21 20:50 Blood Culture - Preliminary Blood NEGATIVE TO DATE 11/11/21 15:08 Blood Culture - Preliminary Blood NEGATIVE TO DATE 11/11/21 18:55 MRSA Culture - Final Nose A&P Assessment and plan (1) Acute on chronic respiratory failure with hypoxia and hypercapnia: Appears to be multifactorial related to congestive heart failure excaerbation, acute on chronic COPD, obstructive sleep apnea and morbid obesity. Cannot rule out polypharmacy with current dose of bupropion and Celexa given ongoing MK. History of noncompliance with BiPAP and diuretics in the past. Patterson catheter replaced yesterday. Minimal urine output overnight. As per the nurse even after manipulation of Patterson catheter patient did not have urine output. Check bladder scan. Could be secondary to patient being enteral volume depleted. Low suspicion of bacterial pneumonia. COVID-19 PCR negative. BiPAP nightly. Oxygen supplementation keeping saturation over 88%. DuoNebs every 6 hour, budesonide twice daily. Taper Solu-Medrol to 40 mg daily. Continue with decreased dose of bupropion 100 mg twice daily. Continue with Celexa. Status: Acute (2) Acute on chronic diastolic (congestive) heart failure: As above. Status: Acute (3) Acute metabolic encephalopathy: related to hypercapnea, Co2 worsened over baseline Status: Acute (4) Acute kidney injury superimposed on CKD: Patient possibly intra volume depleted. Could be secondary to cardiorenal syndrome. Baseline creatinine since 2019 seems to be ranging from 1.5-1.8. Start on minimal IV hydration with normal saline at 75 cc/h while monitoring for fluid overload. 25% every 8 for 1 day. Repeat BMP in 24 hours. Status: Acute (5) Sacral decubitus ulcer: Multiple decubitus sacral ulcers along with ulcer and skin folds. We will request wound culture. Wound care as per surgical recommendations. For now continue with nystatin. Start on fluconazole 100 mg daily for next 7 days. Unfortunately patient is not a good candidate for surgical debridement because of her baseline severe SEAN, morbid obesity and decreased mobility along with inability to relieve pressure from affected area. Status: Acute (6) COPD (chronic obstructive pulmonary disease): Status: Chronic Qualifiers: COPD type: COPD with acute exacerbation Qualified Code(s): J44.1 - Chronic obstructive pulmonary disease with (acute) exacerbation (7) Obstructive sleep apnea: BIPAP support overnight recheck ABG Status: Chronic Additional A&P Information Recent ESBL bacteremia: Has finished antibiotics. Low suspicion of infection currently. MRSA positive. Blood cultures so far negative. We will continue to monitor. Continue to hold off on antibiotics for now. Code Status : DNR/DNI. Discussed again with Ms. Cuevas on phone. Mechanical soft diet. Protonix for PUD prophylaxis. Lovenox for DVT prophylaxis Attestations Medical Necessity Statement*: Needs further hospitalization for management of hypercapnic respiratory failure, MK, sacral diabetes ulcer, septic sleep apnea Time Spent in Patient Care: Greater than 35 minutes (>than 50% of time spent in counselling and/or direct pt care on unit). Coding Level of Care Code Acute Sample Tester for Chg Fwd Diagnoses Acute on chronic respiratory failure with hypoxia and hypercapnia J96.21; J96.22 Acute on chronic diastolic (congestive) heart failure I50.33 Acute metabolic encephalopathy G93.41 Acute kidney injury superimposed on CKD N17.9; N18.9 Sacral decubitus ulcer L89.159 COPD (chronic obstructive pulmonary disease) J44.1 COPD type: COPD with acute exacerbation Obstructive sleep apnea G47.33
--- NOTE | 2021-11-13 17:30 | PC.NURSE ---
irrigated de jesus catheter no resistance felt. pt feel the sensation. informed pt she is not making any good amount of urine output all shift. informed doctor.
--- NOTE | 2021-11-13 18:00 | PM.CONSULT ---
Providers/Reason For Consult Consulting Physician/Specialty*: General Surgery Dr. Velazquez Reason for Consult*: wound evaluation Attending Physician: Feliciano La MD Primary Care Provider: Elmer Shelton DO History of Present Illness History of Present Illness Sarah Merrill is a 61 year old female who is morbidly obese with a BMI of 82 who is bedbound and was brought in from the correction with confusion and lethargy. Patient was noted to have areas of skin breakdown as well as right hip sacral decubitus ulcer for which I was consulted. The wound has been cared for using Interdry and it mainly involves the fat folds in the bilateral lower extremities. Patient denies any fevers or chills and she complains of generalized body pain Review of Systems General: Reports: 10 or more systems reviewed and unremarkable except in HPI and below Meds/Allergies Home Medications and Allergies Home Medications Medication Instructions Recorded Confirmed Last Taken Type Anbesol (benzocaine) 1 ea MUCOUS MEMBRANE TID PRN 06/28/20 11/11/21 03/18/20 History acetaminophen 650 mg PO Q4H PRN 06/28/20 11/11/21 11/08/21 History albuterol sulfate [ProAir HFA] 2 puff INHALATION Q6H PRN 06/28/20 11/11/21 Unknown History bisacodyl 10 mg PO DAILY PRN 06/28/20 11/11/21 12/20/20 History bisacodyl 10 mg OH DAILY PRN 06/28/20 11/11/21 Unknown History cholecalciferol (vitamin D3) 25 mcg PO BEDTIME@06/28/20 11/11/21 11/09/21 History diclofenac sodium 2 g TOPICAL BID PRN 06/28/20 11/11/21 11/06/21 History guaifenesin [Mucinex] 600 mg PO BID@799,199906/28/20 11/11/21 11/10/21 History levetiracetam [Keppra] 1,000 mg PO BID@08,06/28/20 11/11/21 11/10/21 History magnesium hydroxide [Milk of 30 ml PO DAILY PRN 06/28/20 11/11/21 06/13/20 History Magnesia] ondansetron HCl [Zofran] 4 mg PO Q4H PRN 06/28/20 11/11/21 07/08/21 History atorvastatin 40 mg tablet 40 mg PO BEDTIME@199909/23/20 11/11/21 11/09/21 History calcium carbonate [Tums] 400 mg PO TID PRN 12/23/20 11/11/21 12/20/20 History baclofen 5 mg tablet 5 mg PO TID PRN 03/25/21 11/11/21 11/08/21 History cetirizine 10 mg tablet 10 mg PO DAILY PRN 03/25/21 11/11/21 11/08/21 History ferrous sulfate 325 mg (65 mg 325 mg PO DAILY@0800 03/25/21 11/11/21 11/10/21 History iron) tablet,delayed release omeprazole 20 mg capsule,delayed 20 mg PO DAILY@0800 cap 03/25/21 11/11/21 11/10/21 History release Lactobacillus acidophilus 1 cap PO DAILY PRN 06/08/21 11/11/21 11/08/21 History [Acidophilus] nystatin 1 applic TOPICAL BID@0800,199906/08/21 11/11/21 11/10/21 History triamcinolone acetonide 1 applic TOPICAL BID@0800,199906/08/21 11/11/21 11/10/21 History bumetanide 2 mg PO DAILY@08 #90 tab 06/11/21 11/11/21 11/10/21 Rx aspirin 162 mg PO DAILY@0800 07/08/21 11/11/21 11/10/21 History bumetanide 1 mg PO DAILY@159907/08/21 11/11/21 11/09/21 History citalopram 20 mg PO DAILY@199907/08/21 11/11/21 11/09/21 History diltiazem HCl [Cardizem CD] 300 mg PO DAILY@0800 07/08/21 11/11/21 11/10/21 History potassium chloride 20 meq PO DAILY@0807/08/21 11/11/21 11/10/21 History tiotropium bromide [Spiriva with 1 cap INHALATION DAILY@0800 07/08/21 11/11/21 11/09/21 History HandiHaler] bupropion HCl 150 mg PO BID@08,20 09/15/21 11/11/21 11/10/21 History gabapentin 300 mg PO BEDTIME@20 09/15/21 11/11/21 11/10/21 History hydrocodone-acetaminophen 1 tab PO DAILY PRN 11/11/21 11/11/21 Unknown History Allergies Allergy/AdvReac Type Severity Reaction Status Date / Time adhesive tape Allergy Unknown Verified 11/10/21 18:06 amoxicillin Allergy Unknown Verified 11/10/21 18:06 aspartame Allergy unknown Verified 11/10/21 18:06 metoclopramide [From Reglan] Allergy Unknown Verified 11/10/21 18:06 nitroglycerin Allergy Unknown Verified 11/10/21 18:06 Current Medications Current Medications Generic Name Dose Route Start Last Admin Trade Name Freq PRN Reason Stop Dose Admin Albuterol/Ipratropium 3 ml 11/11/21 01:15 11/13/21 08:39 Ipratropium-Albuterol 3 Ml Neb INHALATION 3 ml Q6H.RESPIRATORY RAJWINDER Administration Aspirin 162 mg 11/11/21 08:00 11/13/21 08:19 Aspirin 81 Mg Ec Tablet PO 162 mg DAILY@0800 RAJWINDER Administration Atorvastatin Calcium 40 mg 11/11/21 20:00 11/12/21 19:49 Atorvastatin 40 Mg Tablet PO 40 mg BEDTIME@1999 RAJWINDER Administration Budesonide 0.5 mg 11/11/21 08:00 11/13/21 08:39 Budesonide 0.5 Mg/2 Ml Neb INHALATION 0.5 mg BID.RESPIRATORY RAJWINDER Administration Bupropion HCl 100 mg 11/11/21 20:00 11/13/21 08:21 Bupropion Sr (12 Hr) 100 Mg Tablet PO 100 mg BID@08,20 RAJWINDER Administration Citalopram Hydrobromide 20 mg 11/11/21 20:00 11/12/21 19:49 Citalopram 20 Mg Tablet PO 20 mg DAILY@1999 RAJWINDER Administration Collagenase 1 applic 11/12/21 15:00 11/13/21 09:08 Collagenase Oint 30 Gm TOPICAL 1 applic DAILY RAJWINDER Administration Diltiazem HCl 300 mg 11/11/21 08:00 11/13/21 08:19 Diltiazem Er (24hr) 300 Mg Capsule PO 300 mg DAILY@0800 RAJWINDER Administration Enoxaparin Sodium 40 mg 11/11/21 09:00 11/13/21 09:00 Enoxaparin 40 Mg/0.4 Ml Syringe SUBCUT 40 mg DAILY RAJWINDER Administration Ferrous Sulfate 325 mg 11/12/21 08:00 11/13/21 08:21 Ferrous Sulfate Ec 325 Mg Tablet PO 325 mg DAILY@0800 RAJWINDER Administration Fluconazole 100 mg 11/12/21 15:00 11/13/21 08:20 Fluconazole 100 Mg Tablet PO 11/19/21 14:59 100 mg DAILY RAJWINDER Administration Albumin Human 25 gm in 100 mls @ 60 mls/hr 11/13/21 09:30 11/13/21 17:55 Albumin IV 11/14/21 09:29 60 mls/hr Q8H RAJWINDER Administration Sodium Chloride 1,000 mls @ 75 mls/hr 11/13/21 09:30 11/13/21 10:57 Sodium Chloride 0.9% IV 75 mls/hr .[id number] RAJWINDER Administration Levetiracetam 1,000 mg 11/11/21 08:00 11/13/21 08:20 Levetiracetam 500 Mg Tablet PO 1,000 mg BID@ RAJWINDER Administration Morphine Sulfate 1 mg 11/11/21 19:48 11/12/21 19:45 Morphine 4 Mg/Ml Sdv 1 Ml IVP 1 mg Q4H PRN Administration SEVERE PAIN Nystatin 1 applic 11/11/21 08:00 11/13/21 09:08 Nystatin Cream 30 Gm TOPICAL 1 applic BID@799,1999 RAJWINDER Administration Nystatin 1 applic 11/11/21 15:00 11/13/21 17:55 Nystatin Powder 15 Gm Btl TOPICAL 1 applic BID RAJWINDER Administration Pantoprazole Sodium 40 mg 11/11/21 09:00 11/13/21 08:[address] 40 Mg Tablet PO 40 mg DAILY RAJWINDER Administration PFSH Acute PFSH: Medical History (Updated 11/13/21 @ 14:41 by Feliciano aL MD) Acute on chronic diastolic (congestive) heart failure Echocardiogram done in October 2020 shows an EF of 55% with grade 1 diastolic dysfunction. Acute on chronic respiratory failure with hypoxia and hypercapnia Acute respiratory failure with hypercapnia Acute respiratory failure with hypoxia MK (acute kidney injury) Chronic atrial fibrillation Chronic diastolic CHF (congestive heart failure) Chronic kidney disease COPD (chronic obstructive pulmonary disease) Depression with anxiety GERD (gastroesophageal reflux disease) History of GI bleed History of seizures Hypertension Morbid obesity with BMI of 60.0-69.9, adult NSTEMI (non-ST elevated myocardial infarction) Obesity hypoventilation syndrome Obstructive sleep apnea On home oxygen therapy On 3 L by nasal cannula Osteoarthritis Restless leg syndrome Transaminitis Urinary tract infection due to ESBL Klebsiella Vitamin D deficiency Surgical History History of appendectomy History of hip surgery Bilateral History of hysterectomy History of tonsillectomy Presence of inferior vena cava filter Family History Other Diabetes Liver abscess and sequelae of chronic liver disease Social History Smoking and tobacco status: former smoker Alcohol intake: never Housing: Intermediate Vitals/I&O/Wt Last Vital Signs Temp 98 F 11/13/21 17:54 Pulse 92 11/13/21 17:54 Resp 22 H 11/13/21 16:30 BP 120/78 11/13/21 17:54 Pulse Ox 91 11/13/21 17:54 11/13/21 11/13/21 11/13/21 06:59 14:59 22:59 Intake Total 300 / 894 462.1 / 462.1 Output Total 100 / 210 Balance 200 / 684 462.1 / 462.1 Physical Exam Narrative: EXAM NARRATIVE: EXAM NARRATIVE: HEENT: Normocephalic Eye: Sclera /conjunctiva normal Abdomen: Soft to palpation Neurological: Oriented to place person and time Skin: Intact, patient has areas of skin excoriation along the skin folds of bilateral lower extremities, the secretions are well controlled with Interdry. She also has a area of multiple small decubitus ulcers on her right hip/gluteal area which has minimal amount of necrotic tissue. No evidence of cellulitis or significant necrotic tissue requiring surgical debridement Urinary Catheter Management^: Patterson Latex Free: Cath Placed During This Visit: yes Reason for Continuing Indwelling Catheter: Acute Urinary Retention or Obstruction Urinary Catheter Date of Insertion: 11/11/21 Urinary Catheter Time of Insertion: 14:38 Patterson: Cath Placed During This Visit: no Reason for Continuing Indwelling Catheter: Assist Healing of Perineal & Sacral Wounds- Incontinent Patients Data Micro: Micro: Microbiology 11/11/21 20:50 Blood Culture - Pr eliminary Blood NEGATIVE TO BAYLEE E 11/11/21 15:08 Blood Culture - Pr eliminary Blood NEGATIVE TO BAYLEE E A&P Assessment and plan (1) Sacral decubitus ulcer: 61-year-old female with a BMI of 82 who has developed areas of skin breakdown on bilateral lower extremity around fat folds. Patient is responded well to Interdry application there is no evidence of cellulitis or significant necrotic tissue requiring debridement. Patient also has a small area of necrotic tissue on the right hip gluteal area which can be managed with application of Santyl once daily and then covered with Interdry. She does not need surgical debridement at this point. Discussed the wound care plans with the patient's nurse Status: Acute Consult Attestations Medical Necessity Statement: As per attending physician Coding Level of Care Code Acute Production Assembly Supervisor for Janeth Grimes Diagnoses Sacral decubitus ulcer L89.159
[2021-11-13] MEDS: acetaminophen 325 mg Tablet 650 MG PO (18:15)
--- NOTE | 2021-11-13 18:30 | PC.NURSE ---
Duncan Cuevas Pt stated i can talk to Faith. I spoke with Faith and updated her with the pt's current status. Faith stated she will come and visit tomorrow. Sister in law verbalizes understanding on the pt's status.
[2021-11-13] MEDS: morphine 4 mg/mL SDV 1 mL 1 MG IVP (19:09)
--- NOTE | 2021-11-13 19:22 | PC.NURSE ---
Received report from LANE Guzman. Performed wound care to buttocks as ordered. Applied interdry to all folds. Patient cries out in severe pain 10/10 during any touch, movement, positioning, wound care, incontinence care, etc. Patient reports feeling miserable . Administered morphine as ordered post care for pain. Patient has multiple open wounds to all folds with serosanguinous drainage and extremely foul odors. Patient cleaned, gown changed, absorbent pads changed. Patient continues to have minimal output. Repostioning and cleaning of patient requires 5 to 6 assist due to morbid obesity.
[2021-11-13] MEDS: citalopram 20 mg Tablet PO (20:14)
[2021-11-13] MEDS: atorvastatin 40 mg Tablet PO (20:14)
[2021-11-13] MEDS: benzonatate 100 mg Capsule PO (20:14)
--- NOTE | 2021-11-13 23:57 | PC.NURSE ---
Noted patient becoming more lethargic. Responds to physical stimuli. RT was able to encourage patient to wear bipap at this time. Patient continues with decreased output. Dr Perez notified.
[2021-11-14] VITALS (19 sets, daily range): BP systolic 94–121; BP diastolic 62–86; PULSE 87–99; RESP 11–29; TEMP 36.3–36.7; O2SAT 93–98
[2021-11-14] MEDS: sodium chloride 0.9% 1,000 ML 75 ML IV ×2 (00:22→14:22)
--- NOTE | 2021-11-14 00:37 | PC.NURSE ---
Observed increased swelling to right arm. Patient's right arm is ~twice the size of the left. IV flushes with great blood return.
[2021-11-14] MEDS: ipratropium-albuterol 3 mL Neb INHALATION ×4 (02:43→20:45)
[2021-11-14] MEDS: ondansetron 2 mg/ML SDV 2 mL 4 MG IVP (03:12)
--- NOTE | 2021-11-14 05:28 | PC.NURSE ---
Informed Dr Perez of patient's continued worsening urine output to 50ml overnight. NS at 75ml per hour continues per Dr Perez for a fluid challenge . No new orders received. Patient also continues with worsening anasarca. Right arm is very much larger than left arm. Right hand is fluid filled. Patient's face has increased swelling as well. Patient stated, I just don't feel good. Zofran given as ordered and documented earlier for nausea. Patient able to wear bipap for a few hours during the night. Patient currently on 2L NC with SpO2 at 93%. Found patient removed NC, SpO2 drops quickly into the 60s. Patient's SpO2 also decreases considerably with turning, cleaning and wound care. Will continue to monitor.
[2021-11-14] MEDS: ferrous sulfate EC 325 mg Tablet PO (07:53)
[2021-11-14] MEDS: aspirin 81 mg EC Tablet 162 MG PO (07:53)
[2021-11-14] MEDS: dilTIAZem ER (24HR) 300 mg Capsule PO (07:53)
[2021-11-14] MEDS: levETIRAcetam 500 mg Tablet 1000 MG PO ×2 (07:54→19:58)
[2021-11-14] MEDS: buPROPion SR (12 HR) 100 mg Tablet PO ×2 (07:54→19:58)
[2021-11-14] MEDS: nystatin cream 30 gm 1 APPLIC TOPICAL ×2 (07:54→19:58)
[2021-11-14] MEDS: benzonatate 100 mg Capsule PO (08:00)
[2021-11-14] MEDS: fluconazole 100 mg Tablet PO (08:00)
[2021-11-14] MEDS: pantoprazole DR 40 mg Tablet PO (08:00)
[2021-11-14] MEDS: enoxaparin 40 mg/0.4 mL Syringe SUBCUT (08:01)
[2021-11-14] MEDS: collagenase oint 30 gm 1 APPLIC TOPICAL (08:01)
[2021-11-14] MEDS: nystatin powder 15 gm Btl 1 APPLIC TOPICAL ×2 (08:05→18:42)
[2021-11-14] MEDS: budesonide 0.5 mg/2 mL Neb INHALATION ×2 (08:31→20:45)
[2021-11-14 11:54] LABS: Basophils % 0.2 %; Hematocrit 27.2 % (37.0-47.0); Hemoglobin 7.5 g/dL (11.5-15.3); Lymphocytes # 0.3 10^3/uL (0.8-4.8); Lymphocytes % 2.2 %; Mean Corpuscular HGB Conc 27.6 g/dL (30.0-36.0); Mean Corpuscular Hemoglobin 25.4 pg (28.0-34.0); Mean Corpuscular Volume 92.2 fl (81-99); Mean Platelet Volume 8.6 fL (7.4-10.4); Monocytes # 0.7 10^3/uL (0.2-0.9); Monocytes % 6.3 %; Neutrophils # 10.29 10^3/uL (1.8-7.7); Neutrophils % 90.9 %; Nucleated Red Blood Cells % 0 %; Platelet Count 115 10^3/cmm (130-400); Red Blood Count 2.95 10^6/uL (4.1-5.3); Red Cell Distribution Width 18.2 % (12.1-15.1); White Blood Count 11.3 10^3/uL (4.0-10.0)
[2021-11-14 12:16] LABS: Alanine Aminotransferase 9 U/L (0-33); Albumin Level 3.2 g/dL (3.5-5.2); Alkaline Phosphatase 65 IU/L (35-105); Anion Gap 18.2 (5-19); Aspartate Amino Transferase 9 U/L (0-32); Blood Urea Nitrogen 54 mg/dL (8-23); Calcium 7.6 mg/dL (8.5-10.5); Carbon Dioxide 30 mmol/L (22-29); Chloride 98 mmol/L (98-107); Globulin 2.8 g/dL (1.3-4.6); Glomerular Filtration Rate 26.7 mL/min (90-130); Glucose 119 mg/dL (65-115); Osmolality Calculated 308 mOsm/kg (285-295); Potassium 5.2 mmol/L (3.5-5.1); Sodium 141 mmol/L (136-145); Total Bilirubin 0.6 mg/dL (0.15-1.2)
[2021-11-14 15:40] LABS: Basophils % 0.1 %; Hematocrit 29.6 % (37.0-47.0); Hemoglobin 8.2 g/dL (11.5-15.3); Lymphocytes # 0.3 10^3/uL (0.8-4.8); Lymphocytes % 3.4 %; Mean Corpuscular HGB Conc 27.7 g/dL (30.0-36.0); Mean Corpuscular Hemoglobin 25.9 pg (28.0-34.0); Mean Corpuscular Volume 93.7 fl (81-99); Mean Platelet Volume 9.1 fL (7.4-10.4); Monocytes # 0.6 10^3/uL (0.2-0.9); Monocytes % 6.2 %; Neutrophils # 8.88 10^3/uL (1.8-7.7); Neutrophils % 89.9 %; Nucleated Red Blood Cells % 0.2 %; Platelet Count 120 10^3/cmm (130-400); Red Blood Count 3.16 10^6/uL (4.1-5.3); Red Cell Distribution Width 18.2 % (12.1-15.1); White Blood Count 9.9 10^3/uL (4.0-10.0)
[2021-11-14 15:58] LABS: Alanine Aminotransferase 9 U/L (0-33); Albumin Level 3.6 g/dL (3.5-5.2); Alkaline Phosphatase 69 IU/L (35-105); Anion Gap 19.6 (5-19); Aspartate Amino Transferase 9 U/L (0-32); Blood Urea Nitrogen 58 mg/dL (8-23); Calcium 8.3 mg/dL (8.5-10.5); Carbon Dioxide 31 mmol/L (22-29); Chloride 94 mmol/L (98-107); Globulin 2.9 g/dL (1.3-4.6); Glomerular Filtration Rate 25.2 mL/min (90-130); Glucose 125 mg/dL (65-115); Osmolality Calculated 306 mOsm/kg (285-295); Potassium 5.6 mmol/L (3.5-5.1); Sodium 139 mmol/L (136-145); Total Bilirubin 0.7 mg/dL (0.15-1.2); Total Protein 6.5 g/dL (6.6-8.7)
--- NOTE | 2021-11-14 16:16 | P.PN_ITS ---
Subjective Subjective: Interval history: This morning on examination patient had missed Karla at bedside. Patient was awake but going in and off to sleep during examination. Patient states she was compliant with BiPAP. As per nurse patient wore BiPAP for few hours overnight but has been refusing now. Urine output remains minimal. Has been on IV fluids since yesterday at 75 cc/h. Blood work done delay today. Concerns with blood work for being dilutional. Repeat blood work asked for. New IV line placed under ultrasound. Vitals/I&O/Wt Last Vital Signs Temp 97.4 F L 11/14/21 04:25 Pulse 88 11/14/21 14:21 Resp 20 H 11/14/21 14:21 BP 121/72 11/14/21 12:00 Pulse Ox 97 11/14/21 14:21 11/14/21 11/14/21 11/14/21 06:59 14:59 22:59 Intake Total 1117.5 / 2037.6 1102.5 / 1102.5 Output Total 50 / 150 Balance 1067.5 / 1887.6 1102.5 / 1102.5 Weight last 48 hrs Weight 227.921 kg Physical Exam Narrative: EXAM NARRATIVE: General: Currently on Bipap, more awake than before, drowsy but when awake AOx3 HEENT: PERRLA, pupils bilaterally equal and reactive, pallors not present Chest: B/L diminshed breath sounds CVS: S1-S2 regular, no murmurs, no tachycardia, no gallops, no rubs Abdomen: Soft, non distended, bowel sounds present Neuro: lethargic, moving B/L upper extremities Extremities: morbid obesity, deconditioned Urinary Catheter Management^: Patterson Latex Free: Cath Placed During This Visit: yes Reason for Continuing Indwelling Catheter: Acute Urinary Retention or Obstruction Urinary Catheter Date of Insertion: 11/11/21 Urinary Catheter Time of Insertion: 14:38 Patterson: Cath Placed During This Visit: no Reason for Continuing Indwelling Catheter: Assist Healing of Perineal & Sacral Wounds- Incontinent Patients Data : 11/14/21 15:11 11/14/21 15:11 A&P Assessment and plan (1) Acute kidney injury superimposed on CKD: Patient possibly intra volume depleted. Could be secondary to cardiorenal syndrome. Patient received IV fluids and albumin yesterday. Albumin improved today. Even after that her creatinine continues to worsen slightly today due to. BUN elevated. Oligoanuric. Stop IV fluids. Check urine lites, urine creatinine. Lasix 80 mg stat followed by Lasix drip. Repeat BMP at 8 PM. Baseline creatinine since 2019 seems to be ranging from 1.5-1.8. Status: Acute (2) Acute metabolic encephalopathy: related to hypercapnea, Co2 worsened over baseline Status: Acute (3) Acute on chronic respiratory failure with hypoxia and hypercapnia: Appears to be multifactorial related to congestive heart failure excaerbation, acute on chronic COPD, obstructive sleep apnea and morbid obesity. Cannot rule out polypharmacy with current dose of bupropion and Celexa given ongoing MK. History of noncompliance with BiPAP and diuretics in the past. Low suspicion of bacterial pneumonia. COVID-19 PCR negative. BiPAP nightly. Oxygen supplementation keeping saturation over 88%. DuoNebs every 6 hour, budesonide twice daily. Taper Solu-Medrol to IV 40 mg daily. Continue with decreased dose of bupropion 100 mg twice daily. Continue with Celexa. Status: Acute (4) Acute on chronic diastolic (congestive) heart failure: As above. Status: Acute (5) Sacral decubitus ulcer: Multiple decubitus sacral ulcers along with ulcer and skin folds. We will request wound culture. Wound care as per surgical recommendations. For now continue with nystatin. Start on fluconazole 100 mg daily for next 7 days. Unfortunately patient is not a good candidate for surgical debridement because of her baseline severe SEAN, morbid obesity and decreased mobility along with inability to relieve pressure from affected area. Status: Acute (6) COPD (chronic obstructive pulmonary disease): Status: Chronic Qualifiers: COPD type: COPD with acute exacerbation Qualified Code(s): J44.1 - Chronic obstructive pulmonary disease with (acute) exacerbation (7) Obstructive sleep apnea: BIPAP support overnight recheck ABG Status: Chronic Additional A&P Information Recent ESBL bacteremia: Has finished antibiotics. Low suspicion of infection currently. MRSA positive. Blood cultures so far negative. We will continue to monitor. Continue to hold off on antibiotics for now. Code Status : DNR/DNI. Discussed again with Ms. Cuevas on phone. Mechanical soft diet. Protonix for PUD prophylaxis. Lovenox for DVT prophylaxis Goals of care discussed in detail with patient and patient's DPOA Ms. Cuevas on bedside. We discussed that given her baseline functional capacity, quality of life, morbid obesity, worsening obstructive sleep apnea, noncompliance with diuretics and BiPAP, recurrent hypoxic hypercapnic respiratory failure, MK, worsening decubitus ulcer, history of ESBL infections patient at baseline is very sick and is at high risk of mortality. We discussed further treatment plan versus hospice. Family would like to discuss further before making any decision. Patient states she will try to be more compliant with BiPAP. Attestations Medical Necessity Statement*: Requires further hospitalization for management of oliguria, acute kidney injury, obstructive sleep apnea, hypercapnic resp iratory failure, Time Spent in Patient Care: Greater than 35 minutes (>than 50% of time spent in counselling and/or direct pt care on unit) . Coding Level of Care Code Acute Aitchbone Breaker for Janeth Grimes Diagnoses Acute kidney injury superimposed on CKD N17.9; N18.9 Acute metabolic encephalopathy G93.41 Acute on chronic respiratory failure with hypoxia and hypercapnia J96.21; J96.22 Acute on chronic diastolic (congestive) heart failure I50.33 Sacral decubitus ulcer L89.159 COPD (chronic obstructive pulmonary disease) J44.1 COPD type: COPD with acute exacerbation Obstructive sleep apnea G47.33
[2021-11-14] MEDS: metOLazone 5 MG Tablet PO (17:00)
[2021-11-14] MEDS: FUROsemide 100 MG in sodium chloride 0.9% 40 ML 10 MG IV ×2 (17:01→22:57)
[2021-11-14 18:06] LABS: Potassium, Radom Urine 43 mmol/L; Urine Creatinine 66 mg/dL (28-217)
[2021-11-14 18:17] LABS: Urine Random Chloride 14 mmol/L; Urine Random Sodium 17 mmol/L
[2021-11-14] MEDS: FUROsemide 10 mg/mL SDV 10mL 80 MG IVP (18:41)
[2021-11-14] MEDS: citalopram 20 mg Tablet PO (19:58)
[2021-11-14] MEDS: atorvastatin 40 mg Tablet PO (19:58)
[2021-11-14 22:21] LABS: Anion Gap 17.8 (5-19); Blood Urea Nitrogen 69 mg/dL (8-23); Calcium 8.4 mg/dL (8.5-10.5); Carbon Dioxide 34 mmol/L (22-29); Chloride 93 mmol/L (98-107); Glomerular Filtration Rate 23.8 mL/min (90-130); Glucose 127 mg/dL (65-115); Osmolality Calculated 310 mOsm/kg (285-295); Potassium 5.8 mmol/L (3.5-5.1); Sodium 139 mmol/L (136-145)
[2021-11-15] VITALS (20 sets, daily range): BP systolic 86–127; BP diastolic 58–84; PULSE 88–98; RESP 16–24; TEMP 36.2–36.6; O2SAT 91–98
[2021-11-15] MEDS: dextrose 50% syringe 50 mL IVP ×2 (00:14→06:31)
[2021-11-15] MEDS: insulin regular-human 10 UNIT in SYRINGE 1 EACH IVP ×2 (00:47→07:07)
[2021-11-15] MEDS: FUROsemide 100 MG in sodium chloride 0.9% 40 ML 10 MG IV ×2 (02:34→07:51)
[2021-11-15] MEDS: ipratropium-albuterol 3 mL Neb INHALATION ×4 (02:53→20:12)
[2021-11-15 04:53] LABS: Basophils % 0.2 %; Eosinophils % 0.2 %; Hematocrit 27.9 % (37.0-47.0); Lymphocytes # 0.3 10^3/uL (0.8-4.8); Lymphocytes % 5.3 %; Mean Corpuscular HGB Conc 28.7 g/dL (30.0-36.0); Mean Corpuscular Hemoglobin 25.4 pg (28.0-34.0); Mean Corpuscular Volume 88.6 fl (81-99); Mean Platelet Volume 9.5 fL (7.4-10.4); Monocytes # 0.5 10^3/uL (0.2-0.9); Monocytes % 7.5 %; Neutrophils # 5.17 10^3/uL (1.8-7.7); Nucleated Red Blood Cells # 0.1 /100WBC; Nucleated Red Blood Cells % 0.8 %; Platelet Count 106 10^3/cmm (130-400); Red Blood Count 3.15 10^6/uL (4.1-5.3); Red Cell Distribution Width 18.2 % (12.1-15.1)
[2021-11-15 05:11] LABS: Alanine Aminotransferase 9 U/L (0-33); Albumin Level 3.4 g/dL (3.5-5.2); Alkaline Phosphatase 66 IU/L (35-105); Blood Urea Nitrogen 68 mg/dL (8-23); Calcium 8.4 mg/dL (8.5-10.5); Carbon Dioxide 28 mmol/L (22-29); Chloride 94 mmol/L (98-107); Glomerular Filtration Rate 22.5 mL/min (90-130); Glucose 118 mg/dL (65-115); Osmolality Calculated 309 mOsm/kg (285-295); Sodium 139 mmol/L (136-145); Total Bilirubin 0.8 mg/dL (0.15-1.2); Total Protein 6.4 g/dL (6.6-8.7)
[2021-11-15 05:20] LABS: Aspartate Amino Transferase 14 U/L (0-32)
[2021-11-15] MEDS: sodium polystyrene sulfonate 15 gm/60 mL Btl PO (07:48)
[2021-11-15] MEDS: budesonide 0.5 mg/2 mL Neb INHALATION ×2 (10:13→20:12)
[2021-11-15] MEDS: enoxaparin 40 mg/0.4 mL Syringe SUBCUT (10:27)
[2021-11-15] MEDS: ferrous sulfate EC 325 mg Tablet PO (10:28)
[2021-11-15] MEDS: fluconazole 100 mg Tablet PO (10:28)
[2021-11-15] MEDS: dilTIAZem ER (24HR) 300 mg Capsule PO (10:28)
[2021-11-15] MEDS: metOLazone 5 MG Tablet PO (10:28)
[2021-11-15] MEDS: aspirin 81 mg EC Tablet 162 MG PO (10:28)
[2021-11-15] MEDS: pantoprazole DR 40 mg Tablet PO (10:29)
[2021-11-15] MEDS: nystatin powder 15 gm Btl 1 APPLIC TOPICAL ×2 (10:29→18:15)
[2021-11-15] MEDS: levETIRAcetam 500 mg Tablet 1000 MG PO ×2 (10:33→20:23)
[2021-11-15] MEDS: buPROPion SR (12 HR) 100 mg Tablet PO ×2 (10:33→20:23)
[2021-11-15] MEDS: nystatin cream 30 gm 1 APPLIC TOPICAL ×2 (10:34→20:33)
[2021-11-15 11:27] LABS: Blood Urea Nitrogen 70 mg/dL (8-23); Calcium 8.4 mg/dL (8.5-10.5); Carbon Dioxide 30 mmol/L (22-29); Chloride 93 mmol/L (98-107); Glomerular Filtration Rate 22.5 mL/min (90-130); Glucose 94 mg/dL (65-115); Magnesium 2.5 mg/dL (1.7-2.3); Osmolality Calculated 310 mOsm/kg (285-295); Sodium 140 mmol/L (136-145)
[2021-11-15 11:39] LABS: Anion Gap 23.1 (5-19); Potassium 6.1 mmol/L (3.5-5.1)
[2021-11-15] MEDS: FUROsemide 100 MG in sodium chloride 0.9% 40 ML 15 MG IV ×3 (12:21→20:20)
[2021-11-15] MEDS: dextrose 5%-sod chloride 0.45% 1,000 ML 100 ML IV (13:32)
[2021-11-15] MEDS: calcium chloride 10% Syr 10 mL 2 GM IVP (14:06)
--- NOTE | 2021-11-15 14:40 | P.PN_ITS ---
Subjective Subjective: Interval history: Patient has remained hemodynamically stable. Overnight patient has remained on BiPAP. Today morning patient is drowsy but wakes up and has complete conversation through BiPAP. Yesterday was started on Lasix drip in the evening for oliguria. Urine output overnight 100 cc. Charted body weight up 227 pounds which is 17 pound higher than admitting weight of 210 pounds Vitals/I&O/Wt Last Vital Signs Temp 97.5 F L 11/15/21 11:09 Pulse 98 11/15/21 14:00 Resp 20 H 11/15/21 12:29 BP 105/70 11/15/21 11:09 Pulse Ox 97 11/15/21 12:29 11/14/21 11/15/21 11/15/21 22:59 06:59 14:59 Intake Total 312.5 / 1415.0 496.267 / 1911.267 200.1 / 200.1 Output Total 100 / 100 125 / 125 Balance 312.5 / 1415.0 396.267 / 1811.267 75.1 / 75.1 Weight last 48 hrs Weight 227.921 kg Physical Exam Narrative: EXAM NARRATIVE: General: Currently on Bipap, more awake than before, drowsy but when awake AOx3, anasarca present HEENT: PERRLA, pupils bilaterally equal and reactive, pallors not present Chest: B/L diminshed breath sounds CVS: S1-S2 regular, no murmurs, no tachycardia, no gallops, no rubs Abdomen: Soft, non distended, bowel sounds present Neuro: lethargic, moving B/L upper extremities Extremities: morbid obesity, deconditioned Urinary Catheter Management^: Patterson Latex Free: Cath Placed During This Visit: yes Reason for Continuing Indwelling Catheter: Acute Urinary Retention or Obstruction Urinary Catheter Date of Insertion: 11/11/21 Urinary Catheter Time of Insertion: 14:38 Patterson: Cath Placed During This Visit: no Reason for Continuing Indwelling Catheter: Assist Healing of Perineal & Sacral Wounds- Incontinent Patients Data : 11/15/21 04:40 11/15/21 10:47 A&P Assessment and plan (1) Acute kidney injury superimposed on CKD: Patient possibly intravolume depleted. Remains oliguric. Patient was given fluid challenge day before yesterday after which she seems to be 17 pounds higher than her admission weight. Anasarca. Started on diuretic challenge yesterday with Lasix drip. Increase drip to 15 cc/h. Give metolazone 5 mg stat. Continue monitoring intake, output. Repeat BMP at noon. Hyperkalemia: D50 with 10 units insulin. Kayexalate. Continue to monitor. Telemetry. Baseline BMP since 2019 seems to be around 1.5-1.8. If patient continues to remain oliguric even after diuretic challenge will consult nephrology. Status: Acute (2) Acute metabolic encephalopathy: related to hypercapnea, Co2 worsened over baseline Status: Acute (3) Acute on chronic respiratory failure with hypoxia and hypercapnia: Appears to be multifactorial related to congestive heart failure excaerbation, acute on chronic COPD, obstructive sleep apnea and morbid obesity. Cannot rule out polypharmacy with current dose of bupropion and Celexa given ongoing MK. History of noncompliance with BiPAP and diuretics in the past. Low suspicion of bacterial pneumonia. COVID-19 PCR negative. BiPAP nightly. Oxygen supplementation keeping saturation over 88%. DuoNebs every 6 hour, budesonide twice daily. Taper Solu-Medrol to IV 40 mg daily. Continue with decreased dose of bupropion 100 mg twice daily. Continue with Celexa. Status: Acute (4) Acute on chronic diastolic (congestive) heart failure: As above. Status: Acute (5) Sacral decubitus ulcer: Multiple decubitus sacral ulcers along with ulcer and skin folds. We will request wound culture. Wound care as per surgical recommendations. For now continue with nystatin. Start on fluconazole 100 mg daily for next 7 days. Unfortunately patient is not a good candidate for surgical debridement because of her baseline severe SEAN, morbid obesity and decreased mobility along with inability to relieve pressure from affected area. Status: Acute (6) COPD (chronic obstructive pulmonary disease): Status: Chronic Qualifiers: COPD type: COPD with acute exacerbation Qualified Code(s): J44.1 - Chronic obstructive pulmonary disease with (acute) exacerbation (7) Obstructive sleep apnea: BIPAP support overnight recheck ABG Status: Chronic Additional A&P Information Recent ESBL bacteremia: Has finished antibiotics. Low suspicion of infection currently. MRSA positive. Blood cultures so far negative. We will continue to monitor. Continue to hold off on antibiotics for now. Code Status : DNR/DNI. Discussed again with Ms. Cuevas on phone. Mechanical soft diet. Protonix for PUD prophylaxis. Lovenox for DVT prophylaxis Goals of care discussed in detail with patient and patient's DPOA Ms. Cuevas on bedside. We discussed that given her baseline functional capacity, quality of life, morbid obesity, worsening obstructive sleep apnea, noncompliance with diuretics and BiPAP, recurrent hypoxic hypercapnic respiratory failure, MK, worsening decubitus ulcer, history of ESBL infections patient at baseline is very sick and is at high risk of mortality. We discussed further treatment plan versus hospice. Family would like to discuss further before making any decision. Patient states she will try to be more compliant with BiPAP. Guarded prognosis Attestations Medical Necessity Statement*: Requires further hospitalization for MK on CKD, oliguria while patient gets diuretic challenge, acute on chronic hypercapnic respiratory failure, acute on chronic diastolic congestive heart failure, sacral decubitus ulcer Time Spent in Patient Care: Greater than 35 minutes (>than 50% of time spent in counselling and/or direct pt care on unit) . Coding Level of Care Code Acute Fine Arts Instructor for g Fwd Diagnoses Acute kidney injury superimposed on CKD N17.9; N18.9 Acute metabolic encephalopathy G93.41 Acute on chronic respiratory failure with hypoxia and hypercapnia J96.21; J96.22 Acute on chronic diastolic (congestive) heart failure I50.33 Sacral decubitus ulcer L89.159 COPD (chronic obstructive pulmonary disease) J44.1 COPD type: COPD with acute exacerbation Obstructive sleep apnea G47.33
[2021-11-15] MEDS: citalopram 20 mg Tablet PO (20:23)
[2021-11-15] MEDS: atorvastatin 40 mg Tablet PO (20:23)
[2021-11-16] VITALS (22 sets, daily range): BP systolic 103–122; BP diastolic 59–69; PULSE 95–99; RESP 14–23; TEMP 35.7–36.4; O2SAT 90–96
[2021-11-16] MEDS: FUROsemide 100 MG in sodium chloride 0.9% 40 ML 15 MG IV ×3 (00:44→08:59)
[2021-11-16] MEDS: ipratropium-albuterol 3 mL Neb INHALATION ×4 (02:22→20:35)
[2021-11-16 02:47] LABS: Basophils % 0.3 %; Eosinophils % 0.3 %; Hematocrit 25.7 % (37.0-47.0); Hemoglobin 7.3 g/dL (11.5-15.3); Lymphocytes # 0.5 10^3/uL (0.8-4.8); Lymphocytes % 6.9 %; Mean Corpuscular HGB Conc 28.4 g/dL (30.0-36.0); Mean Corpuscular Hemoglobin 25.3 pg (28.0-34.0); Mean Corpuscular Volume 88.9 fl (81-99); Monocytes # 0.8 10^3/uL (0.2-0.9); Monocytes % 10.5 %; Neutrophils # 5.57 10^3/uL (1.8-7.7); Neutrophils % 76.6 %; Nucleated Red Blood Cells # 0.1 /100WBC; Platelet Count 78 10^3/cmm (130-400); Red Blood Count 2.89 10^6/uL (4.1-5.3); Red Cell Distribution Width 18.4 % (12.1-15.1); White Blood Count 7.3 10^3/uL (4.0-10.0)
[2021-11-16 03:02] LABS: Slide Review Slide Review Perform
[2021-11-16] MEDS: budesonide 0.5 mg/2 mL Neb INHALATION ×2 (08:00→20:35)
--- NOTE | 2021-11-16 09:00 | PC.NURSE ---
PO meds not given as patient responsive to pain only (lab draw) and verbalizes incomprehensible words. Bipap in place.
--- NOTE | 2021-11-16 09:45 | PC.CHAP ---
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 concrete batch plant operator visit [] Patient/Family/Request visit [] Outpatient visit [] Follow-up visit [] Physician referral [] Code/Alert [x] Routine visit [] Staff referral [] Actively dying [x] Patient sleeping [] Family support [] [] Out of room [] Palliative care [] [] Receiving care in room [] Pre-surgical visit [] Trauma [] Long length of stay [] ICU visit [] Other: Relational/Emotional Strength [] Patient feels connected with others/family/visitors/staff [] Distress [] Loneliness/isolation [] Abandonment Spirituality of Patient [] Person of Sun [] Attends Jewish of their Sun [] Believes in Prayer [] Reads Bible or Judaism materials [] There are Spiritual issues to be addressed Pellet Post Inspector Interventions [x] Prayer [] Active listening [] Non-anxious presence [] Spiritual/emotional support [] Crisis/trauma care [] Spiritual counseling [] Bereavement support [] Provided bereavement packet [] Provided Bible/devotional materials [] Provided toy/stuffed animal, coloring book to patient or family member [] Provided Communion [] Anointing/[place] [] Salvation [x] Completed spiritual assessment [] Other: Impact on Illness or Injury [] Angry [] Fearful [] Anxious [] Often cries [] Exhaustion [] Unable to work [] Unable to attend adventism [] Unable to walk/stand [] Unable to read [] Unable to drive [] Unable to eat/drink [] Unable to sleep [] Unable to be with family [] Patient intubated [] Other: Summary patient on oxy mask Time spent with patient
[2021-11-16] MEDS: enoxaparin 40 mg/0.4 mL Syringe SUBCUT (10:12)
--- NOTE | 2021-11-16 11:29 | PM.PN ---
Subjective Subjective: Interval history: Lethargic, tolerating BiPAP, but not eating, this morning's medications to be held. Discomfort, when spoken to smiles, mumbles in response. Vitals/I&O/Wt Last Vital Signs Temp 96.2 F L 11/16/21 08:00 Pulse 99 11/16/21 08:08 Resp 18 11/16/21 08:00 BP 121/65 11/16/21 08:00 Pulse Ox 94 11/16/21 08:00 11/15/21 11/16/21 11/16/21 22:59 06:59 14:59 Intake Total 300 / 500.1 1100 / 1600.1 150 / 150 Output Total 50 / 175 Balance 300 / 375.1 1050 / 1425.1 150 / 150 Physical Exam Const: COMMON NORMALS: no acute distress GENERAL APPEARANCE: lethargic NUTRITIONAL APPEARANCE: obese morbidly obese ORIENTATION/CONSCIOUSNESS: Yes confused and Yes lethargic HENMT: COMMON NORMALS: oropharynx normal Neck/C-Spine: COMMON NORMALS: no JVD Resp: COMMON NORMALS: normal respiratory effort and clear to auscultation bilaterally AUSCULTATION: clear to auscultation bilaterally and diminished lung sounds OTHER: Very difficult exam due to body habitus. Cardio: COMMON NORMALS: no JVD, regular rhythm, S1 normal heart sound present, S2 normal heart sound present and No murmurs present (Cardio) RHYTHM: regular rhythm HEART SOUNDS: S1 normal heart sound present and S2 normal heart sound present GI: COMMON NORMALS: Normal to inspection, nondistended, normoactive bowel sounds present, Soft to palpation and non-tender PALPATION: Yes Soft to palpation Extremity: COMMON NORMALS: no joint enlargement GENERAL: Yes edema (2+ anasarca) Neuro: COMMON NORMALS: moves all extremities SENSORIUM/ORIENTATION: Yes lethargic Skin: GENERAL SKIN EXAM: dry skin (BL LE) and ecchymosis OTHER: Intertrigo multiple skin folds Urinary Catheter Management^: Patterson Latex Free: Cath Placed During This Visit: yes Reason for Continuing Indwelling Catheter: Accurate Measurement of Urinary Output in Critically Ill Patients Urinary Catheter Date of Insertion: 11/11/21 Urinary Catheter Time of Insertion: 14:38 Patterson: Cath Placed During This Visit: no Reason for Continuing Indwelling Catheter: Assist Healing of Perineal & Sacral Wounds- Incontinent Patients Data : 11/16/21 02:28 11/15/21 10:47 A&P Assessment and plan (1) Acute kidney injury superimposed on CKD: Appreciate nephrology recommendations with regards to worsening renal function, worsening hyperkalemia, anasarca. Oliguria. Discussing with healthcare proxy roma Francisco who is also been discussing with patient's brother Noel, she states that she discussed with patient last night and patient was able to express that if dialysis was needed she would proceed with that as another family member was on dialysis for a long time. They understand, however, her additional comorbidities making renal replacement therapy challenge. Not much response to diuretic challenge, minimal urine output. Despite increasing drip rate and metolazone. Hyperkalemia: D50 with 10 units insulin. Kayexalate. Continue to monitor. Telemetry. Baseline BMP since 2019 seems to be around 1.5-1.8. If patient continues to remain oliguric even after diuretic challenge will consult nephrology. Status: Acute (2) Hyperkalemia: Received calcium gluconate, insulin, dextrose, Kayexalate yesterday. Recheck chemistry pending. Status: Acute (3) Acute metabolic encephalopathy: related to hypercapnea, Co2 worsened over baseline. Possibly uremic contribution. Wellbutrin, hold citalopram. Check Keppra level. Baclofen on hold. Status: Acute (4) Acute on chronic respiratory failure with hypoxia and hypercapnia: Continue BiPAP. Hold medications as above. Appears to be multifactorial related to congestive heart failure excaerbation, acute on chronic COPD, obstructive sleep apnea and morbid obesity. Cannot rule out polypharmacy with current dose of bupropion and Celexa given ongoing MK. History of noncompliance with BiPAP and diuretics in the past. Low suspicion of bacterial pneumonia. COVID-19 PCR negative. BiPAP nightly. Oxygen supplementation keeping saturation over 88%. DuoNebs every 6 hour, budesonide twice daily. Continue with decreased dose of bupropion 100 mg twice daily. Continue with Celexa. Status: Acute (5) Acute on chronic diastolic (congestive) heart failure: As above. Status: Acute (6) Sacral decubitus ulcer: Multiple decubitus sacral ulcers along with ulcer and skin folds. Follow-up wound culture. Wound care as per surgical recommendations. For now continue with nystatin. Start on fluconazole 100 mg daily for next 7 days. Unfortunately patient is not a good candidate for surgical debridement because of her baseline severe SEAN, morbid obesity and decreased mobility along with inability to relieve pressure from affected area. Status: Acute (7) COPD (chronic obstructive pulmonary disease): Status: Chronic Qualifiers: COPD type: COPD with acute exacerbation Qualified Code(s): J44.1 - Chronic obstructive pulmonary disease with (acute) exacerbation (8) Obstructive sleep apnea: BIPAP support overnight recheck ABG Status: Chronic Additional A&P Information Recent ESBL bacteremia: Has finished antibiotics. Low suspicion of infection currently. MRSA positive. Blood cultures so far negative. We will continue to monitor. Continue to hold off on antibiotics for now. Thrombocytopenia: We will request LDH, haptoglobin, reticulocyte. Peripheral smear. Code Status : DNR/DNI. Mechanical soft diet. Protonix for PUD prophylaxis. Lovenox for DVT prophylaxis Guarded prognosis Attestations Medical Necessity Statement*: Continue assessment of worsening renal function, consideration of need of hemodialysis, acute encephalopathy, acute on chronic hypercapnic respiratory failure. Coding Level of Care Code Acute Final Dressing Cutter for Chg Fwd Diagnoses Acute kidney injury superimposed on CKD N17.9; N18.9 Hyperkalemia E87.5 Acute metabolic encephalopathy G93.41 Acute on chronic respiratory failure with hypoxia and hypercapnia J96.21; J96.22 Acute on chronic diastolic (congestive) heart failure I50.33 Sacral decubitus ulcer L89.159 COPD (chronic obstructive pulmonary disease) J44.1 COPD type: COPD with acute exacerbation Obstructive sleep apnea G47.33
--- NOTE | 2021-11-16 11:46 | USCV_ITS ---
Sarah Merrill Age: 61 Gender: F : 1960 Exam Date: 11/16/2021 12:38 Ordering Phys: Rodney Chaudhry MD Technologist: Exam Location[place] [facility] [place] Indication: ? CHF BP: / HR: Rhythm: Sinus Technical Quality: Very technically difficult study MEASUREMENTS (Male / Female) Normal Values FINDINGS Left Ventricle Right Ventricle Right Atrium Left Atrium Mitral Valve Aortic Valve Tricuspid Valve Pulmonic Valve Pericardium Aorta CONCLUSIONS This is a technically very difficult study with poor ultrasonic windows. Probably low normal left ventricular systolic function. Bridget Harmon MD (Electronically Signed) Final Date: 16 November 2021 18:39 S
--- NOTE | 2021-11-16 11:46 | US_ITS ---
WS: [id number] RENAL ULTRASOUND HISTORY: renal failure COMPARISON: 06/30/2020. TECHNIQUE: 2-D and color Doppler imaging of the kidney submitted. Right kidney: Not visualized. Left kidney: 9.0 cm x 4.2 cm x 4.5 cm. Suboptimal visualization due to body habitus. No mass or obstruction. Aorta: Not visualized. Urinary Bladder: Patterson catheter. Bladder is not distended. US/US renal BI* [id number] IMPRESSION: 1. Technically very difficult evaluation of the kidneys. 2. RIGHT kidney is not identified. 3. LEFT kidney is grossly unremarkable.
[2021-11-16 11:49] LABS: Alanine Aminotransferase 8 U/L (0-33); Albumin Level 3.8 g/dL (3.5-5.2); Alkaline Phosphatase 54 IU/L (35-105); Aspartate Amino Transferase 9 U/L (0-32); Blood Urea Nitrogen 76 mg/dL (8-23); Calcium 8.3 mg/dL (8.5-10.5); Carbon Dioxide 27 mmol/L (22-29); Chloride 95 mmol/L (98-107); Globulin 1.8 g/dL (1.3-4.6); Glomerular Filtration Rate 21.4 mL/min (90-130); Glucose 124 mg/dL (65-115); Osmolality Calculated 314 mOsm/kg (285-295); Sodium 140 mmol/L (136-145); Total Bilirubin 0.9 mg/dL (0.15-1.2); Total Protein 5.6 g/dL (6.6-8.7)
[2021-11-16 12:05] LABS: Anion Gap 23.5 (5-19); Potassium 5.5 mmol/L (3.5-5.1)
--- NOTE | 2021-11-16 12:21 | P.CONIM_ITS ---
Providers/Reason For Consult Consulting Physician/Specialty*: Nephrology Reason for Consult*: Eval for MK Attending Physician: Zane Gamboa Primary Care Provider: Elmer Shelton, History of Present Illness History of Present Illness Thank for consultation, today had the pleasure of reviewing this 61-year-old female for evaluation of acute kidney injury. She is obviously very sick, has a chronic history of significant disability. The majority of her health problems revolve around her severe morbid obesity. She came in because of confusion and lethargy, she was found to have hypercarbia, she has since been treated with BiPAP, she has episodes of relative lucidity and episodes of increased confusion. On my interview today she is overtly confused and minimally interactive. Dr. Velazquez has addressed some of her wounds, however, no other overt infectious sources are found. Over the last few days she has become progressively more oliguric. Creatinine is creeping up, potassium levels have been elevated and she has received temporizing medical therapy for this. No apparent history of acute kidney disease, however, I do see elevations in serum creatinine since 2019. Hemodynamics relatively stable following hospitalization with a blood pressures mostly in the 100-120 systolic range, occasionally lower and occasionally higher. No exposure to potentially nephrotoxic substances She has received high-dose diuretics over the last few days she does have significant global anasarca. Review of Systems General: Reports: ROS unobtainable due to medical condition and ROS unobtainable due to mental status Meds/Allergies Home Medications and Allergies Home Medications Medication Instructions Recorded Confirmed Last Taken Type Anbesol (benzocaine) 1 ea MUCOUS MEMBRANE TID PRN 06/28/20 11/11/21 03/18/20 History acetaminophen 650 mg PO Q4H PRN 06/28/20 11/11/21 11/08/21 History albuterol sulfate [ProAir HFA] 2 puff INHALATION Q6H PRN 06/28/20 11/11/21 Unknown History bisacodyl 10 mg PO DAILY PRN 06/28/20 11/11/21 12/20/20 History bisacodyl 10 mg MT DAILY PRN 06/28/20 11/11/21 Unknown History cholecalciferol (vitamin D3) 25 mcg PO BEDTIME@20 06/28/20 11/11/21 11/09/21 History diclofenac sodium 2 g TOPICAL BID PRN 06/28/20 11/11/21 11/06/21 History guaifenesin [Mucinex] 600 mg PO BID@08,199906/28/20 11/11/21 11/10/21 History levetiracetam [Keppra] 1,000 mg PO BID@08,06/28/20 11/11/21 11/10/21 History magnesium hydroxide [Milk of 30 ml PO DAILY PRN 06/28/20 11/11/21 06/13/20 History Magnesia] ondansetron HCl [Zofran] 4 mg PO Q4H PRN 06/28/20 11/11/21 07/08/21 History atorvastatin 40 mg tablet 40 mg PO BEDTIME@199909/23/20 11/11/21 11/09/21 History calcium carbonate [Tums] 400 mg PO TID PRN 12/23/20 11/11/21 12/20/20 History baclofen 5 mg tablet 5 mg PO TID PRN 03/25/21 11/11/21 11/08/21 History cetirizine 10 mg tablet 10 mg PO DAILY PRN 03/25/21 11/11/21 11/08/21 History ferrous sulfate 325 mg (65 mg 325 mg PO DAILY@0800 03/25/21 11/11/21 11/10/21 History iron) tablet,delayed release omeprazole 20 mg capsule,delayed 20 mg PO DAILY@0800 cap 03/25/21 11/11/21 11/10/21 History release Lactobacillus acidophilus 1 cap PO DAILY PRN 06/08/21 11/11/21 11/08/21 History [Acidophilus] nystatin 1 applic TOPICAL BID@0800,199906/08/21 11/11/21 11/10/21 History triamcinolone acetonide 1 applic TOPICAL BID@0800,199906/08/21 11/11/21 11/10/21 History bumetanide 2 mg PO DAILY@08 #90 tab 06/11/21 11/11/21 11/10/21 Rx aspirin 162 mg PO DAILY@0800 07/08/21 11/11/21 11/10/21 History bumetanide 1 mg PO DAILY@1600 07/08/21 11/11/21 11/09/21 History citalopram 20 mg PO DAILY@199907/08/21 11/11/21 11/09/21 History diltiazem HCl [Cardizem CD] 300 mg PO DAILY@79907/08/21 11/11/21 11/10/21 History potassium chloride 20 meq PO DAILY@79907/08/21 11/11/21 11/10/21 History tiotropium bromide [Spiriva with 1 cap INHALATION DAILY@79907/08/21 11/11/21 11/09/21 History HandiHaler] bupropion HCl 150 mg PO BID@09/15/21 11/11/21 11/10/21 History gabapentin 300 mg PO BEDTIME@09/15/21 11/11/21 11/10/21 History hydrocodone-acetaminophen 1 tab PO DAILY PRN 11/11/21 11/11/21 Unknown History Allergies Allergy/AdvReac Type Severity Reaction Status Date / Time adhesive tape Allergy Unknown Verified 11/10/21 18:06 amoxicillin Allergy Unknown Verified 11/10/21 18:06 aspartame Allergy unknown Verified 11/10/21 18:06 metoclopramide [From Reglan] Allergy Unknown Verified 11/10/21 18:06 nitroglycerin Allergy Unknown Verified 11/10/21 18:06 Current Medications Current Medications Generic Name Dose Route Start Last Admin Trade Name Freq PRN Reason Stop Dose Admin Acetaminophen 650 mg 11/11/21 01:08 11/13/21 18:15 Acetaminophen 325 Mg Tablet PO 650 mg Q6H PRN Administration Mild/Mod Pain Or Temp >/= 101 Albuterol/Ipratropium 3 ml 11/11/21 01:15 11/16/21 08:00 Ipratropium-Albuterol 3 Ml Neb INHALATION 3 ml Q6H.RESPIRATORY RAJWINDER Administration Aspirin 162 mg 11/11/21 08:00 11/16/21 09:50 Aspirin 81 Mg Ec Tablet PO Not Given DAILY@08 [facility] Atorvastatin Calcium 40 mg 11/11/21 20:00 11/15/21 20:23 Atorvastatin 40 Mg Tablet PO 40 mg BEDTIME@1999 RAJWINDER Administration Benzonatate 100 mg 11/13/21 06:07 11/14/21 08:00 Benzonatate 100 Mg Capsule PO 100 mg TID PRN Administration COUGH Budesonide 0.5 mg 11/11/21 08:00 11/16/21 08:00 Budesonide 0.5 Mg/2 Ml Neb INHALATION 0.5 mg BID.RESPIRATORY [facility] Administration Bupropion HCl 100 mg 11/11/21 20:00 11/16/21 09:50 Bupropion Sr (12 Hr) 100 Mg Tablet PO Not Given BID@08,20 [facility] Citalopram Hydrobromide 20 mg 11/11/21 20:00 11/15/21 20:23 Citalopram 20 Mg Tablet PO 20 mg DAILY@1999 [facility] Administration Collagenase 1 applic 11/12/21 15:00 11/16/21 09:51 Collagenase Oint 30 Gm TOPICAL Not Given DAILY [facility] Diltiazem HCl 300 mg 11/11/21 08:00 11/16/21 09:50 Diltiazem Er (24hr) 300 Mg Capsule PO Not Given DAILY@0800 [facility] Enoxaparin Sodium 40 mg 11/11/21 09:00 11/16/21 10:12 Enoxaparin 40 Mg/0.4 Ml Syringe SUBCUT 40 mg DAILY [facility] Administration Ferrous Sulfate 325 mg 11/12/21 08:00 11/16/21 09:51 Ferrous Sulfate Ec 325 Mg Tablet PO Not Given DAILY@0800 [facility] Fluconazole 100 mg 11/12/21 15:00 11/16/21 09:52 Fluconazole 100 Mg Tablet PO 11/19/21 14:59 Not Given DAILY [facility] Albumin Human 25 gm in 100 mls @ 60 mls/hr 11/14/21 14:00 11/16/21 08:15 Albumin IV Infused Q8H [facility] Infusion Furosemide 100 mg/ Sodium 50 mls @ 0 mls/hr 11/14/21 16:15 11/16/21 08:59 Chloride IV 30 mg/hr .Q0M [facility] 15 mls/hr Administration Protocol Per Protocol Levetiracetam 1,000 mg 11/11/21 08:00 11/16/21 09:51 Levetiracetam 500 Mg Tablet PO Not Given BID@ [facility] Methylprednisolone Sodium Succinate 40 mg 11/14/21 09:00 11/16/21 10:13 Methylprednisolone Sod Succ 40 Mg/Ml Inj IVP 40 mg DAILY [facility] Administration Morphine Sulfate 1 mg 11/11/21 19:48 11/13/21 19:09 Morphine 4 Mg/Ml Sdv 1 Ml IVP 1 mg Q4H PRN Administration SEVERE PAIN Nystatin 1 applic 11/11/21 08:00 11/16/21 09:51 Nystatin Cream 30 Gm TOPICAL Not Given BID@799,1999 [facility] Nystatin 1 applic 11/11/21 15:00 11/16/21 09:52 Nystatin Powder 15 Gm Btl TOPICAL Not Given BID [facility] Ondansetron HCl 4 mg 11/11/21 01:08 11/14/21 03:12 Ondansetron 2 Mg/Ml Sdv 2 Ml IVP 4 mg Q8H PRN Administration vomiting, or N/V if npo Pantoprazole Sodium 40 mg 11/11/21 09:00 11/16/21 09:[address] 40 Mg Tablet PO Not Given DAILY [facility] PFSH Acute PFSH: Medical History (Updated 11/16/21 @ 11:40 by Zane Gamboa MD) Acute on chronic diastolic (congestive) heart failure Echocardiogram done in October 2020 shows an EF of 55% with grade 1 diastolic dysfunction. Acute on chronic respiratory failure with hypoxia and hypercapnia Acute respiratory failure with hypercapnia Acute respiratory failure with hypoxia MK (acute kidney injury) Chronic atrial fibrillation Chronic diastolic CHF (congestive heart failure) Chronic kidney disease COPD (chronic obstructive pulmonary disease) Depression with anxiety GERD (gastroesophageal reflux disease) History of GI bleed History of seizures Hypertension Morbid obesity with BMI of 60.0-69.9, adult NSTEMI (non-ST elevated myocardial infarction) Obesity hypoventilation syndrome Obstructive sleep apnea On home oxygen therapy On 3 L by nasal cannula Osteoarthritis Restless leg syndrome Transaminitis Urinary tract infection due to ESBL Klebsiella Vitamin D deficiency Surgical History History of appendectomy History of hip surgery Bilateral History of hysterectomy History of tonsillectomy Presence of inferior vena cava filter Family History Other Diabetes Liver abscess and sequelae of chronic liver disease Social History Smoking and tobacco status: former smoker Alcohol intake: never Housing: Jail Vitals/I&O/Wt Last Vital Signs Temp 96.2 F L 11/16/21 08:00 Pulse 99 11/16/21 08:08 Resp 18 11/16/21 08:00 BP 121/65 11/16/21 08:00 Pulse Ox 94 11/16/21 08:00 11/15/21 11/16/21 11/16/21 22:59 06:59 14:59 Intake Total 300 / 500.1 1100 / 1600.1 150 / 150 Output Total 50 / 175 Balance 300 / 375.1 1050 / 1425.1 150 / 150 Physical Exam Narrative: EXAM NARRATIVE: Constitutional: Drowsy HEENT: Wet mucosa, no jvp, non icteric Lungs: Bilaterally clear without discernible wheeze, rales in all lung zones CVS: S1 S2, no murmurs Abdo: Soft, BS ok Ext 4: 2-3+ edema, peripheral perfusion with no cyanosis Neurological: Grossly non-focal Urinary Catheter Management^: Patterson Latex Free: Cath Placed During This Visit: yes Reason for Continuing Indwelling Catheter: Accurate Measurement of Urinary Output in Critically Ill Patients Urinary Catheter Date of Insertion: 11/11/21 Urinary Catheter Time of Insertion: 14:38 Patterson: Cath Placed During This Visit: no Reason for Continuing Indwelling Catheter: Assist Healing of Perineal & Sacral Wounds- Incontinent Patients A&P Additional A&P Information 1. Oliguric acute kidney injury The current working diagnosis is cardiorenal syndrome, with the likelihood of very high right-sided pressures given the history of severe obesity. Urinary sodium 17, 2 days ago consistent with renal hypoperfusion. Given her progressive decline in mental status, the question of uremia is appreciated. Dialysis can be justified in this sense to see if this helps improve cognition. Given that she is oliguric, it would only be a matter of time before uremia gets worse as well. We will do a work-up to include renal sonogram We will also get 2D echocardiogram We will get TSH, uric acid, phosphorus, CPK Strict I's and O's Dose medication for GFR less than 15 Avoid usual nephrotoxic agents 2. Altered mental status On admission she had hypercarbia, now she also has possible uremia. Continue BiPAP, dialysis to bring down uremic burden. 3. Chemistry Hyperkalemic over the last few days, this has improved slightly to a potassium of 5.5, continue to closely monitor. 4. Disposition She is and is very sick, difficult situation. I think it is reasonable to try dialysis as well as the BiPAP to see if we can clinically improve her. If there is little improvement then we will questions need to be asked about long-term prognosis and palliation. Thank you for consultation, it is a pleasure to follow these cases with you Exam and interview performed with aid of bedside RN using telemedicine Time spent 20 min inc > 50% of time in face to face counseling Rodney Chaudhry MD [facility] [phone] Consult Attestations Medical Necessity Statement: Review for KM Coding Level of Care Code Acute Scratch Polisher for Janeth Grimes
[2021-11-16 13:08] LABS: Creatine Phosphokinase 16 U/L (26-192); Phosphorus 5.1 mg/dL (2.5-4.5); Thyroid Stimulating Hormone 0.73 uIU/mL (0.27-4.20); Uric Acid 11.2 mg/dL (2.4-5.7)
[2021-11-16] MEDS: FUROsemide 200 MG in sodium chloride 0.9% (100 ml) 80 ML 15 MG IV ×2 (13:10→20:52)
[2021-11-16 13:26] LABS: Lactate Dehydrogenase 240 U/L (135-214)
[2021-11-16 13:32] LABS: Hematocrit 23.2 % (37.0-47.0); Retic Production Index 0.64; Reticulocyte % 1.1 % (0.5-2.0)
[2021-11-16 14:35] LABS: LAB Peripheral Smear Sent for Review
--- NOTE | 2021-11-16 19:44 | PC.NURSE ---
Report taken from Elen SHERMAN on previous shift, patient unable to take pills as she is not awake enough and is responding little. MD aware. Will continue to monitor.
--- NOTE | 2021-11-16 22:13 | PC.NURSE ---
Lab unable to draw labs this evening. This RN attempt unsuccessful. Dr. Casey notified. Will wait to attempt for am labs.
[2021-11-16] MEDS: levETIRAcetam 500 mg Tablet 1000 MG PO (23:25)
[2021-11-16] MEDS: atorvastatin 40 mg Tablet PO (23:25)
[2021-11-16] MEDS: nystatin cream 30 gm 1 APPLIC TOPICAL (23:26)
[2021-11-17] VITALS (12 sets, daily range): BP systolic 93–115; BP diastolic 63–80; PULSE 91–103; RESP 17–23; TEMP 36.1–36.4; O2SAT 79–95
[2021-11-17] MEDS: ipratropium-albuterol 3 mL Neb INHALATION ×2 (02:42→09:20)
[2021-11-17] MEDS: FUROsemide 200 MG in sodium chloride 0.9% (100 ml) 80 ML 15 MG IV (06:29)
--- NOTE | 2021-11-17 07:11 | PC.NURSE ---
Labs unable to be drawn again this am. Dr. Casey aware. Will pass on to oncoming nurse.
[2021-11-17 08:39] LABS: Mean Corpuscular HGB Conc 30.2 g/dL (30.0-36.0); Mean Corpuscular Hemoglobin 25.9 pg (28.0-34.0); Mean Corpuscular Volume 85.8 fl (81-99); Mean Platelet Volume 10.4 fL (7.4-10.4); Platelet Count 92 10^3/cmm (130-400); Red Blood Count 2.39 10^6/uL (4.1-5.3); Red Cell Distribution Width 18.4 % (12.1-15.1); White Blood Count 9.2 10^3/uL (4.0-10.0)
--- NOTE | 2021-11-17 08:43 | PC.CHAP ---
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 national expansion recruiter visit [] Patient/Family/Request visit [] Outpatient visit [] Follow-up visit [] Physician referral [] Code/Alert [x] Routine visit [] Staff referral [] Actively dying [] Patient sleeping [] Family support [] [] Out of room [] Palliative care [] [] Receiving care in room [] Pre-surgical visit [] Trauma [] Long length of stay [] ICU visit [] Other: Relational/Emotional Strength [] Patient feels connected with others/family/visitors/staff [] Distress [] Loneliness/isolation [] Abandonment Spirituality of Patient [] Person of Sun [] Attends Hindu of their Sun [] Believes in Prayer [] Reads Bible or Restorationism materials [] There are Spiritual issues to be addressed Sterilizer Machine Operator Interventions [x] Prayer [] Active listening [] Non-anxious presence [] Spiritual/emotional support [] Crisis/trauma care [] Spiritual counseling [] Bereavement support [] Provided bereavement packet [] Provided Bible/devotional materials [] Provided toy/stuffed animal, coloring book to patient or family member [] Provided Communion [] Anointing/[place] [] Salvation [] Completed spiritual assessment [] Other: Impact on Illness or Injury [] Angry [] Fearful [] Anxious [] Often cries [] Exhaustion [] Unable to work [] Unable to attend methodist [] Unable to walk/stand [] Unable to read [] Unable to drive [] Unable to eat/drink [] Unable to sleep [] Unable to be with family [] Patient intubated [] Other: Summary Staff indicated Pt is unresponsive. Prayer was said Time spent with patient 1m
--- NOTE | 2021-11-17 08:47 | PC.NURSE ---
PO meds not given as patient is non verbal and does not follow commands. Risk of aspiration.
[2021-11-17 08:56] LABS: Alanine Aminotransferase 8 U/L (0-33); Albumin Level 3.7 g/dL (3.5-5.2); Alkaline Phosphatase 59 IU/L (35-105); Anion Gap 25.6 (5-19); Aspartate Amino Transferase 9 U/L (0-32); Calcium 8.5 mg/dL (8.5-10.5); Carbon Dioxide 27 mmol/L (22-29); Chloride 93 mmol/L (98-107); Globulin 2.4 g/dL (1.3-4.6); Glomerular Filtration Rate 20.4 mL/min (90-130); Glucose 89 mg/dL (65-115); Osmolality Calculated 317 mOsm/kg (285-295); Potassium 5.6 mmol/L (3.5-5.1); Sodium 140 mmol/L (136-145); Total Bilirubin 1.1 mg/dL (0.15-1.2); Total Protein 6.1 g/dL (6.6-8.7)
[2021-11-17 08:58] LABS: Blood Urea Nitrogen 90 mg/dL (8-23)
[2021-11-17] MEDS: budesonide 0.5 mg/2 mL Neb INHALATION (09:21)
[2021-11-17 10:07] LABS: Slide Review Slide Review Perform
[2021-11-17 10:09] LABS: Hematocrit 20.5 % (37.0-47.0); Hemoglobin 6.2 g/dL (11.5-15.3)
[2021-11-17 10:13] LABS: Eosinophils 4 %; Lymphocytes 20 %; Segmented Neutrophils 53 %; Total Cells Counted 100 (0-100)
[2021-11-17 10:14] LABS: Platelet Estimate Decreased (Normal)
--- NOTE | 2021-11-17 10:27 | P.PN_ITS ---
Subjective Subjective: Interval history: Lethargic, confused. Working with BiPAP. Does not appear not in distress or discomfort. Vitals/I&O/Wt Last Vital Signs Temp 97.5 F L 11/17/21 07:56 Pulse 97 11/17/21 09:23 Resp 23 H 11/17/21 09:23 BP 93/63 11/17/21 07:56 Pulse Ox 87 L 11/17/21 09:23 11/16/21 11/17/21 11/17/21 22:59 06:59 14:59 Intake Total 200 / 350 200 / 550 Output Total 50 / 50 25 / 75 Balance 150 / 300 175 / 475 Weight last 48 hrs Weight 228.928 kg Physical Exam Const: COMMON NORMALS: no acute distress GENERAL APPEARANCE: lethargic NUTRITIONAL APPEARANCE: obese morbidly obese ORIENTATION/CONSCIOUSNESS: Yes confused and Yes lethargic HENMT: COMMON NORMALS: oropharynx normal Neck/C-Spine: COMMON NORMALS: no JVD Resp: COMMON NORMALS: normal respiratory effort and clear to auscultation bilaterally AUSCULTATION: clear to auscultation bilaterally and diminished lung sounds OTHER: Very difficult exam due to body habitus. Cardio: COMMON NORMALS: no JVD, regular rhythm, S1 normal heart sound present, S2 normal heart sound present and No murmurs present (Cardio) RHYTHM: regular rhythm HEART SOUNDS: S1 normal heart sound present and S2 normal heart sound present GI: COMMON NORMALS: Normal to inspection, nondistended, normoactive bowel sounds present, Soft to palpation and non-tender PALPATION: Yes Soft to palpation Extremity: COMMON NORMALS: no joint enlargement GENERAL: Yes edema (2+ anasarca) Neuro: COMMON NORMALS: moves all extremities SENSORIUM/ORIENTATION: Yes lethargic Skin: GENERAL SKIN EXAM: dry skin (BL LE) and ecchymosis OTHER: Intertrigo multiple skin folds Urinary Catheter Management^: Patterson Latex Free: Cath Placed During This Visit: yes Reason for Continuing Indwelling Catheter: Acute Urinary Retention or Obstruction Urinary Catheter Date of Insertion: 11/11/21 Urinary Catheter Time of Insertion: 14:38 Patterson: Cath Placed During This Visit: no Reason for Continuing Indwelling Catheter: Assist Healing of Perineal & Sacral Wounds- Incontinent Patients Data : 11/17/21 08:25 11/17/21 08:25 Micro: Microbiology 11/11/21 20:50 Blood Culture - Final Blood NO GROWTH AFTER 5 DAYS 11/11/21 15:08 Blood Culture - Final Blood NO GROWTH AFTER 5 DAYS A&P Assessment and plan (1) Acute kidney injury superimposed on CKD: Unable to place dialysis catheter in house. Arrangements for transfer difficult at this time due to hospital in the surrounding area, continued attempts are being made. Waitlisted for now in [place]. Discussed with [id number] Faith. Discussed precarious condition with persistent lethargy, encephalopathy, hypercapnic respiratory failure, oliguria, fluid overload. Ms Cuevas understands currently very high risk of mortality and overall poor prognosis. If possible she would still like to try to pursue attempted dialysis she states is per which is related to her by the patient. Not much response to diuretic challenge, minimal urine output. Despite Lasix drip and metolazone. Baseline BMP since 2019 seems to be around 1.5-1.8. If patient continues to remain oliguric even after diuretic challenge will consult nephrology. Status: Acute (2) Acute anemia: Discussed with [id number]. Hemoglobin decreased to 6.2. Consideration of multifactorial acute anemia including possibly dilution with old. Additionally possible gastritis with IV steroid. Stop steroid for now. Escalate PPI to IV twice daily. De-escalate VT prophylaxis continue heparin 5000 every 12 hours. 1 unit PBC transfusion. Follow-up hemoglobin. Hemoccult. Studies do not suggest hemolysis. Status: Acute (3) Hyperkalemia: Received calcium gluconate, insulin, dextrose, Kayexalate. K 5.6 Status: Acute (4) Acute metabolic encephalopathy: related to hypercapnea, Co2 worsened over baseline. Possibly uremic contribution. Wellbutrin, hold citalopram. Check Keppra level. Baclofen on hold. Status: Acute (5) Acute on chronic respiratory failure with hypoxia and hypercapnia: Continue BiPAP. Hold medications as above. Appears to be multifactorial related to congestive heart failure excaerbation, acute on chronic COPD, obstructive sleep apnea and morbid obesity. Cannot rule out polypharmacy with current dose of bupropion and Celexa given ongoing MK. History of noncompliance with BiPAP and diuretics in the past. Low suspicion of bacterial pneumonia. COVID-19 PCR negative. BiPAP nightly. Oxygen supplementation keeping saturation over 88%. DuoNebs every 6 hour, budesonide twice daily. Continue with decreased dose of bupropion 100 mg twice daily. Continue with Celexa. Status: Acute (6) Acute on chronic diastolic (congestive) heart failure: As above. Status: Acute (7) Sacral decubitus ulcer: Multiple decubitus sacral ulcers along with ulcer and skin folds. Follow-up wound culture. Wound care as per surgical recommendations. For now continue with nystatin. Start on fluconazole 100 mg daily for next 7 days. Unfortunately patient is not a good candidate for surgical debridement because of her baseline severe SEAN, morbid obesity and decreased mobility along with inability to relieve pressure from affected area. Status: Acute (8) COPD (chronic obstructive pulmonary disease): Status: Chronic Qualifiers: COPD type: COPD with acute exacerbation Qualified Code(s): J44.1 - Chronic obstructive pulmonary disease with (acute) exacerbation (9) Obstructive sleep apnea: BIPAP support Status: Chronic Additional A&P Information Recent ESBL bacteremia: Has finished antibiotics. Low suspicion of infection currently. MRSA positive. Blood cultures so far negative. We will continue to monitor. Continue to hold off on antibiotics for now. Thrombocytopenia: Slightly better. Haptoglobin, LDH not suggestive of hemolysis. Peripheral smear. Code Status : DNR/DNI. NPO Protonix for PUD prophylaxis. Lovenox for DVT prophylaxis Guarded prognosis Attestations Medical Necessity Statement*: Continue assessment management of acute encephalopathy, hypercapnic respiratory failure, oliguric acute kidney injury, acute anemia in a lady with morbid obesity pending transfer to outside facility for arrangements for hemodialysis. 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
--- NOTE | 2021-11-17 11:19 | PC.NURSE ---
Call placed to Dr Gamboa patient not maintaining o2 saturations on current bipap settings RT to bedside sats brought back up in the 's Doctor longo to call family
--- NOTE | 2021-11-17 14:58 | P.PN_ITS ---
Subjective Subjective: Interval history: She remains very sick, very unwell. Currently on BiPAP, not interactive. Very poor urine output in response to diuretic therapy. Vitals/I&O/Wt Last Vital Signs Temp 97.2 F L 11/17/21 12:00 Pulse 91 11/17/21 13:34 Resp 19 H 11/17/21 12:00 BP 98/80 11/17/21 12:00 Pulse Ox 79 L 11/17/21 13:34 11/16/21 11/17/21 11/17/21 22:59 06:59 14:59 Intake Total 200 / 350 200 / 550 Output Total 50 / 50 25 / 75 Balance 150 / 300 175 / 475 Weight last 48 hrs Weight 228.928 kg Physical Exam Narrative: EXAM NARRATIVE: Constitutional: Drowsy HEENT: Wet mucosa, no jvp, non icteric Lungs: Bilaterally clear without discernible wheeze, rales in all lung zones CVS: S1 S2, no murmurs Abdo: Soft, BS ok Ext 4: 2-3+ edema, peripheral perfusion with no cyanosis Neurological: Grossly non-focal Urinary Catheter Management^: Patterson Latex Free: Cath Placed During This Visit: yes Reason for Continuing Indwelling Catheter: Acute Urinary Retention or Obstruction Urinary Catheter Date of Insertion: 11/11/21 Urinary Catheter Time of Insertion: 14:38 Patterson: Cath Placed During This Visit: no Reason for Continuing Indwelling Catheter: Assist Healing of Perineal & Sacral Wounds- Incontinent Patients Data : 11/17/21 08:25 11/17/21 08:25 Micro: Microbiology 11/11/21 20:50 Blood Culture - Final Blood NO GROWTH AFTER 5 DAYS 11/11/21 15:08 Blood Culture - Final Blood NO GROWTH AFTER 5 DAYS A&P Additional A&P Information 1. Oliguric acute kidney injury The current working diagnosis is cardiorenal syndrome, with the likelihood of very high right-sided pressures given the history of severe obesity. Urinary sodium 17, 2 days ago consistent with renal hypoperfusion. Remains oligoanuric, and clearly needs dialysis, however, we cannot get iv access, due do her inability to lie on an operating table. Right now we are looking for another facility that can accept her. Strict I's and O's Dose medication for GFR less than 15 Avoid usual nephrotoxic agents 2. Altered mental status On admission she had hypercarbia, now she also has possible uremia. Continue BiPAP, dialysis to bring down uremic burden. 3. Chemistry Hyperkalemic over the last few days, this has improved slightly to a potassium of 5.5, continue to closely monitor. 4. Anemia To receive PRBCs 5. Disposition She is and is very sick, difficult situation. I think it is reasonable to try dialysis as well as the BiPAP to see if we can clinically improve her. If there is little improvement then we will questions need to be asked about long-term prognosis and palliation. Currently every effort is being made to find an accepting facility for her, however, given the Covid crisis that we are currently?there are currently no beds available. 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
--- NOTE | 2021-11-17 17:59 | P.DES_ITS ---
Discharge Providers DDS Date of Admission: 11/11/21 02:24 Date Summary Completed: 11/17/21 Attending Provider at Admission: Melany Perez MD Time of : 14:05 Attending Provider at Discharge: Zane Gamboa Primary Care Provider: DO JU Almanza Diagnoses Hospital Diagnoses (1) Acute kidney injury superimposed on CKD: (2) Acute anemia: (3) Hyperkalemia: (4) Acute metabolic encephalopathy: (5) Acute on chronic respiratory failure with hypoxia and hypercapnia: (6) Acute on chronic diastolic (congestive) heart failure: Problem details: Echocardiogram done in October 2020 shows an EF of 55% with grade 1 diastolic dysfunction. (7) Sacral decubitus ulcer: (8) COPD (chronic obstructive pulmonary disease): Qualifiers: COPD type: COPD with acute exacerbation Qualified Code(s): J44.1 - Chronic obstructive pulmonary disease with (acute) exacerbation (9) Obstructive sleep apnea: Reason for Visit Reason for Visit: LOW O2 Summary Date and Time of Date of : 11/17/21 Time of : 14:05 Summary Summary: 63-year-old lady long-term resident bedbound with morbid obesity, BMI of 90, chronic hypercapnic and hypoxic respiratory failure, chronic 3 L oxygen by nasal cannula, COVID-19 pneumonia 8 months ago, chronic kidney disease, congestive heart failure, chronic atrial fibrillation, COPD, OHS, SEAN, RLS, depression, multiple pressure ulcers, other conditions, nonadherent with BiPAP therapy, admitted on 11/11 with recurrence of progressively worsening confusion, lethargy over the preceding week, agitation, refusing to wear BiPAP, going off oxygen, not adhering to dietary and water restrictions, becoming more hypoxic in addition to more confusion and lethargy. With acute on chronic hypercapnic and hypoxic respiratory on presentation. Started on BiPAP support. CHF and pulmonary edema noted on imaging. COVID-19 PCR negative. She otherwise has been afebrile, without leukocytosis or other suggestion of acute infection. Procalcitonin 0.17. With BiPAP therapy hypercapnic encephalopathy initially improved. In the hospital also noted, however, worsening renal function. Creatinine not severely elevated, but gradually worsening, and with oliguria. Attempts at diuretic challenge with Lasix, Lasix drip and even metolazone were not successful. With overall poor health, functional status, discussions were leaning towards hospice care, however, given family member who had previously h ad hemodialysis as patient was familiar with it she had expressed she would want to try proceeding with it. Nephrology consultation was obtained, arrangements were initiated to set up for hemodialysis given persistent oliguria, CHF and anasarca with fluid overload, again worsening mental status, BiPAP dependence, metabolic acidosis, uremia, however, access could not be obtained in the hospital due to body habitus, could not be done bedside due to both difficult access and worsening respiratory status, and could not be accommodated in the OR due to physical limitations. Multiple outside facilities were contacted in the surrounding area, but unfortunately no beds could be found available. She was placed on a waiting list at [facility]. Attempt resumed again this morning, however, with later in the morning deterioration in her condition worsening hypoxia, lethargy. Saturations deteriorating despite FiO2 now needing to be increased to 100%, changed to AVAPS mode. PRBC requested for noted acute anemia, with escalation to Protonix IV BID, discontinuation of steroid. Lasix drip stopped, and as per discussion with nephrology changed to IV push of 100 mg 3 times daily. Still with continued deterioration of condition and respiratory status, severe anasarca. Family updated on multiple occasions on her condition and changes, made aware of unfortunately continually worsening prognosis and window of opportunity to be able to transfer. Subsequently with worsening respirations, ectopic rhythms on telemetry, family headed over in anticipation of likely inevitable demise. Discussion of consideration of addition of comfort measures, although did not appear to be in pain or discomfort so no changes made at that time. Family requested to continue BiPAP to be able to come see her. Shortly after noted PEA with no ACLS measures undertaken in accordance with previously expressed CODE STATUS wishes, with loss of blood pressure, saturation and subsequently any dopplerable pulses, without any pain or discomfort. Family notified of her passing at 2:05 PM. Additional Data Confirmation of as documented by pronouncing clinician: no pulse and no respirations Family: contacted Additional persons at bedside: nursing staff and luggage maker Attending/PCP notified?: I am attending Autopsy requested?: No Discharge Plan Discharge Patient Disposition: Condition: Prescriptions: No Action atorvastatin 40 mg tablet 40 mg PO BEDTIME@1999 RF: 0 ferrous sulfate 325 mg (65 mg iron) tablet,delayed release (DR/EC) 325 mg PO DAILY@0800 RF: 0 baclofen 5 mg tablet 5 mg PO TID PRN (Reason: Muscle Spasm) RF: 0 triamcinolone acetonide 0.1 % Cream 1 applic TOPICAL BID@ RF: 0 nystatin 100,000 unit/gram Cream 1 applic TOPICAL BID@ RF: 0 Lactobacillus acidophilus [Acidophilus] Capsule 1 cap PO DAILY PRN (Reason: w/antibiotics) RF: 0 bumetanide 1 mg tablet 2 mg PO DAILY@08 Qty: 90 RF: 0 aspirin 81 mg tablet,delayed release (DR/EC) 162 mg PO DAILY@0800 RF: 0 diltiazem HCl [Cardizem CD] 300 mg capsule,extended release 24hr 300 mg PO DAILY@0800 RF: 0 bumetanide 1 mg tablet 1 mg PO DAILY@1600 RF: 0 Spiriva with HandiHaler 18 mcg capsule, w/inhalation device 1 cap inhalation DAILY@0800 RF: 0 potassium chloride 20 mEq tablet extended release 20 meq PO DAILY@0800 RF: 0 citalopram 20 mg Tablet 20 mg PO DAILY@1999 RF: 0 acetaminophen 325 mg Tablet 650 mg PO Q4H PRN (Reason: Pain) RF: 0 ondansetron HCl [Zofran] 4 mg Tablet 4 mg PO Q4H PRN (Reason: Nausea) RF: 0 Anbesol (benzocaine) 20 % Liquid 1 ea MUCOUS MEMBRANE TID PRN (Reason: Toothache) RF: 0 magnesium hydroxide [Milk of Magnesia] 400 mg/5 mL Suspension 30 ml PO DAILY PRN (Reason: Constipation) RF: 0 bisacodyl 10 mg Suppository 10 mg CA DAILY PRN (Reason: Constipation) RF: 0 bisacodyl 5 mg Tablet,Delayed Release (Dr/Ec) 10 mg PO DAILY PRN (Reason: Constipation) RF: 0 albuterol sulfate [ProAir HFA] 90 mcg/actuation Hfa Aerosol Inhaler 2 puff INHALATION Q6H PRN (Reason: Shortness Of Breath) RF: 0 cholecalciferol (vitamin D3) 25 mcg (1,000 unit) Capsule 25 mcg PO BEDTIME@20 RF: 0 levetiracetam [Keppra] 1,000 mg Tablet 1,000 mg PO BID@ RF: 0 diclofenac sodium 1 % Gel 2 g TOPICAL BID PRN (Reason: Pain) RF: 0 guaifenesin [Mucinex] 600 mg Tablet Extended Release 12hr 600 mg PO BID@0800,1999 RF: 0 omeprazole 20 mg capsule,delayed release(DR/EC) 20 mg PO DAILY@0800 RF: 0 calcium carbonate [Tums] 200 mg calcium (500 mg) Tablet,Chewable 400 mg PO TID PRN (Reason: Indigestion) RF: 0 cetirizine 10 mg tablet 10 mg PO DAILY PRN (Reason: Allergy Symptoms) RF: 0 bupropion HCl 150 mg Tablet Sustained-Release 12 Hr 150 mg PO BID@08, RF: 0 gabapentin 300 mg Capsule 300 mg PO BEDTIME@20 RF: 0 hydrocodone-acetaminophen 10-325 mg Tablet 1 tab PO DAILY PRN (Reason: Pain) RF: 0 Referrals: Elmer Shelton DO [Primary Care Provider] - Patient Instructions: Opioid Safety DS Attestations Time Spent in /Discharge Care*: greater than 30 min Quality - AMI: AMI present?: No Quality - Stroke: CVA present?: No Symptom Onset Unknown: No Quality - VTE: VTE present?: No Deep Vein Thrombosis/Pulmonary Embolism Present on Admission: No Coding Level of Care Code 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
== END 2021-11-17 14:05 | disposition expired | DRG 291 ==
LOC: ER 21:10 → ER IP 11-11 02:24 → CSU 11-11 12:56
PROVIDERS: Internal Medicine Nephrology; Student in an Organized Health Care Education/Training Program; Admitting Provider Student in an Organized Health Care Education/Training Program; Emergency Provider Emergency Medicine; PCP Internal Medicine; Visit Provider Internal Medicine
DX: I13.0 Hypertensive heart and chronic kidney disease with heart failure and stage 1 through stage 4 chronic kidney disease, or unspecified chronic kidney disease (principal); I50.33 Acute on chronic diastolic (congestive) heart failure; J96.22 Acute and chronic respiratory failure with hypercapnia; J96.21 Acute and chronic respiratory failure with hypoxia; G93.41 Metabolic encephalopathy; J44.1 Chronic obstructive pulmonary disease with (acute) exacerbation; E66.2 Morbid (severe) obesity with alveolar hypoventilation; Z68.45 Body mass index [BMI] 70 or greater, adult; I48.20 Chronic atrial fibrillation, unspecified; N17.9 Acute kidney failure, unspecified; N18.9 Chronic kidney disease, unspecified; F41.8 Other specified anxiety disorders; K21.9 Gastro-esophageal reflux disease without esophagitis; I25.2 Old myocardial infarction; Z99.81 Dependence on supplemental oxygen; M19.90 Unspecified osteoarthritis, unspecified site; G25.81 Restless legs syndrome; Z87.440 Personal history of urinary (tract) infections; E55.9 Vitamin D deficiency, unspecified; Z95.828 Presence of other vascular implants and grafts; Z87.891 Personal history of nicotine dependence; D69.6 Thrombocytopenia, unspecified; D64.9 Anemia, unspecified; E87.5 Hyperkalemia; Z86.14 Personal history of Methicillin resistant Staphylococcus aureus infection; Z91.19 Patient's noncompliance with other medical treatment and regimen; Z86.16 Personal history of COVID-19; Z74.01 Bed confinement status; Z66 Do not resuscitate
CPT/HCPCS: 36415; 36600; 51702; 71045; 76770; 80048; 80053; 80177; 80500; 82436; 82550; 82570; 82803; 82805; 83010; 83615; 83735; 83880; 84100; 84133; 84145; 84300; 84443; 84484; 84550; 85007; 85014; 85025; 85045; 86850; 86900; 86920; 87040; 87635; 87641; 93005; 93306; 94640; 94660; 94664; 96372; 96374; 96375; 99291; J1650; J1815; J1940; J2270; J2405; J2920; J2930; J3490; J7030; J7611; J7626; J7799; P9047